=== PATIENT | male | born 1935 | race Caucasian/White ===

== ENCOUNTER → 2017-03-23 13:02 | Outpatient (CLI) | payer MEDICARE, SELFPAY ==
[2017-03-23 14:40] LABS: Hematocrit 41.3 % (40-54); Hemoglobin 14.2 g/dl (13.0-16.5); Mean Corp Hgb Conc 34.4 g/gl (32-36); Mean Corpuscular Hgb 33.6 pg (27.0-32.0); Mean Corpuscular Volume 97.6 fL (80-94); Mean Platelet Vol. 11.1 fl (6.2-12.0); Platelet Count 161 K/mm3 (150-450); RBC Distribution Width CV 12.9 % (11.6-14.6); RBC Distribution Width SD 45.9 fl (35.1-43.9); Red Blood Count 4.23 M/mm3 (4.6-6.2)
[2017-03-23 14:41] LABS: Scan Indicated on CBC? Y/N NO
[2017-03-23 14:58] LABS: Protein:Creat Ratio 1900 mg/g CRE (0-200)
[2017-03-23 15:02] LABS: Albumin, Serum 3.6 g/dL (3.2-5.0); BUN 37 mg/dL (7-18); BUN/Creat Ratio 19.9 RATIO (10-20); Calcium,Total 8.7 mg/dL (8.5-10.1); Chloride 104 mmol/L (98-107); Cholesterol 118 mg/dL (200); Creatinine, Serum 1.86 mg/dL (0.70-1.30); EST Glomerular Filtration Rate 37 mL/min (>60); Est Glom Filt Rate - Afr Amer 45 mL/min (>60); Glucose 93 mg/dL (74-106); High Density Lipoprotein 46 mg/dL; Magnesium 2.1 mg/dL (1.6-2.6); Phosphorus 3.1 mg/dL (2.5-4.9); Potassium 3.9 mmol/L (3.5-5.1); Sodium Level 138 mmol/L (136-145); Triglycerides 111 mg/dL; Very Low Density Lipoprotein 22 mg/dL (5-40)
[2017-03-24 09:02] LABS: Vitamin D,25 Hydroxy 27.7 ng/mL (19.95-100.01)
[2017-03-24 09:04] LABS: PTHIN 109.4 pg/mL (18.4-80.1)
== END ==
PROVIDERS: Internal Medicine Nephrology
DX: N18.3 Chronic kidney disease, stage 3 (moderate) (principal); N25.81 Secondary hyperparathyroidism of renal origin; E83.42 Hypomagnesemia; R80.9 Proteinuria, unspecified
CPT/HCPCS: 36415; 80061; 80069; 82306; 82570; 83735; 83970; 84156; 85027

== ENCOUNTER → 2018-07-26 | Outpatient (CLI) | payer MEDICARE, SELFPAY ==
--- NOTE | 2018-07-26 12:38 | RAD_ITS ---
STUDY: X-RAY - LEFT WRIST REASON FOR EXAM: Pain and swelling, fall. TECHNIQUE: 3 view(s) of the wrist were obtained. COMPARISON: None. FINDINGS: Normal visualized distal radius and ulna. Normal radiocarpal articulation. Normal distal radioulnar articulation. Normal carpal bones. Normal carpal articulations. Normal carpometacarpal articulation of the thumb. Normal second through fifth carpometacarpal articulations. Normal visualized metacarpal bones. There is soft tissue swelling. RAD/Wrist min 3 Views IMPRESSION: Soft tissue swelling. No demonstrated fracture. Electronically Signed: Allan Barahona MD at 13:01 EDT Tel , Service support ,
== END | disposition home or self-care (01) ==
PROVIDERS: Referring Provider Orthopaedic Surgery; Visit Provider Orthopaedic Surgery
DX: S62.102A Fracture of unspecified carpal bone, left wrist, initial encounter for closed fracture (principal)
CPT/HCPCS: 73110

== ENCOUNTER → 2018-07-31 08:35 | Outpatient (CLI) | payer MEDICARE, SELFPAY ==
[2018-07-26 14:36] VITALS: BMI 29.1
[2018-07-30 10:47] LABS: Hematocrit 37.9 % (40-54); Mean Corp Hgb Conc 34.3 g/gl (32-36); Mean Corpuscular Hgb 33.1 pg (27.0-32.0); Mean Corpuscular Volume 96.4 fL (80-94); Mean Platelet Vol. 10.7 fl (6.2-12.0); Platelet Count 185 K/mm3 (150-450); RBC Distribution Width CV 13.3 % (11.6-14.6); RBC Distribution Width SD 46.1 fl (35.1-43.9); Red Blood Count 3.93 M/mm3 (4.6-6.2); White Blood Count 5.6 K/mm3 (4.4-11.0)
[2018-07-30 10:48] LABS: International Normalized Ratio 1.1
[2018-07-30 10:49] LABS: Partial Thromboplast Time 28.8 Seconds (24.1-36.2); Scan Indicated on CBC? Y/N NO
[2018-07-30 11:07] LABS: Albumin, Serum 3.7 g/dL (3.2-5.0); BUN 41 mg/dL (7-18); BUN/Creat Ratio 14.5 RATIO (10-20); Calcium,Total 8.4 mg/dL (8.5-10.1); Chloride 107 mmol/L (98-107); Creatinine, Serum 2.82 mg/dL (0.70-1.30); EST Glomerular Filtration Rate 23 mL/min (>60); Est Glom Filt Rate - Afr Amer 28 mL/min (>60); Glucose 89 mg/dL (74-106); Magnesium 2.1 mg/dL (1.6-2.6); Phosphorus 3.3 mg/dL (2.5-4.9); Potassium 4.4 mmol/L (3.5-5.1); Sodium Level 137 mmol/L (136-145)
[2018-07-30 11:14] LABS: Vitamin D,25 Hydroxy 38.8 ng/mL (29.95-100.01)
[2018-07-30 11:24] LABS: Microalbumin:Creatinine Ratio 1408.6 mg/g CRE (<30 mg/g CRE)
[2018-07-30 11:35] LABS: PTHIN 253.5 pg/mL (18.4-80.1)
[2018-07-31] VITALS (13 sets, daily range): BP systolic 111–191; BP diastolic 61–94; PULSE 54–71; RESP 12–19; TEMP 36.4; O2SAT 95–99; BMI 29.1
--- NOTE | 2018-07-31 | KID_PTH ---
PATIENT: LEYDA ISAACS LOC: [facility]#:[id number] AGE/SX: 89/M ROOM: RE07/31/[address]: Dr. Andrea Xiao MD : 1935 BED: DIS: SPEC #: [id number] RECD: 07/31/18 12:29 STATUS: LROENA HSIEH #: [id number] KWESI: 07/31/18 00:[address]: Andrea Xiao DEPT: SURGICAL PATHOLOGY RECD BY: Noam Guidry ENTERED: 07/31/18 12:29 SP TYPE: KIDNEY OT DR: Out of [facility] Doctor Tissues: Kidney, NOS Procedures: Electron Microscopy ([facility]) Sp St Grp II Kidney ([facility]) Kidney Biopsy ([facility]) HEADER OPERATION: CT-guided left kidney biopsy PRE-OP DIAGNOSIS: Proteinuria TISSUE SUBMITTED: Left kidney 18 gauge core x4 MICROSCOPIC DIAGNOSIS Renal biopsy demonstrating extensive arteriosclerosis and glomerulosclerosis with chronic tubulointerstitial changes. COMMENT This renal biopsy demonstrates arteriosclerosis and glomerulosclerosis suggestive of chronic vascular disease (e.g., hypertension) with associated chronic tubulointerstitial changes. Immunofluorescence was not performed as all glomeruli present in the submitted sample were globally sclerotic. Electron microscopy shows no evidence of electron dense deposits. MICROSCOPIC DESCRIPTION Sections are evaluated with H & E, PAS, Nolan, trichrome and Congo red stains. Fifteen glomeruli are present. Eleven are globally sclerotic. Preserved glomeruli demonstrate delicate capillary loops with some thickening of vascular poles. No active glomerulitis, segmental lesions or cellular proliferation are identified. There is variable interstitial fibrosis estimated at 30-40% overall with proportionate tubular atrophy. There is moderate, patchy mononuclear interstitial inflammatory infiltrate. Arterioles show significant medial thickening. No arteritis is identified. ELECTION MICROSCOPY: One glomerulus is evaluated. Mesangial areas are not significantly expanded and no discrete electron dense deposits are identified. Glomerular capillary loops demonstrate basement membranes of normal to very slightly increased thickness with no discrete electron dense deposits. There is extensive effacement of overlying epithelial cell foot processes. Tubular basement membranes are of normal thickness with no discrete electron dense deposits. GROSS DESCRIPTION The specimen is sent entirely to [facility] for diagnosis. Received in transport medium are four cores of ball renal tissue that range in length from 0.8 to 1.7 cm. The cores are divided for histology, immunofluorescence and electron microscopy.
--- NOTE | 2018-07-31 09:35 | US_ITS ---
PROCEDURE: Ultrasound Guided CLINICAL HISTORY: Male, 83 years old. CONSENT: Time-Out Called: Yes Consent form signed: YES PT-PTT Levels Checked: Yes SEDATION: TECHNIQUE: FINDINGS: An attempt was done to obtain kidney biopsy under ultrasound guidance because of shallow short needle using the ultrasound access the procedure was stopped and the patient was transferred to CT scan. Please refer to the CT scan report done same day Electronically Signed: Paul Barnett, at 16:25 EDT Tel , Service support , US/Kidney Biopsy
[2018-07-31] MEDS: 0.9% Saline Lock 10 ML Syringe IV (10:00)
--- NOTE | 2018-07-31 11:34 | CT_ITS ---
PROCEDURE: Ultrasound Guided CLINICAL HISTORY: Male, 83 years old. CONSENT: Time-Out Called: Yes Consent form signed: YES PT-PTT Levels Checked: Yes SEDATION: TECHNIQUE: FINDINGS: Under CT guidance and following proper antiseptic preparation, 18-gauge biopsy needle was used to obtain 4 cores from the lower aspect of the left kidney the specimens were sent to the lab for assessment. There is minimal left subcapsular hematoma noted after the procedure. The patient was then monitored for 2 hours after the procedure. IMPRESSION: Left kidney biopsy under CT guidance was done. Electronically Signed: Paul Barnett, at 16:23 EDT Tel , Service support , CT/Biopsy/Inj or Needle Placement
== END ==
PROVIDERS: Referring Provider Internal Medicine Nephrology; Visit Provider Internal Medicine Nephrology
DX: R80.9 Proteinuria, unspecified (principal); N18.4 Chronic kidney disease, stage 4 (severe); N25.81 Secondary hyperparathyroidism of renal origin; E83.42 Hypomagnesemia; Z13.0 Encounter for screening for diseases of the blood and blood-forming organs and certain disorders involving the immune mechanism
CPT/HCPCS: 50200; 36415; 76942; 77012; 80069; 82043; 82306; 82570; 83735; 83970; 85027; 85610; 85730; 88300; 88305; 88313; 88348; J7040; A4216

== ENCOUNTER 2019-11-15 18:16 | Inpatient (IN) | payer MEDICARE, SELFPAY ==
[2018-07-31 09:48] VITALS: BMI 29.1
[2019-11-15] VITALS (15 sets, daily range): BP systolic 121–145; BP diastolic 59–93; PULSE 65–77; RESP 12–36; TEMP 36.9; O2SAT 88–100; BMI 26.5
--- NOTE | 2019-11-15 18:28 | HP.PCM_ITS ---
Problem List (1) Septic shock Status: Acute (2) Community acquired pneumonia Status: Acute Qualifiers: Laterality: right Comment: Bilateral community-acquired pneumonia (3) Sepsis with acute hypoxic respiratory failure and septic shock Status: Acute Qualifiers: Sepsis type: sepsis due to unspecified organism Qualified Code(s): A41.9 - Sepsis, unspecified organism; R65.21 - Severe sepsis with septic shock; J96.01 - Acute respiratory failure with hypoxia History of Present Illness Date of Admission: 11/15/19 Chief Complaint: Lateral community-acquired pneumonia with septic shock, hypoxic respiratory failure The patient is a 84 year old M was directly admitted into the ICU at [facility] after being transferred from [place] emergency room with a diagnosis of bilateral community-acquired pneumonia with septic shock (based on an elevated lactic acid level of 6.2) and hypoxic respiratory failure. Patient went to the emergency room at [place] with complaints of increased shortness of breath over the previous 2 days, work-up there included a chest x-ray which showed bilateral infiltrates right worse than the left, labs revealed an elevated white blood cell count at 12.3, patient was afebrile, his creatinine was elevated (these labs were not included in his transfer papers, I recall the emergency room physician at [place] telling me his creatinine was in the 4 range which was normal for the patient as he has a diagnosis of chronic kidney disease) and his COVID-19 test was negative. Patient's beta natruretic peptide was elevated but due to the patient's history of chronic kidney disease, patient was not felt to be in CHF. Patient complained of chills but not fever. Patient was given IV Rocephin and Zithromax at the [place] emergency room and his requested he be transferred to [place] for further care. Patient receives most of his medical care at the [facility], he follows up with Dr. Sierra (nephrology) concerning his chronic renal disease. On examination of the patient in the ICU, he appeared to be tachypneic but he did not appear to be in any respiratory distress at the time of my examination, initially he was placed on BiPAP and then he was placed on AIRVO-but the patient was not able to maintain a sat and he was placed back on BiPAP. The patient briefly about his CODE STATUS, he stated that he wanted to be placed on a ventilator if needed and he would want CPR if needed. Patient's meds were entered-it appears he is on Eliquis for atrial fib, copies of his EKG at [facility] were in his transfer packet, it appears that he has a rate of approximately 70-it appears that he is in sinus rhythm. Patient will be continued on Rocephin and Zithromax, I have written for DuoNeb aerosol treatments for the patient, he will have a repeat chest x-ray performed in the morning, I have ordered a CMP, troponin, and lactic acid for now. Patient technically fits criteria for septic shock but he is not hypotensive. I have elected to keep him on an IV rate of 75 cc an hour. Past Medical History Allergies adhesive tape Allergy (Mild, Verified 07/31/18 09:58) Rash oxycodone Allergy (Mild, Verified 07/31/18 09:58) Rash tramadol Allergy (Mild, Verified 07/31/18 09:58) Other Home Medications: Ambulatory Orders Medication Instructions Recorded allopurinol 100 mg tablet PO #90 tab 07/26/18 amiodarone 200 mg tablet PO #90 tab 07/26/18 amlodipine 5 mg tablet PO #90 tab 07/26/18 apixaban 5 mg tablet PO #60 tab 07/26/18 atorvastatin 80 mg tablet PO #90 tab 07/26/18 meclizine 12.5 mg tablet PO #90 tab 07/26/18 Surgical History: cataract Psychiatric History: - - Alzheimer's dementia Lives: Spouse/ Significant Other Smoking Status: Current every day smoker Tobacco Use: Cigarettes Alcohol: None Drugs: None - *Family History Paternal History Items: No pertinent history Maternal History Items: Diabetes Review of Systems Comment: Review of systems on this patient is unreliable-I confirmed he has a diagnosis of Alzheimer's dementia from information obtained from his daughter by phone, I have relied on the patient's medical record from [facility] and the conversations that I had with the [facility] emergency room physician to complete this patient's history and physical. VTE Information - Inpt Only VTE Present on Admission: No VTE Mechan Device Prophylaxis: None VTE Pharm Prophylaxis ordered?: No Reason prophylaxis not ordered:: Treatment Not Indicated - Patient on Eliquis Patient Problems: Active and Suspected Problems Septic shock (Acute) Community acquired pneumonia (Acute) Bilateral community-acquired pneumonia Sepsis with acute hypoxic respiratory failure and septic shock (Acute) - Physical Exam Vitals/I&O's: Vital Signs Pulse Resp Pulse Ox 68 23 H 96 11/15/19 18:08 11/15/19 18:08 11/15/19 18:08 Weight: 83.915 kg Body Mass Index (BMI) 26.5 General: Alert, Cooperative, No apparent distress, Well developed HEENT: PERRLA, EOMI, Normocephalic Oral: Moist Mucosa Neck: Supple, No JVD, Negative Carotid Bruits, Trachea Midline, Thyroid Normal Size and Texture Lungs: Diminished - Severely diminished breath sounds were noted on the right, there were slightly diminished breath sounds on the left, Rales - Inspiratory rales were noted over the patient's left lower lung field on auscultation, Rhonchi - Expiratory rhonchi were noted over all lung pina bilaterally Cardiovascular: Regular rate, Regular Rhythm, Normal S1, Normal S2, PMI Normal, No rub noted, No Gallop Abdomen: Bowel Sounds Present, Soft, Non Tender, Non-Distended, No hernias noted Extremities: No clubbing, No cyanosis, No edema, Capillary Refill Less than 3 Seconds Skin: No rashes, No breakdown Musculoskeletal: No Tenderness to Palpation of Joints or Extremities Neurological: Cranial nerves II-XII grossly intact, Neuro grossly intact, Sensory exam intact to light touch and pain, Coordination normal Psych/Mental Status: - - Patient is alert, he answers some questions appropriately but he is an unreliable historian he does not appear agitated or depressed Current Medications Sodium Chloride () 10 - 40 ml IV UD PRN PRN Reason: SALINE FLUSH Assessment/Plan All Active Problems Septic shock (Acute) Community acquired pneumonia (Acute) Sepsis with acute hypoxic respiratory failure and septic shock (Acute) #1 septic shock secondary to community-acquired pneumonia-again patient will be maintained on Zithromax and Rocephin, blood cultures were drawn in the emergency room at [facility], these will need to be followed up. #2 bilateral community-acquired pneumonia-chest x-ray will be repeated tomorrow, urine was ordered for Legionella and strep antigens, patient had a respiratory panel done at [place] emergency room for influenza a and B and RSV-these were negative. 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 According to his daughter who I talked with by phone today, she does not know of any history of coronary artery disease but she states that the patient does see a puller out in [place] #9 hyperlipidemia Further note: The emergency room physician at [facility] told me today that the patient had a flu shot 2 days ago. Inpatient E&M: 05362 Init Hosp L3
--- NOTE | 2019-11-15 18:40 | RAD_ITS ---
STUDY: X-RAY CHEST REASON FOR EXAM: Male, 84 years old. RESPIRATORY FAILURE TECHNIQUE: AP portable COMPARISON: None. FINDINGS: There is severe diffuse bilateral perihilar interstitial thickening with coexisting nodular opacities which may be consistent with atypical viral pneumonia.. There is no demonstrated pleural abnormality. Heart is enlarged. Normal mediastinum and sanjeev. Normal visualized pulmonary arteries. Tortuous mildly calcified aortic arch and descending thoracic aorta. Dorsal spine and shoulders demonstrate degenerative change.. Normal visualized ribs, and clavicles.. Postsurgical changes status post multilevel cervical fusion. There is no demonstrated abnormality of the visualized soft tissue structures of the upper abdomen. RAD/Chest 1 View (Portable) IMPRESSION: Diffuse bilateral perihilar interstitial infiltrates with coexisting nodular opacities suggesting Covid 19 pneumonia. Clinical correlation recommended Electronically Signed: Silvestre Abernathy MD at 20:51 EDT , Service support ,
[2019-11-15 19:10] LABS: ALB/GLOB Ratio 0.8 RATIO (0.9-2.4); AST(SGOT) 44 U/L (15-37); Alanine Aminotransfer ALT/SGPT 31 U/L (16-61); Alkaline Phosphatase 65 U/L (45-117); Anion Gap 11 (5-15); BUN 79 mg/dL (7-18); BUN/Creat Ratio 15.3 RATIO (10-20); Calcium,Total 8.4 mg/dL (8.5-10.1); Chloride 113 mmol/L (98-107); Creatinine, Serum 5.16 mg/dL (0.70-1.30); EST Glomerular Filtration Rate 11 mL/min (>60); Est Glom Filt Rate - Afr Amer 14 mL/min (>60); Globulin 3.7 g/dL (2.2-4.2); Glucose 131 mg/dL (74-106); Potassium 4.6 mmol/L (3.5-5.1); Protein, Total 6.7 g/dL (6.4-8.2); Sodium Level 142 mmol/L (136-145)
[2019-11-15 19:11] LABS: Lactic Acid 3.7 mmol/L (0.4-1.9)
--- NOTE | 2019-11-15 19:12 | ECHOD_ITS ---
Procedure This was a 2D Doppler, Color Flow transthoracic echocardiogram. Pt supine sitting upright at 45 degrees due to SOB- On BiPAP. Exam performed portable in ICU/CCU. Left Ventricle The estimated ejection fraction is 30-35 %. Anterior [place] : Severely Hypokinetic. Right Ventricle Normal right ventricle. Atria Normal left atrium. Normal right atrium. Normal atrial septum. Mitral Valve Mild (1+) mitral valve insufficiency. Tricuspid Valve Mild eccentric tricuspid valve insufficiency. Aortic Valve Normal aortic valve. Great Vessels Normal ascending aorta. Normal inferior vena cava. Pericardium/Pleural No pericardial effusion. MMode/2D Measurements & Calculations LVIDd: 5.8 cm IVSd: 1.0 cm Ao root diam: 3.9 cm LVIDs: 3.8 cm LVPWd: 1.0 cm RVDd: 4.9 cm FS: 35.3 % LAV(MOD-bp): 78.8 ml LVAd ap4: 45.2 cm2 SV(MOD-sp4): 50.6 ml LAV(MOD-bp) Indexed: 39.4 ml/m2 EDV(MOD-sp4): 161.8 ml LAV(MOD-sp2): 82.3 ml EDV(sp4-el): 174.6 ml LAV(MOD-sp4): 63.7 ml LVAs ap4: 35.3 cm2 ESV(MOD-sp4): 111.2 ml ESV(sp4-el): 115.3 ml EF(MOD-sp4): 31.2 % EF(sp4-el): 34.0 % SV(sp4-el): 59.3 ml LA dimension(2D): 5.3 cm LA A4 area: 20.5 cm2 RA A4 area: 19.7 cm2 Time Measurements MV dec time: 0.17 sec Doppler Measurements & Calculations MV E max kael: 79.7 cm/sec Lat Peak E' Kael: 4.8 cm/sec Med Peak E' Kael: 3.7 cm/sec MV A max kael: 75.2 cm/sec E/E' lat: 16.5 E/E' med: 21.7 MV E/A: 1.1 Ao V2 max: 131.1 cm/sec LV V1 max: 69.8 cm/sec PA V2 max: 102.5 cm/sec Ao max P.9 mmHg LV V1 max P.0 mmHg TR max kael: 344.0 cm/sec TR max P.8 mmHg Interpretation Summary Anterior [place] : Severely Hypokinetic. Severe LV systolic Dysfunction EF 30-35% Severe Anteroapical hypokinesia Mild MR Mild TR. Ordering Physician: Blu Tam Performed By: Kady Coulter RDCS, RVT
[2019-11-15] MEDS: Ipratropium/Albuterol Sulfate 3 ML AMPUL.NEB INHALATION (20:14)
[2019-11-15] MEDS: 0.9% Saline Lock 10 ML Syringe IV (20:26)
[2019-11-15] MEDS: Aspirin 325 MG Tablet PO (20:26)
[2019-11-15] MEDS: LORazepam 0.5 MG Tablet PO (20:27)
[2019-11-15] MEDS: Furosemide 100 MG/10 ML Vial 80 MG IV (20:27)
[2019-11-15 20:33] LABS: International Normalized Ratio 1.4; Partial Thromboplast Time 26.8 Seconds (24.1-36.2); Prothrombin Time (Protime)PT. 16.2 SECONDS (11.7-14.9)
[2019-11-15] MEDS: Heparin Injection (Vial) 5,000 UNIT/ML VIAL 6000 UNIT IV (20:37)
[2019-11-15] MEDS: HEPARIN/D5w 25,000 UNITS 25,000 UNITS/250 ML IV.SOLN. 12 UNITS IV (20:41)
[2019-11-15 21:35] LABS: Ferritin 335 ng/mL (26-388); LDH 256 U/L (87-241)
[2019-11-15 21:42] LABS: D-Dimer Quantitative (DVT/PE) 2.05 FEU/ug/m (0.27-0.49)
[2019-11-15] MEDS: Atorvastatin Calcium 80 MG Tablet PO (21:52)
[2019-11-15] MEDS: Memantine Hydrochloride 5 MG Tablet PO (21:52)
[2019-11-15 22:51] LABS: Reflex Lactate? Y
[2019-11-15 23:26] LABS: Procalcitonin 0.87 ng/mL (0.00-0.09)
[2019-11-16] VITALS (39 sets, daily range): BP systolic 113–130; BP diastolic 61–93; PULSE 65–97; RESP 12–30; TEMP 36.2–37.7; O2SAT 85–100
[2019-11-16] MEDS: Ipratropium/Albuterol Sulfate 3 ML AMPUL.NEB INHALATION ×4 (01:57→19:07)
[2019-11-16 02:08] LABS: Lactic Acid 2.6 mmol/L (0.4-1.9)
[2019-11-16 03:51] LABS: Absolute Lymphocyte Count 0.67 X10^3/uL (0.83-4.51); Absolute Neutrophil Count 13.2 X10^3/uL (2.0-7.7); Basophil# 0.01 X10^3/uL; Basophil% 0.1 % (0-1); Hematocrit 30.6 % (40-54); Hemoglobin 10.1 g/dL (13.0-16.5); Lymphocyte # 0.67 X10^3/ul (4.0); Lymphocyte % 4.6 % (19-41); Mean Corpuscular Hgb 33.6 pg (27.0-32.0); Mean Corpuscular Volume 101.7 fL (80-94); Mean Platelet Vol. 11.8 fl (6.2-12.0); Monocyte# 0.54 X10^3/uL; Monocyte% 3.7 % (0-10); NRBC Flagged by Analyzer 0 % (0-5); Neutrophil # 13.15 X10^3/uL (2.7-7.7); Neutrophil % 90.3 % (47-70); POSITIVE MORPHOLOGY YES; Platelet Count 147 K/mm3 (150-450); RBC Distribution Width CV 13.9 % (11.6-14.6); RBC Distribution Width SD 52.1 fl (35.1-43.9); Red Blood Count 3.01 M/mm3 (4.6-6.2); White Blood Count 14.6 K/mm3 (4.4-11.0)
[2019-11-16 04:16] LABS: Anion Gap 9 (5-15); BUN 93 mg/dL (7-18); BUN/Creat Ratio 17.6 RATIO (10-20); Calcium,Total 8.5 mg/dL (8.5-10.1); Chloride 112 mmol/L (98-107); Cholesterol 123 mg/dL (200); Creatinine, Serum 5.28 mg/dL (0.70-1.30); EST Glomerular Filtration Rate 11 mL/min (>60); Est Glom Filt Rate - Afr Amer 13 mL/min (>60); Estimated Creatinine Clearance 10.75 ml/min; Glucose 126 mg/dL (74-106); High Density Lipoprotein 65 mg/dL; Potassium 4.8 mmol/L (3.5-5.1); Sodium Level 141 mmol/L (136-145); Triglycerides 45 mg/dL; Very Low Density Lipoprotein 9 mg/dL (5-40)
[2019-11-16 04:18] LABS: Partial Thromboplast Time 172.2 Seconds (24.1-36.2)
[2019-11-16 04:19] LABS: Differential Indicated SCAN CRITERIA MET
[2019-11-16 04:38] LABS: Macrocytosis RARE; Platelet Estimate SLT DEC (ADEQ)
--- NOTE | 2019-11-16 05:49 | PCM.CON.CC ---
Reason for Consult Date of Consultation: 11/16/19 Reason for Consultation: Respiratory failure History of Present Illness: The patient is an 84-year-old male, with a history as outlined below, who presented to [facility] as a transfer from [place] emergency department with a diagnosis of bilateral community-acquired pneumonia and septic shock based on elevated lactate criteria. The patient did initially report to the emergency department with complaints of shortness of breath. Coronavirus PCR performed at the outside institution was negative. On presentation to the medical intensive care unit, the patient was noted to be afebrile and hemodynamically stable. He was requiring noninvasive positive pressure ventilatory support to maintain appropriate oxygenation status. Laboratory work-up revealed an elevated white blood cell count of 15,000. Coagulation profile was notable for a d-dimer of 2.05. Chemistry profile was notable for a serum bicarbonate of 18 with a creatinine of 5.16 and lactate of 3.7. AST was elevated at 44. Initial troponin was elevated at 3.2. BNP was elevated to 4750. Procalcitonin was elevated to 0.87. Repeat coronavirus PCR was again negative. Chest x-ray revealed diffuse bilateral airspace disease. 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) Allergies adhesive tape Allergy (Mild, Verified 07/31/18 09:58) Rash oxycodone Allergy (Mild, Verified 07/31/18 09:58) Rash tramadol Allergy (Mild, Verified 07/31/18 09:58) Other Home Medications: Ambulatory Orders Medication Instructions Recorded allopurinol 100 mg tablet PO #90 tab 07/26/18 amiodarone 200 mg tablet PO #90 tab 07/26/18 amlodipine 5 mg tablet PO #90 tab 07/26/18 apixaban 5 mg tablet PO #60 tab 07/26/18 atorvastatin 80 mg tablet PO #90 tab 07/26/18 meclizine 12.5 mg tablet PO #90 tab 07/26/18 Surgical History: cataract Psychiatric History: - - Alzheimer's dementia Lives: Spouse/ Significant Other Smoking Status: Current every day smoker Tobacco Use: Cigarettes Alcohol: None Drugs: None - *Family History Paternal History Items: No pertinent history Maternal History Items: Diabetes Review of Systems Constitutional: Reports: Fatigue. Denies: Chills, Fever Eyes: Denies: Blurred vision, Double vision HEENT: Denies: Head Aches, Sinus Congestion, Sinus Drainage Cardiovascular: Denies: Chest Pain Respiratory: Reports: Shortness of Breath Gastrointestinal: Denies: Abdominal Pain, Nausea, Vomiting Genitourinary: Denies: Dysuria Musculoskeletal: Denies: Joint Pain, Joint Tenderness Skin: Denies: Rash, Wounds Neurological: Denies: Numbness, Tingling, Focal weakness Psychiatric: Denies: Anxiety, Depression, Homicidal Ideations, Suicidal Ideations Hematologic/ Lymphatic: Reports: Anemia Patient Problems: Active and Suspected Problems Septic shock (Acute) Community acquired pneumonia (Acute) Bilateral community-acquired pneumonia Sepsis with acute hypoxic respiratory failure and septic shock (Acute) [place] (acute kidney injury) (Acute) Objective: The patient's most recent lab work, culture data and imaging studies have all been personally reviewed. - Physical Exam Vitals/I&O's: Vital Signs Temp Pulse Resp BP Pulse Ox 97.2 F L 70 20 H 119/68 98 11/16/19 04:00 11/16/19 05:00 11/16/19 05:00 11/16/19 05:00 11/16/19 05:00 Oxygen Delivery Method Bi-pap Weight: 185 lb Body Mass Index (BMI) 26.5 Intake and Output for Last 24 Hours 11/14/19 11/15/19 11/16/19 23:59 23:59 23:59 Intake Total 96.8 / 96.8 Output Total 500 / 500 300 / 300 Balance -500 / -500 -203.2 / -203.2 General: Alert, Cooperative, - - BiPAP mask currently in place HEENT: Atraumatic, Normocephalic Oral: Dry Mucosa Neck: Supple, No Nodes, Trachea Midline Lungs: Diminished, Rales, Tachypneic Cardiovascular: Regular rate, Regular Rhythm Abdomen: Bowel Sounds Present, Soft, Non Tender Extremities: No clubbing, No cyanosis, No edema Skin: No breakdown Musculoskeletal: No Muscle Wasting Lymphatic: No Cervical, Supraclavicular, or Inguinal Adenopathy Neurological: Cranial nerves II-XII grossly intact, Neuro grossly intact Psych/Mental Status: Normal Affect, Appropriate Labs (Last 48 Hours) 11/15/19 11/15/19 11/15/19 18:30 18:30 18:30 WBC RBC Hgb Hct MCV MCH MCHC RDW Std Deviation RDW Coeff of Maritza Plt Count MPV Immature Gran % (Auto) Neut % (Auto) Lymph % (Auto) [place] % (Auto) Eos % (Auto) Baso % (Auto) Absolute Neuts (auto) Absolute Lymphs (auto) Nucleated RBC % Differential Comment Platelet Estimate Macrocytosis PT INR APTT D-Dimer Quant (PE/DVT) Sodium 142 Potassium 4.6 Chloride 113 H Carbon Dioxide 18.0 L Anion Gap 11 BUN 79 H Creatinine 5.16 H Estim Creat Clear Calc 11.00 Est GFR (MDRD) Af Amer 14 L Est GFR (MDRD) Non-Af 11 L BUN/Creatinine Ratio 15.3 Glucose 131 H Lactic Acid 3.7 H* Calcium 8.4 L Magnesium Ferritin Total Bilirubin 0.40 AST 44 H ALT 31 Alkaline Phosphatase 65 Lactate Dehydrogenase Troponin I 3.240 H* C-React Prot Ext Range B-Natriuretic Peptide 4750.7 H Total Protein 6.7 Albumin 3.0 L Globulin 3.7 Albumin/Globulin Ratio 0.8 L Triglycerides Cholesterol LDL Cholesterol VLDL Cholesterol HDL Cholesterol Procalcitonin COVID-19 (MELODY) 11/15/19 11/15/19 11/15/19 18:30 20:13 20:13 WBC RBC Hgb Hct MCV MCH MCHC RDW Std Deviation RDW Coeff of Maritza Plt Count MPV Immature Gran % (Auto) Neut % (Auto) Lymph % (Auto) [place] % (Auto) Eos % (Auto) Baso % (Auto) Absolute Neuts (auto) Absolute Lymphs (auto) Nucleated RBC % Differential Comment Platelet Estimate Macrocytosis PT 16.2 H INR 1.4 APTT 26.8 D-Dimer Quant (PE/DVT) 2.05 H* Sodium Potassium Chloride Carbon Dioxide Anion Gap BUN Creatinine Estim Creat Clear Calc Est GFR (MDRD) Af Amer Est GFR (MDRD) Non-Af BUN/Creatinine Ratio Glucose Lactic Acid Calcium Magnesium 2.0 Ferritin Total Bilirubin AST ALT Alkaline Phosphatase Lactate Dehydrogenase Troponin I C-React Prot Ext Range B-Natriuretic Peptide Total Protein Albumin Globulin Albumin/Globulin Ratio Triglycerides Cholesterol LDL Cholesterol VLDL Cholesterol HDL Cholesterol Procalcitonin COVID-19 (MELODY) 11/15/19 11/15/19 11/15/19 20:13 21:45 21:45 WBC RBC Hgb Hct MCV MCH MCHC RDW Std Deviation RDW Coeff of Maritza Plt Count MPV Immature Gran % (Auto) Neut % (Auto) Lymph % (Auto) [place] % (Auto) Eos % (Auto) Baso % (Auto) Absolute Neuts (auto) Absolute Lymphs (auto) Nucleated RBC % Differential Comment Platelet Estimate Macrocytosis PT INR APTT D-Dimer Quant (PE/DVT) Sodium Potassium Chloride Carbon Dioxide Anion Gap BUN Creatinine Estim Creat Clear Calc Est GFR (MDRD) Af Amer Est GFR (MDRD) Non-Af BUN/Creatinine Ratio Glucose Lactic Acid Calcium Magnesium Ferritin 335 Total Bilirubin AST ALT Alkaline Phosphatase Lactate Dehydrogenase 256 H Troponin I 4.360 H* C-React Prot Ext Range 89.00 H B-Natriuretic Peptide Total Protein Albumin Globulin Albumin/Globulin Ratio Triglycerides Cholesterol LDL Cholesterol VLDL Cholesterol HDL Cholesterol Procalcitonin 0.87 H COVID-19 (MELODY) 11/16/19 11/16/19 11/16/19 01:15 01:30 01:50 WBC RBC Hgb Hct MCV MCH MCHC RDW Std Deviation RDW Coeff of Maritza Plt Count MPV Immature Gran % (Auto) Neut % (Auto) Lymph % (Auto) [place] % (Auto) Eos % (Auto) Baso % (Auto) Absolute Neuts (auto) Absolute Lymphs (auto) Nucleated RBC % Differential Comment Platelet Estimate Macrocytosis PT INR APTT D-Dimer Quant (PE/DVT) Sodium Potassium Chloride Carbon Dioxide Anion Gap BUN Creatinine Estim Creat Clear Calc Est GFR (MDRD) Af Amer Est GFR (MDRD) Non-Af BUN/Creatinine Ratio Glucose Lactic Acid 2.6 H* Calcium Magnesium Ferritin Total Bilirubin AST ALT Alkaline Phosphatase Lactate Dehydrogenase Troponin I 5.440 H* C-React Prot Ext Range B-Natriuretic Peptide Total Protein Albumin Globulin Albumin/Globulin Ratio Triglycerides Cholesterol LDL Cholesterol VLDL Cholesterol HDL Cholesterol Procalcitonin COVID-19 (MELODY) Not Detected 11/16/19 11/16/19 11/16/19 03:30 03:30 03:30 WBC 14.6 H RBC 3.01 L Hgb 10.1 L Hct 30.6 L MCV 101.7 H MCH 33.6 H MCHC 33.0 RDW Std Deviation 52.1 H RDW Coeff of Maritza 13.9 Plt Count 147 L MPV 11.8 Immature Gran % (Auto) 1.300 H Neut % (Auto) 90.3 H Lymph % (Auto) 4.6 L [place] % (Auto) 3.7 Eos % (Auto) 0.0 Baso % (Auto) 0.1 Absolute Neuts (auto) 13.2 H Absolute Lymphs (auto) 0.67 L Nucleated RBC % 0 Differential Comment COMMENT Platelet Estimate SLT DEC Macrocytosis RARE PT INR APTT 172.2 H* D-Dimer Quant (PE/DVT) Sodium 141 Potassium 4.8 Chloride 112 H Carbon Dioxide 20.0 L Anion Gap 9 BUN 93 H Creatinine 5.28 H Estim Creat Clear Calc 10.75 Est GFR (MDRD) Af Amer 13 L Est GFR (MDRD) Non-Af 11 L BUN/Creatinine Ratio 17.6 Glucose 126 H Lactic Acid Calcium 8.5 Magnesium Ferritin Total Bilirubin AST ALT Alkaline Phosphatase Lactate Dehydrogenase Troponin I C-React Prot Ext Range B-Natriuretic Peptide Total Protein Albumin Globulin Albumin/Globulin Ratio Triglycerides 45 Cholesterol 123 LDL Cholesterol 49 VLDL Cholesterol 9 HDL Cholesterol 65 Procalcitonin COVID-19 (MELODY) Clinical Impression(s) from Imaging Studies Chest X-Ray 11/15/19 18:40 IMPRESSION: Diffuse bilateral perihilar interstitial infiltrates with coexisting nodular opacities suggesting Covid 19 pneumonia. Clinical correlation recommended Electronically Signed: Silvestre Abernathy MD at 20:51 EDT , Service support , Chest X-Ray 11/16/19 05:55 IMPRESSION: Minimal change in extensive bilateral infiltrates. at 0511 Reported and signed by: Hawa Clark MD Electronically Signed: Hawa Clark MD at 5:11 EDT Tel , Service support , Current Medications Acetaminophen (Tylenol) 650 mg PO Q6H PRN PRN PRN Reason: Pain 1-10 or Fever Albuterol Sulfate (Ventolin Aerosols) 2.5 mg INHALATION Q2H PRN PRN PRN Reason: DYSPNEA Albuterol/Ipratropium (Duoneb) 3 ml INHALATION Q6H.RT [facility] Last Admin: 11/16/19 01:57 Dose: 3 ml Documented by: Amiodarone HCl (Cordarone) 200 mg PO DAILY [facility] Amlodipine Besylate (Norvasc) 10 mg PO DAILY [facility] Aspirin (Aspirin, Baby) 81 mg PO DAILY@0800 [facility] Atorvastatin Calcium (Lipitor) 80 mg PO QHS [facility] Last Admin: 11/15/19 21:52 Dose: 80 mg Documented by: Heparin Sodium (Porcine) (Heparin Na) 0 unit IV UD PRN; Protocol PRN Reason: dose adjustment Ceftriaxone Sodium (Rocephin) 1 gm in 50 mls @ 100 mls/hr IV Q24 [facility] Azithromycin 500 mg/ Dextrose 255 mls @ 250 mls/hr IV Q24 [facility] Heparin Sodium/Dextrose () 25,000 units in 250 mls @ 12 mls/hr IV .[id number] [facility]; Protocol Last Titration: 11/16/19 04:45 Dose: 0 units/hr, 0 mls/hr Documented by: Levothyroxine Sodium (Synthroid) 50 mcg PO DAILY@0600 [facility] Lorazepam (Ativan) 0.5 mg PO Q12H PRN PRN PRN Reason: anxiety with BIPAP Last Admin: 11/15/19 20:27 Dose: 0.5 mg Documented by: Memantine (Namenda) 5 mg PO BID [facility] Last Admin: 11/15/19 21:52 Dose: 5 mg Documented by: Ondansetron HCl (Zofran) 4 mg IV Q8H PRN PRN PRN Reason: NAUSEA/VOMITING Sodium Chloride () 10 - 40 ml IV UD PRN PRN Reason: SALINE FLUSH Last Admin: 11/15/19 20:26 Dose: 10 ml Documented by: Assessment/Plan Active and Suspected Problems Septic shock (Acute) Community acquired pneumonia (Acute) Bilateral community-acquired pneumonia Sepsis with acute hypoxic respiratory failure and septic shock (Acute) [place] (acute kidney injury) (Acute) RECOMMENDATIONS: 1. Broaden antimicrobials to include Zosyn. Check MRSA screen, and if positive, add vancomycin as well. 2. Okay to discontinue COVID precautions, given negative testing. 3. Check respiratory viral panel. 4. Obtain nephrology and cardiology consultations. 5. Obtain echocardiogram. 6. Administer IV Lasix. 7. Continue BiPAP therapy and wean FiO2 to maintain oxygen saturations at or above 90%. 8. Continue scheduled bronchodilator therapy. IMPRESSIONS: 1. Acute hypoxemic respiratory failure Most likely multifactorial in etiology. Given negative coronavirus screen, precautions can be discontinued. I do suspect that the patient's presentation is likely the consequence of acute decompensated heart failure in the setting of an NSTEMI with possible superimposed pneumonia. At this time, the patient has responded appropriately to BiPAP therapy, which will be continued without change. We will plan to obtain a respiratory viral panel as well. Broad-spectrum antimicrobials will be continued, pending infectious work-up. We will plan to continue to trend troponins and obtain cardiology consultation. Echocardiogram is pending. IV Lasix has been ordered. Wean FiO2 to maintain oxygen saturations at or above 90%. 2. Acute on chronic kidney disease The patient has been followed by nephrology due to his chronic kidney disease. Consultation by nephrology is currently pending. He may require dialysis, if he does not respond to IV Lasix therapy. 3. Non-ST segment elevation SD The patient presented with an elevated troponin and T wave inversions on EKG. Troponins continue to climb. Accordingly, cardiology consultation will be obtained. Echocardiogram is currently pending. 4. Septic shock The patient did have SIRS criteria along with an elevated lactate to greater than 6 at the outside hospital. I do suspect that his lactate elevation is secondary to hypoxemia, as the patient has never been hemodynamically unstable. Although the patient was initially treated with IV fluids, I am concerned about potential decompensated heart failure, and therefore, IV Lasix has been administered. Plan to continue supportive measures as noted above. 5. Questionable history of COPD/Alzheimer's/hypertension Complicates care, management, recovery and prognosis. Continue bronchodilators as ordered. TIME: 35 minutes of critical care time, independent of procedures, was spent addressing the patient's acute hypoxemic respiratory failure, acute on chronic kidney disease, non-ST segment elevation SD, septic shock, review of all data and collaboration with the care team. ([id number]) [phone]: [id number] Critical care first hour
--- NOTE | 2019-11-16 05:55 | RAD_ITS ---
HISTORY: Pneumonia, respiratory failure. ADDITIONAL HISTORY: None provided. EXAMINATION/TECHNIQUE: XR Chest 1 View AP/PA Number of images including paperwork: 1 COMPARISON: 11/15/2019 FINDINGS: LUNGS AND PLEURA: Extensive bilateral infiltrates appear grossly similar given differences in lung volumes, technique and projection. CARDIAC SILHOUETTE: Stable. MEDIASTINUM AND DUKE: Stable. UPPER ABDOMEN: Unremarkable. SKELETON AND SOFT TISSUES: No acute skeletal findings. Degenerative changes. OTHER DEVICES AND HARDWARE: Cervical spine hardware partially visible. Multiple overlying monitor leads and wires. RAD/Chest 1 View (Portable) IMPRESSION: Minimal change in extensive bilateral infiltrates. at 0511 Reported and signed by: Hawa Clark MD Electronically Signed: Hawa Clark MD at 5:11 EDT Tel , Service support ,
[2019-11-16] MEDS: Levothyroxine 50 MCG Tablet PO (06:17)
[2019-11-16] MEDS: TITRATION PARAMETER CHANGE 1 EACH IV (06:26)
--- NOTE | 2019-11-16 06:46 | EKG12_ITS ---
Test Reason : EKG CHANGES Blood Pressure : / mmHG Vent. Rate : 071 BPM Atrial Rate : 071 BPM P-R Int : 244 ms QRS Dur : 100 ms QT Int : 434 ms P-R-T Axes : 043 -57 019 degrees QTc Int : 471 ms Sinus rhythm with sinus arrhythmia with 1st degree A-V block Left axis deviation Inferior infarct , age undetermined T wave abnormality, consider anterolateral ischemia Abnormal ECG No previous ECGs available Confirmed by NABEEL MCDERMOTT, GUZMAN ([id number]), research editor ARPAN REDDY ([id number]) on 11/20/2019 11:24:57 AM Referred By: Jm BARRIGA Confirmed By:ASH LEES MD
--- NOTE | 2019-11-16 07:07 | PCM.PN.HOSP ---
Patient Problems: Active and Suspected Problems Septic shock (Acute) Community acquired pneumonia (Acute) Bilateral community-acquired pneumonia Sepsis with acute hypoxic respiratory failure and septic shock (Acute) Reason for Visit: Community-acquired pneumonia Septic shock Acute hypoxic respiratory failure Acute non-STEMI Subjective: Patient is a 84-year-old gentleman transferred from [place] emergency room with progressive shortness of breath. An assessment of community-acquired pneumonia with associated septic shock and hypoxic respiratory failure made. Patient was admitted to the intensive care unit. Serial cardiac enzymes obtained came back consistent with acute non-STEMI subsequently started on heparin Objective: GENERAL: cooperative HEENT: Atraumatic; EYES; Anicteric, Normal Conjunctiva NECK; supple, normal thyroid, RESPIRATORY: Diminished to auscultation CARDIOVASCULAR: Regular S1 S2, GI: soft, normoactive bowel sounds, : No Renal angle tenderness; EXTREMITIES: No edema, no clubbing, MUSCULOSKELETAL: no muscle waisting NEURO: Awake; no lateralizing signs. SKIN: No Rash PSYCH; Flat affect Vitals/I&O's: Vital Signs Temp Pulse Resp BP Pulse Ox 97.2 F L 71 19 H 126/70 H 97 11/16/19 04:00 11/16/19 07:00 11/16/19 07:00 11/16/19 07:00 11/16/19 07:00 Oxygen Delivery Method Bi-pap Weight: 82.5 kg Body Mass Index (BMI) 26.5 Intake and Output for Last 24 Hours 11/14/19 11/15/19 11/16/19 23:59 23:59 23:59 Intake Total 156.8 / 156.8 Output Total 500 / 500 300 / 300 Balance -500 / -500 -143.2 / -143.2 Laboratory Results 11/15/19 18:30: Sodium 142, Potassium 4.6, Chloride 113 H, Carbon Dioxide 18.0 L, Anion Gap 11, BUN 79 H, Creatinine 5.16 H, Estim Creat Clear Calc 11.00, Est GFR (MDRD) Af Amer 14 L, Est GFR (MDRD) Non-Af 11 L, BUN/Creatinine Ratio 15.3, Glucose 131 H, Calcium 8.4 L, Total Bilirubin 0.40, AST 44 H, ALT 31, Alkaline Phosphatase 65, Troponin I 3.240 H*, Total Protein 6.7, Albumin 3.0 L, Globulin 3.7, Albumin/Globulin Ratio 0.8 L 11/15/19 18:30: B-Natriuretic Peptide 4750.7 H 11/15/19 18:30: Lactic Acid 3.7 H* 11/15/19 18:30: Magnesium 2.0 11/15/19 20:13: PT 16.2 H, INR 1.4, APTT 26.8 11/15/19 20:13: D-Dimer Quant (PE/DVT) 2.05 H* 11/15/19 20:13: Ferritin 335, Lactate Dehydrogenase 256 H, C-React Prot Ext Range 89.00 H 11/15/19 21:45: Troponin I 4.360 H* 11/15/19 21:45: Procalcitonin 0.87 H 11/16/19 01:15: Troponin I 5.440 H* 11/16/19 01:30: Lactic Acid 2.6 H* 11/16/19 01:50: COVID-19 (MELODY) Not Detected 11/16/19 03:30: WBC 14.6 H, RBC 3.01 L, Hgb 10.1 L, Hct 30.6 L, MCV 101.7 H, MCH 33.6 H, MCHC 33.0, RDW Std Deviation 52.1 H, RDW Coeff of Maritza 13.9, Plt Count 147 L, MPV 11.8, Immature Gran % (Auto) 1.300 H, Neut % (Auto) 90.3 H, Lymph % (Auto) 4.6 L, [place] % (Auto) 3.7, Eos % (Auto) 0.0, Baso % (Auto) 0.1, Absolute Neuts (auto) 13.2 H, Absolute Lymphs (auto) 0.67 L, Nucleated RBC % 0, Differential Comment COMMENT, Platelet Estimate SLT DEC, Macrocytosis RARE 11/16/19 03:30: Sodium 141, Potassium 4.8, Chloride 112 H, Carbon Dioxide 20.0 L, Anion Gap 9, BUN 93 H, Creatinine 5.28 H, Estim Creat Clear Calc 10.75, Est GFR (MDRD) Af Amer 13 L, Est GFR (MDRD) Non-Af 11 L, BUN/Creatinine Ratio 17.6, Glucose 126 H, Calcium 8.5, Triglycerides 45, Cholesterol 123, LDL Cholesterol 49, VLDL Cholesterol 9, HDL Cholesterol 65 11/16/19 03:30: APTT 172.2 H* Current Medications Acetaminophen (Tylenol) 650 mg PO Q6H PRN PRN PRN Reason: Pain 1-10 or Fever Albuterol Sulfate (Ventolin Aerosols) 2.5 mg INHALATION Q2H PRN PRN PRN Reason: DYSPNEA Albuterol/Ipratropium (Duoneb) 3 ml INHALATION Q6H.RT [facility] Last Admin: 11/16/19 06:26 Dose: 3 ml Documented by: Amiodarone HCl (Cordarone) 200 mg PO DAILY [facility] Amlodipine Besylate (Norvasc) 10 mg PO DAILY [facility] Aspirin (Aspirin, Baby) 81 mg PO DAILY@0800 [facility] Atorvastatin Calcium (Lipitor) 80 mg PO QHS [facility] Last Admin: 11/15/19 21:52 Dose: 80 mg Documented by: Furosemide (Lasix) 40 mg IV BID@1000,1800 [facility] Heparin Sodium (Porcine) (Heparin Na) 0 unit IV UD PRN; Protocol PRN Reason: dose adjustment Ceftriaxone Sodium (Rocephin) 1 gm in 50 mls @ 100 mls/hr IV Q24 [facility] Azithromycin 500 mg/ Dextrose 255 mls @ 250 mls/hr IV Q24 [facility] Heparin Sodium/Dextrose () 25,000 units in 250 mls @ 12 mls/hr IV .[id number] [facility]; Protocol Last Titration: 11/16/19 06:30 Dose: 900 units/hr, 9 mls/hr Documented by: Levothyroxine Sodium (Synthroid) 50 mcg PO DAILY@0600 [facility] Last Admin: 11/16/19 06:17 Dose: 50 mcg Documented by: Lorazepam (Ativan) 0.5 mg PO Q12H PRN PRN PRN Reason: anxiety with BIPAP Last Admin: 11/15/19 20:27 Dose: 0.5 mg Documented by: Memantine (Namenda) 5 mg PO BID [facility] Last Admin: 11/15/19 21:52 Dose: 5 mg Documented by: Ondansetron HCl (Zofran) 4 mg IV Q8H PRN PRN PRN Reason: NAUSEA/VOMITING Sodium Chloride () 10 - 40 ml IV UD PRN PRN Reason: SALINE FLUSH Last Admin: 11/15/19 20:26 Dose: 10 ml Documented by: STROKE Vital Signs/Narrative: Vital Signs Temp Pulse Resp BP Pulse Ox 11/16/19 07:00 71 19 H 126/70 H 97 11/16/19 06:00 72 21 H 123/73 H 95 11/16/19 05:00 70 20 H 119/68 98 11/16/19 04:50 70 19 H 95 11/16/19 04:00 97.2 F L 70 18 127/68 H 97 11/16/19 03:41 74 Medical Necessity - Tobacco Use Smoking Status: Current every day smoker Tobacco Use: Cigarettes Assessment/Plan All Active Problems Septic shock (Acute) Community acquired pneumonia (Acute) Sepsis with acute hypoxic respiratory failure and septic shock (Acute) Patient is a 84-year-old gentleman transferred from [place] emergency room with progressive shortness of breath. An assessment of community-acquired pneumonia with associated septic shock and hypoxic respiratory failure made. Patient was admitted to the intensive care unit. Serial cardiac enzymes obtained came back consistent with acute non-STEMI subsequently started on heparin Acute hypoxic respiratory failure ?Secondary to pneumonia (with atypical organisms given patient x-ray findings) as well as suspected acute congestive heart failure. Patient COVID-19 assay obtained on admission came back negative. Patient was placed on noninvasive ventilation and admitted to the intensive care unit. Patient was also started on broad-spectrum antibiotic therapy and consult placed pulmonary medicine 2. Septic shock Secondary to suspected atypical pneumonia management as discussed above 3. Acute non-STEMI Treatment initiated per protocol with systemic anticoagulation with heparin, aspirin atorvastatin. Patient was not started on beta-blockers in view of advanced chronic lung disease. 2D echo ordered and consultation placed to cardiology 4. Gout ?Patient is on allopurinol at home 5. Essential hypertension ?Patient blood pressure controlled 6. Paroxysmal A. fib ?Patient is on amiodarone as well as apixaban 7. Dyslipidemia -Patient is on statin therapy, continued at home dose 8 chronic kidney disease stage IV ?Kidney function at baseline consult placed to nephrology 9. COPD ?Aerosol treatments as needed 10. DVT prophylaxis ?Patient is on systemic anticoagulation Clinical Impression(s) from Imaging Studies Chest X-Ray 11/15/19 18:40 IMPRESSION: Diffuse bilateral perihilar interstitial infiltrates with coexisting nodular opacities suggesting Covid 19 pneumonia. Clinical correlation recommended Electronically Signed: Silvestre Abernathy MD at 20:51 EDT , Service support , Chest X-Ray 11/16/19 05:55 IMPRESSION: Minimal change in extensive bilateral infiltrates. at 0511 Reported and signed by: Hawa Clark MD Electronically Signed: Hawa Clark MD at 5:11 EDT Tel , Service support , Inpatient E&M: [id number] Subs Hosp L3
[2019-11-16] MEDS: Aspirin 81 MG TAB.CHEW PO (08:19)
--- NOTE | 2019-11-16 09:50 | PCM.CONS.C ---
Reason for Consult Date of Consultation: 11/16/19 Reason for Consultation: CAD, CHF,nstemi History of Present Illness: The patient is a 84 year old M [] referred from [facility]. Patient presenting with symptoms of shortness of breath he denied any symptoms of chest pain Has multiple medical comorbidities, with hypertension, CKD, paroxysmal atrial fibrillation and was treated before by his primary gunstock repairer In [facility]. Patient denied any history of PCI denied any history of bypass surgery. I reviewed all the records from the referring hospital. He had a prior echocardiogram which showed RV function is preserved Significantly abnormal electrocardiogram with clear evidence of age indeterminate anterior and inferior myocardial infarction with Q waves noted in lead II, III, aVF and V1 of the V3 with a T wave inversion and a poor R wave progression across the chest leads. As well he has elevated cardiac biomarkers with elevated troponin up to 5.6. Patient had CKD with elevated creatinine more than 5. At bedside I saw him today along with the nursing staff he denied any symptoms of active chest pain His current cardiac medication include aspirin, heparin, Lipitor Also he is on amiodarone. He has been treated before with anticoagulation Eliquis. Today he is in normal sinus rhythm blood pressure is stable and he had no active chest pain he been tested for carpet which is negative And cardiac examination essentially revealed S1-S2 is regular there is no murmur Chest examination had a minimal bilateral basilar rales Past Medical History Allergies/Adverse Reactions: Allergies adhesive tape Allergy (Mild, Verified 07/31/18 09:58) Rash oxycodone Allergy (Mild, Verified 07/31/18 09:58) Rash tramadol Allergy (Mild, Verified 07/31/18 09:58) Other Home Medications: Ambulatory Orders Medication Instructions Recorded allopurinol 100 mg tablet PO #90 tab 07/26/18 amiodarone 200 mg tablet PO #90 tab 07/26/18 amlodipine 5 mg tablet PO #90 tab 07/26/18 apixaban 5 mg tablet PO #60 tab 07/26/18 atorvastatin 80 mg tablet PO #90 tab 07/26/18 meclizine 12.5 mg tablet PO #90 tab 07/26/18 Surgical History: cataract Psychiatric History: - - Alzheimer's dementia - *Family History Paternal History Items: No pertinent history Maternal History Items: Diabetes Lives: Spouse/ Significant Other Smoking Status: Current every day smoker Tobacco Use: Cigarettes Alcohol: None Drugs: None Review of Systems - Review of Systems Cardiovascular: Denies: Chest Discomfort, Shortness of Breath, Orthopnea, PND, Peripheral Edema, Palpitations, Lightheadedness, Dizziness, Near Syncope, Syncope Objective: Vital Signs Temp Pulse Resp BP Pulse Ox 97.2 F L 71 19 H 126/70 H 97 11/16/19 04:00 11/16/19 07:00 11/16/19 07:00 11/16/19 07:00 11/16/19 07:00 Oxygen Delivery Method Bi-pap Weight: 181 lb 14.102 oz Body Mass Index (BMI) 26.5 Intake and Output for Last 24 Hours 11/14/19 11/15/19 11/16/19 23:59 23:59 23:59 Intake Total 156.8 / 156.8 Output Total 500 / 500 300 / 300 Balance -500 / -500 -143.2 / -143.2 General: Awake, Alert, Oriented x 3, In Acute Distress HEENT: Atraumatic Neck: Supple Lungs: Diminished Elliot Bases, Diminished Left Base, Rales - Elliot Bases Cardiovascular: Regular Rhythm, Normal S1, Normal S2, No Murmurs Abdomen: Bowel Sounds Present Extremities: Mild LLE Edema Musculoskeletal: No Erythema Skin: No Rashes Neurological: No Focal Motor or Sensory Deficit Psych/Mental Status: Appropriate, Normal Affect 11/15/19 18:30: Sodium 142, Potassium 4.6, Chloride 113 H, Carbon Dioxide 18.0 L, Anion Gap 11, BUN 79 H, Creatinine 5.16 H, Est GFR (MDRD) Af Amer 14 L, Est GFR (MDRD) Non-Af 11 L, BUN/Creatinine Ratio 15.3, Glucose 131 H, Calcium 8.4 L, Total Bilirubin 0.40, Troponin I 3.240 H* 11/15/19 18:30: B-Natriuretic Peptide 4750.7 H 11/15/19 18:30: Lactic Acid 3.7 H* 11/15/19 18:30: Magnesium 2.0 11/15/19 20:13: PT 16.2 H, INR 1.4, APTT 26.8 11/15/19 20:13: D-Dimer Quant (PE/DVT) 2.05 H* 10/09/20 20:13: Ferritin 335 11/15/19 21:45: Troponin I 4.360 H* 11/16/19 01:15: Troponin I 5.440 H* 11/16/19 01:30: Lactic Acid 2.6 H* 11/16/19 03:30: WBC 14.6 H, RBC 3.01 L, Hgb 10.1 L, Hct 30.6 L, MCV 101.7 H, MCH 33.6 H, MCHC 33.0, Plt Count 147 L, MPV 11.8, Immature Gran % (Auto) 1.300 H, Neut % (Auto) 90.3 H, Lymph % (Auto) 4.6 L, [place] % (Auto) 3.7, Eos % (Auto) 0.0, Baso % (Auto) 0.1, Absolute Neuts (auto) 13.2 H, Nucleated RBC % 0 11/16/19 03:30: Sodium 141, Potassium 4.8, Chloride 112 H, Carbon Dioxide 20.0 L, Anion Gap 9, BUN 93 H, Creatinine 5.28 H, Est GFR (MDRD) Af Amer 13 L, Est GFR (MDRD) Non-Af 11 L, BUN/Creatinine Ratio 17.6, Glucose 126 H, Calcium 8.5, Triglycerides 45, Cholesterol 123, LDL Cholesterol 49, VLDL Cholesterol 9, HDL Cholesterol 65 11/16/19 03:30: APTT 172.2 H* 11/16/19 08:10: Troponin I 7.300 H* Rhythm: EKG: ECHO: Stress Test: Cardiac Cath: PCI: CT Surgery: Holter monitor: EPS: PPM: CXR: Chest CT Scan: Assessment/Plan Cardiovascular care plan Very high risk patient elderly 84-year-old with multiple medical comorbidities Has a clear evidence of age-indeterminate anterior and inferior VA He is stable on medical therapy with heparin aspirin and a statin. He does not have any active chest pain and his clinical diagnosis is CAD with non-ST elevation myocardial infarction, CKD, active smoker and a history of abdominal aortic aneurysm in 1983 according to the . Patient has been seen by the open winder area and also real estate firm manager will be evaluating him From a cardiac standpoint I will assess him further by regular transthoracic echocardiogram. He is a high risk patient undergo cardiac catheterization due to the renal impairment and the risk of contrast-induced nephropathy Patient also had a history of paroxysmal atrial fibrillation and this admission he is in normal sinus rhythm We will add low-dose beta-alexys to his current medication once he is stable tomorrow and also I would recommend he being seen and followed by his regular gunstock repairer at [facility] and we reviewed the echocardiogram today and will follow-up clinically on medical therapy.
--- NOTE | 2019-11-16 10:08 | CM.UR ---
Participated in interdisciplinary rounds this am. Cardiology consulted d/t elevated troponins. Patient has cardiac history with providers at [facility]. Cardiology mentioned possible transfer to [facility] for him to be cared for by his cardiology. Per Nurse daughter reported patient recently diagnosed with dementia and started on Namenda. Currently on Bipap. Case mgmt will continue to follow for discharge planning. Christopher Moore RN, CCM.
[2019-11-16] MEDS: Furosemide 40 MG/4 ML Vial IV (11:07)
[2019-11-16] MEDS: amLODIPine 10 MG Tablet PO (11:07)
[2019-11-16] MEDS: Amiodarone 200 MG Tablet PO (11:07)
[2019-11-16] MEDS: Memantine Hydrochloride 5 MG Tablet PO ×2 (11:07→20:24)
[2019-11-16 12:50] LABS: Partial Thromboplast Time 70.7 Seconds (24.1-36.2)
[2019-11-16 13:09] LABS: M R Staph aureus DNA By PCR Negative (Negative); Probe Check PASS; Specimen Processing Control PASS
--- NOTE | 2019-11-16 17:19 | PCM.CONS.R ---
Problem List (1) V[place] (acute kidney injury) Status: Acute (2) CKD (chronic kidney disease) stage 4, GFR 15-29 ml/min Status: Chronic Consultation - Renal 11/16/19 PCP/ Referring MD: Requesting physician: [] Primary care physician: Out of [facility] Doctor Reason for Consultation:: [place] - History of Present Illness History of Present Illness: The patient is a 84 year old M who presented to the hospital with complaints of shortness of breath. Found to have non-ST elevation NE, congestive heart failure, acute on chronic renal failure, pneumonia. Currently has severe dyspnea, on BiPAP. Has been on IV Lasix overnight, urine output is not very impressive. Renal consulted for acute renal failure. Currently patient is markedly short of breath. Says he is voiding some. - Allergies Allergies: Allergies adhesive tape Allergy (Mild, Verified 07/31/18 09:58) Rash oxycodone Allergy (Mild, Verified 07/31/18 09:58) Rash tramadol Allergy (Mild, Verified 07/31/18 09:58) Other - Current Medications Current Medications: Current Medications Acetaminophen (Tylenol) 650 mg PO Q6H PRN PRN PRN Reason: Pain 1-10 or Fever Albuterol Sulfate (Ventolin Aerosols) 2.5 mg INHALATION Q2H PRN PRN PRN Reason: DYSPNEA Albuterol/Ipratropium (Duoneb) 3 ml INHALATION Q6H.RT [facility] Last Admin: 11/16/19 13:20 Dose: 3 ml Documented by: Amiodarone HCl (Cordarone) 200 mg PO DAILY [facility] Last Admin: 11/16/19 11:07 Dose: 200 mg Documented by: Amlodipine Besylate (Norvasc) 10 mg PO DAILY [facility] Last Admin: 11/16/19 11:07 Dose: 10 mg Documented by: Aspirin (Aspirin, Baby) 81 mg PO DAILY@0800 [facility] Last Admin: 11/16/19 08:19 Dose: 81 mg Documented by: Atorvastatin Calcium (Lipitor) 80 mg PO QHS [facility] Last Admin: 11/15/19 21:52 Dose: 80 mg Documented by: Furosemide (Lasix) 80 mg IV BID@1000,1800 [facility] Heparin Sodium (Porcine) (Heparin Na) 0 unit IV UD PRN; Protocol PRN Reason: dose adjustment Heparin Sodium/Dextrose () 25,000 units in 250 mls @ 12 mls/hr IV .[id number] ALAN; Protocol Last Titration: 11/16/19 12:30 Dose: 900 units/hr, 9 mls/hr Documented by: Piperacillin Sod/Tazobactam (Sod 3.375 gm/ Sodium Chloride) 50 mls @ 12.5 mls/hr IV Q12 ALAN Last Infusion: 11/16/19 15:22 Dose: Infused Documented by: Levothyroxine Sodium (Synthroid) 50 mcg PO DAILY@0600 [facility] Last Admin: 11/16/19 06:17 Dose: 50 mcg Documented by: Lorazepam (Ativan) 0.5 mg PO Q12H PRN PRN PRN Reason: anxiety with BIPAP Last Admin: 11/15/19 20:27 Dose: 0.5 mg Documented by: Memantine (Namenda) 5 mg PO BID [facility] Last Admin: 11/16/19 11:07 Dose: 5 mg Documented by: Ondansetron HCl (Zofran) 4 mg IV Q8H PRN PRN PRN Reason: NAUSEA/VOMITING Sodium Chloride () 10 - 40 ml IV UD PRN PRN Reason: SALINE FLUSH Last Admin: 11/15/19 20:26 Dose: 10 ml Documented by: - 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) - Past Surgical History Surgical History: cataract - Social History Smoking Status: Current every day smoker Alcohol: None Drugs: None - Family History Paternal History Items: No pertinent history Maternal History Items: Diabetes Review of Systems Unable to obtain accurate/complete ROS d/t: Due to dyspnea Patient Problems: Active and Suspected Problems Septic shock (Acute) Community acquired pneumonia (Acute) Bilateral community-acquired pneumonia Sepsis with acute hypoxic respiratory failure and septic shock (Acute) [place] (acute kidney injury) (Acute) - Physical Exam Vitals/I&O's: Vital Signs Temp Pulse Resp BP Pulse Ox 97.3 F L 72 17 124/71 H 96 11/16/19 16:00 11/16/19 16:00 11/16/19 16:00 11/16/19 16:00 11/16/19 16:00 Oxygen Delivery Method Bi-pap Weight: 82.5 kg Body Mass Index (BMI) 26.5 Intake and Output for Last 24 Hours 11/14/19 11/15/19 11/16/19 23:59 23:59 23:59 Intake Total 260.8 / 260.8 Output Total 500 / 500 900 / 900 Balance -500 / -500 -639.2 / -639.2 General: Alert, Oriented x3, Cooperative HEENT: Atraumatic, PERRLA, EOMI, Normocephalic Neck: Supple, No JVD, Negative Carotid Bruits Lungs: Rales Cardiovascular: Regular rate, No murmurs Abdomen: Bowel Sounds Present, Soft, Non Tender Extremities: No edema, Capillary Refill Less than 3 Seconds Skin: No rashes, No breakdown Musculoskeletal: No Tenderness to Palpation of Joints or Extremities Neurological: Cranial nerves II-XII grossly intact Psych/Mental Status: Normal Affect, Appropriate Microbiology Past 72 Hours 11/16/19 09:55 Mucosa - Nose Respiratory Panel (PCR) - Final 11/16/19 06:30 Sputum, Expectorated/Coughed Gram Stain - Final 11/16/19 11:20 Urine, Random Legionella Antigen - Final 11/16/19 11:20 Urine, Random Streptococcus pneumoniae Antigen (M - Final Laboratory Results 11/15/19 18:30: Sodium 142, Potassium 4.6, Chloride 113 H, Carbon Dioxide 18.0 L, Anion Gap 11, BUN 79 H, Creatinine 5.16 H, Estim Creat Clear Calc 11.00, Est GFR (MDRD) Af Amer 14 L, Est GFR (MDRD) Non-Af 11 L, BUN/Creatinine Ratio 15.3, Glucose 131 H, Calcium 8.4 L, Total Bilirubin 0.40, AST 44 H, ALT 31, Alkaline Phosphatase 65, Troponin I 3.240 H*, Total Protein 6.7, Albumin 3.0 L, Globulin 3.7, Albumin/Globulin Ratio 0.8 L 11/15/19 18:30: B-Natriuretic Peptide 4750.7 H 11/15/19 18:30: Lactic Acid 3.7 H* 11/15/19 18:30: Magnesium 2.0 11/15/19 20:13: PT 16.2 H, INR 1.4, APTT 26.8 11/15/19 20:13: D-Dimer Quant (PE/DVT) 2.05 H* 11/15/19 20:13: Ferritin 335, Lactate Dehydrogenase 256 H, C-React Prot Ext Range 89.00 H 11/15/19 21:45: Troponin I 4.360 H* 11/15/19 21:45: Procalcitonin 0.87 H 11/16/19 01:15: Troponin I 5.440 H* 11/16/19 01:30: Lactic Acid 2.6 H* 11/16/19 01:50: COVID-19 (MELODY) Not Detected 11/16/19 03:30: WBC 14.6 H, RBC 3.01 L, Hgb 10.1 L, Hct 30.6 L, MCV 101.7 H, MCH 33.6 H, MCHC 33.0, RDW Std Deviation 52.1 H, RDW Coeff of Maritza 13.9, Plt Count 147 L, MPV 11.8, Immature Gran % (Auto) 1.300 H, Neut % (Auto) 90.3 H, Lymph % (Auto) 4.6 L, [place] % (Auto) 3.7, Eos % (Auto) 0.0, Baso % (Auto) 0.1, Absolute Neuts (auto) 13.2 H, Absolute Lymphs (auto) 0.67 L, Nucleated RBC % 0, Differential Comment COMMENT, Platelet Estimate SLT DEC, Macrocytosis RARE 11/16/19 03:30: Sodium 141, Potassium 4.8, Chloride 112 H, Carbon Dioxide 20.0 L, Anion Gap 9, BUN 93 H, Creatinine 5.28 H, Estim Creat Clear Calc 10.75, Est GFR (MDRD) Af Amer 13 L, Est GFR (MDRD) Non-Af 11 L, BUN/Creatinine Ratio 17.6, Glucose 126 H, Calcium 8.5, Triglycerides 45, Cholesterol 123, LDL Cholesterol 49, VLDL Cholesterol 9, HDL Cholesterol 65 11/16/19 03:30: APTT 172.2 H* 11/16/19 08:10: Troponin I 7.300 H* 11/16/19 11:20: MRSA (PCR) Negative 11/16/19 12:25: APTT 70.7 H 11/16/19 12:25: Troponin I 8.370 H* Current Medications Acetaminophen (Tylenol) 650 mg PO Q6H PRN PRN PRN Reason: Pain 1-10 or Fever Albuterol Sulfate (Ventolin Aerosols) 2.5 mg INHALATION Q2H PRN PRN PRN Reason: DYSPNEA Albuterol/Ipratropium (Duoneb) 3 ml INHALATION Q6H.RT [facility] Last Admin: 11/16/19 13:20 Dose: 3 ml Documented by: Amiodarone HCl (Cordarone) 200 mg PO DAILY [facility] Last Admin: 11/16/19 11:07 Dose: 200 mg Documented by: Amlodipine Besylate (Norvasc) 10 mg PO DAILY [facility] Last Admin: 11/16/19 11:07 Dose: 10 mg Documented by: Aspirin (Aspirin, Baby) 81 mg PO DAILY@0800 [facility] Last Admin: 11/16/19 08:19 Dose: 81 mg Documented by: Atorvastatin Calcium (Lipitor) 80 mg PO QHS [facility] Last Admin: 11/15/19 21:52 Dose: 80 mg Documented by: Furosemide (Lasix) 80 mg IV BID@1000,1800 [facility] Heparin Sodium (Porcine) (Heparin Na) 0 unit IV UD PRN; Protocol PRN Reason: dose adjustment Heparin Sodium/Dextrose () 25,000 units in 250 mls @ 12 mls/hr IV .[id number] [facility]; Protocol Last Titration: 11/16/19 12:30 Dose: 900 units/hr, 9 mls/hr Documented by: Piperacillin Sod/Tazobactam (Sod 3.375 gm/ Sodium Chloride) 50 mls @ 12.5 mls/hr IV Q12 [facility] Last Infusion: 11/16/19 15:22 Dose: Infused Documented by: Levothyroxine Sodium (Synthroid) 50 mcg PO DAILY@0600 [facility] Last Admin: 11/16/19 06:17 Dose: 50 mcg Documented by: Lorazepam (Ativan) 0.5 mg PO Q12H PRN PRN PRN Reason: anxiety with BIPAP Last Admin: 11/15/19 20:27 Dose: 0.5 mg Documented by: Memantine (Namenda) 5 mg PO BID [facility] Last Admin: 11/16/19 11:07 Dose: 5 mg Documented by: Ondansetron HCl (Zofran) 4 mg IV Q8H PRN PRN PRN Reason: NAUSEA/VOMITING Sodium Chloride () 10 - 40 ml IV UD PRN PRN Reason: SALINE FLUSH Last Admin: 11/15/19 20:26 Dose: 10 ml Documented by: Assessment/Plan All Active Problems Septic shock (Acute) Community acquired pneumonia (Acute) Sepsis with acute hypoxic respiratory failure and septic shock (Acute) [place] (acute kidney injury) (Acute) Acute renal failure CKD stage IV Non-ST elevation NE Congestive heart failure He is well-known to my associate Dr. Sierra. As per office notes, he was in the process of access planning. I talked to the patient today about fluid overload, advanced renal failure, lack of response to IV Lasix. He says he does not want dialysis at this time however he was willing to change his mind depending on what his says. I did call his over the phone, explained the situation. Explained about possible catheter placement, initiation of hemodialysis to help with the breathing. She initially was consenting to the procedure. After extensive discussion, she said she would like to talk to her family members and get back to me. For now increase IV Lasix to 80 mg twice daily Went back to patient and mention about my discussion with his . He says he would like to talk to her and other family members and decide Without dialysis, I doubt he will make it out of the hospital If he refuses dialysis, would suggest DNR CCA at least
[2019-11-16] MEDS: 0.9% Saline Lock 10 ML Syringe IV (18:42)
[2019-11-16] MEDS: Furosemide 100 MG/10 ML Vial 80 MG IV (18:42)
[2019-11-16 18:58] LABS: Partial Thromboplast Time 60.1 Seconds (24.1-36.2)
[2019-11-16] MEDS: HEPARIN/D5w 25,000 UNITS 25,000 UNITS/250 ML IV.SOLN. 9 UNITS IV (20:24)
[2019-11-16] MEDS: Atorvastatin Calcium 80 MG Tablet PO (20:24)
[2019-11-16] MEDS: LORazepam 0.5 MG Tablet PO (22:53)
[2019-11-17] VITALS (36 sets, daily range): BP systolic 85–135; BP diastolic 58–87; PULSE 70–88; RESP 12–32; TEMP 36.6–37.7; O2SAT 88–100
[2019-11-17 01:02] LABS: Partial Thromboplast Time 45.5 Seconds (24.1-36.2)
[2019-11-17] MEDS: Ipratropium/Albuterol Sulfate 3 ML AMPUL.NEB INHALATION ×3 (01:32→18:29)
[2019-11-17] MEDS: Heparin Injection (Vial) 5,000 UNIT/ML VIAL IV (01:47)
[2019-11-17 05:02] LABS: Hematocrit 29.6 % (40-54); Mean Corp Hgb Conc 33.8 g/dL (32-36); Mean Corpuscular Hgb 33.6 pg (27.0-32.0); Mean Corpuscular Volume 99.3 fL (80-94); Mean Platelet Vol. 11.8 fl (6.2-12.0); Platelet Count 153 K/mm3 (150-450); RBC Distribution Width SD 51.8 fl (35.1-43.9); Red Blood Count 2.98 M/mm3 (4.6-6.2); White Blood Count 13.4 K/mm3 (4.4-11.0)
[2019-11-17 05:23] LABS: Anion Gap 10 (5-15); BUN 113 mg/dL (7-18); BUN/Creat Ratio 19.3 RATIO (10-20); Calcium,Total 8.3 mg/dL (8.5-10.1); Chloride 113 mmol/L (98-107); Creatinine, Serum 5.86 mg/dL (0.70-1.30); EST Glomerular Filtration Rate 10 mL/min (>60); Est Glom Filt Rate - Afr Amer 12 mL/min (>60); Estimated Creatinine Clearance 9.69 ml/min; Glucose 104 mg/dL (74-106); Magnesium 2.4 mg/dL (1.6-2.6); Potassium 4.5 mmol/L (3.5-5.1); Sodium Level 143 mmol/L (136-145)
--- NOTE | 2019-11-17 07:07 | PCM.PN.HOSP ---
Patient Problems: Active and Suspected Problems Septic shock (Acute) Community acquired pneumonia (Acute) Bilateral community-acquired pneumonia Sepsis with acute hypoxic respiratory failure and septic shock (Acute) [place] (acute kidney injury) (Acute) Reason for Visit: Acute non-STEMI Subjective: Patient is a 84-year-old gentleman transferred from [facility] emergency room with progressive shortness of breath. An assessment of community-acquired pneumonia with associated septic shock and hypoxic respiratory failure made. Patient was admitted to the intensive care unit. Serial cardiac enzymes obtained came back consistent with acute non-STEMI subsequently started on heparin Objective: GENERAL: cooperative HEENT: Atraumatic; EYES; Anicteric, Normal Conjunctiva NECK; supple, normal thyroid, RESPIRATORY: Diminished to auscultation CARDIOVASCULAR: Regular S1 S2, GI: soft, normoactive bowel sounds, : No Renal angle tenderness; EXTREMITIES: No edema, no clubbing, MUSCULOSKELETAL: no muscle waisting NEURO: Awake; no lateralizing signs. SKIN: No Rash PSYCH; Flat affect Vitals/I&O's: Vital Signs Temp Pulse Resp BP Pulse Ox 99.7 F H 79 23 H 126/68 H 88 11/17/19 04:00 11/17/19 07:00 11/17/19 07:00 11/17/19 07:00 11/17/19 07:00 Oxygen Delivery Method Bi-pap Weight: 82.1 kg Body Mass Index (BMI) 26.5 Intake and Output for Last 24 Hours 11/15/19 11/16/19 11/17/19 23:59 23:59 23:59 Intake Total 391.90 / 391.90 98.15 / 98.15 Output Total 500 / 500 1335 / 1485 600 / 600 Balance -500 / -500 -943.10 / -1093.10 -501.85 / -501.85 Microbiology Past 72 Hours 11/16/19 09:55 Mucosa - Nose Respiratory Panel (PCR) - Final 11/16/19 06:30 Sputum, Expectorated/Coughed Gram Stain - Final 11/16/19 11:20 Urine, Random Legionella Antigen - Final 11/16/19 11:20 Urine, Random Streptococcus pneumoniae Antigen (M - Final Laboratory Results 11/16/19 08:10: Troponin I 7.300 H* 11/16/19 11:20: MRSA (PCR) Negative 11/16/19 12:25: APTT 70.7 H 11/16/19 12:25: Troponin I 8.370 H* 11/16/19 18:15: APTT 60.1 H 11/17/19 00:15: APTT 45.5 H 11/17/19 04:45: WBC 13.4 H, RBC 2.98 L, Hgb 10.0 L, Hct 29.6 L, MCV 99.3 H, MCH 33.6 H, MCHC 33.8, RDW Std Deviation 51.8 H, RDW Coeff of Maritza 14.0, Plt Count 153, MPV 11.8 11/17/19 04:45: Sodium 143, Potassium 4.5, Chloride 113 H, Carbon Dioxide 20.0 L, Anion Gap 10, BUN 113 H*, Creatinine 5.86 H, Estim Creat Clear Calc 9.69, Est GFR (MDRD) Af Amer 12 L, Est GFR (MDRD) Non-Af 10 L, BUN/Creatinine Ratio 19.3, Glucose 104, Calcium 8.3 L, Magnesium 2.4 11/17/19 04:45: Troponin I 9.870 H* Current Medications Acetaminophen (Tylenol) 650 mg PO Q6H PRN PRN PRN Reason: Pain 1-10 or Fever Albuterol Sulfate (Ventolin Aerosols) 2.5 mg INHALATION Q2H PRN PRN PRN Reason: DYSPNEA Albuterol/Ipratropium (Duoneb) 3 ml INHALATION Q6H.RT [facility] Last Admin: 11/17/19 06:53 Dose: 3 ml Documented by: Amiodarone HCl (Cordarone) 200 mg PO DAILY [facility] Last Admin: 11/16/19 11:07 Dose: 200 mg Documented by: Amlodipine Besylate (Norvasc) 10 mg PO DAILY [facility] Last Admin: 11/16/19 11:07 Dose: 10 mg Documented by: Aspirin (Aspirin, Baby) 81 mg PO DAILY@0800 [facility] Last Admin: 11/16/19 08:19 Dose: 81 mg Documented by: Atorvastatin Calcium (Lipitor) 80 mg PO QHS [facility] Last Admin: 11/16/19 20:24 Dose: 80 mg Documented by: Furosemide (Lasix) 80 mg IV BID@1000,1800 [facility] Last Admin: 11/16/19 18:42 Dose: 80 mg Documented by: Heparin Sodium (Porcine) (Heparin Na) 0 unit IV UD PRN; Protocol PRN Reason: dose adjustment Last Admin: 11/17/19 01:47 Dose: 1,000 unit Documented by: Heparin Sodium/Dextrose () 25,000 units in 250 mls @ 12 mls/hr IV .[id number] [facility]; Protocol Last Titration: 11/17/19 01:45 Dose: 1,000 units/hr, 10 mls/hr Documented by: Piperacillin Sod/Tazobactam (Sod 3.375 gm/ Sodium Chloride) 50 mls @ 12.5 mls/hr IV Q12 [facility] Last Infusion: 11/17/19 00:28 Dose: Infused Documented by: Levothyroxine Sodium (Synthroid) 50 mcg PO DAILY@0600 [facility] Last Admin: 11/17/19 06:08 Dose: Not Given Documented by: Lorazepam (Ativan) 0.5 mg PO Q12H PRN PRN PRN Reason: anxiety with BIPAP Last Admin: 11/16/19 22:53 Dose: 0.5 mg Documented by: Memantine (Namenda) 5 mg PO BID [facility] Last Admin: 11/16/19 20:24 Dose: 5 mg Documented by: Ondansetron HCl (Zofran) 4 mg IV Q8H PRN PRN PRN Reason: NAUSEA/VOMITING Sodium Chloride () 10 - 40 ml IV UD PRN PRN Reason: SALINE FLUSH Last Admin: 11/16/19 18:42 Dose: 20 ml Documented by: STROKE Vital Signs/Narrative: Vital Signs Temp Pulse Resp BP Pulse Ox 11/17/19 07:00 79 23 H 126/68 H 88 11/17/19 06:00 73 21 H 135/69 H 98 11/17/19 05:00 77 21 H 125/73 H 93 11/17/19 04:49 78 21 H 93 11/17/19 04:00 99.7 F H 75 18 127/74 H 91 Medical Necessity - Tobacco Use Smoking Status: Current every day smoker Tobacco Use: Cigarettes Assessment/Plan All Active Problems Septic shock (Acute) Community acquired pneumonia (Acute) Sepsis with acute hypoxic respiratory failure and septic shock (Acute) [place] (acute kidney injury) (Acute) Patient is a 84-year-old gentleman transferred from [facility] emergency room with progressive shortness of breath. An assessment of community-acquired pneumonia with associated septic shock and hypoxic respiratory failure made. Patient was admitted to the intensive care unit. Serial cardiac enzymes obtained came back consistent with acute non-STEMI subsequently started on heparin. Patient was seen by cardiology medical therapy was advised. Patient has underlying history of chronic kidney disease kidney function has worsened following admission. Plan is for patient to undergo dialysis catheter placement by nephrology with initiation of dialysis. 1. Acute hypoxic respiratory failure ?Secondary to pneumonia (with atypical organisms given patient x-ray findings) as well as suspected acute congestive heart failure. Patient COVID-19 assay obtained on admission came back negative. Patient was placed on noninvasive ventilation and admitted to the intensive care unit. Patient was also started on broad-spectrum antibiotic therapy and consult placed pulmonary medicine -11/17/2019: Patient still remains on BiPAP. Patient has hemoptysis. Patient is on heparin drip this has been discontinued 2. Septic shock Secondary to suspected atypical pneumonia management as discussed above ?11/17/2019 patient blood pressure stabilized. 3. Acute non-STEMI Treatment initiated per protocol with systemic anticoagulation with heparin, aspirin atorvastatin. Patient was not started on beta-blockers in view of advanced chronic lung disease. 2D echo ordered and consultation placed to cardiology -11/17/2019; patient was seen by cardiology today prior optimization of medical therapy advised; 2D echo obtained the day prior demonstrated Anterior [place] : Severely Hypokinetic. Severe LV systolic Dysfunction EF 30-35% Severe Anteroapical hypokinesia Mild MR Mild TR. 4. Chronic kidney disease stage IV ?Kidney function at baseline consult placed to nephrology -11/17/2019. Patient patient kidney function continues to worsen. Plan is for patient to undergo dialysis catheter placement with initiation of dialysis as pirin nephrology 5. 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 Essential hypertension ?Patient blood pressure controlled 7. Paroxysmal A. fib ?Patient is on amiodarone as well as apixaban ?Apixaban held on admission following initiation of heparin 8. Dyslipidemia -Patient is on statin therapy, continued at home dose 9. Gout ?Patient is on allopurinol at home 10. COPD ?Aerosol treatments as needed 11. DVT prophylaxis ?Patient is on systemic anticoagulation with heparin ?Patient heparin drip discontinued following development of hemoptysis. Subsequently placed on SC prophylaxis heparin. Inpatient E&M: 85793 Subs Hosp L3
--- NOTE | 2019-11-17 07:09 | PCM.PN.INT ---
Subjective: The patient was seen and examined at the bedside this morning. Events from the last 24 hours have been reviewed. The patient is currently afebrile, hemodynamically stable and maintaining appropriate oxygen saturations on BiPAP with an FiO2 requirement of 85%. The patient did not respond to attempts at diuresis with Lasix yesterday. Nephrology evaluated the patient and felt that he would require dialysis. Consent has been obtained from the patient's to have a temporary line placed today. The patient's troponin continues to climb and was last noted to be 9.8. The patient did have an episode of hemoptysis this morning after he was started on a heparin drip yesterday. Anticoagulation has been subsequently discontinued. Objective: The patient's most recent lab work, culture data and imaging studies have all been personally reviewed. Surface echocardiogram revealed an ejection fraction of approximately 30 to 35% with a severely hypokinetic anterior apex. Urine and sputum cultures are pending. Respiratory viral panel was negative. General: Alert, Cooperative, - - BiPAP mask remains in place. HEENT: Atraumatic, PERRLA, Normocephalic Oral: Dry Mucosa, - - Poor dentition Neck: Supple, No Nodes, Trachea Midline Lungs: Diminished, Rales, Short of Breath, Tachypneic Cardiovascular: Regular rate, Regular Rhythm, Normal S1, Normal S2 Abdomen: Bowel Sounds Present, Soft, Non Tender Extremities: No clubbing, No cyanosis, No edema Skin: No breakdown Musculoskeletal: No Tenderness to Palpation of Joints or Extremities Lymphatic: No Cervical, Supraclavicular, or Inguinal Adenopathy Neurological: - - No focal neurological deficits. Psych/Mental Status: Normal Affect, Appropriate Vital Signs Temp Pulse Resp BP Pulse Ox 99.7 F H 79 23 H 126/68 H 88 11/17/19 04:00 11/17/19 07:00 11/17/19 07:00 11/17/19 07:00 11/17/19 07:00 Oxygen Delivery Method Bi-pap Weight: 180 lb 15.992 oz Body Mass Index (BMI) 26.5 Intake and Output for Last 24 Hours 11/15/19 11/16/19 11/17/19 23:59 23:59 23:59 Intake Total 391.90 / 391.90 98.15 / 98.15 Output Total 500 / 500 1335 / 1485 600 / 600 Balance -500 / -500 -943.10 / -1093.10 -501.85 / -501.85 Labs (Last 48 Hours) 11/15/19 11/15/19 11/15/19 18:30 18:30 18:30 WBC RBC Hgb Hct MCV MCH MCHC RDW Std Deviation RDW Coeff of Maritza Plt Count MPV Immature Gran % (Auto) Neut % (Auto) Lymph % (Auto) [place] % (Auto) Eos % (Auto) Baso % (Auto) Absolute Neuts (auto) Absolute Lymphs (auto) Nucleated RBC % Differential Comment Platelet Estimate Macrocytosis PT INR APTT D-Dimer Quant (PE/DVT) Sodium 142 Potassium 4.6 Chloride 113 H Carbon Dioxide 18.0 L Anion Gap 11 BUN 79 H Creatinine 5.16 H Estim Creat Clear Calc 11.00 Est GFR (MDRD) Af Amer 14 L Est GFR (MDRD) Non-Af 11 L BUN/Creatinine Ratio 15.3 Glucose 131 H Lactic Acid 3.7 H* Calcium 8.4 L Magnesium Ferritin Total Bilirubin 0.40 AST 44 H ALT 31 Alkaline Phosphatase 65 Lactate Dehydrogenase Troponin I 3.240 H* C-React Prot Ext Range B-Natriuretic Peptide 4750.7 H Total Protein 6.7 Albumin 3.0 L Globulin 3.7 Albumin/Globulin Ratio 0.8 L Triglycerides Cholesterol LDL Cholesterol VLDL Cholesterol HDL Cholesterol Procalcitonin COVID-19 (MELODY) MRSA (PCR) 11/15/19 11/15/19 11/15/19 18:30 20:13 20:13 WBC RBC Hgb Hct MCV MCH MCHC RDW Std Deviation RDW Coeff of Maritza Plt Count MPV Immature Gran % (Auto) Neut % (Auto) Lymph % (Auto) [place] % (Auto) Eos % (Auto) Baso % (Auto) Absolute Neuts (auto) Absolute Lymphs (auto) Nucleated RBC % Differential Comment Platelet Estimate Macrocytosis PT 16.2 H INR 1.4 APTT 26.8 D-Dimer Quant (PE/DVT) 2.05 H* Sodium Potassium Chloride Carbon Dioxide Anion Gap BUN Creatinine Estim Creat Clear Calc Est GFR (MDRD) Af Amer Est GFR (MDRD) Non-Af BUN/Creatinine Ratio Glucose Lactic Acid Calcium Magnesium 2.0 Ferritin Total Bilirubin AST ALT Alkaline Phosphatase Lactate Dehydrogenase Troponin I C-React Prot Ext Range B-Natriuretic Peptide Total Protein Albumin Globulin Albumin/Globulin Ratio Triglycerides Cholesterol LDL Cholesterol VLDL Cholesterol HDL Cholesterol Procalcitonin COVID-19 ([facility]ODY) MRSA (PCR) 11/15/19 11/15/19 11/15/19 20:13 21:45 21:45 WBC RBC Hgb Hct MCV MCH MCHC RDW Std Deviation RDW Coeff of Maritza Plt Count MPV Immature Gran % (Auto) Neut % (Auto) Lymph % (Auto) [place] % (Auto) Eos % (Auto) Baso % (Auto) Absolute Neuts (auto) Absolute Lymphs (auto) Nucleated RBC % Differential Comment Platelet Estimate Macrocytosis PT INR APTT D-Dimer Quant (PE/DVT) Sodium Potassium Chloride Carbon Dioxide Anion Gap BUN Creatinine Estim Creat Clear Calc Est GFR (MDRD) Af Amer Est GFR (MDRD) Non-Af BUN/Creatinine Ratio Glucose Lactic Acid Calcium Magnesium Ferritin 335 Total Bilirubin AST ALT Alkaline Phosphatase Lactate Dehydrogenase 256 H Troponin I 4.360 H* C-React Prot Ext Range 89.00 H B-Natriuretic Peptide Total Protein Albumin Globulin Albumin/Globulin Ratio Triglycerides Cholesterol LDL Cholesterol VLDL Cholesterol HDL Cholesterol Procalcitonin 0.87 H COVID-19 ([facility]ODY) MRSA (PCR) 11/16/19 11/16/19 11/16/19 01:15 01:30 01:50 WBC RBC Hgb Hct MCV MCH MCHC RDW Std Deviation RDW Coeff of Maritza Plt Count MPV Immature Gran % (Auto) Neut % (Auto) Lymph % (Auto) [place] % (Auto) Eos % (Auto) Baso % (Auto) Absolute Neuts (auto) Absolute Lymphs (auto) Nucleated RBC % Differential Comment Platelet Estimate Macrocytosis PT INR APTT D-Dimer Quant (PE/DVT) Sodium Potassium Chloride Carbon Dioxide Anion Gap BUN Creatinine Estim Creat Clear Calc Est GFR (MDRD) Af Amer Est GFR (MDRD) Non-Af BUN/Creatinine Ratio Glucose Lactic Acid 2.6 H* Calcium Magnesium Ferritin Total Bilirubin AST ALT Alkaline Phosphatase Lactate Dehydrogenase Troponin I 5.440 H* C-React Prot Ext Range B-Natriuretic Peptide Total Protein Albumin Globulin Albumin/Globulin Ratio Triglycerides Cholesterol LDL Cholesterol VLDL Cholesterol HDL Cholesterol Procalcitonin COVID-19 ([facility]ODY) Not Detected MRSA (PCR) 11/16/19 11/16/19 11/16/19 03:30 03:30 03:30 WBC 14.6 H RBC 3.01 L Hgb 10.1 L Hct 30.6 L MCV 101.7 H MCH 33.6 H MCHC 33.0 RDW Std Deviation 52.1 H RDW Coeff of Maritza 13.9 Plt Count 147 L MPV 11.8 Immature Gran % (Auto) 1.300 H Neut % (Auto) 90.3 H Lymph % (Auto) 4.6 L [place] % (Auto) 3.7 Eos % (Auto) 0.0 Baso % (Auto) 0.1 Absolute Neuts (auto) 13.2 H Absolute Lymphs (auto) 0.67 L Nucleated RBC % 0 Differential Comment COMMENT Platelet Estimate SLT DEC Macrocytosis RARE PT INR APTT 172.2 H* D-Dimer Quant (PE/DVT) Sodium 141 Potassium 4.8 Chloride 112 H Carbon Dioxide 20.0 L Anion Gap 9 BUN 93 H Creatinine 5.28 H Estim Creat Clear Calc 10.75 Est GFR (MDRD) Af Amer 13 L Est GFR (MDRD) Non-Af 11 L BUN/Creatinine Ratio 17.6 Glucose 126 H Lactic Acid Calcium 8.5 Magnesium Ferritin Total Bilirubin AST ALT Alkaline Phosphatase Lactate Dehydrogenase Troponin I C-React Prot Ext Range B-Natriuretic Peptide Total Protein Albumin Globulin Albumin/Globulin Ratio Triglycerides 45 Cholesterol 123 LDL Cholesterol 49 VLDL Cholesterol 9 HDL Cholesterol 65 Procalcitonin COVID-19 ([facility]ODY) MRSA (PCR) 11/16/19 11/16/19 11/16/19 08:10 11:20 12:25 WBC RBC Hgb Hct MCV MCH MCHC RDW Std Deviation RDW Coeff of Maritza Plt Count MPV Immature Gran % (Auto) Neut % (Auto) Lymph % (Auto) [place] % (Auto) Eos % (Auto) Baso % (Auto) Absolute Neuts (auto) Absolute Lymphs (auto) Nucleated RBC % Differential Comment Platelet Estimate Macrocytosis PT INR APTT 70.7 H D-Dimer Quant (PE/DVT) Sodium Potassium Chloride Carbon Dioxide Anion Gap BUN Creatinine Estim Creat Clear Calc Est GFR (MDRD) Af Amer Est GFR (MDRD) Non-Af BUN/Creatinine Ratio Glucose Lactic Acid Calcium Magnesium Ferritin Total Bilirubin AST ALT Alkaline Phosphatase Lactate Dehydrogenase Troponin I 7.300 H* C-React Prot Ext Range B-Natriuretic Peptide Total Protein Albumin Globulin Albumin/Globulin Ratio Triglycerides Cholesterol LDL Cholesterol VLDL Cholesterol HDL Cholesterol Procalcitonin COVID-19 ([facility]ODY) MRSA (PCR) Negative 11/16/19 11/16/19 11/17/19 12:25 18:15 00:15 WBC RBC Hgb Hct MCV MCH MCHC RDW Std Deviation RDW Coeff of Maritza Plt Count MPV Immature Gran % (Auto) Neut % (Auto) Lymph % (Auto) [place] % (Auto) Eos % (Auto) Baso % (Auto) Absolute Neuts (auto) Absolute Lymphs (auto) Nucleated RBC % Differential Comment Platelet Estimate Macrocytosis PT INR APTT 60.1 H 45.5 H D-Dimer Quant (PE/DVT) Sodium Potassium Chloride Carbon Dioxide Anion Gap BUN Creatinine Estim Creat Clear Calc Est GFR (MDRD) Af Amer Est GFR (MDRD) Non-Af BUN/Creatinine Ratio Glucose Lactic Acid Calcium Magnesium Ferritin Total Bilirubin AST ALT Alkaline Phosphatase Lactate Dehydrogenase Troponin I 8.370 H* C-React Prot Ext Range B-Natriuretic Peptide Total Protein Albumin Globulin Albumin/Globulin Ratio Triglycerides Cholesterol LDL Cholesterol VLDL Cholesterol HDL Cholesterol Procalcitonin COVID-19 ([facility]) MRSA (PCR) 11/17/19 11/17/19 11/17/19 04:45 04:45 04:45 WBC 13.4 H RBC 2.98 L Hgb 10.0 L Hct 29.6 L MCV 99.3 H MCH 33.6 H MCHC 33.8 RDW Std Deviation 51.8 H RDW Coeff of Maritza 14.0 Plt Count 153 MPV 11.8 Immature Gran % (Auto) Neut % (Auto) Lymph % (Auto) [place] % (Auto) Eos % (Auto) Baso % (Auto) Absolute Neuts (auto) Absolute Lymphs (auto) Nucleated RBC % Differential Comment Platelet Estimate Macrocytosis PT INR APTT D-Dimer Quant (PE/DVT) Sodium 143 Potassium 4.5 Chloride 113 H Carbon Dioxide 20.0 L Anion Gap 10 BUN 113 H* Creatinine 5.86 H Estim Creat Clear Calc 9.69 Est GFR (MDRD) Af Amer 12 L Est GFR (MDRD) Non-Af 10 L BUN/Creatinine Ratio 19.3 Glucose 104 Lactic Acid Calcium 8.3 L Magnesium 2.4 Ferritin Total Bilirubin AST ALT Alkaline Phosphatase Lactate Dehydrogenase Troponin I 9.870 H* C-React Prot Ext Range B-Natriuretic Peptide Total Protein Albumin Globulin Albumin/Globulin Ratio Triglycerides Cholesterol LDL Cholesterol VLDL Cholesterol HDL Cholesterol Procalcitonin COVID-19 ([facility]ODY) MRSA (PCR) Microbiology 11/16/19 09:55 Mucosa - Nose Respiratory Panel (PCR) - Final 11/16/19 06:30 Sputum, Expectorated/Coughed Gram Stain - Final 11/16/19 11:20 Urine, Random Legionella Antigen - Final 11/16/19 11:20 Urine, Random Streptococcus pneumoniae Antigen (M - Final Clinical Impression(s) from Imaging Studies Chest X-Ray 11/15/19 18:40 IMPRESSION: Diffuse bilateral perihilar interstitial infiltrates with coexisting nodular opacities suggesting Covid 19 pneumonia. Clinical correlation recommended Electronically Signed: Silvestre Abernathy MD at 20:51 EDT , Service support , Chest X-Ray 11/16/19 05:55 IMPRESSION: Minimal change in extensive bilateral infiltrates. at 0511 Reported and signed by: Hawa Clark MD Electronically Signed: Hawa Clark MD at 5:11 EDT Tel , Service support , Medical Necessity - Tobacco Use Smoking Status: Current every day smoker Tobacco Use: Cigarettes Assessment/Plan All Active Problems Septic shock (Acute) Community acquired pneumonia (Acute) Sepsis with acute hypoxic respiratory failure and septic shock (Acute) [place] (acute kidney injury) (Acute) RECOMMENDATIONS: 1. Continue BiPAP therapy and wean FiO2 to maintain oxygen saturations at or above 90%. 2. Continue empiric antimicrobials. 3. Plan for temporary hemodialysis line placement today followed by hemodialysis with fluid removal. 4. Agree with discontinuing heparin. 5. Additional cardiac work-up per recommendations. IMPRESSIONS: 1. Acute hypoxemic respiratory failure Most likely multifactorial in etiology. I do suspect that the patient's presentation is likely the consequence of acute decompensated heart failure in the setting of an NSTEMI with possible superimposed pneumonia. At this time, the patient has responded appropriately to BiPAP therapy, which will be continued without change. Broad-spectrum antimicrobials will be continued, pending infectious work-up. Cardiology is currently following to assist with additional medical management. Given that the patient did not respond to IV Lasix therapy and has underlying renal dysfunction, plan to place a temporary hemodialysis line today and proceed with fluid removal via dialysis. 2. Acute on chronic kidney disease The patient has been followed by nephrology due to his chronic kidney disease. Nephrology is currently following with plans for dialysis today. 3. Non-ST segment elevation IA The patient presented with an elevated troponin and T wave inversions on EKG. Troponins continue to climb. Cardiology is currently following, but does not have current plans for any form of intervention at this time. 4. Septic shock The patient did have SIRS criteria along with an elevated lactate to greater than 6 at the outside hospital. I do suspect that his lactate elevation is secondary to hypoxemia, as the patient has never been hemodynamically unstable. Although the patient was initially treated with IV fluids, I am concerned about potential decompensated heart failure, and therefore, IV Lasix has been administered. Plan to continue supportive measures as noted above. 5. Questionable history of COPD/Alzheimer's/hypertension Complicates care, management, recovery and prognosis. Continue bronchodilators as ordered. TIME: 37 minutes of critical care time, independent of procedures, was spent addressing the patient's acute hypoxemic respiratory failure, acute on chronic kidney disease, non-ST segment elevation IA, septic shock, review of all data and collaboration with the care team. [id number]) [id number] Critical care first hour
[2019-11-17 08:11] LABS: Partial Thromboplast Time 60.7 Seconds (24.1-36.2)
[2019-11-17] MEDS: Amiodarone 200 MG Tablet PO (08:24)
[2019-11-17] MEDS: Aspirin 81 MG TAB.CHEW PO (08:24)
[2019-11-17] MEDS: Memantine Hydrochloride 5 MG Tablet PO ×2 (08:24→21:55)
--- NOTE | 2019-11-17 09:26 | PCM.PN.REN ---
Patient Problems: Active and Suspected Problems Septic shock (Acute) Community acquired pneumonia (Acute) Bilateral community-acquired pneumonia Sepsis with acute hypoxic respiratory failure and septic shock (Acute) [place] (acute kidney injury) (Acute) Subjective: remains on bipap - Physical Exam Vitals/I&O's: Vital Signs Temp Pulse Resp BP Pulse Ox 99.7 F H 76 21 H 122/70 H 100 11/17/19 04:00 11/17/19 09:10 11/17/19 09:10 11/17/19 09:00 11/17/19 09:10 Oxygen Delivery Method Bi-pap Weight: 82.1 kg Body Mass Index (BMI) 26.5 Intake and Output for Last 24 Hours 11/15/19 11/16/19 11/17/19 23:59 23:59 23:59 Intake Total 391.90 / 391.90 158.15 / 158.15 Output Total 500 / 500 1335 / 1485 700 / 700 Balance -500 / -500 -943.10 / -1093.10 -541.85 / -541.85 General: Alert, Oriented x3, Cooperative HEENT: Atraumatic, PERRLA, EOMI, Normocephalic Neck: Supple, No JVD, Negative Carotid Bruits Lungs: Rales Cardiovascular: Regular rate, No murmurs Abdomen: Bowel Sounds Present, Soft, Non Tender Extremities: No edema, Capillary Refill Less than 3 Seconds Skin: No rashes, No breakdown Musculoskeletal: No Tenderness to Palpation of Joints or Extremities Neurological: Cranial nerves II-XII grossly intact Psych/Mental Status: Normal Affect, Appropriate Microbiology Past 72 Hours 11/16/19 09:55 Mucosa - Nose Respiratory Panel (PCR) - Final 11/16/19 06:30 Sputum, Expectorated/Coughed Gram Stain - Final 11/16/19 11:20 Urine, Random Legionella Antigen - Final 11/16/19 11:20 Urine, Random Streptococcus pneumoniae Antigen (M - Final Laboratory Results 11/16/19 11:20: MRSA (PCR) Negative 11/16/19 12:25: APTT 70.7 H 11/16/19 12:25: Troponin I 8.370 H* 11/16/19 18:15: APTT 60.1 H 11/17/19 00:15: APTT 45.5 H 11/17/19 04:45: WBC 13.4 H, RBC 2.98 L, Hgb 10.0 L, Hct 29.6 L, MCV 99.3 H, MCH 33.6 H, MCHC 33.8, RDW Std Deviation 51.8 H, RDW Coeff of Maritza 14.0, Plt Count 153, MPV 11.8 11/17/19 04:45: Sodium 143, Potassium 4.5, Chloride 113 H, Carbon Dioxide 20.0 L, Anion Gap 10, BUN 113 H*, Creatinine 5.86 H, Estim Creat Clear Calc 9.69, Est GFR (MDRD) Af Amer 12 L, Est GFR (MDRD) Non-Af 10 L, BUN/Creatinine Ratio 19.3, Glucose 104, Calcium 8.3 L, Magnesium 2.4 11/17/19 04:45: Troponin I 9.870 H* 11/17/19 07:45: APTT 60.7 H Current Medications Acetaminophen (Tylenol) 650 mg PO Q6H PRN PRN PRN Reason: Pain 1-10 or Fever Albuterol Sulfate (Ventolin Aerosols) 2.5 mg INHALATION Q2H PRN PRN PRN Reason: DYSPNEA Albuterol/Ipratropium (Duoneb) 3 ml INHALATION Q6H.RT [facility] Last Admin: 11/17/19 06:53 Dose: 3 ml Documented by: Amiodarone HCl (Cordarone) 200 mg PO DAILY [facility] Last Admin: 11/17/19 08:24 Dose: 200 mg Documented by: Amlodipine Besylate (Norvasc) 10 mg PO DAILY [facility] Last Admin: 11/16/19 11:07 Dose: 10 mg Documented by: Aspirin (Aspirin, Baby) 81 mg PO DAILY@0800 [facility] Last Admin: 11/17/19 08:24 Dose: 81 mg Documented by: Atorvastatin Calcium (Lipitor) 80 mg PO QHS [facility] Last Admin: 11/16/19 20:24 Dose: 80 mg Documented by: Furosemide (Lasix) 80 mg IV BID@1000,1800 [facility] Last Admin: 11/16/19 18:42 Dose: 80 mg Documented by: Heparin Sodium (Porcine) (Heparin Na) 5,000 unit SC Q8 [facility] Piperacillin Sod/Tazobactam (Sod 3.375 gm/ Sodium Chloride) 50 mls @ 12.5 mls/hr IV Q12 [facility] Last Infusion: 11/17/19 00:28 Dose: Infused Documented by: Levothyroxine Sodium (Synthroid) 50 mcg PO DAILY@0600 [facility] Last Admin: 11/17/19 06:08 Dose: Not Given Documented by: Lorazepam (Ativan) 0.5 mg PO Q12H PRN PRN PRN Reason: anxiety with BIPAP Last Admin: 11/16/19 22:53 Dose: 0.5 mg Documented by: Memantine (Namenda) 5 mg PO BID [facility] Last Admin: 11/17/19 08:24 Dose: 5 mg Documented by: Ondansetron HCl (Zofran) 4 mg IV Q8H PRN PRN PRN Reason: NAUSEA/VOMITING Sodium Chloride () 10 - 40 ml IV UD PRN PRN Reason: SALINE FLUSH Last Admin: 11/16/19 18:42 Dose: 20 ml Documented by: Medical Necessity - Tobacco Use Smoking Status: Current every day smoker Tobacco Use: Cigarettes Assessment/Plan All Active Problems Septic shock (Acute) Community acquired pneumonia (Acute) Sepsis with acute hypoxic respiratory failure and septic shock (Acute) [place] (acute kidney injury) (Acute) Acute renal failure CKD stage IV Non-ST elevation [place] Congestive heart failure patient and are now agreeable to do dialysis explained procedure patient and , explained risks and benefits IJ is open but could not lay the patient flat right femoral dialysis line placed HD today discussed with staff
--- NOTE | 2019-11-17 09:28 | PCM.OP.PRO ---
Problem List (1) [place] (acute kidney injury) Status: Acute (2) CKD (chronic kidney disease) stage 4, GFR 15-29 ml/min Status: Chronic Procedure Report Date of Procedure: 11/17/19 Dialysis catheter placement Under aseptic precautions, right femoral vein was visualized, compressible. Local preparation with ChloraPrep. Local anesthesia with 1% lidocaine. Right femoral vein cannulated on first attempt with a 18-gauge needle. A 70 cm guidewire was inserted without any difficulty. Tract dilated. Needle was withdrawn and serial dilators were used to establish tract. A 20 cm 12-gauge 2 lm dialysis catheter was inserted over the guidewire. Both ports flush and draw without any difficulty. Caps were inserted. Catheter was sutured in place. No immediate complications. Sterile dressing applied. Chest x-ray is not needed.
[2019-11-17] MEDS: Furosemide 100 MG/10 ML Vial 80 MG IV (11:07)
--- NOTE | 2019-11-17 11:52 | PCM.PN.CARD ---
Subjectve: Elderly 84-year-old patient seen and evaluated today at bedside and discuss cardiac care plan with the nursing staff. As well as with the petroleum laboratory technician Patient is on dialysis today He has been stable hemodynamically Patient had clear evidence of severe distal septal and anteroapical hypokinesia on echocardiogram with severely reduced ejection fraction range 30-35% With evidence of CAD and non-ST elevation myocardial infarction he does not have active chest pain however his presentation is heart failure with acute on chronic renal insufficiency Will undergo cardiac catheterization to assess for ischemic cardiomyopathy, and myocardial revascularization based on the finding. N Also I reviewed his current medication will continue the current medical treatment. Objective: Vital Signs Temp Pulse Resp BP Pulse Ox 99.7 F H 75 18 122/70 H 95 11/17/19 04:00 11/17/19 10:44 11/17/19 10:44 11/17/19 09:00 11/17/19 10:44 Oxygen Delivery Method Bi-pap Weight: 180 lb 15.992 oz Body Mass Index (BMI) 26.5 Intake and Output for Last 24 Hours 11/15/19 11/16/19 11/17/19 23:59 23:59 23:59 Intake Total 391.90 / 391.90 158.15 / 158.15 Output Total 500 / 500 1335 / 1485 700 / 700 Balance -500 / -500 -943.10 / -1093.10 -541.85 / -541.85 General: Awake, Alert, Oriented x 3 HEENT: PERRL, EOMI, Sclera Non Icteric Neck: Supple, Good ROM, No Lymph Node Enlargement Lungs: Clear to auscultation, Rales - Elliot Bases Cardiovascular: Regular Rhythm, Normal S1, Normal S2, No Murmurs, No Rubs, No Gallops 11/16/19 12:25: APTT 70.7 H 11/16/19 12:25: Troponin I 8.370 H* 11/16/19 18:15: APTT 60.1 H 11/17/19 00:15: APTT 45.5 H 11/17/19 04:45: WBC 13.4 H, RBC 2.98 L, Hgb 10.0 L, Hct 29.6 L, MCV 99.3 H, MCH 33.6 H, MCHC 33.8, Plt Count 153, MPV 11.8 11/17/19 04:45: Sodium 143, Potassium 4.5, Chloride 113 H, Carbon Dioxide 20.0 L, Anion Gap 10, BUN 113 H*, Creatinine 5.86 H, Est GFR (MDRD) Af Amer 12 L, Est GFR (MDRD) Non-Af 10 L, BUN/Creatinine Ratio 19.3, Glucose 104, Calcium 8.3 L, Magnesium 2.4 11/17/19 04:45: Troponin I 9.870 H* 11/17/19 07:45: APTT 60.7 H Rhythm: EKG: ECHO: Stress Test: Cardiac Cath: PCI: CT Surgery: Holter monitor: EPS: PPM: CXR: Chest CT Scan: Medical Necessity - Tobacco Use Smoking Status: Current every day smoker Tobacco Use: Cigarettes Assessment/Plan Cardiac care plan discussed in detail patient with severe ischemic cardiomyopathy Continue medical treatment as well on hemodialysis Had CAD with non-ST elevation myocardial infarction and CHF with severe of systolic dysfunction Patient scheduled for cardiac catheterization in the morning. Current medication has been noted and discussed with the nursing staff.
--- NOTE | 2019-11-17 13:25 | DIALYSIS ---
First hemodialysis tx completed x 2 hours without complications. Pt tolerated tx fair, fluid removed 2,200ml using crit-line monitor. Decreased SBP into 90's with higher UF goal that resolved by decreasing UF goal. Vitals stable post tx. Verbal report given to DURGA Clark prior to departure.
[2019-11-17] MEDS: Heparin Injection (Vial) 5,000 UNIT/ML VIAL 5000 UNIT SC ×2 (13:45→21:55)
[2019-11-17] MEDS: Heparin 10,000 UNITS/10 ML Vial IV (13:45)
[2019-11-17] MEDS: LORazepam 0.5 MG Tablet PO (21:54)
[2019-11-17] MEDS: Atorvastatin Calcium 80 MG Tablet PO (21:55)
[2019-11-18] VITALS (33 sets, daily range): BP systolic 89–120; BP diastolic 51–93; PULSE 65–101; RESP 12–29; TEMP 36.7–36.9; O2SAT 86–100
[2019-11-18 04:46] LABS: Hematocrit 28.7 % (40-54); Hemoglobin 9.6 g/dL (13.0-16.5); Mean Corp Hgb Conc 33.4 g/dL (32-36); Mean Corpuscular Hgb 33.6 pg (27.0-32.0); Mean Corpuscular Volume 100.3 fL (80-94); Mean Platelet Vol. 11.7 fl (6.2-12.0); POSITIVE DIFFERENTIAL YES; Platelet Count 142 K/mm3 (150-450); RBC Distribution Width CV 14.1 % (11.6-14.6); RBC Distribution Width SD 51.6 fl (35.1-43.9); Red Blood Count 2.86 M/mm3 (4.6-6.2); White Blood Count 9.2 K/mm3 (4.4-11.0)
[2019-11-18 04:50] LABS: Scan Indicated on CBC? Y/N YES- FLAGS NOTED
[2019-11-18 04:58] LABS: International Normalized Ratio 1.5; Prothrombin Time (Protime)PT. 17.2 SECONDS (11.7-14.9)
[2019-11-18 04:59] LABS: Partial Thromboplast Time 31.2 Seconds (24.1-36.2)
[2019-11-18 05:08] LABS: Anion Gap 9 (5-15); BUN 99 mg/dL (7-18); BUN/Creat Ratio 17.3 RATIO (10-20); Calcium,Total 8.2 mg/dL (8.5-10.1); Chloride 109 mmol/L (98-107); Creatinine, Serum 5.73 mg/dL (0.70-1.30); Differential Comment SCANNED; EST Glomerular Filtration Rate 10 mL/min (>60); Est Glom Filt Rate - Afr Amer 12 mL/min (>60); Estimated Creatinine Clearance 9.91 ml/min; Glucose 94 mg/dL (74-106); Sodium Level 142 mmol/L (136-145)
[2019-11-18] MEDS: Heparin Injection (Vial) 5,000 UNIT/ML VIAL 5000 UNIT SC ×3 (06:32→21:45)
[2019-11-18] MEDS: Levothyroxine 50 MCG Tablet PO (06:32)
[2019-11-18] MEDS: Ipratropium/Albuterol Sulfate 3 ML AMPUL.NEB INHALATION ×3 (06:48→18:38)
--- NOTE | 2019-11-18 07:33 | PN_ITS ---
Subjective: Patient did well overnight. Patient was able to tolerate dialysis yesterday with just over 2 L removed. Patient's oxygenation has significantly improved following volume removal going from 85% FiO2 to 40% FiO2. Patient reported subjective improvement in overall condition. Patient was taken off of the heparin drip secondary to hemoptysis. General: Alert, Oriented x3, Cooperative, No apparent distress - On BiPAP therapy, - - Poor vocalization on BiPAP HEENT: Atraumatic, PERRLA, EOMI, Normocephalic, - - No scleral icterus or injection noted Oral: No Gingival or Mucosal Lesions/ Ulcerations, Dry Mucosa Neck: Supple, No Nodes, Trachea Midline, JVD, Right Lungs: No rhonchi, No wheeze, Diminished, Rales, - - Symmetric expansion Cardiovascular: Regular rate, Regular Rhythm, Normal S1, Normal S2, No murmurs, No rub noted, No Gallop Abdomen: Bowel Sounds Present, Soft, Non Tender, Non-Distended Extremities: No clubbing, No cyanosis, No edema, Capillary Refill Less than 3 Seconds, - - Femoral dialysis line noted Skin: No rashes, No breakdown Musculoskeletal: No Tenderness to Palpation of Joints or Extremities Lymphatic: No Cervical, Supraclavicular, or Inguinal Adenopathy Neurological: Cranial nerves II-XII grossly intact, Neuro grossly intact, Motor Exam 5/5 strength throughout Psych/Mental Status: Normal Affect, Appropriate Vital Signs Temp Pulse Resp BP Pulse Ox 36.8 C 91 26 H 89/68 L 90 11/18/19 04:00 11/18/19 07:00 11/18/19 07:00 11/18/19 07:00 11/18/19 07:00 Oxygen Flow Rate (L/min) 6 Oxygen Delivery Method Nasal Cannula Weight: 76.7 kg Body Mass Index (BMI) 26.5 Intake and Output for Last 24 Hours 11/16/19 11/17/19 11/18/19 23:59 23:59 23:59 Intake Total 391.90 / 391.90 268.15 / 268.15 50 / 50 Output Total 1335 / 1485 3425 / 3525 320 / 320 Balance -943.10 / -1093.10 -3156.85 / -3256.85 -270 / -270 Labs (Last 48 Hours) 11/16/19 11/16/19 11/16/19 08:10 11:20 12:25 WBC RBC Hgb Hct MCV MCH MCHC RDW Std Deviation RDW Coeff of Maritza Plt Count MPV Differential Comment PT INR APTT 70.7 H Sodium Potassium Chloride Carbon Dioxide Anion Gap BUN Creatinine Estim Creat Clear Calc Est GFR (MDRD) Af Amer Est GFR (MDRD) Non-Af BUN/Creatinine Ratio Glucose Calcium Magnesium Troponin I 7.300 H* Hep Bs Antigen Hep Bs Antibody Hep B Core Total Ab MRSA (PCR) Negative 11/16/19 11/16/19 11/17/19 12:25 18:15 00:15 WBC RBC Hgb Hct MCV MCH MCHC RDW Std Deviation RDW Coeff of Maritza Plt Count MPV Differential Comment PT INR APTT 60.1 H 45.5 H Sodium Potassium Chloride Carbon Dioxide Anion Gap BUN Creatinine Estim Creat Clear Calc Est GFR (MDRD) Af Amer Est GFR (MDRD) Non-Af BUN/Creatinine Ratio Glucose Calcium Magnesium Troponin I 8.370 H* Hep Bs Antigen Hep Bs Antibody Hep B Core Total Ab MRSA (PCR) 11/17/19 11/17/19 11/17/19 04:45 04:45 04:45 WBC 13.4 H RBC 2.98 L Hgb 10.0 L Hct 29.6 L MCV 99.3 H MCH 33.6 H MCHC 33.8 RDW Std Deviation 51.8 H RDW Coeff of Maritza 14.0 Plt Count 153 MPV 11.8 Differential Comment PT INR APTT Sodium 143 Potassium 4.5 Chloride 113 H Carbon Dioxide 20.0 L Anion Gap 10 BUN 113 H* Creatinine 5.86 H Estim Creat Clear Calc 9.69 Est GFR (MDRD) Af Amer 12 L Est GFR (MDRD) Non-Af 10 L BUN/Creatinine Ratio 19.3 Glucose 104 Calcium 8.3 L Magnesium 2.4 Troponin I 9.870 H* Hep Bs Antigen Hep Bs Antibody Hep B Core Total Ab MRSA (PCR) 11/17/19 11/17/19 11/17/19 07:45 11:15 11:15 WBC RBC Hgb Hct MCV MCH MCHC RDW Std Deviation RDW Coeff of Maritza Plt Count MPV Differential Comment PT INR APTT 60.7 H Sodium Potassium Chloride Carbon Dioxide Anion Gap BUN Creatinine Estim Creat Clear Calc Est GFR (MDRD) Af Amer Est GFR (MDRD) Non-Af BUN/Creatinine Ratio Glucose Calcium Magnesium Troponin I Hep Bs Antigen Pending Hep Bs Antibody Pending Hep B Core Total Ab Pending MRSA (PCR) 11/18/19 11/18/19 11/18/19 04:40 04:40 04:40 WBC 9.2 RBC 2.86 L Hgb 9.6 L Hct 28.7 L MCV 100.3 H MCH 33.6 H MCHC 33.4 RDW Std Deviation 51.6 H RDW Coeff of Maritza 14.1 Plt Count 142 L MPV 11.7 Differential Comment SCANNED PT 17.2 H INR 1.5 APTT 31.2 Sodium 142 Potassium 4.0 Chloride 109 H Carbon Dioxide 24.0 Anion Gap 9 BUN 99 H Creatinine 5.73 H Estim Creat Clear Calc 9.91 Est GFR (MDRD) Af Amer 12 L Est GFR (MDRD) Non-Af 10 L BUN/Creatinine Ratio 17.3 Glucose 94 Calcium 8.2 L Magnesium Troponin I 10.500 H* Hep Bs Antigen Hep Bs Antibody Hep B Core Total Ab MRSA (PCR) Microbiology 11/16/19 06:30 Sputum, Expectorated/Coughed Gram Stain - Final 11/16/19 06:30 Sputum, Expectorated/Coughed Respiratory Culture - Preliminary Appears to be normal respiratory henri. Further studies to follow. 11/16/19 09:55 Mucosa - Nose Respiratory Panel (PCR) - Final 11/16/19 11:20 Urine, Random Legionella Antigen - Final 11/16/19 11:20 Urine, Random Streptococcus pneumoniae Antigen (M - Final Medical Necessity - Tobacco Use Smoking Status: Current every day smoker Tobacco Use: Cigarettes Assessment/Plan All Active Problems Septic shock (Acute) Community acquired pneumonia (Acute) Sepsis with acute hypoxic respiratory failure and septic shock (Acute) [place] (acute kidney injury) (Acute) RECOMMENDATIONS: 1. Attempt BiPAP breaks as tolerated and wean FiO2 to maintain oxygen saturations at or above 90%. 2. Continue empiric antimicrobials. 3. Additional fluid removal with hemodialysis 4. Coordination with cardiology if having a heart catheterization 5. Additional cardiac work-up per recommendations. IMPRESSIONS: 1. Acute hypoxemic respiratory failure Most likely multifactorial in etiology. I do suspect that the patient's presentation is likely the consequence of acute decompensated heart failure in the setting of an NSTEMI with possible superimposed pneumonia. At this time, the patient has responded appropriately to BiPAP therapy, which will be continued without change. Broad-spectrum antimicrobials will be continued, pending infectious work-up. Cardiology is currently following to assist with additional medical management. Patient has responded well to volume removal. Would recommend continued volume removal by hemodialysis as patient failed diuretic therapy in the past. 2. Acute on chronic kidney disease The patient has been followed by nephrology due to his chronic kidney disease. Nephrology is currently following. Unclear if patient is aware of his long-term prognosis. Patient reportedly has refused chronic dialysis in the past. 3. Non-ST segment elevation [place] The patient presented with an elevated troponin and T wave inversions on EKG. Troponins continue to climb. Cardiology had mentioned possible heart catheterization over the weekend, but will await repeat evaluation. If patient is to have a heart catheterization, coordination with hemodialysis will need to be established to avoid further renal damage. 4. Septic shock The patient did have SIRS criteria along with an elevated lactate to greater than 6 at the outside hospital. I do suspect that his lactate elevation is secondary to hypoxemia, as the patient has never been hemodynamically unstable. We will continue with antibiotics for now given his relative instability. 5. Questionable history of COPD/Alzheimer's/hypertension Complicates care, management, recovery and prognosis. Continue bronchodilators as ordered. Inpatient E&M: [id number] [facility] Hosp L3
--- NOTE | 2019-11-18 08:05 | PCM.PN.HOSP ---
Patient Problems: Active and Suspected Problems Septic shock (Acute) Community acquired pneumonia (Acute) Bilateral community-acquired pneumonia Sepsis with acute hypoxic respiratory failure and septic shock (Acute) [place] (acute kidney injury) (Acute) Subjective: Pt rambles about different things but no clear logical thought process at this time. Has been coughing up blood some on and off. Per pt this is a chronic thing and was told it was his teeth. Vitals/I&O's: Vital Signs Temp Pulse Resp BP Pulse Ox 98.2 F 91 26 H 89/68 L 90 11/18/19 04:00 11/18/19 07:00 11/18/19 07:00 11/18/19 07:00 11/18/19 07:00 Oxygen Flow Rate (L/min) 6 Oxygen Delivery Method Nasal Cannula Weight: 76.7 kg Body Mass Index (BMI) 26.5 Intake and Output for Last 24 Hours 11/16/19 11/17/19 11/18/19 23:59 23:59 23:59 Intake Total 391.90 / 391.90 268.15 / 268.15 50 / 50 Output Total 1335 / 1485 3425 / 3525 320 / 320 Balance -943.10 / -1093.10 -3156.85 / -3256.85 -270 / -270 General: Alert, Cooperative, Well developed, Well nourished, - - older WM sitting up in bed on Airvo, appears comfortable HEENT: Atraumatic, PERRLA, EOMI, Normocephalic, EAC Clear Oral: Moist Mucosa, No Gingival or Mucosal Lesions/ Ulcerations, - - poor dentition, dried blood in mouth but no noted currently bleeding Neck: Supple, Negative Carotid Bruits, No Nodes, Trachea Midline, Thyroid Normal Size and Texture, JVD, Bilateral Lungs: No rhonchi, No rales, Diminished - diffusely, Wheezes - few end expiratory Cardiovascular: Regular rate, Regular Rhythm, Normal S1, Normal S2, No murmurs, No Ectopic Activity, No rub noted, No Gallop Abdomen: Bowel Sounds Present, Soft, Non Tender, Non-Distended, No Hepato-splenomegaly, No hernias noted Extremities: No clubbing, No cyanosis, No edema, Capillary Refill Less than 3 Seconds, Peripheral Pulses Normal Skin: No rashes, No breakdown Musculoskeletal: No Tenderness to Palpation of Joints or Extremities, No Muscle Wasting, Arthritic Changes Lymphatic: No Cervical, Supraclavicular, or Inguinal Adenopathy Neurological: Cranial nerves II-XII grossly intact, Neuro grossly intact, Muscle tone normal, Coordination normal Psych/Mental Status: Normal Affect, - - confused, follows commands Microbiology Past 72 Hours 11/16/19 06:30 Sputum, Expectorated/Coughed Gram Stain - Final 11/16/19 06:30 Sputum, Expectorated/Coughed Respiratory Culture - Preliminary Appears to be normal respiratory henri. Further studies to follow. 11/16/19 09:55 Mucosa - Nose Respiratory Panel (PCR) - Final 11/16/19 11:20 Urine, Random Legionella Antigen - Final 11/16/19 11:20 Urine, Random Streptococcus pneumoniae Antigen (M - Final Laboratory Results 11/17/19 07:45: APTT 60.7 H 11/17/19 11:15: Hep B Core Total Ab Pending 11/17/19 11:15: Hep Bs Antigen Pending, Hep Bs Antibody Pending 11/18/19 04:40: WBC 9.2, RBC 2.86 L, Hgb 9.6 L, Hct 28.7 L, MCV 100.3 H, MCH 33.6 H, MCHC 33.4, RDW Std Deviation 51.6 H, RDW Coeff of Maritza 14.1, Plt Count 142 L, MPV 11.7, Differential Comment SCANNED 11/18/19 04:40: Sodium 142, Potassium 4.0, Chloride 109 H, Carbon Dioxide 24.0, Anion Gap 9, BUN 99 H, Creatinine 5.73 H, Estim Creat Clear Calc 9.91, Est GFR (MDRD) Af Amer 12 L, Est GFR (MDRD) Non-Af 10 L, BUN/Creatinine Ratio 17.3, Glucose 94, Calcium 8.2 L, Troponin I 10.500 H* 11/18/19 04:40: PT 17.2 H, INR 1.5, APTT 31.2 Current Medications Acetaminophen (Tylenol) 650 mg PO Q6H PRN PRN PRN Reason: Pain 1-10 or Fever Albuterol Sulfate (Ventolin Aerosols) 2.5 mg INHALATION Q2H PRN PRN PRN Reason: DYSPNEA Albuterol/Ipratropium (Duoneb) 3 ml INHALATION Q6H.RT [facility] Last Admin: 11/18/19 06:48 Dose: 3 ml Documented by: Amiodarone HCl (Cordarone) 200 mg PO DAILY [facility] Last Admin: 11/17/19 08:24 Dose: 200 mg Documented by: Amlodipine Besylate (Norvasc) 10 mg PO DAILY [facility] Last Admin: 11/17/19 13:37 Dose: Not Given Documented by: Aspirin (Aspirin, Baby) 81 mg PO DAILY@0800 [facility] Last Admin: 11/17/19 08:24 Dose: 81 mg Documented by: Atorvastatin Calcium (Lipitor) 80 mg PO QHS [facility] Last Admin: 11/17/19 21:55 Dose: 80 mg Documented by: Furosemide (Lasix) 80 mg IV BID@1000,1800 [facility] Last Admin: 11/17/19 18:55 Dose: Not Given Documented by: Heparin Sodium (Porcine) (Heparin Na) 5,000 unit SC Q8 [facility] Last Admin: 11/18/19 06:32 Dose: 5,000 unit Documented by: Heparin Sodium (Porcine) () 2,500 units IV UD PRN PRN Reason: Dialysis Cath Heparin Flush Piperacillin Sod/Tazobactam (Sod 3.375 gm/ Sodium Chloride) 50 mls @ 12.5 mls/hr IV Q12 [facility] Last Infusion: 11/18/19 01:54 Dose: Infused Documented by: Levothyroxine Sodium (Synthroid) 50 mcg PO DAILY@0600 [facility] Last Admin: 11/18/19 06:32 Dose: 50 mcg Documented by: Lorazepam (Ativan) 0.5 mg PO Q12H PRN PRN PRN Reason: anxiety with BIPAP Last Admin: 11/17/19 21:54 Dose: 0.5 mg Documented by: Memantine (Namenda) 5 mg PO BID [facility] Last Admin: 11/17/19 21:55 Dose: 5 mg Documented by: Ondansetron HCl (Zofran) 4 mg IV Q8H PRN PRN PRN Reason: NAUSEA/VOMITING Sodium Chloride () 10 - 40 ml IV UD PRN PRN Reason: SALINE FLUSH Last Admin: 11/16/19 18:42 Dose: 20 ml Documented by: Sodium Chloride () 10 ml IV UD PRN PRN Reason: Dialysis Catheter Flush STROKE Vital Signs/Narrative: Vital Signs Pulse Resp BP Pulse Ox 11/18/19 07:00 91 26 H 89/68 L 90 11/18/19 06:49 81 20 H 90 11/18/19 06:00 83 19 H 119/77 95 11/18/19 05:01 89 25 H 91 11/18/19 05:00 85 18 115/73 91 Medical Necessity - Tobacco Use Smoking Status: Current every day smoker Tobacco Use: Cigarettes Assessment/Plan All Active Problems Septic shock (Acute) Community acquired pneumonia (Acute) Sepsis with acute hypoxic respiratory failure and septic shock (Acute) [place] (acute kidney injury) (Acute) Acute Hypoxic Respiratory Failure-multifactorial (volume overload/NSTEMI/+- PNA) -not O2 dependent at baseline -remains on BIPAP therapy but FiO2 has been weaned from 85% to 40% FiO2 -wean as able -continue ABX at this time and await cx results -nebs as ordered -urine antigens neg -viral panel neg -COVID neg -pulm following appreciate input Septic Shock -resolved -continue abx -await cx Elevated lactic acid -suspect 2/2 hypoxia and resolved with increased O2 -resolved CKD Stage 4 -pt was agreeable to HD now -had first HD session yesterday -R fem line placed 2/2 inability to lie pt flat -suspect will need tunneled line prior to d/c -Lasix per nephro -appreciate nephro input Acute NSTEMI -troponin elevation to 10.5 this am even after HD -EKG with Twave inversions -start coreg 3.125 BID with hold parameters, continue asa and statin -cath once stable from a respiratory standpoint -heparin ggt stopped 2/2 bleeding (hemoptysis) -continue ASA -ECHO showed EF 30-35% with severe distal septal and anteroapical hypokinesia -obtain old medical records -Cards following CAD/HTN/HPL/HFrEF-decompensated -continue ASA -stop Amlodipine for now--> will likely switch to BB (coreg with EF) if BP can tolerate -continue Statin -lasix -HD PAF -now NSR -Eliquis on hold as pt was on heparin ggt but held 2/2 hemoptysis -continue amiodarone 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
[2019-11-18 10:41] LABS: Hepatitis B Surface Antibody Non-Reactive; Hepatitis B Surface Antigen Non-Reactive (Nonreactive)
[2019-11-18] MEDS: Amiodarone 200 MG Tablet PO (10:46)
[2019-11-18] MEDS: Carvedilol 3.125 MG TABLET PO (10:46)
[2019-11-18] MEDS: Aspirin 81 MG TAB.CHEW PO (10:46)
[2019-11-18] MEDS: Memantine Hydrochloride 5 MG Tablet PO ×2 (10:46→21:45)
--- NOTE | 2019-11-18 10:50 | CASEMGMT ---
DURGA ROBERT Face to Face with patient for initial transition planning/care coordination assessment. RN CM introduced self and role at [facility]. Patient lying in bed, alert and oriented. Patient willing to participate in assessment and is able to answer all questions appropriately. Care providers, pharmacy, and demographics verified. Patient wishes to discharge home, will monitor how patient progresses with therapy for possible HHC. Patient states he has no further needs or concerns at this time. CM to follow for discharge planning needs that may arise. PCP: Yair Vásquez Specialists: Viktoriya, director of coding Angela; [facility] nephrology; martinez Todd Preferred Pharmacy: [facility] Insurance: [employer] Prescription Benefit: yes Living Will/HPOA: yes, Shana Chua LNOK: Living Arrangements: Patient lives with in a single story home with 2 steps and railing to enter the home. Patietn states he is normally independent at home. Transportation: DME/HHC: Patient states he has cane and walker at home. Will monitor patient for need for home oxygen at discharge. No previous HHC. Disposition Plan: Patient to discharge home with family support and follow-up plans in place. Will monitor for need for HHC and home oxygen. Jody BLANCO, RN, CM
[2019-11-18] MEDS: Furosemide 100 MG/10 ML Vial 80 MG IV (12:10)
--- NOTE | 2019-11-18 12:33 | PN.RENAL_ITS ---
Patient Problems: Active and Suspected Problems Septic shock (Acute) Community acquired pneumonia (Acute) Bilateral community-acquired pneumonia Sepsis with acute hypoxic respiratory failure and septic shock (Acute) [place] (acute kidney injury) (Acute) Subjective: no cp/sob no c/o - Physical Exam Vitals/I&O's: Vital Signs Temp Pulse Resp BP Pulse Ox 98.0 F 72 20 H 107/61 87 11/18/19 12:00 11/18/19 12:00 11/18/19 12:00 11/18/19 12:00 11/18/19 12:00 Oxygen Flow Rate (L/min) 40 Oxygen Delivery Method CPAP Weight: 76.7 kg Body Mass Index (BMI) 26.5 Intake and Output for Last 24 Hours 11/16/19 11/17/19 11/18/19 23:59 23:59 23:59 Intake Total 391.90 / 391.90 268.15 / 268.15 50 / 50 Output Total 1335 / 1485 3425 / 3525 570 / 570 Balance -943.10 / -1093.10 -3156.85 / -3256.85 -520 / -520 General: Alert, Cooperative HEENT: Atraumatic, Normocephalic Oral: Moist Mucosa Neck: Supple, Trachea Midline Lungs: Clear to auscultation Cardiovascular: Regular rate, Regular Rhythm, Normal S1, Normal S2 Abdomen: Bowel Sounds Present, Soft, Non Tender Extremities: No edema Microbiology Past 72 Hours 11/16/19 06:30 Sputum, Expectorated/Coughed Gram Stain - Final 11/16/19 06:30 Sputum, Expectorated/Coughed Respiratory Culture - Final Mixed normal respiratory henri. No Streptococcus pneumoniae, beta-hemolytic Streptococcus or Staphylococcus aureus isolated. 11/16/19 09:55 Mucosa - Nose Respiratory Panel (PCR) - Final 11/16/19 11:20 Urine, Random Legionella Antigen - Final 11/16/19 11:20 Urine, Random Streptococcus pneumoniae Antigen (M - Final Laboratory Results 11/17/19 11:15: Hep Bs Antigen Non-Reactive, Hep Bs Antibody Non-Reactive 11/18/19 04:40: WBC 9.2, RBC 2.86 L, Hgb 9.6 L, Hct 28.7 L, MCV 100.3 H, MCH 33.6 H, MCHC 33.4, RDW Std Deviation 51.6 H, RDW Coeff of Maritza 14.1, Plt Count 142 L, MPV 11.7, Differential Comment SCANNED 11/18/19 04:40: Sodium 142, Potassium 4.0, Chloride 109 H, Carbon Dioxide 24.0, Anion Gap 9, BUN 99 H, Creatinine 5.73 H, Estim Creat Clear Calc 9.91, Est GFR (MDRD) Af Amer 12 L, Est GFR (MDRD) Non-Af 10 L, BUN/Creatinine Ratio 17.3, Glucose 94, Calcium 8.2 L, Troponin I 10.500 H* 11/18/19 04:40: PT 17.2 H, INR 1.5, APTT 31.2 Current Medications Acetaminophen (Tylenol) 650 mg PO Q6H PRN PRN PRN Reason: Pain 1-10 or Fever Albuterol Sulfate (Ventolin Aerosols) 2.5 mg INHALATION Q2H PRN PRN PRN Reason: DYSPNEA Albuterol/Ipratropium (Duoneb) 3 ml INHALATION Q6H.RT [facility] Last Admin: 11/18/19 06:48 Dose: 3 ml Documented by: Amiodarone HCl (Cordarone) 200 mg PO DAILY [facility] Last Admin: 11/18/19 10:46 Dose: 200 mg Documented by: Aspirin (Aspirin, Baby) 81 mg PO DAILY@0800 [facility] Last Admin: 11/18/19 10:46 Dose: 81 mg Documented by: Atorvastatin Calcium (Lipitor) 80 mg PO QHS [facility] Last Admin: 11/17/19 21:55 Dose: 80 mg Documented by: Calcium Acetate (Phoslo Gel Cap) 667 mg PO TIDCM [facility] Last Admin: 11/18/19 10:57 Dose: Not Given Documented by: Carvedilol (Coreg) 3.125 mg PO BID [facility] Last Admin: 11/18/19 10:46 Dose: 3.125 mg Documented by: Furosemide (Lasix) 80 mg IV BID@1000,1800 [facility] Last Admin: 11/18/19 12:10 Dose: 80 mg Documented by: Heparin Sodium (Porcine) (Heparin Na) 5,000 unit SC Q8 [facility] Last Admin: 11/18/19 06:32 Dose: 5,000 unit Documented by: Heparin Sodium (Porcine) () 2,500 units IV UD PRN PRN Reason: Dialysis Cath Heparin Flush Piperacillin Sod/Tazobactam (Sod 3.375 gm/ Sodium Chloride) 50 mls @ 12.5 mls/hr IV Q12 [facility] Last Admin: 11/18/19 11:03 Dose: 12.5 mls/hr Documented by: Levothyroxine Sodium (Synthroid) 50 mcg PO DAILY@0600 [facility] Last Admin: 11/18/19 06:32 Dose: 50 mcg Documented by: Lorazepam (Ativan) 0.5 mg PO Q12H PRN PRN PRN Reason: anxiety with BIPAP Last Admin: 11/17/19 21:54 Dose: 0.5 mg Documented by: Memantine (Namenda) 5 mg PO BID [facility] Last Admin: 11/18/19 10:46 Dose: 5 mg Documented by: Ondansetron HCl (Zofran) 4 mg IV Q8H PRN PRN PRN Reason: NAUSEA/VOMITING Sodium Chloride () 10 - 40 ml IV UD PRN PRN Reason: SALINE FLUSH Last Admin: 11/16/19 18:42 Dose: 20 ml Documented by: Sodium Chloride () 10 ml IV UD PRN PRN Reason: Dialysis Catheter Flush Medical Necessity - Tobacco Use Smoking Status: Current every day smoker Tobacco Use: Cigarettes Assessment/Plan All Active Problems Septic shock (Acute) Community acquired pneumonia (Acute) Sepsis with acute hypoxic respiratory failure and septic shock (Acute) [place] (acute kidney injury) (Acute) [place] CKD stage IV CKD MBD Non-ST elevation MT Congestive heart failure for HD today then tomorrow continue lasix as he still has residual uop place TDC when more stable currently cannot lie flat for procedure avoid nephrotoxins to preserve RRF bp per cards check phos in am on phoslo d/w patient and RN has femoral catheter
--- NOTE | 2019-11-18 13:01 | PCM.PN.CARD ---
Subjectve: The patient was evaluated earlier this day in the ICU. He denied ongoing chest discomfort. He admitted to chronic shortness of breath and dyspnea. He was noted during the conversation to have issues regarding his memory. Objective: Vital Signs Temp Pulse Resp BP Pulse Ox 98.0 F 81 20 H 107/61 87 11/18/19 12:00 11/18/19 12:00 11/18/19 12:00 11/18/19 12:00 11/18/19 12:00 Oxygen Flow Rate (L/min) 40 Oxygen Delivery Method CPAP Weight: 169 lb 1.513 oz Body Mass Index (BMI) 26.5 Intake and Output for Last 24 Hours 11/16/19 11/17/19 11/18/19 23:59 23:59 23:59 Intake Total 391.90 / 391.90 268.15 / 268.15 50 / 50 Output Total 1335 / 1485 3425 / 3525 570 / 570 Balance -943.10 / -1093.10 -3156.85 / -3256.85 -520 / -520 General: Awake, Cooperative, No Acute Distress HEENT: Atraumatic, Normocephalic, PERRL, EOMI, Sclera Non Icteric Neck: No JVD Lungs: Diminished Elliot Bases Cardiovascular: Regular Rhythm, Normal S1, Normal S2 Abdomen: Bowel Sounds Present, Soft, Non Tender Extremities: No edema Psych/Mental Status: Dementia 11/18/19 04:40: WBC 9.2, RBC 2.86 L, Hgb 9.6 L, Hct 28.7 L, MCV 100.3 H, MCH 33.6 H, MCHC 33.4, Plt Count 142 L, MPV 11.7 11/18/19 04:40: Sodium 142, Potassium 4.0, Chloride 109 H, Carbon Dioxide 24.0, Anion Gap 9, BUN 99 H, Creatinine 5.73 H, Est GFR (MDRD) Af Amer 12 L, Est GFR (MDRD) Non-Af 10 L, BUN/Creatinine Ratio 17.3, Glucose 94, Calcium 8.2 L, Troponin I 10.500 H* 11/18/19 04:40: PT 17.2 H, INR 1.5, APTT 31.2 Rhythm: Sinus rhythm ECHO: Interpretation Summary Anterior [place] : Severely Hypokinetic. Severe LV systolic Dysfunction EF 30-35% Severe Anteroapical hypokinesia Mild MR Mild TR. Medical Necessity - Tobacco Use Smoking Status: Current every day smoker Tobacco Use: Cigarettes Assessment/Plan 1. Non-ST segment elevation GA The patient does have abnormal cardiac enzymes. This coupled with his transthoracic echocardiogram superimposed upon his clinical course does raise concern of underlying CAD with myocardial ischemia, etc. At the moment he is continuing medical therapy. This is included aspirin therapy with the addition of beta-blockers as well as his lipid-lowering agents. He could be considered for nitrate therapy as deemed appropriate. Based upon ongoing issues with his renal insufficiency he is not an ideal candidate at the moment for additional agents such as YEE inhibitor's or ARB's. He has been on anticoagulant therapy. This is been placed on hold based upon his ongoing issues with the thought of need for invasive evaluation with diagnostic cardiac catheterization. With respect to cardiac catheterization there is some concern at this time with respect to proceeding in this manner as the patient is not symptomatically improved to the point where he can lie supine comfortably and oxygenate comfortably as well as concerns of possible hemoptysis requiring discontinuation of his anticoagulant therapy and concerns of his underlying anemia. There is also concerns with respect to cardiac catheterization of his underlying renal insufficiency. If there is any concern his renal insufficiency may be temporary then there may be hesitancy in proceeding with such based upon concerns of IV contrast related nephropathy, etc. If his renal insufficiency is thought to be permanent and he is going to remain on hemodialysis then this may not be an issue. 2. Ischemic mediated cardiomyopathy He does have diminished LV systolic function based on his echocardiogram. Again he will continue medical therapy and further evaluation as he is able. 3. CHF-acute systolic There is concern that he has developed acute systolic CHF. This based on his history, his exam, his laboratory studies, and his radiologic studies. At the moment he is continuing medical therapy which does include diuretics but also includes hemodialysis. Hopefully his volume status will come under better control where he can lie supine comfortably, oxygenate comfortably, and be able to undergo further invasive evaluation such as diagnostic cardiac catheterization if deemed appropriate. 4. Paroxysmal atrial fibrillation Apparently there is a history of paroxysmal atrial fibrillation for which she has been treated medically in the past. Those records are unavailable for review. Attempt will be made to retrieve additional cardiovascular history for continuity of care purposes. 5. Renal insufficiency He does have findings of ongoing renal insufficiency. He has started hemodialysis therapy. It appears he needs additional hemodialysis to try and bring his volume status under better control. Put from nephrology with respect to his ability to undergo future diagnostic cardiac catheterization is most appreciated. 6. Hyperlipidemia He will continue lipid-lowering therapy. 7. Hypertension His blood pressures can be monitored and his medications can be adjusted as tolerated. 8. AAA s/p repair (remote) He does have a history of a AAA. Apparently this was surgically repaired many years ago through the [facility] system. 9. Hemoptysis He has a history of hemoptysis. There is some question as to how long this is been going on. As demonstrating that this day in the ICU. 10. Dementia This does play a role in the patient's ongoing evaluation and care. It is challenging for patients with dementia to undergo invasive procedures with respect to following instructions during and after the procedures to minimize the risk of periprocedural related complications. Overall, a lengthy discussion was held regarding the patient with his spouse via telephone. She states that his dementia has worsened significantly since April of this year. She states that he has quickly gone downhill . She notes with respect to his medical issues that they have become much worse especially recently including concerns of his breathing, his hemoptysis, his renal function, etc. She states this is superimposed upon a history of his atrial dysrhythmia and what she has been told was a heart that is not as strong as we would like it to be . She does not know the details of his previous cardiovascular testing. At the present time the patient's spouse knows that she would have to be the one making medical decisions for him based upon his dementia. She states that this time her wishes are that he receives medical treatment/comfort care while he undergoes his evaluation and care. She is going to consider his DNR status. She states that she does not want to proceed with procedures such as diagnostic cardiac catheterization at this time or potentially any time in his future. This note was generated using a voice recognition system and there may be incorrect words, spelling or punctuation that were not noted when reviewing the office note prior to saving.
--- NOTE | 2019-11-18 20:33 | CPS ---
Pt.'s AirVo liter flow increased to 60L; increase in pressure to aid in pt.'s hypoxia (88%)
--- NOTE | 2019-11-18 20:37 | CPS ---
Pt.'s AirVo liter flow increased to 60 liters; increased pressure for alveolar recruitment to help correct hypoxia (88%)
[2019-11-18] MEDS: Heparin 10,000 UNITS/10 ML Vial 2800 UNITS IV (21:32)
[2019-11-18] MEDS: Atorvastatin Calcium 80 MG Tablet PO (21:45)
--- NOTE | 2019-11-18 22:13 | DIALYSIS ---
Hemodialysis x 3 hours. -2000ml off. CVC with poor flow. Art. no pull. ran reversed with less than desired bfr. see hd flowsheet for details. Report to Vane CALIXTO at bedside.
[2019-11-19] VITALS (39 sets, daily range): BP systolic 89–122; BP diastolic 45–78; PULSE 61–78; RESP 12–27; TEMP 36.1–36.9; O2SAT 91–99
[2019-11-19] MEDS: Ipratropium/Albuterol Sulfate 3 ML AMPUL.NEB INHALATION ×4 (01:00→18:59)
--- NOTE | 2019-11-19 01:49 | CPS ---
Pt.'s FiO2 titrated down to 35%; oxygenation demands being met
--- NOTE | 2019-11-19 05:23 | CPS ---
Pt.'s pressures titrated down. He seems to be responding well as of now. I will increase if pt. is unable to tolerate the decrease in pressures. Pt. oxygenating well, as of now
--- NOTE | 2019-11-19 05:55 | RAD_ITS ---
STUDY: X-RAY CHEST REASON FOR EXAM: Male, 84 years old. SOB -- CHF TECHNIQUE: Single AP portable view of the chest. COMPARISON: Comparison is made with prior study dated 11/16/2019. FINDINGS: EKG electrodes are seen. There is evidence of residual vascular congestion and airspace disease in the right lower lobe and left perihilar region. There''s been a moderate degree of improvement of the CHF. There is no demonstrated pleural abnormality. There is moderate cardiac enlargement. Normal mediastinum and sanjeev. Normal visualized pulmonary arteries. There is atherosclerotic calcification of the aortic arch with tortuosity. There are diffuse degenerative changes of the visualized thoracic spine. Normal visualized ribs, clavicles, and shoulders. There is no demonstrated abnormality of the visualized soft tissue structures of the upper abdomen. RAD/Chest 1 View (Portable) IMPRESSION: Moderate degree of improvement of the CHF. Mild residual changes persist. Electronically Signed: Deion Arevalo, at 8:16 EDT , Service support ,
[2019-11-19] MEDS: Heparin Injection (Vial) 5,000 UNIT/ML VIAL 5000 UNIT SC ×3 (06:24→21:02)
[2019-11-19] MEDS: Levothyroxine 50 MCG Tablet PO (06:24)
--- NOTE | 2019-11-19 07:16 | PCM.PN.HOSP ---
Patient Problems: Active and Suspected Problems Septic shock (Acute) Community acquired pneumonia (Acute) Bilateral community-acquired pneumonia Sepsis with acute hypoxic respiratory failure and septic shock (Acute) [place] (acute kidney injury) (Acute) Subjective: No issues overnight. Sleeping comfortably on HFNC at 50% (mouth breathing). Vitals/I&O's: Vital Signs Temp Pulse Resp BP Pulse Ox 98.1 F 63 15 118/73 97 11/19/19 04:00 11/19/19 06:53 11/19/19 06:53 11/19/19 06:00 11/19/19 06:53 Oxygen Flow Rate (L/min) 60 Oxygen Delivery Method CPAP Weight: 75.6 kg Body Mass Index (BMI) 26.5 Intake and Output for Last 24 Hours 11/17/19 11/18/19 11/19/19 23:59 23:59 23:59 Intake Total 268.15 / 268.15 100 / 190 140 / 140 Output Total 3425 / 3525 2895 / 3095 200 / 200 Balance -3156.85 / -3256.85 -2795 / -2905 -60 / -60 General: Well developed, Well nourished, - - older WM sleeping comfortably Oral: No Gingival or Mucosal Lesions/ Ulcerations, Dry Mucosa, - - no blood in oropharynx Neck: Supple, Trachea Midline Lungs: No rhonchi, No wheeze, No rales, Diminished - bases diffusely Cardiovascular: Regular rate, Regular Rhythm, Normal S1, Normal S2, No murmurs, No Ectopic Activity, No rub noted, No Gallop Abdomen: Bowel Sounds Present, Soft, Non Tender, Non-Distended, No Hepato-splenomegaly Extremities: No clubbing, No cyanosis, No edema, Capillary Refill Less than 3 Seconds, Peripheral Pulses Normal Skin: No rashes, No breakdown, - - pale Musculoskeletal: No Tenderness to Palpation of Joints or Extremities, No Muscle Wasting, Arthritic Changes Psych/Mental Status: - - pt sleeping Microbiology Past 72 Hours 11/16/19 06:30 Sputum, Expectorated/Coughed Gram Stain - Final 11/16/19 06:30 Sputum, Expectorated/Coughed Respiratory Culture - Final Mixed normal respiratory henri. No Streptococcus pneumoniae, beta-hemolytic Streptococcus or Staphylococcus aureus isolated. 11/16/19 09:55 Mucosa - Nose Respiratory Panel (PCR) - Final 11/16/19 11:20 Urine, Random Legionella Antigen - Final 11/16/19 11:20 Urine, Random Streptococcus pneumoniae Antigen (M - Final Laboratory Results 11/17/19 11:15: Hep Bs Antigen Non-Reactive, Hep Bs Antibody Non-Reactive 11/18/19 14:10: Troponin I 7.930 H* Current Medications Acetaminophen (Tylenol) 650 mg PO Q6H PRN PRN PRN Reason: Pain 1-10 or Fever Albuterol Sulfate (Ventolin Aerosols) 2.5 mg INHALATION Q2H PRN PRN PRN Reason: DYSPNEA Albuterol/Ipratropium (Duoneb) 3 ml INHALATION Q6H.RT [facility] Last Admin: 11/19/19 06:51 Dose: 3 ml Documented by: Amiodarone HCl (Cordarone) 200 mg PO DAILY [facility] Last Admin: 11/18/19 10:46 Dose: 200 mg Documented by: Aspirin (Aspirin, Baby) 81 mg PO DAILY@0800 [facility] Last Admin: 11/18/19 10:46 Dose: 81 mg Documented by: Atorvastatin Calcium (Lipitor) 80 mg PO QHS [facility] Last Admin: 11/18/19 21:45 Dose: 80 mg Documented by: Calcium Acetate (Phoslo Gel Cap) 667 mg PO TIDCM [facility] Last Admin: 11/18/19 16:20 Dose: Not Given Documented by: Carvedilol (Coreg) 3.125 mg PO BID [facility] Last Admin: 11/18/19 21:44 Dose: Not Given Documented by: Furosemide (Lasix) 80 mg IV BID@1000,1800 [facility] Last Admin: 11/18/19 20:11 Dose: Not Given Documented by: Heparin Sodium (Porcine) (Heparin Na) 5,000 unit SC Q8 [facility] Last Admin: 11/19/19 06:24 Dose: 5,000 unit Documented by: Heparin Sodium (Porcine) () 2,500 units IV UD PRN PRN Reason: Dialysis Cath Heparin Flush Piperacillin Sod/Tazobactam (Sod 3.375 gm/ Sodium Chloride) 50 mls @ 12.5 mls/hr IV Q12 [facility] Last Infusion: 11/19/19 01:44 Dose: Infused Documented by: Levothyroxine Sodium (Synthroid) 50 mcg PO DAILY@0600 [facility] Last Admin: 10/13/20 06:24 Dose: 50 mcg Documented by: Lorazepam (Ativan) 0.5 mg PO Q12H PRN PRN PRN Reason: anxiety with BIPAP Last Admin: 11/17/19 21:54 Dose: 0.5 mg Documented by: Memantine (Namenda) 5 mg PO BID [facility] Last Admin: 11/18/19 21:45 Dose: 5 mg Documented by: Ondansetron HCl (Zofran) 4 mg IV Q8H PRN PRN PRN Reason: NAUSEA/VOMITING Sodium Chloride () 10 - 40 ml IV UD PRN PRN Reason: SALINE FLUSH Last Admin: 11/16/19 18:42 Dose: 20 ml Documented by: Sodium Chloride () 10 ml IV UD PRN PRN Reason: Dialysis Catheter Flush STROKE Vital Signs/Narrative: Vital Signs Temp Pulse Resp BP Pulse Ox 11/19/19 06:53 61 15 97 11/19/19 06:07 67 22 H 95 11/19/19 06:00 61 12 118/73 98 11/19/19 05:06 71 21 H 96 11/19/19 05:00 64 19 H 119/68 99 11/19/19 04:25 70 27 H 92 11/19/19 04:00 98.1 F 65 26 H 108/62 97 Medical Necessity - Tobacco Use Smoking Status: Current every day smoker Tobacco Use: Cigarettes Assessment/Plan All Active Problems Septic shock (Acute) Community acquired pneumonia (Acute) Sepsis with acute hypoxic respiratory failure and septic shock (Acute) [place] (acute kidney injury) (Acute) Acute Hypoxic Respiratory Failure-multifactorial (volume overload/NSTEMI/+- PNA) -not O2 dependent at baseline -on Airvo this at at 50%--> pt is a sig mouth breather and I suspect that when he is more awake we will be able to wean O2 -mixed resp henri on sputum cx -narrow abx to Unasyn to treat aspiration 3 gm q 12 with HD for a total of 7 days (day 04/12) -nebs as ordered -urine antigens neg -viral panel neg -COVID neg -pulm following appreciate input Septic Shock -resolved Elevated lactic acid -suspect 2/2 hypoxia and resolved with increased O2 -resolved Hemoptysis -has been ongoing for awhile -no current issues of anticoagulation -monitor CKD Stage 4 -pt was agreeable to HD now -had HD again yesterday with plans to do -R fem line in currently -will need tunneled line prior to d/c-->per nephro note agree when can lie flat -Lasix per nephro -appreciate nephro input Acute NSTEMI -continue coreg 3.125 BID with hold parameters for SBP and HR -continue asa and statin -no plan for cath as per cards note long d/w and his dementia has worsened markedly since 04/2019 and will treat medically -ECHO showed EF 30-35% with severe distal septal and anteroapical hypokinesia -old record reviewed -had nuc stress test 02/2018 that showed a sm to med-sized partially reversible defect in the mid ant wall of the LV, LV with mod to severe hypokinesis but EF of 54% and and ECHO at the same time that showed a comparable EF of 55% -Cards following CAD/HTN/HPL/HFrEF-decompensated -continue ASA -Coreg 3.125 BID for now -continue Statin -lasix -HD PAF -remains in NSR -Eliquis on hold as pt was on heparin ggt but held 2/2 hemoptysis -risk of restarting Eliquis likely outweighs benefit with hemoptysis which has been an issue for awhile and fall risk -continue amiodarone 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
[2019-11-19 08:04] LABS: Hepatitis B Core Ab Total Negative (Negative)
--- NOTE | 2019-11-19 08:05 | PN_ITS ---
Subjective: Patient did well overnight. No acute issues were reported. Patient is reportedly much more interactive and asking appropriate questions. Nursing did have to redirect as patient was trying to get out of bed overnight. Patient did have hemodialysis yesterday with 2 L removed. Patient's labs are still pending for this morning. Patient reports some irritation at the catheter site, but no retroperitoneal pain is reported. Objective: Chest x-ray is much improved compared to previous. General: Alert, Oriented x3, Cooperative, No apparent distress, - - No conversational dyspnea. HEENT: Atraumatic, PERRLA, EOMI, Normocephalic, - - No scleral icterus or injection noted Oral: Moist Mucosa, No Gingival or Mucosal Lesions/ Ulcerations Neck: Supple, No Nodes, Trachea Midline, JVD, Right Lungs: No rhonchi, No wheeze, No rales, Diminished Cardiovascular: Regular rate, Regular Rhythm, Normal S1, Normal S2, No murmurs, No rub noted, No Gallop Abdomen: Bowel Sounds Present, Soft, Non Tender, Non-Distended Extremities: No clubbing, No cyanosis, No edema Skin: - - No change compared to previous Musculoskeletal: No Tenderness to Palpation of Joints or Extremities Lymphatic: No Cervical, Supraclavicular, or Inguinal Adenopathy Neurological: Cranial nerves II-XII grossly intact, Neuro grossly intact, Motor Exam 5/5 strength throughout Psych/Mental Status: Alert and oriented to time, place, person, mood and affect Vital Signs Temp Pulse Resp BP Pulse Ox 36.7 C 67 18 104/54 L 97 11/19/19 04:00 11/19/19 07:00 11/19/19 07:00 11/19/19 07:00 11/19/19 07:00 Oxygen Flow Rate (L/min) 60 Oxygen Delivery Method CPAP Weight: 75.6 kg Body Mass Index (BMI) 26.5 Intake and Output for Last 24 Hours 11/17/19 11/18/19 11/19/19 23:59 23:59 23:59 Intake Total 268.15 / 268.15 100 / 190 140 / 140 Output Total 3425 / 3525 2895 / 3095 200 / 200 Balance -3156.85 / -3256.85 -2795 / -2905 -60 / -60 Labs (Last 48 Hours) 11/17/19 11/17/19 11/17/19 07:45 11:15 11:15 WBC RBC Hgb Hct MCV MCH MCHC RDW Std Deviation RDW Coeff of Maritza Plt Count MPV Differential Comment PT INR APTT 60.7 H Sodium Potassium Chloride Carbon Dioxide Anion Gap BUN Creatinine Estim Creat Clear Calc Est GFR (MDRD) Af Amer Est GFR (MDRD) Non-Af BUN/Creatinine Ratio Glucose Calcium Troponin I Hep Bs Antigen Non-Reactive Hep Bs Antibody Non-Reactive Hep B Core Total Ab Negative 11/18/19 11/18/19 11/18/19 04:40 04:40 04:40 WBC 9.2 RBC 2.86 L Hgb 9.6 L Hct 28.7 L MCV 100.3 H MCH 33.6 H MCHC 33.4 RDW Std Deviation 51.6 H RDW Coeff of Maritza 14.1 Plt Count 142 L MPV 11.7 Differential Comment SCANNED PT 17.2 H INR 1.5 APTT 31.2 Sodium 142 Potassium 4.0 Chloride 109 H Carbon Dioxide 24.0 Anion Gap 9 BUN 99 H Creatinine 5.73 H Estim Creat Clear Calc 9.91 Est GFR (MDRD) Af Amer 12 L Est GFR (MDRD) Non-Af 10 L BUN/Creatinine Ratio 17.3 Glucose 94 Calcium 8.2 L Troponin I 10.500 H* Hep Bs Antigen Hep Bs Antibody Hep B Core Total Ab 11/18/19 14:10 WBC RBC Hgb Hct MCV MCH MCHC RDW Std Deviation RDW Coeff of Maritza Plt Count MPV Differential Comment PT INR APTT Sodium Potassium Chloride Carbon Dioxide Anion Gap BUN Creatinine Estim Creat Clear Calc Est GFR (MDRD) Af Amer Est GFR (MDRD) Non-Af BUN/Creatinine Ratio Glucose Calcium Troponin I 7.930 H* Hep Bs Antigen Hep Bs Antibody Hep B Core Total Ab Microbiology 11/16/19 06:30 Sputum, Expectorated/Coughed Gram Stain - Final 11/16/19 06:30 Sputum, Expectorated/Coughed Respiratory Culture - Final Mixed normal respiratory henri. No Streptococcus pneumoniae, beta-hemolytic Streptococcus or Staphylococcus aureus isolated. Medical Necessity - Tobacco Use Smoking Status: Current every day smoker Tobacco Use: Cigarettes Assessment/Plan All Active Problems Septic shock (Acute) Community acquired pneumonia (Acute) Sepsis with acute hypoxic respiratory failure and septic shock (Acute) [place] (acute kidney injury) (Acute) RECOMMENDATIONS: 1. Attempt Airvo and wean FiO2 to maintain oxygen saturations at or above 90%. 2. Consider discontinuation of antibiotics 3. Additional fluid removal with hemodialysis 4. Coordination with cardiology if having a heart catheterization 5. Additional cardiac work-up per recommendations 6. Defer to nephrology on timing for tunneled hemodialysis line IMPRESSIONS: 1. Acute hypoxemic respiratory failure Most likely multifactorial in etiology. I do suspect that the patient's presentation is likely the consequence of acute decompensated heart failure in the setting of an NSTEMI with possible superimposed pneumonia. At this time, the patient has responded appropriately to BiPAP therapy, which will be continued without change. Patient has had significant improvement in lung infiltrates with volume removal. This would be contrary to infectious infiltrates. Cardiology is currently following to assist with additional medical management. Patient has responded well to volume removal. Would recommend continued volume removal by hemodialysis as patient failed diuretic therapy in the past. 2. Acute on chronic kidney disease The patient has been followed by nephrology due to his chronic kidney disease. Nephrology is currently following. Unclear if patient is aware of his long-term prognosis. Patient reportedly has refused chronic dialysis in the past. 3. Non-ST segment elevation [place] The patient presented with an elevated troponin and T wave inversions on EKG. Troponins have peaked at about 10. Cardiology had mentioned possible heart catheterization over the weekend, but will await repeat evaluation. If patient is to have a heart catheterization, coordination with hemodialysis will need to be established to avoid further renal damage. 4. Septic shock The patient did have SIRS criteria along with an elevated lactate to greater than 6 at the outside hospital. I do suspect that his lactate elevation is secondary to hypoxemia, as the patient has never been hemodynamically unstable. Given significant improvement in chest x-ray, lack of fever and resolution of leukocytosis, it is likely okay to de-escalate antibiotics or dis continue and monitor clinically from my perspective. Defer to hospitalist. 5. Questionable history of COPD/Alzheimer's/hypertension Complicates care, management, recovery and prognosis. Continue bronchodilators as ordered. Inpatient E&M: 77683 Subs Hosp L3
[2019-11-19 08:54] LABS: Hematocrit 28.2 % (40-54); Hemoglobin 9.4 g/dL (13.0-16.5); Mean Corp Hgb Conc 33.3 g/dL (32-36); Mean Corpuscular Hgb 33.1 pg (27.0-32.0); Mean Corpuscular Volume 99.3 fL (80-94); Mean Platelet Vol. 11.7 fl (6.2-12.0); Platelet Count 143 K/mm3 (150-450); RBC Distribution Width CV 13.7 % (11.6-14.6); RBC Distribution Width SD 50.2 fl (35.1-43.9); Red Blood Count 2.84 M/mm3 (4.6-6.2); White Blood Count 7.4 K/mm3 (4.4-11.0)
[2019-11-19 08:56] LABS: POSITIVE DIFFERENTIAL YES
[2019-11-19 08:57] LABS: Scan Indicated on CBC? Y/N NO
[2019-11-19 08:59] LABS: Anion Gap 9 (5-15); BUN 86 mg/dL (7-18); BUN/Creat Ratio 16.9 RATIO (10-20); Chloride 106 mmol/L (98-107); Creatinine, Serum 5.09 mg/dL (0.70-1.30); EST Glomerular Filtration Rate 12 mL/min (>60); Est Glom Filt Rate - Afr Amer 14 mL/min (>60); Estimated Creatinine Clearance 11.15 ml/min; Glucose 87 mg/dL (74-106); Potassium 3.9 mmol/L (3.5-5.1); Sodium Level 141 mmol/L (136-145)
[2019-11-19 09:03] LABS: Phosphorus 6.1 mg/dL (2.5-4.9)
--- NOTE | 2019-11-19 12:29 | DIALYSIS ---
Pt completed 4 hours hemodialysis treatment with 2025ml fluid removed. Left groin CVC lumens ran reversed most of treatment, dressing is clean, dry, and intact. Pt tolerated treatment without difficulty. CVC lumens flushed with NS and locked with heparin per order.
--- NOTE | 2019-11-19 12:42 | PCM.PN.REN ---
Patient Problems: Active and Suspected Problems Septic shock (Acute) Community acquired pneumonia (Acute) Bilateral community-acquired pneumonia Sepsis with acute hypoxic respiratory failure and septic shock (Acute) [place] (acute kidney injury) (Acute) Subjective: no sob/cp no c/o today - Physical Exam Vitals/I&O's: Vital Signs Temp Pulse Resp BP Pulse Ox 97.6 F L 75 20 H 95/66 96 11/19/19 12:28 11/19/19 12:28 11/19/19 12:28 11/19/19 12:28 11/19/19 11:00 Oxygen Flow Rate (L/min) 40 Oxygen Delivery Method Nasal Cannula Weight: 75.6 kg Body Mass Index (BMI) 26.5 Intake and Output for Last 24 Hours 11/17/19 11/18/19 11/19/19 23:59 23:59 23:59 Intake Total 268.15 / 268.15 100 / 190 140 / 140 Output Total 3425 / 3525 2895 / 3095 2225 / 2225 Balance -3156.85 / -3256.85 -2795 / -2905 -2085 / -2085 General: Alert, Cooperative HEENT: Atraumatic, Normocephalic Neck: Supple, Trachea Midline Lungs: Clear to auscultation, Normal air movement Cardiovascular: Regular rate, Regular Rhythm Abdomen: Bowel Sounds Present, Soft Microbiology Past 72 Hours 11/16/19 06:30 Sputum, Expectorated/Coughed Gram Stain - Final 11/16/19 06:30 Sputum, Expectorated/Coughed Respiratory Culture - Final Mixed normal respiratory henri. No Streptococcus pneumoniae, beta-hemolytic Streptococcus or Staphylococcus aureus isolated. 11/16/19 09:55 Mucosa - Nose Respiratory Panel (PCR) - Final 11/16/19 11:20 Urine, Random Legionella Antigen - Final 11/16/19 11:20 Urine, Random Streptococcus pneumoniae Antigen (M - Final Laboratory Results 11/17/19 11:15: Hep B Core Total Ab Negative 11/18/19 14:10: Troponin I 7.930 H* 11/19/19 08:30: WBC 7.4, RBC 2.84 L, Hgb 9.4 L, Hct 28.2 L, MCV 99.3 H, MCH 33.1 H, MCHC 33.3, RDW Std Deviation 50.2 H, RDW Coeff of Maritza 13.7, Plt Count 143 L, MPV 11.7 11/19/19 08:30: Sodium 141, Potassium 3.9, Chloride 106, Carbon Dioxide 26.0, Anion Gap 9, BUN 86 H, Creatinine 5.09 H, Estim Creat Clear Calc 11.15, Est GFR (MDRD) Af Amer 14 L, Est GFR (MDRD) Non-Af 12 L, BUN/Creatinine Ratio 16.9, Glucose 87, Calcium 8.0 L 11/19/19 08:30: Phosphorus 6.1 H Current Medications Acetaminophen (Tylenol) 650 mg PO Q6H PRN PRN PRN Reason: Pain 1-10 or Fever Albuterol Sulfate (Ventolin Aerosols) 2.5 mg INHALATION Q2H PRN PRN PRN Reason: DYSPNEA Albuterol/Ipratropium (Duoneb) 3 ml INHALATION Q6H.RT [facility] Last Admin: 11/19/19 06:51 Dose: 3 ml Documented by: Amiodarone HCl (Cordarone) 200 mg PO DAILY [facility] Last Admin: 11/18/19 10:46 Dose: 200 mg Documented by: Aspirin (Aspirin, Baby) 81 mg PO DAILY@0800 [facility] Last Admin: 11/18/19 10:46 Dose: 81 mg Documented by: Atorvastatin Calcium (Lipitor) 80 mg PO QHS [facility] Last Admin: 11/18/19 21:45 Dose: 80 mg Documented by: Calcium Acetate (Phoslo Gel Cap) 667 mg PO TIDCM [facility] Last Admin: 11/19/19 11:11 Dose: Not Given Documented by: Carvedilol (Coreg) 3.125 mg PO BID [facility] Last Admin: 11/18/19 21:44 Dose: Not Given Documented by: Furosemide (Lasix) 80 mg IV BID@1000,1800 [facility] Last Admin: 11/18/19 20:11 Dose: Not Given Documented by: Heparin Sodium (Porcine) (Heparin Na) 5,000 unit SC Q8 [facility] Last Admin: 11/19/19 06:24 Dose: 5,000 unit Documented by: Ampicillin Sodium/Sulbactam (Sodium 3 gm/ Sodium Chloride) 112 mls @ 150 mls/hr IV Q24H [facility] Stop: 11/20/19 15:45 Levothyroxine Sodium (Synthroid) 50 mcg PO DAILY@0600 [facility] Last Admin: 11/19/19 06:24 Dose: 50 mcg Documented by: Lorazepam (Ativan) 0.5 mg PO Q12H PRN PRN PRN Reason: anxiety with BIPAP Last Admin: 11/17/19 21:54 Dose: 0.5 mg Documented by: Memantine (Namenda) 5 mg PO BID [facility] Last Admin: 11/18/19 21:45 Dose: 5 mg Documented by: Ondansetron HCl (Zofran) 4 mg IV Q8H PRN PRN PRN Reason: NAUSEA/VOMITING Senna/Docusate Sodium (Senna/Docusate Sodium 1 Tablet) 1 tablet PO BID PRN PRN Reason: CONSTIPATION Sodium Chloride () 10 - 40 ml IV UD PRN PRN Reason: SALINE FLUSH Last Admin: 11/16/19 18:42 Dose: 20 ml Documented by: Sodium Chloride () 10 ml IV UD PRN PRN Reason: Dialysis Catheter Flush Medical Necessity - Tobacco Use Smoking Status: Current every day smoker Tobacco Use: Cigarettes Assessment/Plan All Active Problems Septic shock (Acute) Community acquired pneumonia (Acute) Sepsis with acute hypoxic respiratory failure and septic shock (Acute) [place] (acute kidney injury) (Acute) [place] CKD stage IV CKD MBD Non-ST elevation [place] Congestive heart failure for HD tomorrow too still pulmonary edema on Xray and poor flows with HD catheter. continue lasix as he still has residual uop place TDC when more stable currently cannot lie flat for procedure avoid nephrotoxins to preserve RRF bp per cards check phos in am on phoslo still today phnos 6.1 d/w patient and RN and Alexus over the phone. has femoral catheter
[2019-11-19] MEDS: Memantine Hydrochloride 5 MG Tablet PO ×2 (13:01→21:02)
[2019-11-19] MEDS: Amiodarone 200 MG Tablet PO (13:01)
[2019-11-19] MEDS: Aspirin 81 MG TAB.CHEW PO (13:02)
--- NOTE | 2019-11-19 13:34 | PCM.PN.CARD ---
Subjectve: The patient was evaluated earlier this day. He felt his breathing was somewhat improved. On discussion with the patient he still appears to have issues related to memory. Objective: Vital Signs Temp Pulse Resp BP Pulse Ox 97.6 F L 75 20 H 95/66 96 11/19/19 12:28 11/19/19 12:28 11/19/19 12:28 11/19/19 12:28 11/19/19 11:00 Oxygen Flow Rate (L/min) 40 Oxygen Delivery Method Nasal Cannula Weight: 166 lb 10.711 oz Body Mass Index (BMI) 26.5 Intake and Output for Last 24 Hours 11/17/19 11/18/19 11/19/19 23:59 23:59 23:59 Intake Total 268.15 / 268.15 100 / 190 140 / 140 Output Total 3425 / 3525 2895 / 3095 2225 / 2225 Balance -3156.85 / -3256.85 -2795 / -2905 -2085 / -2085 General: Awake, Cooperative, No Acute Distress HEENT: Atraumatic, Normocephalic, PERRL, EOMI, Sclera Non Icteric Neck: Supple, Good ROM, No JVD Lungs: Diminished Elliot Bases Cardiovascular: Regular Rhythm, Normal S1, Normal S2 Abdomen: Bowel Sounds Present, Soft Extremities: No edema Psych/Mental Status: Dementia 11/18/19 14:10: Troponin I 7.930 H* 11/19/19 08:30: WBC 7.4, RBC 2.84 L, Hgb 9.4 L, Hct 28.2 L, MCV 99.3 H, MCH 33.1 H, MCHC 33.3, Plt Count 143 L, MPV 11.7 11/19/19 08:30: Sodium 141, Potassium 3.9, Chloride 106, Carbon Dioxide 26.0, Anion Gap 9, BUN 86 H, Creatinine 5.09 H, Est GFR (MDRD) Af Amer 14 L, Est GFR (MDRD) Non-Af 12 L, BUN/Creatinine Ratio 16.9, Glucose 87, Calcium 8.0 L 11/19/19 08:30: Phosphorus 6.1 H Rhythm: sinus rhythm ECHO: Interpretation Summary Anterior Somers : Severely Hypokinetic. Severe LV systolic Dysfunction EF 30-35% Severe Anteroapical hypokinesia Mild MR Mild TR. Echo: 02-02-2018: [facility]: Left ventricle reported with an LVEF of 55%; biatrial enlargement; trivial to mild MR/AI; aortic root reported dilated at 4.3 cm Stress Test: 03-05-2018: [facility]: Pharmacologic stress nuclear imaging study: Considered to demonstrate a partially reversible mid anterior wall finding compatible with prior AK with mild deangelo-infarct related myocardial ischemia with a reported finding of moderate to severe hypokinesis in the aforementioned areas with an LVEF of 54% CXR: Portable chest x-ray: Compared to the previous chest x-ray there appears to be lessening of the previously noted vascular congestion/infiltrates: Please see official report Medical Necessity - Tobacco Use Smoking Status: Current every day smoker Tobacco Use: Cigarettes Assessment/Plan 1. Non-ST segment elevation [place] The patient does have abnormal cardiac enzymes. This coupled with his transthoracic echocardiogram superimposed upon his clinical course does raise concern of underlying CAD with myocardial ischemia, etc. At the moment he is continuing medical therapy. This is included aspirin therapy with the addition of beta-blockers as well as his lipid-lowering agents. He could be considered for nitrate therapy as deemed appropriate. Based upon ongoing issues with his renal insufficiency he is not an ideal candidate at the moment for additional agents such as YEE inhibitor's or ARB's. He has been on anticoagulant therapy. Is been on hold secondary to concerns of his hemoptysis as well as concerns of the need for invasive evaluation. As noted before, a cardiac catheterization procedure has been discussed with the patient's spouse. At the present time she has requested continued conservative medical management based upon his declining condition. 2. Ischemic mediated cardiomyopathy He does have diminished LV systolic function based on his echocardiogram. Again he will continue medical therapy and further evaluation as he is able. 3. CHF-acute systolic There is concern that he has developed acute systolic CHF. This based on his history, his exam, his laboratory studies, and his radiologic studies. At the moment he is continuing medical therapy which does include diuretics but also includes hemodialysis. 4. Paroxysmal atrial fibrillation Apparently there is a history of paroxysmal atrial fibrillation for which she has been treated medically in the past. Should continue rate limiting therapy and in time, if able, resume his anticoagulant therapy. 5. Renal insufficiency He does have findings of ongoing renal insufficiency. He has started hemodialysis therapy. It appears he needs additional hemodialysis to try and bring his volume status under better control. 6. Hyperlipidemia He will continue lipid-lowering therapy. 7. Hypertension His blood pressures can be monitored and his medications can be adjusted as tolerated. 8. AAA s/p repair (remote) He does have a history of a AAA. Apparently this was surgically repaired many years ago through the [facility] system. 9. Hemoptysis He has a history of hemoptysis. There is some question as to how long this is been going on. As demonstrating that this day in the ICU. 10. Dementia This does play a role in the patient's ongoing evaluation and care. It is challenging for patients with dementia to undergo invasive procedures with respect to following instructions during and after the procedures to minimize the risk of periprocedural related complications. Comment: The patient's case has been discussed and reviewed with Dr. Perez. This note was generated using a voice recognition system and there may be incorrect words, spelling or punctuation that were not noted when reviewing the office note prior to saving.
[2019-11-19] MEDS: Calcium Acetate 667 MG Capsule PO (14:56)
[2019-11-19] MEDS: Furosemide 100 MG/10 ML Vial 80 MG IV (18:26)
[2019-11-19] MEDS: 0.9% Saline Lock 10 ML Syringe IV (18:27)
[2019-11-19] MEDS: Atorvastatin Calcium 80 MG Tablet PO (21:02)
[2019-11-19] MEDS: Carvedilol 3.125 MG TABLET PO (21:02)
[2019-11-20] VITALS (26 sets, daily range): BP systolic 85–105; BP diastolic 56–72; PULSE 53–72; RESP 12–23; TEMP 36.2–37.1; O2SAT 90–99
--- NOTE | 2019-11-20 02:24 | CPS ---
PT REFUSED AEROSAL TREATMENT AT 1:27, WANTING TO SLEEP
[2019-11-20 04:02] LABS: Absolute Lymphocyte Count 0.84 X10^3/uL (0.83-4.51); Absolute Neutrophil Count 4.4 X10^3/uL (2.0-7.7); Basophil# 0.01 X10^3/uL; Basophil% 0.2 % (0-1); Eosinophil# 0.39 X10^3/uL; Eosinophils% 6.2 % (0-5); Hematocrit 29.7 % (40-54); Hemoglobin 9.9 g/dL (13.0-16.5); Lymphocyte # 0.84 X10^3/ul (4.0); Lymphocyte % 13.4 % (19-41); Mean Corp Hgb Conc 33.3 g/dL (32-36); Mean Corpuscular Hgb 33.7 pg (27.0-32.0); Mean Platelet Vol. 11.9 fl (6.2-12.0); Monocyte# 0.55 X10^3/uL; Monocyte% 8.8 % (0-10); NRBC Flagged by Analyzer 0 % (0-5); Neutrophil # 4.44 X10^3/uL (2.7-7.7); Neutrophil % 70.6 % (47-70); Platelet Count 149 K/mm3 (150-450); RBC Distribution Width CV 13.5 % (11.6-14.6); RBC Distribution Width SD 49.8 fl (35.1-43.9); Red Blood Count 2.94 M/mm3 (4.6-6.2); White Blood Count 6.3 K/mm3 (4.4-11.0)
[2019-11-20] MEDS: 0.9% Saline Lock 10 ML Syringe IV ×2 (04:10→14:22)
[2019-11-20 04:23] LABS: Anion Gap 9 (5-15); BUN 69 mg/dL (7-18); BUN/Creat Ratio 14.7 RATIO (10-20); Chloride 99 mmol/L (98-107); Creatinine, Serum 4.69 mg/dL (0.70-1.30); EST Glomerular Filtration Rate 13 mL/min (>60); Est Glom Filt Rate - Afr Amer 15 mL/min (>60); Estimated Creatinine Clearance 12.11 ml/min; Glucose 101 mg/dL (74-106); Phosphorus 6.3 mg/dL (2.5-4.9); Potassium 3.8 mmol/L (3.5-5.1); Sodium Level 137 mmol/L (136-145)
[2019-11-20] MEDS: Levothyroxine 50 MCG Tablet PO (06:06)
[2019-11-20] MEDS: Heparin Injection (Vial) 5,000 UNIT/ML VIAL 5000 UNIT SC ×3 (06:06→21:52)
--- NOTE | 2019-11-20 06:42 | PCM.PN.INT ---
Subjective: Patient did well overnight. Patient did tolerate hemodialysis yesterday with 2 L removal. Patient's oxygen and respiratory status is much improved. Patient did use BiPAP overnight, but is currently on 3 L nasal cannula and tolerating well. General: Alert, Cooperative, No apparent distress, Disoriented, - - Appears stated age HEENT: Atraumatic, PERRLA, EOMI, Normocephalic, - - No scleral icterus or injection noted Oral: No Gingival or Mucosal Lesions/ Ulcerations, Dry Mucosa Neck: Supple, No Nodes, Trachea Midline Lungs: No rhonchi, No wheeze, No rales, Diminished, - - Symmetric expansion. No dullness to percussion. Cardiovascular: Regular rate, Regular Rhythm, Normal S1, Normal S2, No murmurs, No rub noted, No Gallop Abdomen: Bowel Sounds Present, Soft, Non Tender, Non-Distended Extremities: No clubbing, No cyanosis, No edema, - - Right groin dialysis catheter Skin: - - No change compared to previous Musculoskeletal: No Tenderness to Palpation of Joints or Extremities Lymphatic: No Cervical, Supraclavicular, or Inguinal Adenopathy Neurological: Cranial nerves II-XII grossly intact, Neuro grossly intact, Motor Exam 5/5 strength throughout Psych/Mental Status: Appropriate, Depressed Vital Signs Temp Pulse Resp BP Pulse Ox 36.5 C L 57 L 15 100/60 95 11/20/19 04:00 11/20/19 06:00 11/20/19 06:00 11/20/19 06:00 11/20/19 06:00 Oxygen Flow Rate (L/min) 3 Oxygen Delivery Method Nasal Cannula Weight: 72.7 kg Body Mass Index (BMI) 26.5 Intake and Output for Last 24 Hours 11/18/19 11/19/19 11/20/19 23:59 23:59 23:59 Intake Total 100 / 190 882 / 882 360 / 360 Output Total 2895 / 3095 2380 / 2380 40 / 40 Balance -2795 / -2905 -1498 / -1498 320 / 320 Labs (Last 48 Hours) 11/17/19 11/17/19 11/18/19 11:15 11:15 14:10 WBC RBC Hgb Hct MCV MCH MCHC RDW Std Deviation RDW Coeff of Maritza Plt Count MPV Immature Gran % (Auto) Neut % (Auto) Lymph % (Auto) Isabella % (Auto) Eos % (Auto) Baso % (Auto) Absolute Neuts (auto) Absolute Lymphs (auto) Nucleated RBC % Sodium Potassium Chloride Carbon Dioxide Anion Gap BUN Creatinine Estim Creat Clear Calc Est GFR (MDRD) Af Amer Est GFR (MDRD) Non-Af BUN/Creatinine Ratio Glucose Calcium Phosphorus Troponin I 7.930 H* Hep Bs Antigen Non-Reactive Hep Bs Antibody Non-Reactive Hep B Core Total Ab Negative 11/19/19 11/19/19 11/19/19 08:30 08:30 08:30 WBC 7.4 RBC 2.84 L Hgb 9.4 L Hct 28.2 L MCV 99.3 H MCH 33.1 H MCHC 33.3 RDW Std Deviation 50.2 H RDW Coeff of Maritza 13.7 Plt Count 143 L MPV 11.7 Immature Gran % (Auto) Neut % (Auto) Lymph % (Auto) Isabella % (Auto) Eos % (Auto) Baso % (Auto) Absolute Neuts (auto) Absolute Lymphs (auto) Nucleated RBC % Sodium 141 Potassium 3.9 Chloride 106 Carbon Dioxide 26.0 Anion Gap 9 BUN 86 H Creatinine 5.09 H Estim Creat Clear Calc 11.15 Est GFR (MDRD) Af Amer 14 L Est GFR (MDRD) Non-Af 12 L BUN/Creatinine Ratio 16.9 Glucose 87 Calcium 8.0 L Phosphorus 6.1 H Troponin I Hep Bs Antigen Hep Bs Antibody Hep B Core Total Ab 11/20/19 11/20/19 03:55 03:55 WBC 6.3 RBC 2.94 L Hgb 9.9 L Hct 29.7 L MCV 101.0 H MCH 33.7 H MCHC 33.3 RDW Std Deviation 49.8 H RDW Coeff of Maritza 13.5 Plt Count 149 L MPV 11.9 Immature Gran % (Auto) 0.800 Neut % (Auto) 70.6 H Lymph % (Auto) 13.4 L Isabella % (Auto) 8.8 Eos % (Auto) 6.2 H Baso % (Auto) 0.2 Absolute Neuts (auto) 4.4 Absolute Lymphs (auto) 0.84 Nucleated RBC % 0 Sodium 137 Potassium 3.8 Chloride 99 Carbon Dioxide 29.0 Anion Gap 9 BUN 69 H Creatinine 4.69 H Estim Creat Clear Calc 12.11 Est GFR (MDRD) Af Amer 15 L Est GFR (MDRD) Non-Af 13 L BUN/Creatinine Ratio 14.7 Glucose 101 Calcium 8.0 L Phosphorus 6.3 H Troponin I Hep Bs Antigen Hep Bs Antibody Hep B Core Total Ab Microbiology 11/16/19 06:30 Sputum, Expectorated/Coughed Gram Stain - Final 11/16/19 06:30 Sputum, Expectorated/Coughed Respiratory Culture - Final Mixed normal respiratory henri. No Streptococcus pneumoniae, beta-hemolytic Streptococcus or Staphylococcus aureus isolated. Clinical Impression(s) from Imaging Studies Chest X-Ray 11/19/19 05:55 IMPRESSION: Moderate degree of improvement of the CHF. Mild residual changes persist. Electronically Signed: Deion Mickey, at 8:16 EDT , Service support , Medical Necessity - Tobacco Use Smoking Status: Current every day smoker Tobacco Use: Cigarettes Assessment/Plan All Active Problems Septic shock (Acute) Community acquired pneumonia (Acute) Sepsis with acute hypoxic respiratory failure and septic shock (Acute) [place] (acute kidney injury) (Acute) RECOMMENDATIONS: 1. Wean FiO2 to maintain oxygen saturations at or above 90%. 2. Consider discontinuation of antibiotics 3. Consider discontinuation of temporary dialysis line. Defer to nephrology on placement of tunneled line if appropriate 4. Coordination with cardiology if having a heart catheterization 5. Additional cardiac work-up per recommendations 6. Defer to nephrology on timing for tunneled hemodialysis line 7. Okay to leave the intensive care unit from my perspective IMPRESSIONS: 1. Acute hypoxemic respiratory failure Most likely multifactorial in etiology. I do suspect that the patient's presentation is likely the consequence of acute decompensated heart failure in the setting of an NSTEMI with possible superimposed pneumonia. At this time, the patient has responded appropriately to BiPAP therapy, which will be continued without change. Patient has had significant improvement in lung infiltrates with volume removal. This would be contrary to infectious infiltrates. Cardiology is currently following to assist with additional medical management. Patient has responded well to volume removal. Would defer to nephrology on establishment of chronic hemodialysis. Patient is currently doing well on nasal cannula. Continue aggressive recruitment measures such as activity as tolerated and incentive spirometer. 2. Acute on chronic kidney disease The patient has been followed by nephrology due to his chronic kidney disease. Nephrology is currently following. Unclear if patient is aware of his long-term prognosis. Patient reportedly has refused chronic dialysis in the past, but appears to be tolerating current intervention well. 3. Non-ST segment elevation MD The patient presented with an elevated troponin and T wave inversions on EKG. Troponins have peaked at about 10. Cardiology had mentioned possible heart catheterization over the weekend, but will await repeat evaluation. If patient is to have a heart catheterization, coordination with hemodialysis will need to be established to avoid further renal damage. 4. Septic shock The patient did have SIRS criteria along with an elevated lactate to greater than 6 at the outside hospital. I do suspect that his lactate elevation is secondary to hypoxemia, as the patient has never been hemodynamically unstable. Given significant improvement in chest x-ray, lack of fever and resolution of leukocytosis, it is likely okay to limit to a 5-day course of antibiotics. 5. Questionable history of COPD/Alzheimer's/hypertension Complicates care, management, recovery and prognosis. Continue bronchodilators as ordered. Inpatient E&M: 03107 Subs Hosp L3
[2019-11-20] MEDS: Ipratropium/Albuterol Sulfate 3 ML AMPUL.NEB INHALATION ×3 (06:47→19:01)
--- NOTE | 2019-11-20 08:07 | PCM.PN.HOSP ---
Patient Problems: Active and Suspected Problems Septic shock (Acute) Community acquired pneumonia (Acute) Bilateral community-acquired pneumonia Sepsis with acute hypoxic respiratory failure and septic shock (Acute) [place] (acute kidney injury) (Acute) Subjective: Pt states that he feels well. Happy to be leaving ICU today and his will be able to visit. States that he misses her. Now on 3 L nasal cannula. Vitals/I&O's: Vital Signs Temp Pulse Resp BP Pulse Ox 97.7 F L 56 L 20 H 100/60 95 11/20/19 04:00 11/20/19 06:47 11/20/19 06:47 11/20/19 06:00 11/20/19 06:00 Oxygen Flow Rate (L/min) 3 Oxygen Delivery Method Nasal Cannula Weight: 72.7 kg Body Mass Index (BMI) 26.5 Intake and Output for Last 24 Hours 11/18/19 11/19/19 11/20/19 23:59 23:59 23:59 Intake Total 100 / 190 882 / 882 360 / 360 Output Total 2895 / 3095 2380 / 2380 40 / 40 Balance -2795 / -2905 -1498 / -1498 320 / 320 General: Alert, Cooperative, No apparent distress, Well developed, Well nourished, - - older WM sitting up in bed, pleasantly confused Oral: Moist Mucosa, No Gingival or Mucosal Lesions/ Ulcerations, - - no blood in oral cavity Lungs: Clear to auscultation, No rhonchi, No wheeze, No rales, Diminished - mostly at bases Cardiovascular: Regular rate, Regular Rhythm, Normal S1, Normal S2, No murmurs, No Ectopic Activity, No rub noted, No Gallop Abdomen: Bowel Sounds Present, Soft, Non Tender, Non-Distended, No Hepato-splenomegaly, No hernias noted Extremities: No clubbing, No cyanosis, No edema, Capillary Refill Less than 3 Seconds, Peripheral Pulses Normal Musculoskeletal: No Tenderness to Palpation of Joints or Extremities, Arthritic Changes Neurological: Cranial nerves II-XII grossly intact, Neuro grossly intact Psych/Mental Status: Normal Affect, Appropriate Microbiology Past 72 Hours 11/16/19 06:30 Sputum, Expectorated/Coughed Gram Stain - Final 11/16/19 06:30 Sputum, Expectorated/Coughed Respiratory Culture - Final Mixed normal respiratory henri. No Streptococcus pneumoniae, beta-hemolytic Streptococcus or Staphylococcus aureus isolated. Laboratory Results 11/19/19 08:30: WBC 7.4, RBC 2.84 L, Hgb 9.4 L, Hct 28.2 L, MCV 99.3 H, MCH 33.1 H, MCHC 33.3, RDW Std Deviation 50.2 H, RDW Coeff of Maritza 13.7, Plt Count 143 L, MPV 11.7 11/19/19 08:30: Sodium 141, Potassium 3.9, Chloride 106, Carbon Dioxide 26.0, Anion Gap 9, BUN 86 H, Creatinine 5.09 H, Estim Creat Clear Calc 11.15, Est GFR (MDRD) Af Amer 14 L, Est GFR (MDRD) Non-Af 12 L, BUN/Creatinine Ratio 16.9, Glucose 87, Calcium 8.0 L 11/19/19 08:30: Phosphorus 6.1 H 11/20/19 03:55: Sodium 137, Potassium 3.8, Chloride 99, Carbon Dioxide 29.0, Anion Gap 9, BUN 69 H, Creatinine 4.69 H, Estim Creat Clear Calc 12.11, Est GFR (MDRD) Af Amer 15 L, Est GFR (MDRD) Non-Af 13 L, BUN/Creatinine Ratio 14.7, Glucose 101, Calcium 8.0 L, Phosphorus 6.3 H 11/20/19 03:55: WBC 6.3, RBC 2.94 L, Hgb 9.9 L, Hct 29.7 L, MCV 101.0 H, MCH 33.7 H, MCHC 33.3, RDW Std Deviation 49.8 H, RDW Coeff of Maritza 13.5, Plt Count 149 L, MPV 11.9, Immature Gran % (Auto) 0.800, Neut % (Auto) 70.6 H, Lymph % (Auto) 13.4 L, Whitley % (Auto) 8.8, Eos % (Auto) 6.2 H, Baso % (Auto) 0.2, Absolute Neuts (auto) 4.4, Absolute Lymphs (auto) 0.84, Nucleated RBC % 0 Current Medications Acetaminophen (Tylenol) 650 mg PO Q6H PRN PRN PRN Reason: Pain 1-10 or Fever Albuterol Sulfate (Ventolin Aerosols) 2.5 mg INHALATION Q2H PRN PRN PRN Reason: DYSPNEA Albuterol/Ipratropium (Duoneb) 3 ml INHALATION Q6H.RT [facility] Last Admin: 11/20/19 06:47 Dose: 3 ml Documented by: Amiodarone HCl (Cordarone) 200 mg PO DAILY [facility] Last Admin: 11/19/19 13:01 Dose: 200 mg Documented by: Aspirin (Aspirin, Baby) 81 mg PO DAILY@0800 [facility] Last Admin: 11/19/19 13:02 Dose: 81 mg Documented by: Atorvastatin Calcium (Lipitor) 80 mg PO QHS [facility] Last Admin: 11/19/19 21:02 Dose: 80 mg Documented by: Calcium Acetate (Phoslo Gel Cap) 667 mg PO TIDCM [facility] Last Admin: 11/19/19 19:06 Dose: Not Given Documented by: Carvedilol (Coreg) 3.125 mg PO BID [facility] Last Admin: 11/19/19 21:02 Dose: 3.125 mg Documented by: Furosemide (Furosemide 100 Mg/10 Ml Vial) 80 mg IV BID@1000,1800 [facility] Last Admin: 11/19/19 18:26 Dose: 80 mg Documented by: Heparin Sodium (Porcine) (Heparin Na) 5,000 unit SC Q8 [facility] Last Admin: 11/20/19 06:06 Dose: 5,000 unit Documented by: Ampicillin Sodium/Sulbactam (Sodium 3 gm/ Sodium Chloride) 112 mls @ 150 mls/hr IV Q24H [facility] Stop: 11/20/19 15:45 Last Infusion: 11/19/19 15:41 Dose: Infused Documented by: Levothyroxine Sodium (Synthroid) 50 mcg PO DAILY@0600 [facility] Last Admin: 11/20/19 06:06 Dose: 50 mcg Documented by: Lorazepam (Ativan) 0.5 mg PO Q12H PRN PRN PRN Reason: anxiety with BIPAP Last Admin: 11/17/19 21:54 Dose: 0.5 mg Documented by: Memantine (Namenda) 5 mg PO BID [facility] Last Admin: 11/19/19 21:02 Dose: 5 mg Documented by: Ondansetron HCl (Zofran) 4 mg IV Q8H PRN PRN PRN Reason: NAUSEA/VOMITING Senna/Docusate Sodium (Senna/Docusate Sodium 1 Tablet) 1 tablet PO BID PRN PRN Reason: CONSTIPATION Sodium Chloride () 10 - 40 ml IV UD PRN PRN Reason: SALINE FLUSH Last Admin: 11/20/19 04:10 Dose: 20 ml Documented by: Sodium Chloride () 10 ml IV UD PRN PRN Reason: Dialysis Catheter Flush STROKE Vital Signs/Narrative: Vital Signs Pulse Resp BP Pulse Ox 11/20/19 06:47 56 L 20 H 11/20/19 06:00 57 L 15 100/60 95 11/20/19 05:00 53 L 14 98/56 L 96 Medical Necessity - Tobacco Use Smoking Status: Current every day smoker Tobacco Use: Cigarettes Assessment/Plan All Active Problems Septic shock (Acute) Community acquired pneumonia (Acute) Sepsis with acute hypoxic respiratory failure and septic shock (Acute) [place] (acute kidney injury) (Acute) Acute Hypoxic Respiratory Failure-multifactorial (volume overload/NSTEMI/+- PNA) -not O2 dependent at baseline -now on nasal cannula 3 L with SpO2 96% -BIPAP at hs per pulm -mixed resp henri on sputum cx -Unasyn to treat aspiration 3 gm q 12 for a total of 7 days (day 05/13) -nebs as ordered -urine antigens neg -viral panel neg -COVID neg -pulm following appreciate input Septic Shock 2/2 Aspiration PNA -resolved Elevated lactic acid -suspect 2/2 hypoxia and resolved with increased O2 -resolved Hemoptysis -has been ongoing for awhile but none this am and seems to be lessening -no current issues of anticoagulation -monitor [place] on CKD Stage 4 -HD again today -remove temp fem line and place tunnelled HD cath if wishes to proceed with outpt iHD -should be able to lie flat today -Lasix per nephro -appreciate nephro input Acute NSTEMI -continue coreg 3.125 BID with hold parameters for SBP and HR -continue asa and statin -no cath as per cards note long d/w and his dementia has worsened markedly since 04/2019 and will treat medically -ECHO showed EF 30-35% with severe distal septal and anteroapical hypokinesia -old record reviewed -had nuc stress test 02/2018 that showed a sm to med-sized partially reversible defect in the mid ant wall of the LV, LV with mod to severe hypokinesis but EF of 54% and and ECHO at the same time that showed a comparable EF of 55% -Cards following--> d/w Dr. 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
[2019-11-20] MEDS: Heparin 10,000 UNITS/10 ML Vial IV (12:35)
--- NOTE | 2019-11-20 12:45 | DIALYSIS ---
HD x 4 hours complete. Tolerated tx fairly well. Only able to remove 1000ml d/t bp. Ran on 3k bath. Used right femoral catheter. Catheter closed with heparin per fill volume. Caps placed. Dressing is dry and intact. Report was given to DURGA Malcolm.
--- NOTE | 2019-11-20 12:52 | PCM.PN.REN ---
Patient Problems: Active and Suspected Problems Septic shock (Acute) Community acquired pneumonia (Acute) Bilateral community-acquired pneumonia Sepsis with acute hypoxic respiratory failure and septic shock (Acute) [place] (acute kidney injury) (Acute) Subjective: no cp/sob no c/o - Physical Exam Vitals/I&O's: Vital Signs Temp Pulse Resp BP Pulse Ox 97.6 F L 68 20 H 103/72 95 11/20/19 12:44 11/20/19 12:44 11/20/19 12:44 11/20/19 12:44 11/20/19 11:00 Oxygen Flow Rate (L/min) 3 Oxygen Delivery Method Nasal Cannula Weight: 72.7 kg Body Mass Index (BMI) 26.5 Intake and Output for Last 24 Hours 11/18/19 11/19/19 11/20/19 23:59 23:59 23:59 Intake Total 100 / 190 882 / 882 360 / 360 Output Total 2895 / 3095 2380 / 2380 40 / 40 Balance -2795 / -2905 -1498 / -1498 320 / 320 General: Alert, Cooperative HEENT: Atraumatic, Normocephalic Neck: Supple, Trachea Midline Lungs: Clear to auscultation, Normal air movement Cardiovascular: Regular rate, Regular Rhythm, Normal S1, Normal S2 Abdomen: Bowel Sounds Present, Soft Extremities: No edema Microbiology Past 72 Hours 11/16/19 06:30 Sputum, Expectorated/Coughed Gram Stain - Final 11/16/19 06:30 Sputum, Expectorated/Coughed Respiratory Culture - Final Mixed normal respiratory henri. No Streptococcus pneumoniae, beta-hemolytic Streptococcus or Staphylococcus aureus isolated. Laboratory Results 11/20/19 03:55: Sodium 137, Potassium 3.8, Chloride 99, Carbon Dioxide 29.0, Anion Gap 9, BUN 69 H, Creatinine 4.69 H, Estim Creat Clear Calc 12.11, Est GFR (MDRD) Af Amer 15 L, Est GFR (MDRD) Non-Af 13 L, BUN/Creatinine Ratio 14.7, Glucose 101, Calcium 8.0 L, Phosphorus 6.3 H 11/20/19 03:55: WBC 6.3, RBC 2.94 L, Hgb 9.9 L, Hct 29.7 L, MCV 101.0 H, MCH 33.7 H, MCHC 33.3, RDW Std Deviation 49.8 H, RDW Coeff of Maritza 13.5, Plt Count 149 L, MPV 11.9, Immature Gran % (Auto) 0.800, Neut % (Auto) 70.6 H, Lymph % (Auto) 13.4 L, Ralls % (Auto) 8.8, Eos % (Auto) 6.2 H, Baso % (Auto) 0.2, Absolute Neuts (auto) 4.4, Absolute Lymphs (auto) 0.84, Nucleated RBC % 0 Current Medications Acetaminophen (Tylenol) 650 mg PO Q6H PRN PRN PRN Reason: Pain 1-10 or Fever Albuterol Sulfate (Ventolin Aerosols) 2.5 mg INHALATION Q2H PRN PRN PRN Reason: DYSPNEA Albuterol/Ipratropium (Duoneb) 3 ml INHALATION Q6H.RT [facility] Last Admin: 11/20/19 06:47 Dose: 3 ml Documented by: Amiodarone HCl (Cordarone) 200 mg PO DAILY [facility] Last Admin: 11/19/19 13:01 Dose: 200 mg Documented by: Aspirin (Aspirin, Baby) 81 mg PO DAILY@0800 [facility] Last Admin: 11/19/19 13:02 Dose: 81 mg Documented by: Atorvastatin Calcium (Lipitor) 80 mg PO QHS [facility] Last Admin: 11/19/19 21:02 Dose: 80 mg Documented by: Calcium Acetate (Phoslo Gel Cap) 667 mg PO TIDCM [facility] Last Admin: 11/19/19 19:06 Dose: Not Given Documented by: Carvedilol (Coreg) 3.125 mg PO BID [facility] Last Admin: 11/19/19 21:02 Dose: 3.125 mg Documented by: Furosemide (Furosemide 100 Mg/10 Ml Vial) 80 mg IV BID@1000,1800 [facility] Last Admin: 11/19/19 18:26 Dose: 80 mg Documented by: Heparin Sodium (Porcine) (Heparin Na) 5,000 unit SC Q8 [facility] Last Admin: 11/20/19 06:06 Dose: 5,000 unit Documented by: Ampicillin Sodium/Sulbactam (Sodium 3 gm/ Sodium Chloride) 112 mls @ 150 mls/hr IV Q24H [facility] Stop: 11/20/19 15:45 Last Infusion: 11/19/19 15:41 Dose: Infused Documented by: Levothyroxine Sodium (Synthroid) 50 mcg PO DAILY@0600 [facility] Last Admin: 11/20/19 06:06 Dose: 50 mcg Documented by: Lorazepam (Ativan) 0.5 mg PO Q12H PRN PRN PRN Reason: anxiety with BIPAP Last Admin: 11/17/19 21:54 Dose: 0.5 mg Documented by: Memantine (Namenda) 5 mg PO BID [facility] Last Admin: 11/19/19 21:02 Dose: 5 mg Documented by: Ondansetron HCl (Zofran) 4 mg IV Q8H PRN PRN PRN Reason: NAUSEA/VOMITING Senna/Docusate Sodium (Senna/Docusate Sodium 1 Tablet) 1 tablet PO BID PRN PRN Reason: CONSTIPATION Sodium Chloride () 10 - 40 ml IV UD PRN PRN Reason: SALINE FLUSH Last Admin: 11/20/19 04:10 Dose: 20 ml Documented by: Sodium Chloride () 10 ml IV UD PRN PRN Reason: Dialysis Catheter Flush Medical Necessity - Tobacco Use Smoking Status: Current every day smoker Tobacco Use: Cigarettes Assessment/Plan All Active Problems Septic shock (Acute) Community acquired pneumonia (Acute) Sepsis with acute hypoxic respiratory failure and septic shock (Acute) [place] (acute kidney injury) (Acute) [place] CKD stage IV CKD MBD Non-ST elevation MD Congestive heart failure continue lasix as he still has residual uop switch to 80 mg po bid. bp borderline had 1 L net [address] today. [address] TDC if ok with cardiology. avoid nephrotoxins to preserve RRF bp per cards Continue PhosLo as the phosphorus is still 6.3 despite dialysis 3 days back to back. d/w patient and RN and dr. Perez. has femoral catheter
[2019-11-20] MEDS: Amiodarone 200 MG Tablet PO (14:07)
[2019-11-20] MEDS: Aspirin 81 MG TAB.CHEW PO (14:07)
[2019-11-20] MEDS: Calcium Acetate 667 MG Capsule PO (14:15)
[2019-11-20] MEDS: Memantine Hydrochloride 5 MG Tablet PO ×2 (14:15→21:49)
[2019-11-20] MEDS: Carvedilol 3.125 MG TABLET PO ×2 (14:15→21:47)
--- NOTE | 2019-11-20 14:27 | CASEMGMT ---
DURGA CM NOTE: Insurance review for hospitals In-network with [employer] PPO Insurance if transfer is recommended is as follows: [facility], [place], [facility], [facility], [facility], [facility], [facility]), and . Rubén BLANCO RN CM
--- NOTE | 2019-11-20 16:00 | CASEMGMT ---
DURGA ROBERT NOTE: Reviewed Sacha's progress note. Tunnelled dialysis catheter to be placed. Anticipate patient will need outpatient dialysis at discharge. Conversation with patient at the bedside and then with via phone regarding OP dialysis. Both patient and state they wish for patient to have OP HD. Patient/ both confirm would like to go to the dialysis center in [place] that is on the corner of [address] and[address]. This RN CM confirmed that the dialysis center at this location is [facility]. Referral sent to [facility] via on-line portal system and referral packet faxed to [facility] at this time. Rubén BLANCO RN CM
--- NOTE | 2019-11-20 17:53 | PCM.PN.CARD ---
Subjectve: The patient is awake and alert today. He states his breathing has improved overall. He is not complaining of ongoing chest discomfort. He continues to tolerate hemodialysis. Objective: Vital Signs Temp Pulse Resp BP Pulse Ox 97.4 F L 65 15 101/60 94 11/20/19 16:15 11/20/19 16:15 11/20/19 16:15 11/20/19 16:15 11/20/19 16:15 Oxygen Flow Rate (L/min) 3 Oxygen Delivery Method Nasal Cannula Weight: 160 lb 4.417 oz Body Mass Index (BMI) 26.5 Intake and Output for Last 24 Hours 11/18/19 11/19/19 11/20/19 23:59 23:59 23:59 Intake Total 100 / 190 882 / 882 1252 / 1252 Output Total 2895 / 3095 2380 / 2380 100 / 100 Balance -2795 / -2905 -1498 / -1498 1152 / 1152 General: Awake, Cooperative, No Acute Distress HEENT: Atraumatic, Normocephalic, PERRL, EOMI, Sclera Non Icteric Neck: Supple, Good ROM, No JVD Lungs: Diminished Elliot Bases - Improved compared to previous evaluation Cardiovascular: Regular Rhythm, Normal S1, Normal S2 Abdomen: Bowel Sounds Present, Soft Extremities: No edema Psych/Mental Status: Appropriate 11/20/19 03:55: Sodium 137, Potassium 3.8, Chloride 99, Carbon Dioxide 29.0, Anion Gap 9, BUN 69 H, Creatinine 4.69 H, Est GFR (MDRD) Af Amer 15 L, Est GFR (MDRD) Non-Af 13 L, BUN/Creatinine Ratio 14.7, Glucose 101, Calcium 8.0 L, Phosphorus 6.3 H 11/20/19 03:55: WBC 6.3, RBC 2.94 L, Hgb 9.9 L, Hct 29.7 L, MCV 101.0 H, MCH 33.7 H, MCHC 33.3, Plt Count 149 L, MPV 11.9, Immature Gran % (Auto) 0.800, Neut % (Auto) 70.6 H, Lymph % (Auto) 13.4 L, [place] % (Auto) 8.8, Eos % (Auto) 6.2 H, Baso % (Auto) 0.2, Absolute Neuts (auto) 4.4, Nucleated RBC % 0 Rhythm: Sinus rhythm Medical Necessity - Tobacco Use Smoking Status: Current every day smoker Tobacco Use: Cigarettes Assessment/Plan 1. Non-ST segment elevation [place] The patient does have abnormal cardiac enzymes. This coupled with his transthoracic echocardiogram superimposed upon his clinical course does raise concern of underlying CAD with myocardial ischemia, etc. At the moment he is continuing medical therapy. This is included aspirin therapy with the addition of beta-blockers as well as his lipid-lowering agents. He could be considered for nitrate therapy as deemed appropriate. Based upon ongoing issues with his renal insufficiency he is not an ideal candidate at the moment for additional agents such as YEE inhibitor's or ARB's. He has been on anticoagulant therapy. Is been on hold secondary to concerns of his hemoptysis as well as concerns of the need for invasive evaluation. As noted before, a cardiac catheterization procedure has been discussed with the patient's spouse. At the present time she has requested continued conservative medical management based upon his declining condition. 2. Ischemic mediated cardiomyopathy He does have diminished LV systolic function based on his echocardiogram. Again he will continue medical therapy and further evaluation as he is able. 3. CHF-acute systolic There is concern that he has developed acute systolic CHF. This appears to be improved status post hemodialysis and improvement in his volume status. 4. Paroxysmal atrial fibrillation Apparently there is a history of paroxysmal atrial fibrillation for which she has been treated medically in the past. He should continue rate limiting therapy and in time, if able, resume his anticoagulant therapy. 5. Renal insufficiency He does have findings of ongoing renal insufficiency. He appears to be symptomatically improved status post hemodialysis. He is in need for a tunnel catheter. 6. Hyperlipidemia He will continue lipid-lowering therapy. 7. Hypertension His blood pressures can be monitored and his medications can be adjusted as tolerated. 8. AAA s/p repair (remote) He does have a history of a AAA. Apparently this was surgically repaired many years ago through the F system. 9. Hemoptysis He has a history of hemoptysis. There is some question as to how long this is been going on. As demonstrating that this day in the ICU. 10. Dementia This does play a role in the patient's ongoing evaluation and care. It is challenging for patients with dementia to undergo invasive procedures with respect to following instructions during and after the procedures to minimize the risk of periprocedural related complications. For all, the present time, from a cardiac standpoint, he will continue conservative cardiovascular medical therapy. There are no immediate plans for additional invasive evaluation this time as noted by the previous telephone conversation with his spouse. Thus he will need to proceed with his noncardiac evaluation care for his ongoing hemodialysis with a tunneled catheter placement. Comment: The patient's case has been discussed and reviewed with Dr. Perez. This note was generated using a voice recognition system and there may be incorrect words, spelling or punctuation that were not noted when reviewing the office note prior to saving.
[2019-11-20] MEDS: Furosemide 80 MG Tablet PO (19:29)
[2019-11-20] MEDS: Atorvastatin Calcium 80 MG Tablet PO (21:49)
[2019-11-21] VITALS (17 sets, daily range): BP systolic 96–108; BP diastolic 58–74; PULSE 56–66; RESP 14–20; TEMP 36.4–36.7; O2SAT 90–97
[2019-11-21] MEDS: Ipratropium/Albuterol Sulfate 3 ML AMPUL.NEB INHALATION ×4 (01:32→19:16)
[2019-11-21 05:38] LABS: Anion Gap 9 (5-15); BUN 59 mg/dL (7-18); Calcium,Total 7.8 mg/dL (8.5-10.1); Chloride 101 mmol/L (98-107); Creatinine, Serum 4.55 mg/dL (0.70-1.30); EST Glomerular Filtration Rate 13 mL/min (>60); Est Glom Filt Rate - Afr Amer 16 mL/min (>60); Estimated Creatinine Clearance 12.43 ml/min; Glucose 99 mg/dL (74-106); Potassium 3.8 mmol/L (3.5-5.1); Sodium Level 136 mmol/L (136-145)
[2019-11-21] MEDS: Levothyroxine 50 MCG Tablet PO (06:21)
[2019-11-21] MEDS: Heparin Injection (Vial) 5,000 UNIT/ML VIAL 5000 UNIT SC ×3 (06:21→21:03)
--- NOTE | 2019-11-21 06:37 | PN_ITS ---
Subjective: Patient did okay overnight. Patient is much more appropriate this morning and answering appropriately. Patient is requiring 3 L nasal cannula. Did have hemodialysis yesterday with 1 L removal. General: Alert, Oriented x3, Cooperative, No apparent distress, - - Speaking in full sentences. HEENT: Atraumatic, PERRLA, EOMI, Normocephalic, - - No scleral icterus or injection noted Oral: Moist Mucosa, No Gingival or Mucosal Lesions/ Ulcerations Neck: Supple, No JVD, No Nodes, Trachea Midline Lungs: No rhonchi, No wheeze, Diminished, Rales - Right base, - - Symmetric expansion Cardiovascular: Regular rate, Regular Rhythm, Normal S1, Normal S2, No murmurs, No rub noted, No Gallop Abdomen: Bowel Sounds Present, Soft, Non Tender, Non-Distended Extremities: No clubbing, No cyanosis, No edema, Capillary Refill Less than 3 Seconds, - - Right femoral HD catheter noted Skin: - - No change compared to previous Musculoskeletal: No Tenderness to Palpation of Joints or Extremities Lymphatic: No Cervical, Supraclavicular, or Inguinal Adenopathy Neurological: Cranial nerves II-XII grossly intact, Neuro grossly intact, Motor Exam 5/5 strength throughout Psych/Mental Status: Normal Affect, Appropriate Vital Signs Temp Pulse Resp BP Pulse Ox 36.7 C 59 L 20 H 101/63 95 11/21/19 02:19 11/21/19 04:00 11/21/19 02:19 11/21/19 02:19 11/21/19 02:19 Oxygen Flow Rate (L/min) 3 Oxygen Delivery Method Nasal Cannula Weight: 74.4 kg Body Mass Index (BMI) 26.5 Intake and Output for Last 24 Hours 11/19/19 11/20/19 11/21/19 23:59 23:59 23:59 Intake Total 882 / 882 1452 / 1452 350 / 350 Output Total 2380 / 2380 100 / 100 50 / 50 Balance -1498 / -1498 1352 / 1352 300 / 300 Labs (Last 48 Hours) 11/17/19 11/19/19 11/19/19 11:15 08:30 08:30 WBC 7.4 RBC 2.84 L Hgb 9.4 L Hct 28.2 L MCV 99.3 H MCH 33.1 H MCHC 33.3 RDW Std Deviation 50.2 H RDW Coeff of Maritza 13.7 Plt Count 143 L MPV 11.7 Immature Gran % (Auto) Neut % (Auto) Lymph % (Auto) [place] % (Auto) Eos % (Auto) Baso % (Auto) Absolute Neuts (auto) Absolute Lymphs (auto) Nucleated RBC % Sodium 141 Potassium 3.9 Chloride 106 Carbon Dioxide 26.0 Anion Gap 9 BUN 86 H Creatinine 5.09 H Estim Creat Clear Calc 11.15 Est GFR (MDRD) Af Amer 14 L Est GFR (MDRD) Non-Af 12 L BUN/Creatinine Ratio 16.9 Glucose 87 Calcium 8.0 L Phosphorus Hep B Core Total Ab Negative 11/19/19 11/20/19 11/20/19 08:30 03:55 03:55 WBC 6.3 RBC 2.94 L Hgb 9.9 L Hct 29.7 L MCV 101.0 H MCH 33.7 H MCHC 33.3 RDW Std Deviation 49.8 H RDW Coeff of Maritza 13.5 Plt Count 149 L MPV 11.9 Immature Gran % (Auto) 0.800 Neut % (Auto) 70.6 H Lymph % (Auto) 13.4 L [place] % (Auto) 8.8 Eos % (Auto) 6.2 H Baso % (Auto) 0.2 Absolute Neuts (auto) 4.4 Absolute Lymphs (auto) 0.84 Nucleated RBC % 0 Sodium 137 Potassium 3.8 Chloride 99 Carbon Dioxide 29.0 Anion Gap 9 BUN 69 H Creatinine 4.69 H Estim Creat Clear Calc 12.11 Est GFR (MDRD) Af Amer 15 L Est GFR (MDRD) Non-Af 13 L BUN/Creatinine Ratio 14.7 Glucose 101 Calcium 8.0 L Phosphorus 6.1 H 6.3 H Hep B Core Total Ab 11/21/19 05:20 WBC RBC Hgb Hct MCV MCH MCHC RDW Std Deviation RDW Coeff of Maritza Plt Count MPV Immature Gran % (Auto) Neut % (Auto) Lymph % (Auto) [place] % (Auto) Eos % (Auto) Baso % (Auto) Absolute Neuts (auto) Absolute Lymphs (auto) Nucleated RBC % Sodium 136 Potassium 3.8 Chloride 101 Carbon Dioxide 26.0 Anion Gap 9 BUN 59 H Creatinine 4.55 H Estim Creat Clear Calc 12.43 Est GFR (MDRD) Af Amer 16 L Est GFR (MDRD) Non-Af 13 L BUN/Creatinine Ratio 13.0 Glucose 99 Calcium 7.8 L Phosphorus Hep B Core Total Ab Medical Necessity - Tobacco Use Smoking Status: Current every day smoker Tobacco Use: Cigarettes Assessment/Plan All Active Problems Septic shock (Acute) Community acquired pneumonia (Acute) Sepsis with acute hypoxic respiratory failure and septic shock (Acute) [place] (acute kidney injury) (Acute) RECOMMENDATIONS: 1. Wean FiO2 to maintain oxygen saturations at or above 90%. 2. Consider discontinuation of antibiotics 3. Consider discontinuation of temporary dialysis line. Defer to nephrology on placement of tunneled line if appropriate 4. Coordination with cardiology if having a heart catheterization. This is currently on hold per family wishes 5. Defer to nephrology on timing for tunneled hemodialysis line 6. Okay to skip hemodialysis from a pulmonary perspective today IMPRESSIONS: 1. Acute hypoxemic respiratory failure Most likely multifactorial in etiology. I do suspect that the patient's presentation is likely the consequence of acute decompensated heart failure in the setting of an NSTEMI with possible superimposed pneumonia. At this time, the patient has responded appropriately to previous BiPAP therapy, which will be continued without change with sleep. Patient has had significant improvement in lung infiltrates with volume removal. This would be contrary to infectious infiltrates. Cardiology is currently following to assist with additional medical management. Would defer to nephrology on establishment of chronic hemodialysis. Patient is currently doing well on nasal cannula. Continue agg ressive recruitment measures such as activity as tolerated and incentive spirometer. No need for hemodialysis from a pulmonary/critical care perspective. Respiratory status appears stable. 2. Acute on chronic kidney disease The patient has been followed by nephrology due to his chronic kidney disease. Nephrology is currently following. Unclear if patient is aware of his long-term prognosis. Patient reportedly has refused chronic dialysis in the past, but appears to be tolerating current intervention well. 3. Non-ST segment elevation [place] The patient presented with an elevated troponin and T wave inversions on EKG. Troponins have peaked at about 10. Cardiology had mentioned possible heart catheterization over the weekend, but family is requesting conservative measures at this time. If patient is to have a heart catheterization, coordination with hemodialysis will need to be established to avoid further renal damage. 4. Septic shock The patient did have SIRS criteria along with an elevated lactate to greater than 6 at the outside hospital. I do suspect that his lactate elevation is secondary to hypoxemia, as the patient has never been hemodynamically unstable. Given significant improvement in chest x-ray, lack of fever and resolution of leukocytosis, it is likely okay to limit to a 5-day course of antibiotics. 5. Questionable history of COPD/Alzheimer's/hypertension Complicates care, management, recovery and prognosis. Continue bronchodilators as ordered. Inpatient E&M: 59349 Subs Hosp L2
[2019-11-21] MEDS: Aspirin 81 MG TAB.CHEW PO (07:59)
[2019-11-21] MEDS: Calcium Acetate 667 MG Capsule PO ×3 (07:59→17:02)
[2019-11-21] MEDS: Carvedilol 3.125 MG TABLET PO ×2 (10:25→21:03)
[2019-11-21] MEDS: Amiodarone 200 MG Tablet PO (10:25)
[2019-11-21] MEDS: Furosemide 80 MG Tablet PO ×2 (10:25→17:02)
[2019-11-21] MEDS: Memantine Hydrochloride 5 MG Tablet PO ×2 (10:25→21:03)
--- NOTE | 2019-11-21 14:53 | PCM.CONS.GEN ---
Problem List (1) [place] (acute kidney injury) Status: Acute Reason for Consult Date of Consultation: 11/21/19 Reason for Consultation: Need for tunneled dialysis catheter History of Present Illness: The patient is a 84 year old M here with chest pain and NSTEMI. The patient is also been receiving dialysis. The patient has a femoral dialysis catheter and I was consulted to place a tunneled chest dialysis catheter. 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) Allergies adhesive tape Allergy (Mild, Verified 07/31/18 09:58) Rash oxycodone Allergy (Mild, Verified 07/31/18 09:58) Rash tramadol Allergy (Mild, Verified 07/31/18 09:58) Other Home Medications: Ambulatory Orders Medication Instructions Recorded allopurinol 100 mg tablet PO #90 tab 07/26/18 amiodarone 200 mg tablet PO #90 tab 07/26/18 amlodipine 5 mg tablet PO #90 tab 07/26/18 apixaban 5 mg tablet PO #60 tab 07/26/18 atorvastatin 80 mg tablet PO #90 tab 07/26/18 meclizine 12.5 mg tablet PO #90 tab 07/26/18 Surgical History: cataract Psychiatric History: - - Alzheimer's dementia Lives: Spouse/ Significant Other Smoking Status: Current every day smoker Tobacco Use: Cigarettes Alcohol: None Drugs: None - *Family History Paternal History Items: No pertinent history Maternal History Items: Diabetes Review of Systems Constitutional: Denies: Anorexia, Fever HEENT: Denies: Difficulty Swallowing Cardiovascular: Denies: Chest Pain Respiratory: Reports: Shortness of Breath Gastrointestinal: Denies: Abdominal Pain, Nausea, Melena, Vomiting Endocrine: Denies: Change in Body Habitus Patient Problems: Active and Suspected Problems Septic shock (Acute) Community acquired pneumonia (Acute) Bilateral community-acquired pneumonia Sepsis with acute hypoxic respiratory failure and septic shock (Acute) [place] (acute kidney injury) (Acute) - Physical Exam Vitals/I&O's: Vital Signs Temp Pulse Resp BP Pulse Ox 97.8 F 64 19 H 108/64 97 11/21/19 10:28 11/21/19 13:05 11/21/19 13:05 11/21/19 10:28 11/21/19 10:28 Oxygen Flow Rate (L/min) 3 Oxygen Delivery Method Nasal Cannula Weight: 164 lb 0.383 oz Body Mass Index (BMI) 26.5 Intake and Output for Last 24 Hours 11/19/19 11/20/19 11/21/19 23:59 23:59 23:59 Intake Total 882 / 882 1452 / 1452 350 / 350 Output Total 2380 / 2380 100 / 100 50 / 50 Balance -1498 / -1498 1352 / 1352 300 / 300 General: Alert, Oriented x3, Cooperative Neck: No JVD Lungs: Normal air movement Cardiovascular: Regular rate, Regular Rhythm Abdomen: Soft, Non Tender, Non-Distended Skin: No rashes Musculoskeletal: Cachexia Neurological: Cranial nerves II-XII grossly intact Psych/Mental Status: Normal Affect Laboratory Results 11/21/19 05:20: Sodium 136, Potassium 3.8, Chloride 101, Carbon Dioxide 26.0, Anion Gap 9, BUN 59 H, Creatinine 4.55 H, Estim Creat Clear Calc 12.43, Est GFR (MDRD) Af Amer 16 L, Est GFR (MDRD) Non-Af 13 L, BUN/Creatinine Ratio 13.0, Glucose 99, Calcium 7.8 L Current Medications Acetaminophen (Tylenol) 650 mg PO Q6H PRN PRN PRN Reason: Pain 1-10 or Fever Albuterol Sulfate (Ventolin Aerosols) 2.5 mg INHALATION Q2H PRN PRN PRN Reason: DYSPNEA Albuterol/Ipratropium (Duoneb) 3 ml INHALATION Q6H.RT [facility] Last Admin: 11/21/19 13:03 Dose: 3 ml Documented by: Amiodarone HCl (Cordarone) 200 mg PO DAILY [facility] Last Admin: 11/21/19 10:25 Dose: 200 mg Documented by: Aspirin (Aspirin, Baby) 81 mg PO DAILY@0800 [facility] Last Admin: 11/21/19 07:59 Dose: 81 mg Documented by: Atorvastatin Calcium (Lipitor) 80 mg PO QHS [facility] Last Admin: 11/20/19 21:49 Dose: 80 mg Documented by: Calcium Acetate (Phoslo Gel Cap) 667 mg PO TIDCM [facility] Last Admin: 11/21/19 12:23 Dose: 667 mg Documented by: Carvedilol (Coreg) 3.125 mg PO BID [facility] Last Admin: 11/21/19 10:25 Dose: 3.125 mg Documented by: Furosemide (Furosemide 80 Mg Tablet) 80 mg PO BID@1000,1800 [facility] Last Admin: 11/21/19 10:25 Dose: 80 mg Documented by: Heparin Sodium (Porcine) (Heparin Injection (Vial) 5,000 Unit/Ml Vial) 5,000 unit SC Q8 [facility] Last Admin: 11/21/19 06:21 Dose: 5,000 unit Documented by: Cefazolin Sodium 2 gm/ Sodium (Chloride) 110 mls @ 150 mls/hr IV SEND TO OR W/PATIENT ONE Stop: 11/22/19 08:13 Levothyroxine Sodium (Synthroid) 50 mcg PO DAILY@0600 [facility] Last Admin: 11/21/19 06:21 Dose: 50 mcg Documented by: Lorazepam (Ativan) 0.5 mg PO Q12H PRN PRN PRN Reason: anxiety with BIPAP Last Admin: 11/17/19 21:54 Dose: 0.5 mg Documented by: Memantine (Namenda) 5 mg PO BID [facility] Last Admin: 11/21/19 10:25 Dose: 5 mg Documented by: Ondansetron HCl (Zofran) 4 mg IV Q8H PRN PRN PRN Reason: NAUSEA/VOMITING Senna/Docusate Sodium (Senna/Docusate Sodium 1 Tablet) 1 tablet PO BID PRN PRN Reason: CONSTIPATION Sodium Chloride () 10 - 40 ml IV UD PRN PRN Reason: SALINE FLUSH Last Admin: 11/20/19 14:22 Dose: 10 ml Documented by: Sodium Chloride () 10 ml IV UD PRN PRN Reason: Dialysis Catheter Flush Assessment/Plan All Active Problems Septic shock (Acute) Community acquired pneumonia (Acute) Sepsis with acute hypoxic respiratory failure and septic shock (Acute) [place] (acute kidney injury) (Acute) 84-year-old male with acute kidney injury 1. Patient currently has a femoral dialysis catheter. He has required dialysis every day. I was consulted for a tunneled chest dialysis catheter. I discussed this with him in detail. I discussed the risks of bleeding infection and pneumothorax. The patient understands the risk. I discussed surgery with Dr. Cotto as well. Plan for tunneled right chest dialysis catheter later utilizing right IJ tomorrow morning at 730. Hold his heparin and make him n.p.o. after midnight. Truman Whittington MD Pager: [facility] [address] [place] [address], [address] [place] [address] Office:
--- NOTE | 2019-11-21 15:45 | CASEMGMT ---
DURGA ROBERT NOTE: Call received from Laura @ [facility]. She states all records have been received for new referral for OP HD and have been sent for review for insurance/medical clearance. Schedule Letter received from Laura. OP HD @ [facility] in Median Chair time slated for MWF @ 1100. Plan: Home w/OP HD @ [facility] location, pending insurance/medical clearance. Chair time slated for MWF @ 1100. DURGA ROBERT to fax tunneled dialysis catheter placement confirmation to [facility] once it is available. PT/OT evals pending. Follow for possible need of HHC. Pt remains on O2 @ 3 L/M. He does not have Home O2. DURGA ROBERT to continue to for possible Home O2 needs. Rubén HALLN DURGA CM
--- NOTE | 2019-11-21 17:23 | PCM.PN.REN ---
Patient Problems: Active and Suspected Problems Septic shock (Acute) Community acquired pneumonia (Acute) Bilateral community-acquired pneumonia Sepsis with acute hypoxic respiratory failure and septic shock (Acute) [place] (acute kidney injury) (Acute) Subjective: no sob/cp - Physical Exam Vitals/I&O's: Vital Signs Temp Pulse Resp BP Pulse Ox 98 F 60 16 106/69 93 11/21/19 17:04 11/21/19 17:04 11/21/19 17:04 11/21/19 17:04 11/21/19 17:04 Oxygen Flow Rate (L/min) 3 Oxygen Delivery Method Room Air Weight: 74.4 kg Body Mass Index (BMI) 26.5 Intake and Output for Last 24 Hours 11/19/19 11/20/19 11/21/19 23:59 23:59 23:59 Intake Total 882 / 882 1452 / 1452 830 / 830 Output Total 2380 / 2380 100 / 100 250 / 250 Balance -1498 / -1498 1352 / 1352 580 / 580 General: Alert, Cooperative HEENT: Atraumatic, Normocephalic Neck: Supple Lungs: Clear to auscultation, Normal air movement Cardiovascular: Regular rate, Regular Rhythm Abdomen: Bowel Sounds Present, Soft, Non Tender Extremities: No clubbing, No edema Laboratory Results 11/21/19 05:20: Sodium 136, Potassium 3.8, Chloride 101, Carbon Dioxide 26.0, Anion Gap 9, BUN 59 H, Creatinine 4.55 H, Estim Creat Clear Calc 12.43, Est GFR (MDRD) Af Amer 16 L, Est GFR (MDRD) Non-Af 13 L, BUN/Creatinine Ratio 13.0, Glucose 99, Calcium 7.8 L Current Medications Acetaminophen (Tylenol) 650 mg PO Q6H PRN PRN PRN Reason: Pain 1-10 or Fever Albuterol Sulfate (Ventolin Aerosols) 2.5 mg INHALATION Q2H PRN PRN PRN Reason: DYSPNEA Albuterol/Ipratropium (Duoneb) 3 ml INHALATION Q6H.RT [facility] Last Admin: 11/21/19 13:03 Dose: 3 ml Documented by: Amiodarone HCl (Cordarone) 200 mg PO DAILY [facility] Last Admin: 11/21/19 10:25 Dose: 200 mg Documented by: Aspirin (Aspirin, Baby) 81 mg PO DAILY@0800 [facility] Last Admin: 11/21/19 07:59 Dose: 81 mg Documented by: Atorvastatin Calcium (Lipitor) 80 mg PO QHS [facility] Last Admin: 11/20/19 21:49 Dose: 80 mg Documented by: Calcium Acetate (Phoslo Gel Cap) 667 mg PO TIDCM [facility] Last Admin: 11/21/19 17:02 Dose: 667 mg Documented by: Carvedilol (Coreg) 3.125 mg PO BID [facility] Last Admin: 11/21/19 10:25 Dose: 3.125 mg Documented by: Furosemide (Furosemide 80 Mg Tablet) 80 mg PO BID@1000,1800 [facility] Last Admin: 11/21/19 17:02 Dose: 80 mg Documented by: Heparin Sodium (Porcine) (Heparin Injection (Vial) 5,000 Unit/Ml Vial) 5,000 unit SC Q8 [facility] Last Admin: 11/21/19 15:00 Dose: 5,000 unit Documented by: Cefazolin Sodium 2 gm/ Sodium (Chloride) 110 mls @ 150 mls/hr IV SEND TO OR W/PATIENT ONE Stop: 11/22/19 08:13 Levothyroxine Sodium (Synthroid) 50 mcg PO DAILY@0600 [facility] Last Admin: 11/21/19 06:21 Dose: 50 mcg Documented by: Lorazepam (Ativan) 0.5 mg PO Q12H PRN PRN PRN Reason: anxiety with BIPAP Last Admin: 11/17/19 21:54 Dose: 0.5 mg Documented by: Memantine (Namenda) 5 mg PO BID [facility] Last Admin: 11/21/19 10:25 Dose: 5 mg Documented by: Ondansetron HCl (Zofran) 4 mg IV Q8H PRN PRN PRN Reason: NAUSEA/VOMITING Senna/Docusate Sodium (Senna/Docusate Sodium 1 Tablet) 1 tablet PO BID PRN PRN Reason: CONSTIPATION Sodium Chloride () 10 - 40 ml IV UD PRN PRN Reason: SALINE FLUSH Last Admin: 11/20/19 14:22 Dose: 10 ml Documented by: Sodium Chloride () 10 ml IV UD PRN PRN Reason: Dialysis Catheter Flush Medical Necessity - Tobacco Use Smoking Status: Current every day smoker Tobacco Use: Cigarettes Assessment/Plan All Active Problems Septic shock (Acute) Community acquired pneumonia (Acute) Sepsis with acute hypoxic respiratory failure and septic shock (Acute) [place] (acute kidney injury) (Acute) [place] CKD stage IV CKD MBD Non-ST elevation [place] Congestive heart failure continue lasix 80 mg po bid. bp borderline still low side place TDC 7/30 am then HD tomorrow.Remove femoral line tonight avoid nephrotoxins to preserve RRF bp per cards Continue PhosLo as the phosphorus is still 6.3 despite dialysis 3 days back to back. d/w patient and manager games for placement in outpatient dialysis unit
--- NOTE | 2019-11-21 19:28 | PCM.PN.CARD ---
Subjectve: The patient is awake and alert. At the moment he is without O2 support. He is right femoral vein dialysis catheter has been removed. He is pending placement of a tunneled catheter tomorrow for continued dialysis. Objective: Vital Signs Temp Pulse Resp BP Pulse Ox 98 F 60 16 106/69 93 11/21/19 17:04 11/21/19 17:04 11/21/19 17:04 11/21/19 17:04 11/21/19 17:04 Oxygen Flow Rate (L/min) 3 Oxygen Delivery Method Room Air Weight: 164 lb 0.383 oz Body Mass Index (BMI) 26.5 Intake and Output for Last 24 Hours 11/19/19 11/20/19 11/21/19 23:59 23:59 23:59 Intake Total 882 / 882 1452 / 1452 1190 / 1190 Output Total 2380 / 2380 100 / 100 300 / 300 Balance -1498 / -1498 1352 / 1352 890 / 890 General: Awake, Cooperative, No Acute Distress HEENT: Atraumatic, Normocephalic, PERRL, EOMI, Sclera Non Icteric Neck: Supple, Good ROM, No JVD Lungs: Clear to auscultation Cardiovascular: Regular Rhythm, Normal S1, Normal S2 Abdomen: Bowel Sounds Present, Soft Extremities: No edema Psych/Mental Status: Dementia 11/21/19 05:20: Sodium 136, Potassium 3.8, Chloride 101, Carbon Dioxide 26.0, Anion Gap 9, BUN 59 H, Creatinine 4.55 H, Est GFR (MDRD) Af Amer 16 L, Est GFR (MDRD) Non-Af 13 L, BUN/Creatinine Ratio 13.0, Glucose 99, Calcium 7.8 L Rhythm: Sinus rhythm Medical Necessity - Tobacco Use Smoking Status: Current every day smoker Tobacco Use: Cigarettes Assessment/Plan 1. Non-ST segment elevation [place] The patient does have abnormal cardiac enzymes. This coupled with his transthoracic echocardiogram superimposed upon his clinical course does raise concern of underlying CAD with myocardial ischemia, etc. At the moment he is continuing medical therapy. This is included aspirin therapy with the addition of beta-blockers as well as his lipid-lowering agents. He could be considered for nitrate therapy as deemed appropriate. Based upon ongoing issues with his renal insufficiency he is not an ideal candidate at the moment for additional agents such as YEE inhibitor's or ARB's. He has been on anticoagulant therapy. Is been on hold secondary to concerns of his hemoptysis as well as concerns of the need for invasive evaluation. As noted before, a cardiac catheterization procedure has been discussed with the patient's spouse. At the present time she has requested continued conservative medical management based upon his declining condition. 2. Ischemic mediated cardiomyopathy He does have diminished LV systolic function based on his echocardiogram. Again he will continue medical therapy and further evaluation as he is able. 3. CHF-acute systolic There is concern that he has developed acute systolic CHF. This appears to be improved status post hemodialysis and improvement in his volume status. 4. Paroxysmal atrial fibrillation Apparently there is a history of paroxysmal atrial fibrillation for which she has been treated medically in the past. He should continue rate limiting therapy and in time, if able, resume his anticoagulant therapy. 5. Renal insufficiency He does have findings of ongoing renal insufficiency. He appears to be symptomatically improved status post hemodialysis. He is in need for a tunnel catheter. 6. Hyperlipidemia He will continue lipid-lowering therapy. 7. Hypertension His blood pressures can be monitored and his medications can be adjusted as tolerated. 8. AAA s/p repair (remote) He does have a history of a AAA. Apparently this was surgically repaired many years ago through the [facility] system. 9. Hemoptysis He has a history of hemoptysis. There is some question as to how long this is been going on. As demonstrating that this day in the ICU. 10. Dementia This does play a role in the patient's ongoing evaluation and care. It is challenging for patients with dementia to undergo invasive procedures with respect to following instructions during and after the procedures to minimize the risk of periprocedural related complications. This note was generated using a voice recognition system and there may be incorrect words, spelling or punctuation that were not noted when reviewing the office note prior to saving.
[2019-11-21] MEDS: Atorvastatin Calcium 80 MG Tablet PO (21:03)
[2019-11-21] MEDS: 0.9% Saline Lock 10 ML Syringe IV (21:03)
[2019-11-22] VITALS (15 sets, daily range): BP systolic 99–115; BP diastolic 54–71; PULSE 51–71; RESP 12–21; TEMP 36.3–36.8; O2SAT 91–97; BMI 23.5
[2019-11-22] MEDS: Ipratropium/Albuterol Sulfate 3 ML AMPUL.NEB INHALATION ×2 (01:00→18:59)
[2019-11-22 03:51] LABS: Absolute Lymphocyte Count 0.86 X10^3/uL (0.83-4.51); Absolute Neutrophil Count 3.9 X10^3/uL (2.0-7.7); Basophil# 0.01 X10^3/uL; Basophil% 0.2 % (0-1); Eosinophil# 0.51 X10^3/uL; Eosinophils% 8.4 % (0-5); Hematocrit 28.6 % (40-54); Hemoglobin 9.7 g/dL (13.0-16.5); Lymphocyte # 0.86 X10^3/ul (4.0); Lymphocyte % 14.1 % (19-41); Mean Corp Hgb Conc 33.9 g/dL (32-36); Mean Corpuscular Hgb 33.1 pg (27.0-32.0); Mean Corpuscular Volume 97.6 fL (80-94); Mean Platelet Vol. 11.7 fl (6.2-12.0); Monocyte# 0.64 X10^3/uL; Monocyte% 10.5 % (0-10); NRBC Flagged by Analyzer 0 % (0-5); Neutrophil # 3.94 X10^3/uL (2.7-7.7); Neutrophil % 64.8 % (47-70); Platelet Count 150 K/mm3 (150-450); RBC Distribution Width CV 12.9 % (11.6-14.6); RBC Distribution Width SD 46.1 fl (35.1-43.9); Red Blood Count 2.93 M/mm3 (4.6-6.2); White Blood Count 6.1 K/mm3 (4.4-11.0)
[2019-11-22 04:05] LABS: Anion Gap 11 (5-15); BUN 76 mg/dL (7-18); BUN/Creat Ratio 12.6 RATIO (10-20); Calcium,Total 7.7 mg/dL (8.5-10.1); Chloride 99 mmol/L (98-107); Creatinine, Serum 6.01 mg/dL (0.70-1.30); EST Glomerular Filtration Rate 10 mL/min (>60); Est Glom Filt Rate - Afr Amer 12 mL/min (>60); Estimated Creatinine Clearance 9.45 ml/min; Glucose 102 mg/dL (74-106); Phosphorus 6.3 mg/dL (2.5-4.9); Potassium 4.1 mmol/L (3.5-5.1); Sodium Level 134 mmol/L (136-145)
[2019-11-22 04:16] LABS: International Normalized Ratio 1.2; Prothrombin Time (Protime)PT. 14.9 SECONDS (11.7-14.9)
[2019-11-22] MEDS: Levothyroxine 50 MCG Tablet PO (05:01)
--- NOTE | 2019-11-22 06:20 | PN_ITS ---
Subjective: Patient did well overnight. No acute issues were reported. Patient did have femoral line taken out yesterday without complication. Patient to have a tunneled hemodialysis line placed today. Patient has been able to be weaned to room air and has no complaints at this time. General: Alert, Cooperative, No apparent distress, Disoriented, - - Speaking in full sentences HEENT: Atraumatic, PERRLA, EOMI, Normocephalic, - - No scleral icterus or injection noted Oral: No Gingival or Mucosal Lesions/ Ulcerations, Dry Mucosa Neck: Supple, No JVD, No Nodes, Trachea Midline Lungs: No rhonchi, No wheeze, No rales, Diminished, - - Fair effort. Symmetric expansion. Cardiovascular: Regular rate, Regular Rhythm, Normal S1, Normal S2, No murmurs, No rub noted, No Gallop Abdomen: Bowel Sounds Present, Soft, Non Tender, Non-Distended Extremities: No clubbing, No cyanosis, No edema, Capillary Refill Less than 3 Seconds, - - No femoral hematoma appreciated Musculoskeletal: No Tenderness to Palpation of Joints or Extremities Lymphatic: No Cervical, Supraclavicular, or Inguinal Adenopathy Neurological: Cranial nerves II-XII grossly intact, Neuro grossly intact, Motor Exam 5/5 strength throughout Psych/Mental Status: Appropriate, Flat Affect Vital Signs Temp Pulse Resp BP Pulse Ox 36.8 C 60 18 100/57 L 97 11/22/19 02:41 11/22/19 03:00 11/22/19 02:41 11/22/19 02:41 11/22/19 02:41 Oxygen Flow Rate (L/min) 3 Oxygen Delivery Method Nasal Cannula Weight: 74.4 kg Body Mass Index (BMI) 26.5 Intake and Output for Last 24 Hours 11/20/19 11/21/19 11/22/19 23:59 23:59 23:59 Intake Total 1452 / 1452 1190 / 1190 250 / 250 Output Total 100 / 100 300 / 300 100 / 100 Balance 1352 / 1352 890 / 890 150 / 150 Labs (Last 48 Hours) 11/21/19 11/22/19 11/22/19 05:20 03:40 03:40 WBC 6.1 RBC 2.93 L Hgb 9.7 L Hct 28.6 L MCV 97.6 H MCH 33.1 H MCHC 33.9 RDW Std Deviation 46.1 H RDW Coeff of Maritza 12.9 Plt Count 150 MPV 11.7 Immature Gran % (Auto) 2.000 H Neut % (Auto) 64.8 Lymph % (Auto) 14.1 L [place] % (Auto) 10.5 H Eos % (Auto) 8.4 H Baso % (Auto) 0.2 Absolute Neuts (auto) 3.9 Absolute Lymphs (auto) 0.86 Nucleated RBC % 0 PT INR Sodium 136 134 L Potassium 3.8 4.1 Chloride 101 99 Carbon Dioxide 26.0 24.0 Anion Gap 9 11 BUN 59 H 76 H Creatinine 4.55 H 6.01 H Estim Creat Clear Calc 12.43 9.45 Est GFR (MDRD) Af Amer 16 L 12 L Est GFR (MDRD) Non-Af 13 L 10 L BUN/Creatinine Ratio 13.0 12.6 Glucose 99 102 Calcium 7.8 L 7.7 L Phosphorus 6.3 H 11/22/19 03:40 WBC RBC Hgb Hct MCV MCH MCHC RDW Std Deviation RDW Coeff of Maritza Plt Count MPV Immature Gran % (Auto) Neut % (Auto) Lymph % (Auto) [place] % (Auto) Eos % (Auto) Baso % (Auto) Absolute Neuts (auto) Absolute Lymphs (auto) Nucleated RBC % PT 14.9 INR 1.2 Sodium Potassium Chloride Carbon Dioxide Anion Gap BUN Creatinine Estim Creat Clear Calc Est GFR (MDRD) Af Amer Est GFR (MDRD) Non-Af BUN/Creatinine Ratio Glucose Calcium Phosphorus Medical Necessity - Tobacco Use Smoking Status: Current every day smoker Tobacco Use: Cigarettes Assessment/Plan All Active Problems Septic shock (Acute) Community acquired pneumonia (Acute) Sepsis with acute hypoxic respiratory failure and septic shock (Acute) [place] (acute kidney injury) (Acute) RECOMMENDATIONS: 1. Await placement of tunneled hemodialysis line 2. Dialysis per nephrology 3. Discharge planning. Okay to discontinue BiPAP therapy 4. Coordination with cardiology if having a heart catheterization. This is currently on hold per family wishes 5. Hemodynamically stable on room air. Will sign off from a critical care/pulmonary perspective. IMPRESSIONS: 1. Acute hypoxemic respiratory failure Most likely multifactorial in etiology. I do suspect that the patient's presentation is likely the consequence of acute decompensated heart failure in the setting of an NSTEMI with possible superimposed pneumonia. At this time, the patient has responded appropriately to previous BiPAP therapy, which will be continued without change with sleep. Patient has had significant improvement in lung infiltrates with volume removal. This would be contrary to infectious infiltrates. Patient has been able to be weaned to room air with recruitment measures and volume removal. Continue aggressive recruitment measures such as activity as tolerated and incentive spirometer. Patient currently hemodynamically stable on room air. Will sign off from a critical care/pulmonary perspective 2. Acute on chronic kidney disease The patient has been followed by nephrology due to his chronic kidney disease. Nephrology is currently following. Unclear if patient is aware of his long-term prognosis, but reportedly has agreed to chronic dialysis. Tunneled hemodialysis line is to be placed today. 3. Non-ST segment elevation [place] The patient presented with an elevated troponin and T wave inversions on EKG. Troponins have peaked at about 10. Cardiology had mentioned possible heart catheterization over the weekend, but family is requesting conservative measures at this time. If patient is to have a heart catheterization, coordination with hemodialysis will need to be established to avoid further renal damage. 4. Septic shock The patient did have SIRS criteria along with an elevated lactate to greater than 6 at the outside hospital. I do suspect that his lactate elevation is secondary to hypoxemia, as the patient has never been hemodynamically unstable. Given significant improvement in chest x-ray, lack of fever and resolution of leukocytosis, it is likely okay to limit to a 5-day course of antibiotics. 5. Questionable history of COPD/Alzheimer's/hypertension Complicates care, management, recovery and prognosis. Continue bronchodilators as ordered. Inpatient E&M: 68765 Subs Hosp L2
[2019-11-22] MEDS: Albuterol 2.5 MG/3 ML VIAL.NEB. INHALATION (06:46)
[2019-11-22] MEDS: Cefazolin 2 GM in 0.9% Normal Saline 100 ML IV (07:33)
--- NOTE | 2019-11-22 08:08 | RAD_ITS ---
STUDY: X-RAY CHEST REASON FOR EXAM: Male, 84 years old. POST DIALYSIS CATH PLACEMENT TECHNIQUE: Single AP portable view of the chest. COMPARISON: Comparison is made with prior study dated 11/19/2019. FINDINGS: The right-sided dialysis catheter has been placed. The tip is at the junction of the superior vena cava and right atrium. The lungs are clear and expanded. There is no demonstrated pleural abnormality. There is borderline cardiomegaly. Normal mediastinum and sanjeev. Normal visualized pulmonary arteries. There is atherosclerotic calcification of the aortic arch with tortuosity. Normal visualized thoracic spine. Anterior fusion in the lower cervical spine. There is no demonstrated abnormality of the visualized soft tissue structures of the upper abdomen. RAD/CXR for Line Placement IMPRESSION: The tip of the right-sided dialysis catheter is at the junction of the superior vena cava and right atrium. Electronically Signed: Deion Arevalo, at 9:25 EDT , Service support ,
--- NOTE | 2019-11-22 08:11 | PCM.OPRPT ---
Problem List (1) [place] (acute kidney injury) Status: Acute Report of Operation Date of Procedure: 11/22/19 Pre-Operative Diagnosis: Acute kidney injury need for dialysis catheter Post-Operative Diagnosis: Same Surgery/Procedure Performed:: Ultrasound and fluoroscopy guided tunneled right chest port dialysis catheter placement utilizing right IJ Specimen's removed: None Description of Procedure: Patient was brought back to the operating room and MAC anesthesia was induced. The patient was placed in slight Trendelenburg position and the right neck and chest were prepped and draped in usual sterile fashion. Ultrasound was used to localize the right IJ. An area over the right IJ was injected with local anesthetic and incision was made. Using ultrasound guidance a needle was placed into the right IJ and a guidewire was placed without resistance. Fluoroscopy confirmed that this was in the vena cava. The needle was removed and serial dilators and then the peel-away sheath were placed over the guidewire under fluoroscopy guidance. Next a small incision was made over the skin of the right chest and the catheter was tunneled through this to the upper incision. The catheter was then placed into the peel-away sheath and the peel-away sheath was removed. Fluoroscopy confirmed that the catheter was in good position. There was good blood draw from both catheters and easy flush. 1.6 cc of heparin was then infused into each catheter. Next the catheter was sutured to the skin using 2-0 nylon suture and the upper incision was closed with interrupted 3-0 Vicryl suture as well as Steri-Strips. Bandage was then applied. Patient was taken to PACU in stable condition. Grafts/Implants Used: Curved palindrome temporary catheter - Admit VTE Documentation VTE Mechan Device Prophylaxis: SCD's
--- NOTE | 2019-11-22 10:45 | CASEMGMT ---
Addendum entered by Alayna Fofana 11/22/19 16:23: [facility] in [place]: PH: [phone]. Addendum entered by Alayna Fofana 11/22/19 16:14: PT/OT have evaluated pt and SNF is recommended. [facility],made aware and spoke w/pt and . They are agreeable to SNF. Pt will be not be discharged over the weekend, as will need accepting SNF and insurance approval. Call placed to [facility] in [place] and spoke w/Siri. She was made aware pt will not be coming for 1st HD OP tx on Monday. OP HD on hold at this time. Dr Perez made aware of the above. DURGA ORBERT to notify [facility] in [place] when pt will be discharged from hospital and when he will be ready for OP HD. Addendum entered by Alayna Fofana 11/22/19 14:37: Spoke w/[facility]. Pt has been financially cleared for OP HD. Original Note: DURGA RBOERT NOTE: Tunnelled dialysis catheter has been inserted. Insertion documentation and confirmation faxed to [facility] at this time. Call placed to [facility] and spoke with Ramu. He states medical clearance has been received but insurance still needs verified. He will send email to have this expedited for review and someone will contact this DURGA ROBERT once this is verified. DURGA ROBERT spoke w/Dr Sierra. He was made aware this RN CM spoke w/pt's a couple days and she and pt were both agreeable to OP HD and they wanted to go to [facility] in [place]. He was also made aware OP HD is tentatively scheduled for Monday11-25-19 @ [facility]. Rubén BLANCO RN, CM
--- NOTE | 2019-11-22 10:49 | PCM.PN.REN ---
Patient Problems: Active and Suspected Problems Septic shock (Acute) Community acquired pneumonia (Acute) Bilateral community-acquired pneumonia Sepsis with acute hypoxic respiratory failure and septic shock (Acute) [place] (acute kidney injury) (Acute) Subjective: Following for ESRD. Pt seen during HD. using new [facility] TDC which is working well. Pt denies CP, SOB, nausea or edema. Feels tired. - Physical Exam Vitals/I&O's: Vital Signs Temp Pulse Resp BP Pulse Ox 97.7 F L 56 L 18 115/60 93 11/22/19 08:41 11/22/19 08:41 11/22/19 08:41 11/22/19 08:41 11/22/19 08:41 Oxygen Flow Rate (L/min) 3 Oxygen Delivery Method Room Air Weight: 74.389 kg Body Mass Index (BMI) 23.5 Intake and Output for Last 24 Hours 11/20/19 11/21/19 11/22/19 23:59 23:59 23:59 Intake Total 1452 / 1452 1190 / 1190 360 / 360 Output Total 100 / 100 300 / 300 100 / 100 Balance 1352 / 1352 890 / 890 260 / 260 General: Alert, Cooperative HEENT: PERRLA, EOMI Oral: Moist Mucosa Neck: Supple, No JVD Lungs: Clear to auscultation Cardiovascular: Regular rate, Normal S1, Normal S2 Abdomen: Bowel Sounds Present, Soft, Non Tender Extremities: No edema Skin: No rashes Musculoskeletal: No Tenderness to Palpation of Joints or Extremities Laboratory Results 11/22/19 03:40: Sodium 134 L, Potassium 4.1, Chloride 99, Carbon Dioxide 24.0, Anion Gap 11, BUN 76 H, Creatinine 6.01 H, Estim Creat Clear Calc 9.45, Est GFR (MDRD) Af Amer 12 L, Est GFR (MDRD) Non-Af 10 L, BUN/Creatinine Ratio 12.6, Glucose 102, Calcium 7.7 L, Phosphorus 6.3 H 11/22/19 03:40: WBC 6.1, RBC 2.93 L, Hgb 9.7 L, Hct 28.6 L, MCV 97.6 H, MCH 33.1 H, MCHC 33.9, RDW Std Deviation 46.1 H, RDW Coeff of Maritza 12.9, Plt Count 150, MPV 11.7, Immature Gran % (Auto) 2.000 H, Neut % (Auto) 64.8, Lymph % (Auto) 14.1 L, [place] % (Auto) 10.5 H, Eos % (Auto) 8.4 H, Baso % (Auto) 0.2, Absolute Neuts (auto) 3.9, Absolute Lymphs (auto) 0.86, Nucleated RBC % 0 11/22/19 03:40: PT 14.9, INR 1.2 Current Medications Acetaminophen (Tylenol) 650 mg PO Q6H PRN PRN PRN Reason: Pain 1-10 or Fever Albuterol Sulfate (Ventolin Aerosols) 2.5 mg INHALATION Q2H PRN PRN PRN Reason: DYSPNEA Last Admin: 11/22/19 06:46 Dose: 2.5 mg Documented by: Albuterol/Ipratropium (Duoneb) 3 ml INHALATION Q6H.RT [facility] Last Admin: 11/22/19 01:00 Dose: 3 ml Documented by: Amiodarone HCl (Cordarone) 200 mg PO DAILY [facility] Last Admin: 11/21/19 10:25 Dose: 200 mg Documented by: Aspirin (Aspirin, Baby) 81 mg PO DAILY@0800 [facility] Last Admin: 11/21/19 07:59 Dose: 81 mg Documented by: Atorvastatin Calcium (Lipitor) 80 mg PO QHS [facility] Last Admin: 11/21/19 21:03 Dose: 80 mg Documented by: Calcium Acetate (Phoslo Gel Cap) 667 mg PO TIDCM [facility] Last Admin: 11/21/19 17:02 Dose: 667 mg Documented by: Carvedilol (Coreg) 3.125 mg PO BID [facility] Last Admin: 11/21/19 21:03 Dose: 3.125 mg Documented by: Furosemide (Furosemide 80 Mg Tablet) 80 mg PO BID@1000,1800 [facility] Last Admin: 11/21/19 17:02 Dose: 80 mg Documented by: Heparin Sodium (Porcine) (Heparin Injection (Vial) 5,000 Unit/Ml Vial) 5,000 unit SC Q8 [facility] Last Admin: 11/21/19 21:03 Dose: 5,000 unit Documented by: Levothyroxine Sodium (Synthroid) 50 mcg PO DAILY@0600 [facility] Last Admin: 11/22/19 05:01 Dose: 50 mcg Documented by: Lorazepam (Ativan) 0.5 mg PO Q12H PRN PRN PRN Reason: anxiety with BIPAP Last Admin: 11/17/19 21:54 Dose: 0.5 mg Documented by: Memantine (Namenda) 5 mg PO BID [facility] Last Admin: 11/21/19 21:03 Dose: 5 mg Documented by: Ondansetron HCl (Zofran) 4 mg IV Q8H PRN PRN PRN Reason: NAUSEA/VOMITING Senna/Docusate Sodium (Senna/Docusate Sodium 1 Tablet) 1 tablet PO BID PRN PRN Reason: CONSTIPATION Sodium Chloride () 10 - 40 ml IV UD PRN PRN Reason: SALINE FLUSH Last Admin: 11/21/19 21:03 Dose: 10 ml Documented by: Sodium Chloride () 10 ml IV UD PRN PRN Reason: Dialysis Catheter Flush Medical Necessity - Tobacco Use Smoking Status: Current every day smoker Tobacco Use: Cigarettes Assessment/Plan All Active Problems Septic shock (Acute) Community acquired pneumonia (Acute) Sepsis with acute hypoxic respiratory failure and septic shock (Acute) [place] (acute kidney injury) (Acute) 1. ESRD. Pt is well known to me. Pt has been close to needing dialysis for the past 6 months. Initially planned on doing PD at home. Discussed with , Alexus, again today. The pt and his has decided to stay with in center HD for [employer] for now. Since he will on dialysis permanently, he is OK to start SANDRA alexys for HFrEF. I will d/w Dr. Cotto. Working on admission to outpatient HD center in [place]. D/w campground caretaker. Once admission to [place] is confirmed, he can be discharged from my standpoint. Will d/w Dr. Katia Perez. 2. Anemia. I will start the pt on SANDY at the kidney center. 3. HFrEF. On beta alexys. OK to start ACEI/ARB. Will d/w cadiology. 4. SHPT. The pt had been on calcitriol at home. No need to restart this medication as I will give the pt vitamin D analog at the [facility]. Continue PhosLo for phosphorus binding for now.
--- NOTE | 2019-11-22 12:23 | PCM.PN.CARD ---
Subjectve: The patient appears to be awake and tolerating dialysis well at this time via his new tunnel catheter. Objective: Vital Signs Temp Pulse Resp BP Pulse Ox 97.7 F L 71 18 115/60 93 11/22/19 08:41 11/22/19 11:00 11/22/19 08:41 11/22/19 08:41 11/22/19 08:41 Oxygen Flow Rate (L/min) 3 Oxygen Delivery Method Room Air Weight: 164 lb Body Mass Index (BMI) 23.5 Intake and Output for Last 24 Hours 11/20/19 11/21/19 11/22/19 23:59 23:59 23:59 Intake Total 1452 / 1452 1190 / 1190 360 / 360 Output Total 100 / 100 300 / 300 100 / 100 Balance 1352 / 1352 890 / 890 260 / 260 General: Awake, Cooperative, No Acute Distress HEENT: Atraumatic, Normocephalic, PERRL, EOMI, Sclera Non Icteric Lungs: Clear to auscultation Cardiovascular: Regular Rhythm, Normal S1, Normal S2 Abdomen: Bowel Sounds Present, Soft Extremities: No edema 11/22/19 03:40: Sodium 134 L, Potassium 4.1, Chloride 99, Carbon Dioxide 24.0, Anion Gap 11, BUN 76 H, Creatinine 6.01 H, Est GFR (MDRD) Af Amer 12 L, Est GFR (MDRD) Non-Af 10 L, BUN/Creatinine Ratio 12.6, Glucose 102, Calcium 7.7 L, Phosphorus 6.3 H 11/22/19 03:40: WBC 6.1, RBC 2.93 L, Hgb 9.7 L, Hct 28.6 L, MCV 97.6 H, MCH 33.1 H, MCHC 33.9, Plt Count 150, MPV 11.7, Immature Gran % (Auto) 2.000 H, Neut % (Auto) 64.8, Lymph % (Auto) 14.1 L, Edgar % (Auto) 10.5 H, Eos % (Auto) 8.4 H, Baso % (Auto) 0.2, Absolute Neuts (auto) 3.9, Nucleated RBC % 0 11/22/19 03:40: PT 14.9, INR 1.2 Rhythm: Sinus rhythm Medical Necessity - Tobacco Use Smoking Status: Current every day smoker Tobacco Use: Cigarettes Assessment/Plan 1. Non-ST segment elevation IN The patient does have abnormal cardiac enzymes. This coupled with his transthoracic echocardiogram superimposed upon his clinical course does raise concern of underlying CAD with myocardial ischemia, etc. At the moment he is continuing medical therapy. This is included aspirin therapy with the addition of beta-blockers as well as his lipid-lowering agents. He could be considered for nitrate therapy as deemed appropriate. Based upon ongoing issues with his renal insufficiency he is not an ideal candidate at the moment for additional agents such as YEE inhibitor's or ARB's. He has been on anticoagulant therapy. Is been on hold secondary to concerns of his hemoptysis as well as concerns of the need for invasive evaluation. As noted before, a cardiac catheterization procedure has been discussed with the patient's spouse. At the present time she has requested continued conservative medical management based upon his declining condition. 2. Ischemic mediated cardiomyopathy He does have diminished LV systolic function based on his echocardiogram. Again he will continue medical therapy and further evaluation as he is able. 3. CHF-acute systolic There is concern that he has developed acute systolic CHF. This appears to be improved status post hemodialysis and improvement in his volume status. 4. Paroxysmal atrial fibrillation Apparently there is a history of paroxysmal atrial fibrillation for which she has been treated medically in the past. He should continue rate limiting therapy and in time, if able, resume his anticoagulant therapy. 5. Renal insufficiency He does have findings of ongoing renal insufficiency. He appears to be symptomatically improved status post hemodialysis. He is now status post tunnel catheter placement. 6. Hyperlipidemia He will continue lipid-lowering therapy. 7. Hypertension His blood pressures can be monitored and his medications can be adjusted as tolerated. 8. AAA s/p repair (remote) He does have a history of a AAA. Apparently this was surgically repaired many years ago through the [facility] system. 9. Hemoptysis He has a history of hemoptysis. There is some question as to how long this is been going on. As demonstrating that this day in the ICU. 10. Dementia This does play a role in the patient's ongoing evaluation and care. It is challenging for patients with dementia to undergo invasive procedures with respect to following instructions during and after the procedures to minimize the risk of periprocedural related complications. Comment: The patient's case was discussed with Dr. Sierra from nephrology. He stated the patient could initiate additional medical therapy such as YEE inhibitor's or ARB's as deemed appropriate. Thus the patient will start low-dose YEE inhibitor. This note was generated using a voice recognition system and there may be incorrect words, spelling or punctuation that were not noted when reviewing the office note prior to saving.
--- NOTE | 2019-11-22 13:23 | CPS ---
PATIENT RECEIVING DIALYSIS, DID NOT WANT TREATMENT AT THIS TIME. PT REFUSED AT 1317.
--- NOTE | 2019-11-22 13:28 | DIALYSIS ---
HD x 4 hours complete. Tolerated tx well. No fluid removed d/t bp. Ran on 3k bath. Used right chest wall dialysis catheter. Catheter closed with heparin per fill volume. Caps placed. Dressing is dry and intact. Report was given to DURGA Santacruz.
[2019-11-22] MEDS: Aspirin 81 MG TAB.CHEW PO (14:43)
[2019-11-22] MEDS: Amiodarone 200 MG Tablet PO (14:43)
[2019-11-22] MEDS: Calcium Acetate 667 MG Capsule PO ×2 (14:44→17:32)
[2019-11-22] MEDS: Carvedilol 3.125 MG TABLET PO ×2 (14:44→21:26)
[2019-11-22] MEDS: Memantine Hydrochloride 5 MG Tablet PO ×2 (14:44→21:21)
[2019-11-22] MEDS: Heparin 10,000 UNITS/10 ML Vial IV (15:28)
--- NOTE | 2019-11-22 15:50 | CASEMGMT ---
Addendum entered by Genesis Moser 11/22/19 17:01: Return call from [facility] and they are not taking patients at this time. requesting [facility] as next choice. Will follow up on Monday as it is late in the day and admissions have likely left. YRIS Wisdom Original Note: Social Work RICHI Catalan notified SW that pt completed therapy and recommendations are for SNF. SW placed call to pt Shana and discussed discharge plan. Shana is in agreement that pt will likely need short term SNF placement prior to returning home. SW reviewed list of in network facilities with pt and first choice is [facility] and second choice is [facility]. Phone call to [facility] and admissions has left for the day. Referral faxed and will follow up on Monday. Phone call to [facility] and they are not accepting admissions at this time. notified of information from both facilities and reviewed list of in network facilities again. requesting [facility]. VM left with Zenaida admission coordinator at this facility. SW met with pt in room and discussed discharge plan. Pt is agreeable to SNF and says is the decision maker on where pt will go. SW will follow up for d/c planning on Monday. Plan: SNF, pending acceptance and precert YRIS Wisdom
--- NOTE | 2019-11-22 16:22 | PN_ITS ---
Patient Problems: Active and Suspected Problems Septic shock (Acute) Community acquired pneumonia (Acute) Bilateral community-acquired pneumonia Sepsis with acute hypoxic respiratory failure and septic shock (Acute) [place] (acute kidney injury) (Acute) Subjective: ON HD now. Tunneled line placed this am and went well. Did not sleep well last pm. Vitals/I&O's: Vital Signs Temp Pulse Resp BP Pulse Ox 97.8 F 66 18 110/71 93 11/22/19 13:27 11/22/19 15:36 11/22/19 13:27 11/22/19 13:27 11/22/19 08:41 Oxygen Flow Rate (L/min) 3 Oxygen Delivery Method Room Air Weight: 74.389 kg Body Mass Index (BMI) 23.5 Intake and Output for Last 24 Hours 11/20/19 11/21/19 11/22/19 23:59 23:59 23:59 Intake Total 1452 / 1452 1190 / 1190 360 / 360 Output Total 100 / 100 300 / 300 100 / 100 Balance 1352 / 1352 890 / 890 260 / 260 General: Alert, Cooperative, No apparent distress, Well developed, Well nourished HEENT: Atraumatic, Normocephalic Oral: Moist Mucosa, - - no blood noted in oropharynx Lungs: Clear to auscultation, Normal air movement, No rhonchi, No wheeze, No rales Cardiovascular: Regular rate, Regular Rhythm, Normal S1, Normal S2, No murmurs, No Ectopic Activity, No rub noted, No Gallop Abdomen: Bowel Sounds Present, Soft, Non Tender, Non-Distended Extremities: No clubbing, No cyanosis, No edema, Capillary Refill Less than 3 Seconds, Peripheral Pulses Normal Skin: No rashes, - - new line R chest with dressing intact Musculoskeletal: Arthritic Changes Neurological: Cranial nerves II-XII grossly intact, Neuro grossly intact Psych/Mental Status: Normal Affect, Appropriate, - - pleasant Laboratory Results 11/22/19 03:40: Sodium 134 L, Potassium 4.1, Chloride 99, Carbon Dioxide 24.0, Anion Gap 11, BUN 76 H, Creatinine 6.01 H, Estim Creat Clear Calc 9.45, Est GFR (MDRD) Af Amer 12 L, Est GFR (MDRD) Non-Af 10 L, BUN/Creatinine Ratio 12.6, Glucose 102, Calcium 7.7 L, Phosphorus 6.3 H 11/22/19 03:40: WBC 6.1, RBC 2.93 L, Hgb 9.7 L, Hct 28.6 L, MCV 97.6 H, MCH 33.1 H, MCHC 33.9, RDW Std Deviation 46.1 H, RDW Coeff of Maritza 12.9, Plt Count 150, MPV 11.7, Immature Gran % (Auto) 2.000 H, Neut % (Auto) 64.8, Lymph % (Auto) 14.1 L, [place] % (Auto) 10.5 H, Eos % (Auto) 8.4 H, Baso % (Auto) 0.2, Absolute Neuts (auto) 3.9, Absolute Lymphs (auto) 0.86, Nucleated RBC % 0 11/22/19 03:40: PT 14.9, INR 1.2 Current Medications Acetaminophen (Tylenol) 650 mg PO Q6H PRN PRN PRN Reason: Pain 1-10 or Fever Albuterol Sulfate (Ventolin Aerosols) 2.5 mg INHALATION Q2H PRN PRN PRN Reason: DYSPNEA Last Admin: 11/22/19 06:46 Dose: 2.5 mg Documented by: Albuterol/Ipratropium (Duoneb) 3 ml INHALATION Q6H.RT [facility] Last Admin: 11/22/19 01:00 Dose: 3 ml Documented by: Amiodarone HCl (Cordarone) 200 mg PO DAILY [facility] Last Admin: 11/22/19 14:43 Dose: 200 mg Documented by: Aspirin (Aspirin, Baby) 81 mg PO DAILY@0800 [facility] Last Admin: 11/22/19 14:43 Dose: 81 mg Documented by: Atorvastatin Calcium (Lipitor) 80 mg PO QHS [facility] Last Admin: 11/21/19 21:03 Dose: 80 mg Documented by: Calcium Acetate (Phoslo Gel Cap) 667 mg PO TIDCM [facility] Last Admin: 11/22/19 14:44 Dose: 667 mg Documented by: Carvedilol (Coreg) 3.125 mg PO BID [facility] Last Admin: 11/22/19 14:44 Dose: 3.125 mg Documented by: Heparin Sodium (Porcine) (Heparin Injection (Vial) 5,000 Unit/Ml Vial) 5,000 unit SC Q8 [facility] Last Admin: 11/21/19 21:03 Dose: 5,000 unit Documented by: Levothyroxine Sodium (Synthroid) 50 mcg PO DAILY@0600 [facility] Last Admin: 11/22/19 05:01 Dose: 50 mcg Documented by: Lisinopril (Lisinopril 2.5 Mg Tablet) 2.5 mg PO BID [facility] Lorazepam (Ativan) 0.5 mg PO Q12H PRN PRN PRN Reason: anxiety with BIPAP Last Admin: 11/17/19 21:54 Dose: 0.5 mg Documented by: Memantine (Namenda) 5 mg PO BID [facility] Last Admin: 11/22/19 14:44 Dose: 5 mg Documented by: Ondansetron HCl (Zofran) 4 mg IV Q8H PRN PRN PRN Reason: NAUSEA/VOMITING Senna/Docusate Sodium (Senna/Docusate Sodium 1 Tablet) 1 tablet PO BID PRN PRN Reason: CONSTIPATION Sodium Chloride () 10 - 40 ml IV UD PRN PRN Reason: SALINE FLUSH Last Admin: 11/21/19 21:03 Dose: 10 ml Documented by: Sodium Chloride () 10 ml IV UD PRN PRN Reason: Dialysis Catheter Flush STROKE Vital Signs/Narrative: Vital Signs Temp Pulse Resp BP 11/22/19 15:36 66 11/22/19 13:27 97.8 F 63 18 110/71 Medical Necessity - Tobacco Use Smoking Status: Current every day smoker Tobacco Use: Cigarettes Assessment/Plan All Active Problems Septic shock (Acute) Community acquired pneumonia (Acute) Sepsis with acute hypoxic respiratory failure and septic shock (Acute) [place] (acute kidney injury) (Acute) Acute Hypoxic Respiratory Failure-multifactorial (volume overload/NSTEMI/+- PNA) -not O2 dependent at baseline -on RA -mixed resp henri on sputum cx -Unasyn to treat aspiration 3 gm q 12 for a total of 7 days (day 6/7) -nebs as ordered -urine antigens neg -viral panel neg -COVID neg -pulm following appreciate input Septic Shock 2/2 Aspiration PNA -resolved Elevated lactic acid -suspect 2/2 hypoxia and resolved with increased O2 -resolved Hemoptysis -has been ongoing for awhile but none this am and seems to be lessening -no current issues of anticoagulation -monitor ESRD -HD today and ran euvolemic -tunneled cath placed 11/21 -Lasix d/c per nephro Acute NSTEMI -continue coreg 3.125 BID with hold parameters for SBP and HR -continue asa and statin -ok for low dose YEE per nephro and 2.5 mg started -no cath as per cards note long d/w and his dementia has worsened markedly since 04/2019 and will treat medically -ECHO showed EF 30-35% with severe distal septal and anteroapical hypokinesia -old record reviewed -had nuc stress test 02/2018 that showed a sm to med-sized partially reversible defect in the mid ant wall of the LV, LV with mod to severe hypokinesis but EF of 54% and and ECHO at the same time that showed a comparable EF of 55% -Cards following CAD/HTN/HPL/HFrEF-decompensated -continue ASA -Coreg 3.125 BID/Lisinopril 2.5 mg -continue Statin -HD PAF -remains in NSR -Eliquis on hold as pt was on heparin ggt but held 2/2 hemoptysis -risk of restarting Eliquis likely outweighs benefit with hemoptysis which has been an issue for awhile and fall risk -continue amiodarone 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
[2019-11-22] MEDS: Lisinopril 2.5 MG Tablet PO (21:21)
[2019-11-22] MEDS: Atorvastatin Calcium 80 MG Tablet PO (21:22)
[2019-11-23] VITALS (13 sets, daily range): BP systolic 101–111; BP diastolic 57–65; PULSE 51–64; RESP 16–18; TEMP 36.2–36.7; O2SAT 92–98
--- NOTE | 2019-11-23 01:56 | CPS ---
Patient asleep during time for nightly aerosol tx. During 7pm tx patient told this SWAGE TENDER that he did not wish to be woken up if asleep during 1AM tx. For this reason aerosol tx was not given at this time.
[2019-11-23] MEDS: 0.9% Saline Lock 10 ML Syringe IV (04:32)
[2019-11-23] MEDS: Levothyroxine 50 MCG Tablet PO (05:29)
[2019-11-23] MEDS: Heparin Injection (Vial) 5,000 UNIT/ML VIAL 5000 UNIT SC ×3 (05:31→21:18)
[2019-11-23 05:37] LABS: Absolute Lymphocyte Count 0.85 X10^3/uL (0.83-4.51); Basophil# 0.03 X10^3/uL; Basophil% 0.5 % (0-1); Eosinophil# 0.38 X10^3/uL; Eosinophils% 6.3 % (0-5); Hematocrit 29.4 % (40-54); Hemoglobin 9.8 g/dL (13.0-16.5); Lymphocyte # 0.85 X10^3/ul (4.0); Lymphocyte % 14.2 % (19-41); Mean Corp Hgb Conc 33.3 g/dL (32-36); Mean Corpuscular Hgb 33.2 pg (27.0-32.0); Mean Corpuscular Volume 99.7 fL (80-94); Mean Platelet Vol. 11.8 fl (6.2-12.0); Monocyte# 0.63 X10^3/uL; Monocyte% 10.5 % (0-10); NRBC Flagged by Analyzer 0 % (0-5); Neutrophil # 4.02 X10^3/uL (2.7-7.7); Neutrophil % 67.2 % (47-70); Platelet Count 149 K/mm3 (150-450); RBC Distribution Width CV 13.1 % (11.6-14.6); RBC Distribution Width SD 47.8 fl (35.1-43.9); Red Blood Count 2.95 M/mm3 (4.6-6.2)
[2019-11-23 06:02] LABS: Anion Gap 7 (5-15); BUN 38 mg/dL (7-18); BUN/Creat Ratio 9.2 RATIO (10-20); Calcium,Total 7.6 mg/dL (8.5-10.1); Chloride 100 mmol/L (98-107); Creatinine, Serum 4.15 mg/dL (0.70-1.30); EST Glomerular Filtration Rate 15 mL/min (>60); Est Glom Filt Rate - Afr Amer 18 mL/min (>60); Estimated Creatinine Clearance 13.68 ml/min; Glucose 83 mg/dL (74-106); Potassium 3.9 mmol/L (3.5-5.1); Sodium Level 136 mmol/L (136-145)
[2019-11-23] MEDS: Ipratropium/Albuterol Sulfate 3 ML AMPUL.NEB INHALATION ×3 (06:54→20:10)
[2019-11-23] MEDS: Aspirin 81 MG TAB.CHEW PO (08:03)
[2019-11-23] MEDS: Calcium Acetate 667 MG Capsule PO ×3 (08:04→17:42)
--- NOTE | 2019-11-23 08:35 | PN.SURG_ITS ---
Patient Problems: Active and Suspected Problems Septic shock (Acute) Community acquired pneumonia (Acute) Bilateral community-acquired pneumonia Sepsis with acute hypoxic respiratory failure and septic shock (Acute) [place] (acute kidney injury) (Acute) Subjective: Patient has had 3 dialysis treatments since the catheter has been placed. It is working well. Objective: Dressing is clean no signs of cellulitis - Physical Exam Vitals/I&O's: Vital Signs Temp Pulse Resp BP Pulse Ox 97.1 F L 56 L 18 102/58 L 95 11/23/19 08:20 11/23/19 08:20 11/23/19 08:20 11/23/19 08:20 11/23/19 08:20 Oxygen Flow Rate (L/min) 2 Oxygen Delivery Method Nasal Cannula Weight: 165 lb 12.8 oz Body Mass Index (BMI) 23.5 Intake and Output for Last 24 Hours 11/21/19 11/22/19 11/23/19 23:59 23:59 23:59 Intake Total 1190 / 1190 360 / 360 Output Total 300 / 300 550 / 550 150 / 150 Balance 890 / 890 -190 / -190 -150 / -150 Laboratory Results 11/23/19 04:55: Sodium Cancelled, Potassium Cancelled, Chloride Cancelled, Carbon Dioxide Cancelled, Anion Gap Cancelled, BUN Cancelled, Creatinine Cancelled, Estim Creat Clear Calc Cancelled, Est GFR (MDRD) Af Amer Cancelled, Est GFR (MDRD) Non-Af Cancelled, BUN/Creatinine Ratio Cancelled, Glucose Cancelled, Calcium Cancelled 11/23/19 05:25: WBC 6.0, RBC 2.95 L, Hgb 9.8 L, Hct 29.4 L, MCV 99.7 H, MCH 33.2 H, MCHC 33.3, RDW Std Deviation 47.8 H, RDW Coeff of Maritza 13.1, Plt Count 149 L, MPV 11.8, Immature Gran % (Auto) 1.300 H, Neut % (Auto) 67.2, Lymph % (Auto) 14.2 L, [place] % (Auto) 10.5 H, Eos % (Auto) 6.3 H, Baso % (Auto) 0.5, Absolute Neuts (auto) 4.0, Absolute Lymphs (auto) 0.85, Nucleated RBC % 0 11/23/19 05:25: Sodium 136, Potassium 3.9, Chloride 100, Carbon Dioxide 29.0, Anion Gap 7, BUN 38 H, Creatinine 4.15 H, Estim Creat Clear Calc 13.68, Est GFR (MDRD) Af Amer 18 L, Est GFR (MDRD) Non-Af 15 L, BUN/Creatinine Ratio 9.2 L, Glucose 83, Calcium 7.6 L Current Medications Acetaminophen (Tylenol) 650 mg PO Q6H PRN PRN PRN Reason: Pain 1-10 or Fever Albuterol Sulfate (Ventolin Aerosols) 2.5 mg INHALATION Q2H PRN PRN PRN Reason: DYSPNEA Last Admin: 11/22/19 06:46 Dose: 2.5 mg Documented by: Albuterol/Ipratropium (Duoneb) 3 ml INHALATION Q6H.RT [facility] Last Admin: 11/23/19 06:54 Dose: 3 ml Documented by: Amiodarone HCl (Cordarone) 200 mg PO DAILY [facility] Last Admin: 11/22/19 14:43 Dose: 200 mg Documented by: Aspirin (Aspirin, Baby) 81 mg PO DAILY@0800 [facility] Last Admin: 11/23/19 08:03 Dose: 81 mg Documented by: Atorvastatin Calcium (Lipitor) 80 mg PO QHS [facility] Last Admin: 11/22/19 21:22 Dose: 80 mg Documented by: Calcium Acetate (Phoslo Gel Cap) 667 mg PO TIDCM [facility] Last Admin: 11/23/19 08:04 Dose: 667 mg Documented by: Carvedilol (Coreg) 3.125 mg PO BID [facility] Last Admin: 11/22/19 21:26 Dose: 3.125 mg Documented by: Heparin Sodium (Porcine) (Heparin Injection (Vial) 5,000 Unit/Ml Vial) 5,000 unit SC Q8 [facility] Last Admin: 11/23/19 05:31 Dose: 5,000 unit Documented by: Levothyroxine Sodium (Synthroid) 50 mcg PO DAILY@0600 [facility] Last Admin: 11/23/19 05:29 Dose: 50 mcg Documented by: Lisinopril (Lisinopril 2.5 Mg Tablet) 2.5 mg PO BID [facility] Last Admin: 11/22/19 21:21 Dose: 2.5 mg Documented by: Lorazepam (Ativan) 0.5 mg PO Q12H PRN PRN PRN Reason: anxiety with BIPAP Last Admin: 11/17/19 21:54 Dose: 0.5 mg Documented by: Memantine (Namenda) 5 mg PO BID [facility] Last Admin: 11/22/19 21:21 Dose: 5 mg Documented by: Ondansetron HCl (Zofran) 4 mg IV Q8H PRN PRN PRN Reason: NAUSEA/VOMITING Senna/Docusate Sodium (Senna/Docusate Sodium 1 Tablet) 1 tablet PO BID PRN PRN Reason: CONSTIPATION Sodium Chloride () 10 - 40 ml IV UD PRN PRN Reason: SALINE FLUSH Last Admin: 11/23/19 04:32 Dose: 10 ml Documented by: Sodium Chloride () 10 ml IV UD PRN PRN Reason: Dialysis Catheter Flush Medical Necessity - Tobacco Use Smoking Status: Current every day smoker Tobacco Use: Cigarettes Assessment/Plan All Active Problems Septic shock (Acute) Community acquired pneumonia (Acute) Sepsis with acute hypoxic respiratory failure and septic shock (Acute) [place] (acute kidney injury) (Acute) Allises catheter is working well.
[2019-11-23] MEDS: Lisinopril 2.5 MG Tablet PO ×2 (09:49→21:18)
[2019-11-23] MEDS: Memantine Hydrochloride 5 MG Tablet PO ×2 (09:49→21:18)
[2019-11-23] MEDS: Amiodarone 200 MG Tablet PO (09:49)
--- NOTE | 2019-11-23 12:08 | PN.CARD_ITS ---
Subjectve: Patient doing well. Good appetite. Denies any chest pain or shortness of breath. Patient has been started on hemodialysis. Vital signs normal. Objective: Vital Signs Temp Pulse Resp BP Pulse Ox 97.8 F 58 L 16 109/62 94 11/23/19 09:41 11/23/19 09:41 11/23/19 09:41 11/23/19 09:41 11/23/19 09:41 Oxygen Flow Rate (L/min) 2 Oxygen Delivery Method Nasal Cannula Weight: 165 lb 12.8 oz Body Mass Index (BMI) 23.5 Intake and Output for Last 24 Hours 11/21/19 11/22/19 11/23/19 23:59 23:59 23:59 Intake Total 1190 / 1190 360 / 360 Output Total 300 / 300 550 / 550 150 / 150 Balance 890 / 890 -190 / -190 -150 / -150 General: Alert, Oriented x 3, Cooperative, No Acute Distress HEENT: PERRL, EOMI, Sclera Non Icteric Neck: Supple Lungs: Clear to auscultation Cardiovascular: Regular Rhythm, Normal S1, Normal S2, No Murmurs, No Rubs, No Gallops Abdomen: Bowel Sounds Present, Soft, Non Tender, No HSM, No Organomegaly Extremities: - - No swelling Neurological: No Focal Motor or Sensory Deficit 11/23/19 04:55: Sodium Cancelled, Potassium Cancelled, Chloride Cancelled, Carbon Dioxide Cancelled, Anion Gap Cancelled, BUN Cancelled, Creatinine Cancelled, Est GFR (MDRD) Af Amer Cancelled, Est GFR (MDRD) Non-Af Cancelled, BUN/Creatinine Ratio Cancelled, Glucose Cancelled, Calcium Cancelled 11/23/19 05:25: WBC 6.0, RBC 2.95 L, Hgb 9.8 L, Hct 29.4 L, MCV 99.7 H, MCH 33.2 H, MCHC 33.3, Plt Count 149 L, MPV 11.8, Immature Gran % (Auto) 1.300 H, Neut % (Auto) 67.2, Lymph % (Auto) 14.2 L, [place] % (Auto) 10.5 H, Eos % (Auto) 6.3 H, Baso % (Auto) 0.5, Absolute Neuts (auto) 4.0, Nucleated RBC % 0 11/23/19 05:25: Sodium 136, Potassium 3.9, Chloride 100, Carbon Dioxide 29.0, Anion Gap 7, BUN 38 H, Creatinine 4.15 H, Est GFR (MDRD) Af Amer 18 L, Est GFR (MDRD) Non-Af 15 L, BUN/Creatinine Ratio 9.2 L, Glucose 83, Calcium 7.6 L Rhythm: EKG: ECHO: Stress Test: Cardiac Cath: PCI: CT Surgery: Holter monitor: EPS: PPM: CXR: Chest CT Scan: Medical Necessity - Tobacco Use Smoking Status: Current every day smoker Tobacco Use: Cigarettes Assessment/Plan Sepsis resolved Dilated cardiomyopathy with ejection fraction of 30% to 35% on echocardiogram. Patient now compensated on dialysis. EKG showed ischemic changes in the anterior leads. Vital signs are normal. We will continue low-dose YEE inhibitor and beta-alexys Stage IV/V renal failure
--- NOTE | 2019-11-23 13:53 | PN_ITS ---
Patient Problems: Active and Suspected Problems Septic shock (Acute) Community acquired pneumonia (Acute) Bilateral community-acquired pneumonia Sepsis with acute hypoxic respiratory failure and septic shock (Acute) [place] (acute kidney injury) (Acute) Subjective: Feels well today. is coming in later today and he is very happy that he can see her. Denies SOB. Had blurred vision with standing this am. BP was fine. No other sx and now resolved. Vitals/I&O's: Vital Signs Temp Pulse Resp BP Pulse Ox 97.8 F 62 16 109/62 94 11/23/19 09:41 11/23/19 13:24 11/23/19 13:24 11/23/19 09:41 11/23/19 09:41 Oxygen Flow Rate (L/min) 2 Oxygen Delivery Method Nasal Cannula Weight: 75.206 kg Body Mass Index (BMI) 23.5 Intake and Output for Last 24 Hours 11/21/19 11/22/19 11/23/19 23:59 23:59 23:59 Intake Total 1190 / 1190 360 / 360 Output Total 300 / 300 550 / 550 150 / 150 Balance 890 / 890 -190 / -190 -150 / -150 General: Alert, Cooperative, No apparent distress, Well developed, Well nourished, - - sitting up in bed watching TV and eating lunch Oral: Moist Mucosa Neck: Supple, Trachea Midline Lungs: Clear to auscultation, Normal air movement, No rhonchi, No wheeze, No rales Cardiovascular: Regular rate, Regular Rhythm, Normal S1, Normal S2, No murmurs, No Ectopic Activity, No rub noted, No Gallop Abdomen: Bowel Sounds Present, Soft, Non Tender, Non-Distended Extremities: No clubbing, No cyanosis, No edema, Capillary Refill Less than 3 Seconds, Peripheral Pulses Normal Skin: No rashes, - - Tunneled IJ R HD cath R chest and looks good Neurological: Cranial nerves II-XII grossly intact, Neuro grossly intact Psych/Mental Status: Normal Affect, Appropriate Laboratory Results 11/23/19 04:55: Sodium Cancelled, Potassium Cancelled, Chloride Cancelled, Carbon Dioxide Cancelled, Anion Gap Cancelled, BUN Cancelled, Creatinine Cancelled, Estim Creat Clear Calc Cancelled, Est GFR (MDRD) Af Amer Cancelled, Est GFR (MDRD) Non-Af Cancelled, BUN/Creatinine Ratio Cancelled, Glucose Cancelled, Calcium Cancelled 11/23/19 05:25: WBC 6.0, RBC 2.95 L, Hgb 9.8 L, Hct 29.4 L, MCV 99.7 H, MCH 33.2 H, MCHC 33.3, RDW Std Deviation 47.8 H, RDW Coeff of Maritza 13.1, Plt Count 149 L, MPV 11.8, Immature Gran % (Auto) 1.300 H, Neut % (Auto) 67.2, Lymph % (Auto) 14.2 L, [place] % (Auto) 10.5 H, Eos % (Auto) 6.3 H, Baso % (Auto) 0.5, Absolute Neuts (auto) 4.0, Absolute Lymphs (auto) 0.85, Nucleated RBC % 0 11/23/19 05:25: Sodium 136, Potassium 3.9, Chloride 100, Carbon Dioxide 29.0, Anion Gap 7, BUN 38 H, Creatinine 4.15 H, Estim Creat Clear Calc 13.68, Est GFR (MDRD) Af Amer 18 L, Est GFR (MDRD) Non-Af 15 L, BUN/Creatinine Ratio 9.2 L, Glucose 83, Calcium 7.6 L Current Medications Acetaminophen (Tylenol) 650 mg PO Q6H PRN PRN PRN Reason: Pain 1-10 or Fever Albuterol Sulfate (Ventolin Aerosols) 2.5 mg INHALATION Q2H PRN PRN PRN Reason: DYSPNEA Last Admin: 11/22/19 06:46 Dose: 2.5 mg Documented by: Albuterol/Ipratropium (Duoneb) 3 ml INHALATION Q6H.RT [facility] Last Admin: 11/23/19 13:24 Dose: 3 ml Documented by: Amiodarone HCl (Cordarone) 200 mg PO DAILY [facility] Last Admin: 11/23/19 09:49 Dose: 200 mg Documented by: Aspirin (Aspirin, Baby) 81 mg PO DAILY@0800 [facility] Last Admin: 11/23/19 08:03 Dose: 81 mg Documented by: Atorvastatin Calcium (Lipitor) 80 mg PO QHS [facility] Last Admin: 11/22/19 21:22 Dose: 80 mg Documented by: Calcium Acetate (Phoslo Gel Cap) 667 mg PO TIDCM [facility] Last Admin: 11/23/19 12:08 Dose: 667 mg Documented by: Carvedilol (Coreg) 3.125 mg PO BID [facility] Last Admin: 11/23/19 09:50 Dose: Not Given Documented by: Heparin Sodium (Porcine) (Heparin Injection (Vial) 5,000 Unit/Ml Vial) 5,000 unit SC Q8 [facility] Last Admin: 11/23/19 05:31 Dose: 5,000 unit Documented by: Levothyroxine Sodium (Synthroid) 50 mcg PO DAILY@0600 [facility] Last Admin: 11/23/19 05:29 Dose: 50 mcg Documented by: Lisinopril (Lisinopril 2.5 Mg Tablet) 2.5 mg PO BID [facility] Last Admin: 11/23/19 09:49 Dose: 2.5 mg Documented by: Lorazepam (Ativan) 0.5 mg PO Q12H PRN PRN PRN Reason: anxiety with BIPAP Last Admin: 11/17/19 21:54 Dose: 0.5 mg Documented by: Memantine (Namenda) 5 mg PO BID [facility] Last Admin: 11/23/19 09:49 Dose: 5 mg Documented by: Ondansetron HCl (Zofran) 4 mg IV Q8H PRN PRN PRN Reason: NAUSEA/VOMITING Senna/Docusate Sodium (Senna/Docusate Sodium 1 Tablet) 1 tablet PO BID PRN PRN Reason: CONSTIPATION Sodium Chloride () 10 - 40 ml IV UD PRN PRN Reason: SALINE FLUSH Last Admin: 11/23/19 04:32 Dose: 10 ml Documented by: Sodium Chloride () 10 ml IV UD PRN PRN Reason: Dialysis Catheter Flush STROKE Vital Signs/Narrative: Vital Signs Pulse Resp 11/23/19 13:24 62 16 Medical Necessity - Tobacco Use Smoking Status: Current every day smoker Tobacco Use: Cigarettes Assessment/Plan All Active Problems Septic shock (Acute) Community acquired pneumonia (Acute) Sepsis with acute hypoxic respiratory failure and septic shock (Acute) [place] (acute kidney injury) (Acute)
[2019-11-23] MEDS: Atorvastatin Calcium 80 MG Tablet PO (21:18)
[2019-11-23] MEDS: Carvedilol 3.125 MG TABLET PO (21:18)
[2019-11-24] VITALS (11 sets, daily range): BP systolic 96–109; BP diastolic 51–65; PULSE 53–64; RESP 16–18; TEMP 36.4–36.7; O2SAT 93–99
--- NOTE | 2019-11-24 05:34 | CPS ---
Did not wake pt at 1:35 for aerosol, no tx given
[2019-11-24] MEDS: Levothyroxine 50 MCG Tablet PO (05:38)
[2019-11-24] MEDS: Heparin Injection (Vial) 5,000 UNIT/ML VIAL 5000 UNIT SC ×3 (05:38→21:37)
[2019-11-24] MEDS: Ipratropium/Albuterol Sulfate 3 ML AMPUL.NEB INHALATION ×2 (07:31→19:19)
[2019-11-24] MEDS: Aspirin 81 MG TAB.CHEW PO (09:21)
[2019-11-24] MEDS: Amiodarone 200 MG Tablet PO (09:21)
[2019-11-24] MEDS: Calcium Acetate 667 MG Capsule PO ×3 (09:21→16:52)
[2019-11-24] MEDS: Lisinopril 2.5 MG Tablet PO ×2 (09:22→21:37)
[2019-11-24] MEDS: Memantine Hydrochloride 5 MG Tablet PO ×2 (09:22→21:37)
[2019-11-24] MEDS: 0.9% Saline Lock 10 ML Syringe IV (09:25)
--- NOTE | 2019-11-24 11:57 | PCM.PN.CARD ---
Subjectve: Feeling well. Hemodynamically stable. Denies any chest pain or shortness of breath Objective: Vital Signs Temp Pulse Resp BP Pulse Ox 97.6 F L 54 L 18 103/56 L 94 11/24/19 09:20 11/24/19 09:20 11/24/19 09:20 11/24/19 09:20 11/24/19 09:31 Oxygen Flow Rate (L/min) 3 Oxygen Delivery Method Nasal Cannula Weight: 165 lb 12.602 oz Body Mass Index (BMI) 23.5 Intake and Output for Last 24 Hours 11/22/19 11/23/19 11/24/19 23:59 23:59 23:59 Intake Total 360 / 360 480 / 480 640 / 640 Output Total 550 / 550 450 / 450 350 / 350 Balance -190 / -190 30 / 30 290 / 290 General: No Acute Distress HEENT: Atraumatic Neck: Supple Lungs: Clear to auscultation Cardiovascular: Regular Rhythm, Normal S1, Normal S2, No Murmurs Abdomen: Bowel Sounds Present, Soft, Non Tender, No HSM, No Organomegaly Neurological: No Focal Motor or Sensory Deficit Rhythm: EKG: ECHO: Stress Test: Cardiac Cath: PCI: CT Surgery: Holter monitor: EPS: PPM: CXR: Chest CT Scan: Medical Necessity - Tobacco Use Smoking Status: Current every day smoker Tobacco Use: Cigarettes Assessment/Plan Sepsis resolved Dilated cardiomyopathy with ejection fraction of 30% to 35% on echocardiogram. Patient now compensated on dialysis. EKG showed ischemic changes in the anterior leads. Hemodynamically stable. Continue same cardiac medication Stage IV/V renal failure, on hemodialysis
--- NOTE | 2019-11-24 12:38 | PN_ITS ---
Patient Problems: Active and Suspected Problems Septic shock (Acute) Community acquired pneumonia (Acute) Bilateral community-acquired pneumonia Sepsis with acute hypoxic respiratory failure and septic shock (Acute) [place] (acute kidney injury) (Acute) Vitals/I&O's: Vital Signs Temp Pulse Resp BP Pulse Ox 97.6 F L 54 L 18 103/56 L 94 11/24/19 09:20 11/24/19 09:20 11/24/19 09:20 11/24/19 09:20 11/24/19 09:31 Oxygen Flow Rate (L/min) 3 Oxygen Delivery Method Nasal Cannula Weight: 75.2 kg Body Mass Index (BMI) 23.5 Intake and Output for Last 24 Hours 11/22/19 11/23/19 11/24/19 23:59 23:59 23:59 Intake Total 360 / 360 480 / 480 640 / 640 Output Total 550 / 550 450 / 450 350 / 350 Balance -190 / -190 30 / 30 290 / 290 Current Medications Acetaminophen (Tylenol) 650 mg PO Q6H PRN PRN PRN Reason: Pain 1-10 or Fever Albuterol Sulfate (Ventolin Aerosols) 2.5 mg INHALATION Q2H PRN PRN PRN Reason: DYSPNEA Last Admin: 11/22/19 06:46 Dose: 2.5 mg Documented by: Albuterol/Ipratropium (Duoneb) 3 ml INHALATION Q6H.RT [facility] Last Admin: 11/24/19 07:31 Dose: 3 ml Documented by: Amiodarone HCl (Cordarone) 200 mg PO DAILY [facility] Last Admin: 11/24/19 09:21 Dose: 200 mg Documented by: Aspirin (Aspirin, Baby) 81 mg PO DAILY@0800 [facility] Last Admin: 11/24/19 09:21 Dose: 81 mg Documented by: Atorvastatin Calcium (Lipitor) 80 mg PO QHS [facility] Last Admin: 11/23/19 21:18 Dose: 80 mg Documented by: Calcium Acetate (Phoslo Gel Cap) 667 mg PO TIDCM [facility] Last Admin: 11/24/19 11:34 Dose: 667 mg Documented by: Carvedilol (Coreg) 3.125 mg PO BID [facility] Last Admin: 11/24/19 09:22 Dose: Not Given Documented by: Heparin Sodium (Porcine) (Heparin Injection (Vial) 5,000 Unit/Ml Vial) 5,000 unit SC Q8 [facility] Last Admin: 11/24/19 05:38 Dose: 5,000 unit Documented by: Levothyroxine Sodium (Synthroid) 50 mcg PO DAILY@0600 [facility] Last Admin: 11/24/19 05:38 Dose: 50 mcg Documented by: Lisinopril (Lisinopril 2.5 Mg Tablet) 2.5 mg PO BID [facility] Last Admin: 11/24/19 09:22 Dose: 2.5 mg Documented by: Lorazepam (Ativan) 0.5 mg PO Q12H PRN PRN PRN Reason: anxiety with BIPAP Last Admin: 11/17/19 21:54 Dose: 0.5 mg Documented by: Memantine (Namenda) 5 mg PO BID [facility] Last Admin: 11/24/19 09:22 Dose: 5 mg Documented by: Ondansetron HCl (Zofran) 4 mg IV Q8H PRN PRN PRN Reason: NAUSEA/VOMITING Senna/Docusate Sodium (Senna/Docusate Sodium 1 Tablet) 1 tablet PO BID PRN PRN Reason: CONSTIPATION Sodium Chloride () 10 - 40 ml IV UD PRN PRN Reason: SALINE FLUSH Last Admin: 11/24/19 09:25 Dose: 10 ml Documented by: Sodium Chloride () 10 ml IV UD PRN PRN Reason: Dialysis Catheter Flush STROKE Vital Signs/Narrative: Vital Signs Temp Pulse Resp BP Pulse Ox 11/24/19 09:31 94 11/24/19 09:20 97.6 F L 54 L 18 103/56 L 94 Medical Necessity - Tobacco Use Smoking Status: Current every day smoker Tobacco Use: Cigarettes Assessment/Plan All Active Problems Septic shock (Acute) Community acquired pneumonia (Acute) Sepsis with acute hypoxic respiratory failure and septic shock (Acute) [place] (acute kidney injury) (Acute) Acute Hypoxic Respiratory Failure-multifactorial (volume overload/NSTEMI/+- PNA) -not O2 dependent at baseline -on 2-3 L now -mixed resp henri on sputum cx and abx completed for aspiration on 11/22 -nebs as ordered -urine antigens neg -viral panel neg -COVID neg -pulm following appreciate input Septic Shock 2/2 Aspiration PNA -resolved Elevated lactic acid -suspect 2/2 hypoxia and resolved with increased O2 -resolved Hemoptysis -had been ongoing even prior to admission -resolved off anticoag -monitor ESRD -HD MWF -tunneled cath placed 11/21 Acute NSTEMI -continue coreg 3.125 BID with hold parameters for SBP and HR -continue asa and statin -ok for low dose YEE per nephro and 2.5 mg started -no cath as per cards note long d/w and his dementia has worsened markedly since 04/2019 and will treat medically -ECHO showed EF 30-35% with severe distal septal and anteroapical hypokinesia -old record reviewed -had nuc stress test 02/2018 that showed a sm to med-sized partially reversible defect in the mid ant wall of the LV, LV with mod to severe hypokinesis but EF of 54% and and ECHO at the same time that showed a comparable EF of 55% -Cards following CAD/HTN/HPL/HFrEF-decompensated -continue ASA -Coreg 3.125 BID/Lisinopril 2.5 mg -continue Statin -HD PAF -remains in NSR -Eliquis on hold as pt was on heparin ggt but held 2/2 hemoptysis -risk of restarting Eliquis likely outweighs benefit with hemoptysis which has been an issue for awhile and fall risk -continue amiodarone 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
--- NOTE | 2019-11-24 13:57 | CPS ---
PATIENT WITH PHYSICAL THERAPY NO TREATMENT GIVEN AT 1327
[2019-11-24] MEDS: Atorvastatin Calcium 80 MG Tablet PO (21:37)
[2019-11-25] VITALS (13 sets, daily range): BP systolic 97–112; BP diastolic 52–65; PULSE 51–68; RESP 10–18; TEMP 36.6–37.1; O2SAT 95–99
--- NOTE | 2019-11-25 01:47 | CPS ---
RT busy in [place] at 0100, no aerosol tx given at this time. unable to document on MAR
[2019-11-25] MEDS: Levothyroxine 50 MCG Tablet PO (05:45)
[2019-11-25] MEDS: Heparin Injection (Vial) 5,000 UNIT/ML VIAL 5000 UNIT SC ×2 (05:45→21:35)
[2019-11-25 06:48] LABS: Absolute Lymphocyte Count 0.86 X10^3/uL (0.83-4.51); Absolute Neutrophil Count 5.9 X10^3/uL (2.0-7.7); Basophil# 0.02 X10^3/uL; Basophil% 0.3 % (0-1); Eosinophil# 0.26 X10^3/uL; Eosinophils% 3.4 % (0-5); Hematocrit 26.9 % (40-54); Hemoglobin 8.7 g/dL (13.0-16.5); Lymphocyte # 0.86 X10^3/ul (4.0); Lymphocyte % 11.1 % (19-41); Mean Corp Hgb Conc 32.3 g/dL (32-36); Mean Corpuscular Volume 101.9 fL (80-94); Mean Platelet Vol. 11.6 fl (6.2-12.0); Monocyte# 0.69 X10^3/uL; Monocyte% 8.9 % (0-10); NRBC Flagged by Analyzer 0 % (0-5); Neutrophil # 5.86 X10^3/uL (2.7-7.7); Neutrophil % 75.5 % (47-70); Platelet Count 172 K/mm3 (150-450); RBC Distribution Width CV 13.5 % (11.6-14.6); RBC Distribution Width SD 50.5 fl (35.1-43.9); Red Blood Count 2.64 M/mm3 (4.6-6.2); White Blood Count 7.8 K/mm3 (4.4-11.0)
[2019-11-25 07:15] LABS: Anion Gap 9 (5-15); BUN 72 mg/dL (7-18); BUN/Creat Ratio 10.4 RATIO (10-20); Chloride 99 mmol/L (98-107); Creatinine, Serum 6.91 mg/dL (0.70-1.30); EST Glomerular Filtration Rate 8 mL/min (>60); Est Glom Filt Rate - Afr Amer 10 mL/min (>60); Estimated Creatinine Clearance 8.22 ml/min; Glucose 92 mg/dL (74-106); Potassium 4.8 mmol/L (3.5-5.1); Sodium Level 136 mmol/L (136-145)
[2019-11-25] MEDS: Ipratropium/Albuterol Sulfate 3 ML AMPUL.NEB INHALATION ×3 (07:26→19:03)
--- NOTE | 2019-11-25 08:08 | PCM.PN.CARD ---
Subjectve: The patient is awake and alert at this time. He has no new acute complaints. Objective: Vital Signs Temp Pulse Resp BP Pulse Ox 97.8 F 53 L 10 L 112/65 95 11/25/19 03:15 11/25/19 07:27 11/25/19 07:27 11/25/19 03:15 11/25/19 07:27 Oxygen Flow Rate (L/min) 3 Oxygen Delivery Method Nasal Cannula Weight: 171 lb 15.369 oz Body Mass Index (BMI) 23.5 Intake and Output for Last 24 Hours 11/23/19 11/24/19 11/25/19 23:59 23:59 23:59 Intake Total 480 / 480 980 / 980 120 / 120 Output Total 450 / 450 550 / 550 200 / 200 Balance 430 / 430 -80 / -80 General: Awake, Alert, Cooperative, No Acute Distress HEENT: Atraumatic, Normocephalic, PERRL, EOMI, Sclera Non Icteric Neck: No JVD Lungs: Clear to auscultation Cardiovascular: Regular Rhythm, Premature Ectopic Beats, Normal S1, Normal S2 Abdomen: Bowel Sounds Present, Soft Extremities: No edema Psych/Mental Status: Appropriate 11/25/19 06:40: WBC 7.8, RBC 2.64 L, Hgb 8.7 L, Hct 26.9 L, MCV 101.9 H, MCH 33.0 H, MCHC 32.3, Plt Count 172, MPV 11.6, Immature Gran % (Auto) 0.800, Neut % (Auto) 75.5 H, Lymph % (Auto) 11.1 L, [place] % (Auto) 8.9, Eos % (Auto) 3.4, Baso % (Auto) 0.3, Absolute Neuts (auto) 5.9, Nucleated RBC % 0 11/25/19 06:40: Sodium 136, Potassium 4.8, Chloride 99, Carbon Dioxide 28.0, Anion Gap 9, BUN 72 H, Creatinine 6.91 H, Est GFR (MDRD) Af Amer 10 L, Est GFR (MDRD) Non-Af 8 L, BUN/Creatinine Ratio 10.4, Glucose 92, Calcium 8.0 L Rhythm: Sinus rhythm; PVC Medical Necessity - Tobacco Use Smoking Status: Current every day smoker Tobacco Use: Cigarettes Assessment/Plan 1. Non-ST segment elevation [place] The patient does have abnormal cardiac enzymes. This coupled with his transthoracic echocardiogram superimposed upon his clinical course does raise concern of underlying CAD with myocardial ischemia, etc. At the moment he is continuing medical therapy. Has included aspirin, beta-blockers, and the addition of YEE inhibitor's. He has been on anticoagulant therapy. Is been on hold secondary to concerns of his hemoptysis as well as concerns of the need for invasive evaluation. As noted before, a cardiac catheterization procedure has been discussed with the patient's spouse. At the present time she has requested continued conservative medical management based upon his declining condition. 2. Ischemic mediated cardiomyopathy He does have diminished LV systolic function based on his echocardiogram. Again he will continue medical therapy and further evaluation as he is able. 3. CHF-acute systolic There is concern that he has developed acute systolic CHF. This appears to be improved status post hemodialysis and improvement in his volume status. 4. Paroxysmal atrial fibrillation Apparently there is a history of paroxysmal atrial fibrillation for which she has been treated medically in the past. He is continuing his rate limiting therapy and his antiarrhythmic therapy. He remains in sinus rhythm at this time. He remains without his anticoagulant therapy at this time based upon the aforementioned concerns of hemoptysis. 5. Renal insufficiency He does have findings of ongoing renal insufficiency. He appears to be symptomatically improved status post hemodialysis. He is now status post tunnel catheter placement. 6. Hyperlipidemia He will continue lipid-lowering therapy. 7. Hypertension His blood pressures can be monitored and his medications can be adjusted as tolerated. 8. AAA s/p repair (remote) He does have a history of a AAA. Apparently this was surgically repaired many years ago through the F system. 9. Hemoptysis He has a history of hemoptysis. There is some question as to how long this is been going on. 10. Dementia This does play a role in the patient's ongoing evaluation and care. It is challenging for patients with dementia to undergo invasive procedures with respect to following instructions during and after the procedures to minimize the risk of periprocedural related complications. This note was generated using a voice recognition system and there may be incorrect words, spelling or punctuation that were not noted when reviewing the office note prior to saving.
--- NOTE | 2019-11-25 11:00 | CASEMGMT ---
Social Work Note SW placed a call to [facility] and left message for Brinda in admissions regarding referral. SW waiting for call back. Jody Lenz DESIGN TECHNOLOGY TEACHER, CLOTH PACKER
--- NOTE | 2019-11-25 11:25 | CASEMGMT ---
Social Work Note SW received message from Brinda at [facility] stating they are willing to review referral and to fax referral to [phone]. SW to fax referral. Plan: SNF pending acceptance and pre-cert Jody Lenz STOCKING [employer]OX [employer]OP SUPERVISOR, SLEEVE TURNER
--- NOTE | 2019-11-25 12:16 | CASEMGMT ---
Social Work MS3 Handoff from EARNESTINE Pagan regarding [facility] SNF. This SNF is willing to look at clinical information and consider referral. Faxed referral information to Brinda at [facility], to confirmed fax of [phone]. Called [facility] at [phone], spoke with Deya who took message for Beckie in admissions. Asked for a return call regarding whether this SNF can accept patient. Returned call to the , Shana at [phone]. Provided update on planning. Educate to need for insurance precert for any SNF admission. [facility] but [facility] is closer to the dialysis center. The reports to be in agreement with whichever facility is able to accept patient. Confirmed with Jody Taylor RN , as to when patient's planned outpatient dialysis will be in the community. Patient is set up for [place] dialysis center for at 1115. Plan: Continue to follow and assist. Await responses from the SNF and then for a precert with insurance. -JONO Aguilar, RN ORTHOPEDIC
[2019-11-25] MEDS: Heparin 10,000 UNITS/10 ML Vial 3200 UNITS IV (14:01)
[2019-11-25] MEDS: Memantine Hydrochloride 5 MG Tablet PO ×2 (15:12→21:35)
[2019-11-25] MEDS: Aspirin 81 MG TAB.CHEW PO (15:12)
[2019-11-25] MEDS: Calcium Acetate 667 MG Capsule PO (15:12)
--- NOTE | 2019-11-25 15:25 | PN.RENAL_ITS ---
Patient Problems: Active and Suspected Problems Septic shock (Acute) Community acquired pneumonia (Acute) Bilateral community-acquired pneumonia Sepsis with acute hypoxic respiratory failure and septic shock (Acute) [place] (acute kidney injury) (Acute) Subjective: no cp/sob - Physical Exam Vitals/I&O's: Vital Signs Temp Pulse Resp BP Pulse Ox 97.8 F 66 16 116/64 96 11/25/19 14:21 11/25/19 14:21 11/25/19 14:21 11/25/19 14:21 11/25/19 13:25 Oxygen Flow Rate (L/min) 3 Oxygen Delivery Method Nasal Cannula Weight: 78 kg Body Mass Index (BMI) 23.5 Intake and Output for Last 24 Hours 11/23/19 11/24/19 11/25/19 23:59 23:59 23:59 Intake Total 480 / 480 980 / 980 420 / 420 Output Total 450 / 450 550 / 550 2600 / 2600 Balance 30 / 30 430 / 430 -2180 / -2180 General: Alert, Cooperative HEENT: Atraumatic, Normocephalic Oral: Moist Mucosa Neck: Supple, Trachea Midline Lungs: Clear to auscultation, Normal air movement Cardiovascular: Regular rate, Regular Rhythm, Normal S1, Normal S2 Abdomen: Bowel Sounds Present, Soft, Non Tender Laboratory Results 11/25/19 06:40: WBC 7.8, RBC 2.64 L, Hgb 8.7 L, Hct 26.9 L, MCV 101.9 H, MCH 33.0 H, MCHC 32.3, RDW Std Deviation 50.5 H, RDW Coeff of Maritza 13.5, Plt Count 172, MPV 11.6, Immature Gran % (Auto) 0.800, Neut % (Auto) 75.5 H, Lymph % (Auto) 11.1 L, [place] % (Auto) 8.9, Eos % (Auto) 3.4, Baso % (Auto) 0.3, Absolute Neuts (auto) 5.9, Absolute Lymphs (auto) 0.86, Nucleated RBC % 0 11/25/19 06:40: Sodium 136, Potassium 4.8, Chloride 99, Carbon Dioxide 28.0, Anion Gap 9, BUN 72 H, Creatinine 6.91 H, Estim Creat Clear Calc 8.22, Est GFR (MDRD) Af Amer 10 L, Est GFR (MDRD) Non-Af 8 L, BUN/Creatinine Ratio 10.4, Glucose 92, Calcium 8.0 L Current Medications Acetaminophen (Tylenol) 650 mg PO Q6H PRN PRN PRN Reason: Pain 1-10 or Fever Albuterol Sulfate (Ventolin Aerosols) 2.5 mg INHALATION Q2H PRN PRN PRN Reason: DYSPNEA Last Admin: 11/22/19 06:46 Dose: 2.5 mg Documented by: Albuterol/Ipratropium (Duoneb) 3 ml INHALATION Q6H.RT [facility] Last Admin: 11/25/19 13:25 Dose: 3 ml Documented by: Amiodarone HCl (Cordarone) 200 mg PO DAILY [facility] Last Admin: 11/25/19 15:10 Dose: Not Given Documented by: Aspirin (Aspirin, Baby) 81 mg PO DAILY@0800 [facility] Last Admin: 11/25/19 15:12 Dose: 81 mg Documented by: Atorvastatin Calcium (Lipitor) 80 mg PO QHS [facility] Last Admin: 11/24/19 21:37 Dose: 80 mg Documented by: Calcium Acetate (Phoslo Gel Cap) 667 mg PO TIDCM [facility] Last Admin: 11/25/19 15:12 Dose: 667 mg Documented by: Carvedilol (Coreg) 3.125 mg PO BID [facility] Last Admin: 11/25/19 15:10 Dose: Not Given Documented by: Heparin Sodium (Porcine) (Heparin Injection (Vial) 5,000 Unit/Ml Vial) 5,000 unit SC Q8 [facility] Last Admin: 11/25/19 15:11 Dose: Not Given Documented by: Levothyroxine Sodium (Synthroid) 50 mcg PO DAILY@0600 [facility] Last Admin: 11/25/19 05:45 Dose: 50 mcg Documented by: Lisinopril (Lisinopril 2.5 Mg Tablet) 2.5 mg PO BID [facility] Last Admin: 11/25/19 15:14 Dose: Not Given Documented by: Lorazepam (Ativan) 0.5 mg PO Q12H PRN PRN PRN Reason: anxiety with BIPAP Last Admin: 11/17/19 21:54 Dose: 0.5 mg Documented by: Memantine (Namenda) 5 mg PO BID [facility] Last Admin: 11/25/19 15:12 Dose: 5 mg Documented by: Ondansetron HCl (Zofran) 4 mg IV Q8H PRN PRN PRN Reason: NAUSEA/VOMITING Senna/Docusate Sodium (Senna/Docusate Sodium 1 Tablet) 1 tablet PO BID PRN PRN Reason: CONSTIPATION Sodium Chloride () 10 - 40 ml IV UD PRN PRN Reason: SALINE FLUSH Last Admin: 11/24/19 09:25 Dose: 10 ml Documented by: Sodium Chloride () 10 ml IV UD PRN PRN Reason: Dialysis Catheter Flush Medical Necessity - Tobacco Use Smoking Status: Current every day smoker Tobacco Use: Cigarettes Assessment/Plan All Active Problems Septic shock (Acute) Community acquired pneumonia (Acute) Sepsis with acute hypoxic respiratory failure and septic shock (Acute) [place] (acute kidney injury) (Acute) [place] CKD stage IV CKD MBD Non-ST elevation [place] Congestive heart failure mwf HD avoid nephrotoxins to preserve RRF bp per cards controlled Continue PhosLo d/w patient awaiting placement
--- NOTE | 2019-11-25 15:53 | PCM.PN.HOSP ---
Patient Problems: Active and Suspected Problems Septic shock (Acute) Community acquired pneumonia (Acute) Bilateral community-acquired pneumonia Sepsis with acute hypoxic respiratory failure and septic shock (Acute) [place] (acute kidney injury) (Acute) Reason for Visit: Follow-up for respiratory failure, new start of hemodialysis. Objective: Heart rate and blood pressure is controlled. Currently patient undergoing hemodialysis tolerating well. Has right subclavian tunneled dialysis catheter. bus driver/monitor shows sinus bradycardia at 50 bpm. Physical exam General: Alert, Oriented x3, Cooperative HEENT: Atraumatic, PERRLA, EOMI, Normocephalic Oral: No Gingival or Mucosal Lesions/ Ulcerations Neck: Supple, No JVD, Negative Carotid Bruits Lungs: Air entry diminished in bilateral lung bases. No crepitation/rhonchi Cardiovascular: sinus bradycardia, Normal S1, Normal S2, systolic murmur over left lower sternal border. Abdomen: Bowel Sounds Present, Soft, Non Tender, Non-Distended : No renal angle tenderness. No suprapubic tenderness. Extremities: No edema, Capillary Refill Less than 3 Seconds Skin: No rashes, No breakdown Musculoskeletal: No Tenderness to Palpation of Joints or Extremities Neurological: Cranial nerves II-XII grossly intact, Deep Tendon Reflexes 2+/4 and Symmetrical, Neuro grossly intact Psych/Mental Status: Normal Affect, Appropriate. Vitals/I&O's: Vital Signs Temp Pulse Resp BP Pulse Ox 98.2 F 66 18 97/52 L 98 11/25/19 15:23 11/25/19 15:23 11/25/19 15:23 11/25/19 15:23 11/25/19 15:23 Oxygen Flow Rate (L/min) 3 Oxygen Delivery Method Nasal Cannula Weight: 171 lb 15.369 oz Body Mass Index (BMI) 23.5 Intake and Output for Last 24 Hours 11/23/19 11/24/19 11/25/19 23:59 23:59 23:59 Intake Total 480 / 480 980 / 980 420 / 420 Output Total 450 / 450 550 / 550 2600 / 2600 Balance 30 / 30 430 / 430 -2180 / -2180 Laboratory Results 11/25/19 06:40: WBC 7.8, RBC 2.64 L, Hgb 8.7 L, Hct 26.9 L, MCV 101.9 H, MCH 33.0 H, MCHC 32.3, RDW Std Deviation 50.5 H, RDW Coeff of Maritza 13.5, Plt Count 172, MPV 11.6, Immature Gran % (Auto) 0.800, Neut % (Auto) 75.5 H, Lymph % (Auto) 11.1 L, [place] % (Auto) 8.9, Eos % (Auto) 3.4, Baso % (Auto) 0.3, Absolute Neuts (auto) 5.9, Absolute Lymphs (auto) 0.86, Nucleated RBC % 0 11/25/19 06:40: Sodium 136, Potassium 4.8, Chloride 99, Carbon Dioxide 28.0, Anion Gap 9, BUN 72 H, Creatinine 6.91 H, Estim Creat Clear Calc 8.22, Est GFR (MDRD) Af Amer 10 L, Est GFR (MDRD) Non-Af 8 L, BUN/Creatinine Ratio 10.4, Glucose 92, Calcium 8.0 L Current Medications Acetaminophen (Tylenol) 650 mg PO Q6H PRN PRN PRN Reason: Pain 1-10 or Fever Albuterol Sulfate (Ventolin Aerosols) 2.5 mg INHALATION Q2H PRN PRN PRN Reason: DYSPNEA Last Admin: 11/22/19 06:46 Dose: 2.5 mg Documented by: Albuterol/Ipratropium (Duoneb) 3 ml INHALATION Q6H.RT [facility] Last Admin: 11/25/19 13:25 Dose: 3 ml Documented by: Amiodarone HCl (Cordarone) 200 mg PO DAILY [facility] Last Admin: 11/25/19 15:10 Dose: Not Given Documented by: Aspirin (Aspirin, Baby) 81 mg PO DAILY@0800 [facility] Last Admin: 11/25/19 15:12 Dose: 81 mg Documented by: Atorvastatin Calcium (Lipitor) 80 mg PO QHS [facility] Last Admin: 11/24/19 21:37 Dose: 80 mg Documented by: Calcium Acetate (Phoslo Gel Cap) 667 mg PO TIDCM [facility] Last Admin: 11/25/19 15:12 Dose: 667 mg Documented by: Carvedilol (Coreg) 3.125 mg PO BID [facility] Last Admin: 11/25/19 15:10 Dose: Not Given Documented by: Heparin Sodium (Porcine) (Heparin Injection (Vial) 5,000 Unit/Ml Vial) 5,000 unit SC Q8 [facility] Last Admin: 10/19/20 15:11 Dose: Not Given Documented by: Levothyroxine Sodium (Synthroid) 50 mcg PO DAILY@0600 [facility] Last Admin: 11/25/19 05:45 Dose: 50 mcg Documented by: Lisinopril (Lisinopril 2.5 Mg Tablet) 2.5 mg PO BID [facility] Last Admin: 11/25/19 15:14 Dose: Not Given Documented by: Lorazepam (Ativan) 0.5 mg PO Q12H PRN PRN PRN Reason: anxiety with BIPAP Last Admin: 11/17/19 21:54 Dose: 0.5 mg Documented by: Memantine (Namenda) 5 mg PO BID [facility] Last Admin: 11/25/19 15:12 Dose: 5 mg Documented by: Ondansetron HCl (Zofran) 4 mg IV Q8H PRN PRN PRN Reason: NAUSEA/VOMITING Senna/Docusate Sodium (Senna/Docusate Sodium 1 Tablet) 1 tablet PO BID PRN PRN Reason: CONSTIPATION Sodium Chloride () 10 - 40 ml IV UD PRN PRN Reason: SALINE FLUSH Last Admin: 11/24/19 09:25 Dose: 10 ml Documented by: Sodium Chloride () 10 ml IV UD PRN PRN Reason: Dialysis Catheter Flush STROKE Vital Signs/Narrative: Vital Signs Temp Pulse Resp BP Pulse Ox 11/25/19 15:23 98.2 F 66 18 97/52 L 98 11/25/19 15:19 66 11/25/19 14:21 97.8 F 66 16 116/64 11/25/19 13:25 65 16 96 Medical Necessity - Tobacco Use Smoking Status: Current every day smoker Tobacco Use: Cigarettes Assessment/Plan All Active Problems Septic shock (Acute) Community acquired pneumonia (Acute) Sepsis with acute hypoxic respiratory failure and septic shock (Acute) [place] (acute kidney injury) (Acute) Acute Hypoxic Respiratory Failure, multifactorial secondary to acute on chronic systolic heart failure, non-STEMI and pneumonia: Wean off oxygen. Currently on 3 L of oxygen. Sputum culture shows mixed respiratory henri and antibiotic, Unasyn for aspiration pneumonia completed on 11/22. Patient not on home oxygen. Urinary antigens, respiratory panel, COVID-19 PCR are negative. Pulmonology signed off. Septic Shock secondary to aspiration pneumonia: Resolved. Lactic acid was elevated. Patient had hemoptysis, started prior to admission; resolved off anticoagulation. ESRD on hemodialysis Monday, Monday and Monday. Had dialysis tunnel catheter on 11/21. NSTEMI with acute on chronic systolic heart failure: On Coreg 3.125 mg p.o. twice daily, aspirin, statin, baby aspirin. On medical management. Ammunition Officer had a long discussion with does not want cardiac cath because of dementia. Echo EF 30 to 35% with severe distal septal anteroapical hypokinesis. Old record reviewed. Had nuc stress test 02/2018 that showed a sm to med-sized partially reversible defect in the mid ant wall of the LV, LV with mod to severe hypokinesis Patient has history of coronary artery disease, hypertension, dyslipidemia and heart failure with reduced EF suggestive of acute on chronic systolic heart failure PAF -remains in NSR -Eliquis on hold as pt was on heparin ggt but held 2/2 hemoptysis. Risk of anticoagulation outweighs benefit because of hemoptysis and fall risk. Continue amiodarone. 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 Inpatient E&M: 02945 Subs Hosp L2
--- NOTE | 2019-11-25 17:01 | CASEMGMT ---
Social Work PCU Received call from Brinda at [facility]. Message left for this typewriter operator automatic that the facility has not beds available for this patient. Spoke with Beckie at [facility] several times this afternoon. [facility] would be willing to consider this patient so long as transportation issues to/from dialysis are worked out. The facility could not accept a patient knowing there is no transportation in place for a medically necessary procedure. Beckie was able to find [employer] transport company willing to transport via wheelchair van to the [facility], but payment needs to be determined. Per Beckie, the business office at the facility was unable to ascertain from the insurance whether wheelchair van is covered. Per Beckie, due to COVID family members are not being allowed to provide transportation to any appointments. This typewriter operator automatic spoke with Jian from [employer] ([phone]) who reports private pay rate is 90 base rate and then 2 dollars per mile. Fom facility to facility it is around 20 miles. Jian reports would be willing to work with family on alternate pricing in light of this being a 3 time a week transport to 120 dollars each trip (saving the family approximately 50 dollars each trip). This typewriter operator automatic called the insurance and spoke with Bree who reports wheelchair vans and lifts are not covered by insurance plan. Call to the family and message left for the to call this typewriter operator automatic for an update. If transport can be figured out then [facility] is willing to start precert. [facility]. Plan: Social work to continue to follow for discharge planning. -JONO Aguilar, DRESSAGE JUDGE
[2019-11-25] MEDS: Lisinopril 2.5 MG Tablet PO (21:35)
[2019-11-25] MEDS: Atorvastatin Calcium 80 MG Tablet PO (21:35)
[2019-11-25] MEDS: Acetaminophen 325 MG Tablet 650 MG PO (21:35)
[2019-11-25] MEDS: Carvedilol 3.125 MG TABLET PO (21:35)
[2019-11-26] VITALS (10 sets, daily range): BP systolic 100–149; BP diastolic 50–100; PULSE 49–62; RESP 16–18; TEMP 36.4–37.1; O2SAT 95–99
[2019-11-26] MEDS: Ipratropium/Albuterol Sulfate 3 ML AMPUL.NEB INHALATION ×2 (01:07→07:17)
[2019-11-26] MEDS: Levothyroxine 50 MCG Tablet PO (05:26)
[2019-11-26] MEDS: Heparin Injection (Vial) 5,000 UNIT/ML VIAL 5000 UNIT SC (05:26)
[2019-11-26 07:42] LABS: Anion Gap 7 (5-15); BUN 39 mg/dL (7-18); BUN/Creat Ratio 8.5 RATIO (10-20); Calcium,Total 7.7 mg/dL (8.5-10.1); Chloride 94 mmol/L (98-107); Creatinine, Serum 4.57 mg/dL (0.70-1.30); EST Glomerular Filtration Rate 13 mL/min (>60); Est Glom Filt Rate - Afr Amer 16 mL/min (>60); Estimated Creatinine Clearance 12.42 ml/min; Glucose 81 mg/dL (74-106); Potassium 4.3 mmol/L (3.5-5.1); Sodium Level 132 mmol/L (136-145)
[2019-11-26] MEDS: Carvedilol 3.125 MG TABLET PO (08:57)
[2019-11-26] MEDS: Memantine Hydrochloride 5 MG Tablet PO (08:57)
[2019-11-26] MEDS: Calcium Acetate 667 MG Capsule PO ×2 (08:57→12:58)
[2019-11-26] MEDS: Amiodarone 200 MG Tablet PO (08:57)
[2019-11-26] MEDS: Aspirin 81 MG TAB.CHEW PO (08:57)
[2019-11-26] MEDS: Lisinopril 2.5 MG Tablet PO (08:58)
--- NOTE | 2019-11-26 09:30 | CASEMGMT ---
Social Work PCU Spoke with patient's today and updated to discharge planning from 11.25.2019. Educated to the issue of transportation in finding an accepting SNF. Educated to cost of the round trip transportation, as well as this music writer's call to insurance about whether there is a wheelchair benefit. Per Shana, paying out of pocket for the wheelchair is not an option. The reviewed with this music writer the fixed and limte income patient and Shana have, as well as some of the bills and strict budget in place. From what Shana described there is not a lot in the way of wiggle room for the extra cost of paying for a WC van. Broached applying for medicaid to help supplement some of the cost of the transportation, or even to see if would qualify as a qualified medicare beneficiary under Medicaid. reports she and patient both grew up on assistance and neither are interested in applying for assistance for themselves. Broached a free senior care care consultation through the [facility] as something to help the and patient see if there are other programs out there which may be helpful. indicated she would not mind talking to someone, but not interested in applying for medicaid. asked about rehab at home. Educated to HHC PT/OT, that this is intermittent and only a few days a week. expressed feeling that HHC would be the only option in light of financial constraints present. 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 Let the know that will do some checking and someone would be in touch to update. Handoff to Karina SLATER on PCU. -JONO Aguilar, NECK BAND OPERATOR
--- NOTE | 2019-11-26 11:17 | PCM.DC ---
- Discharge Diagnoses Current Active Problems: Current Active and Chronic Problems Septic shock (Acute) Community acquired pneumonia (Acute) Bilateral community-acquired pneumonia Sepsis with acute hypoxic respiratory failure and septic shock (Acute) [place] (acute kidney injury) (Acute) CKD (chronic kidney disease) stage 4, GFR 15-29 ml/min (Chronic) You will use the following diet at home:: Cardiac, Renal (restricted protein/sodium) Discharge Activity: May Not Drive Weight Bearing Status: Weight bearing as tolerated Call your doctor if you observe: Fever of 101 or Higher, Coldness, Increased Pain, Numbness or Tingling, Inability to urinate, Inability to have a bowel movement, Shortness of breath, Dizziness, Fainting spells, Swelling in the ankles, Chest pain, Prolonged hiccoughing, Increased palpitations (irregular heartbeat), Calf discomfort, Uncontrolled pain Allergies/Adverse Reactions: Allergies adhesive tape Allergy (Mild, Verified 07/31/18 09:58) Rash oxycodone Allergy (Mild, Verified 07/31/18 09:58) Rash tramadol Allergy (Mild, Verified 07/31/18 09:58) Other Medications to take at Discharge allopurinol 100 mg tablet PO #90 tab 07/26/18 amlodipine 5 mg tablet PO #90 tab 07/26/18 apixaban 5 mg tablet PO #60 tab 07/26/18 Amiodarone HCl [Cordarone] 200 mg PO DAILY #30 tab 11/26/19 Aspirin [Aspirin, Baby] 81 mg PO DAILY@0800 #30 tab.chew 11/26/19 Atorvastatin Calcium [Lipitor] 80 mg PO QHS #30 tab 11/26/19 Calcium Acetate [Phoslo Gel Cap] 667 mg PO TIDCM #90 cap 11/26/19 Carvedilol [Coreg (Beta Ivanna)] 3.125 mg PO BID #60 tab 11/26/19 Levothyroxine [Synthroid] 50 mcg PO DAILY@0600 #30 tab 11/26/19 Lisinopril [Zestril] 2.5 mg PO BID #60 tab 11/26/19 Memantine Hydrochloride [Namenda] 5 mg PO BID #60 tab 11/26/19 The following prescriptions were given: Aspirin [Aspirin, Baby] 81 mg PO DAILY@0800 #30 tab.chew Transmission Status: Pending to [facility] Amiodarone HCl [Cordarone] 200 mg PO DAILY #30 tab Transmission Status: Pending to [facility] Carvedilol [Coreg (Beta Ivanna)] 3.125 mg PO BID #60 tab Transmission Status: Pending to [facility] Atorvastatin Calcium [Lipitor] 80 mg PO QHS #30 tab Transmission Status: Pending to [facility] Memantine Hydrochloride [Namenda] 5 mg PO BID #60 tab Transmission Status: Pending to [facility] Calcium Acetate [Phoslo Gel Cap] 667 mg PO TIDCM #90 cap Transmission Status: Pending to [facility] Levothyroxine [Synthroid] 50 mcg PO DAILY@0600 #30 tab Transmission Status: Pending to [facility] Lisinopril [Zestril] 2.5 mg PO BID #60 tab Transmission Status: Pending to [facility] Please follow up with your Primary Care Physician in: in 2 weeks Test Results: Test results from this visit will be discussed in further detail at your follow-up appointment, if applicable. Please Follow Up With: Ben Cotto MD When: IN 4 weeks Please Follow Up With: Graham Driscoll MD When: in 2 weeks Please Follow Up With: Shukri Lopez MD When: in 4 weeks
--- NOTE | 2019-11-26 11:18 | PN_ITS ---
Patient Problems: Active and Suspected Problems Septic shock (Acute) Community acquired pneumonia (Acute) Bilateral community-acquired pneumonia Sepsis with acute hypoxic respiratory failure and septic shock (Acute) [place] (acute kidney injury) (Acute) Vitals/I&O's: Vital Signs Temp Pulse Resp BP Pulse Ox 98.3 F 52 L 18 149/100 H 95 11/26/19 08:55 11/26/19 10:27 11/26/19 08:55 11/26/19 08:55 11/26/19 09:09 Oxygen Flow Rate (L/min) 3.5 Oxygen Delivery Method Room Air Weight: 169 lb 1.513 oz Body Mass Index (BMI) 23.5 Intake and Output for Last 24 Hours 11/24/19 11/25/19 11/26/19 23:59 23:59 23:59 Intake Total 980 / 980 920 / 920 Output Total 550 / 550 2900 / 3100 250 / 250 Balance 430 / 430 -1980 / -2180 -250 / -250 Laboratory Results 11/26/19 07:05: Sodium 132 L, Potassium 4.3, Chloride 94 L, Carbon Dioxide 31.0, Anion Gap 7, BUN 39 H, Creatinine 4.57 H, Estim Creat Clear Calc 12.42, Est GFR (MDRD) Af Amer 16 L, Est GFR (MDRD) Non-Af 13 L, BUN/Creatinine Ratio 8.5 L, Glucose 81, Calcium 7.7 L Current Medications Acetaminophen (Tylenol) 650 mg PO Q6H PRN PRN PRN Reason: Pain 1-10 or Fever Last Admin: 11/25/19 21:35 Dose: 650 mg Documented by: Albuterol Sulfate (Ventolin Aerosols) 2.5 mg INHALATION Q2H PRN PRN PRN Reason: DYSPNEA Last Admin: 11/22/19 06:46 Dose: 2.5 mg Documented by: Albuterol/Ipratropium (Duoneb) 3 ml INHALATION Q6H.RT [facility] Last Admin: 11/26/19 07:17 Dose: 3 ml Documented by: Amiodarone HCl (Cordarone) 200 mg PO DAILY [facility] Last Admin: 11/26/19 08:57 Dose: 200 mg Documented by: Aspirin (Aspirin, Baby) 81 mg PO DAILY@0800 [facility] Last Admin: 11/26/19 08:57 Dose: 81 mg Documented by: Atorvastatin Calcium (Lipitor) 80 mg PO QHS [facility] Last Admin: 11/25/19 21:35 Dose: 80 mg Documented by: Calcium Acetate (Phoslo Gel Cap) 667 mg PO TIDCM [facility] Last Admin: 11/26/19 08:57 Dose: 667 mg Documented by: Carvedilol (Coreg) 3.125 mg PO BID [facility] Last Admin: 11/26/19 08:57 Dose: 3.125 mg Documented by: Heparin Sodium (Porcine) (Heparin Injection (Vial) 5,000 Unit/Ml Vial) 5,000 un it SC Q8 [facility] Last Admin: 11/26/19 05:26 Dose: 5,000 unit Documented by: Levothyroxine Sodium (Synthroid) 50 mcg PO DAILY@0600 [facility] Last Admin: 11/26/19 05:26 Dose: 50 mcg Documented by: Lisinopril (Lisinopril 2.5 Mg Tablet) 2.5 mg PO BID [facility] Last Admin: 11/26/19 08:58 Dose: 2.5 mg Documented by: Lorazepam (Ativan) 0.5 mg PO Q12H PRN PRN PRN Reason: anxiety with BIPAP Last Admin: 11/17/19 21:54 Dose: 0.5 mg Documented by: Memantine (Namenda) 5 mg PO BID [facility] Last Admin: 11/26/19 08:57 Dose: 5 mg Documented by: Ondansetron HCl (Zofran) 4 mg IV Q8H PRN PRN PRN Reason: NAUSEA/VOMITING Senna/Docusate Sodium (Senna/Docusate Sodium 1 Tablet) 1 tablet PO BID PRN PRN Reason: CONSTIPATION Sodium Chloride () 10 - 40 ml IV UD PRN PRN Reason: SALINE FLUSH Last Admin: 11/24/19 09:25 Dose: 10 ml Documented by: Sodium Chloride () 10 ml IV UD PRN PRN Reason: Dialysis Catheter Flush STROKE Vital Signs/Narrative: Vital Signs Temp Pulse Resp BP Pulse Ox 11/26/19 10:27 52 L 11/26/19 09:09 95 11/26/19 08:55 98.3 F 53 L 18 149/100 H 96 Medical Necessity - Tobacco Use Smoking Status: Current every day smoker Tobacco Use: Cigarettes Assessment/Plan All Active Problems Septic shock (Acute) Community acquired pneumonia (Acute) Sepsis with acute hypoxic respiratory failure and septic shock (Acute) [place] (acute kidney injury) (Acute)
--- NOTE | 2019-11-26 12:02 | CASEMGMT ---
EUN Neves spoke with patient's and she expressed interest in bringing patient home with home health. EUN spoke with Siri from PT and told her to let SW know how patient does today. Siri from PT said patient would benefit from going to a half-way for rehab, but he would also be fine to go home with home health as long as he uses a walker. He walked 125 feet. EUN called patient's and introduced self. EUN let her know about therapy today and that if she would like we can arrange home health. She said that would be her preference. EUN told her SW will leave a list of home health agencies that are in network in patient's room. EUN will notify [facility]. EUN notified physician. Plan: home with home health. Awaiting 's arrival to pick home health agency. Karina SLATER MSW
--- NOTE | 2019-11-26 12:57 | PCM.DC.SUM ---
Discharge Date and Diagnosis - Problem List Patient Problems: Active and Suspected Problems Septic shock (Acute) Community acquired pneumonia (Acute) Bilateral community-acquired pneumonia Sepsis with acute hypoxic respiratory failure and septic shock (Acute) [place] (acute kidney injury) (Acute) Date of Admission: 11/15/19 Date of Discharge: 11/26/19 - Primary Discharge Diagnosis Acute Problems: Active Problems Septic shock (Acute) Community acquired pneumonia (Acute) Bilateral community-acquired pneumonia Sepsis with acute hypoxic respiratory failure and septic shock (Acute) [place] (acute kidney injury) (Acute) - Secondary Discharge Diagnosis Chronic Problems: Chronic Problems CKD (chronic kidney disease) stage 4, GFR 15-29 ml/min (Chronic) Hospital Course and Treatment Summary of Care Provided: The patient is a 84 year old M was directly admitted to ICU from [facility] for diagnosis of presumed diagnosis of septic shock based on elevated lactic acid 6.2, acute hypoxic respiratory failure and bilateral community-acquired pneumonia. Patient had shortness of breath for 2 days and chest x-ray showed bilateral infiltrate right more than left. Mild leukocytosis. Covid PCR was negative. Patient was admitted in ICU was placed in BiPAP and then changed to AIRVO. Patient was seen by transmission design engineer. On IV Rocephin and Zithromax which later was changed to Zosyn and then Unasyn. Patient also has CKD stage IV which progressed to the point that patient is dialysis dependent now. Patient was seen by clerical administrative assistant Acute Hypoxic Respiratory Failure, multifactorial secondary to acute on chronic systolic heart failure, non-STEMI and pneumonia: Wean off oxygen. Most recent 95% on room air. Sputum culture shows mixed respiratory henri and antibiotic, Unasyn for aspiration pneumonia completed on 11/22. Patient not on home oxygen. Urinary antigens, respiratory panel, COVID-19 PCR and MRSA nasal screen are negative. Hepatitis B surface antigen, surface antibody and core antibody negative. Pulmonology signed off. Septic Shock secondary to aspiration pneumonia: Resolved. Patient did not had hypotension or required vasopressor. lactic acid was elevated. Patient had hemoptysis, started prior to admission; resolved off anticoagulation. ESRD on hemodialysis Monday, Monday and Monday. Had dialysis tunnel catheter on 11/21. On hemodialysis Monday, Monday and Monday. NSTEMI with acute on chronic systolic heart failure: On Coreg 3.125 mg p.o. twice daily, aspirin, statin, baby aspirin. On medical management. Regional Program Manager had a long discussion with does not want cardiac cath because of dementia. Echo EF 30 to 35% with severe distal septal anteroapical hypokinesis. Old record reviewed. Had nuc stress test 02/2018 that showed a sm to med-sized partially reversible defect in the mid ant wall of the LV, LV with mod to severe hypokinesis Patient has history of coronary artery disease, hypertension, dyslipidemia and heart failure with reduced EF suggestive of acute on chronic systolic heart failure. A prescription given for cardiac new medications. PAF -currently sinus bradycardia Risk of anticoagulation outweighs benefit because of hemoptysis and fall risk. Continue amiodarone. Eliquis was discontinued after the discussion of benefit and risk with patient's . 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 Discharge follow-up instructions completed. Discharge process discussed with the patient and all questions were answered to patient's satisfaction. Patient prescription sent to retail pharmacy. Discharge home with home health care. Continue hemodialysis session, 3 times a week Total time spent, exact 35 minutes on discharge meds reconciliation, examination, coordination of care with nurses and ancillary staff, review of imaging and blood test and discussion with the patient on follow-up instructions Patient Problems: Active and Suspected Problems Septic shock (Acute) Community acquired pneumonia (Acute) Bilateral community-acquired pneumonia Sepsis with acute hypoxic respiratory failure and septic shock (Acute) [place] (acute kidney injury) (Acute) Objective: Patient complain of sore throat. nuclear monitoring technician shows sinus bradycardia at 52 bpm. No chest pain or shortness of breath. Physical exam General: Alert, Oriented x3, Cooperative, mild dementia HEENT: Atraumatic, PERRLA, EOMI, Normocephalic Oral: No Gingival or Mucosal Lesions/ Ulcerations. No oral thrush lesion or patch seen. Neck: Supple, No JVD, Negative Carotid Bruits Lungs: Air entry diminished in bilateral lung bases. No crepitation/rhonchi Cardiovascular: sinus bradycardia, Normal S1, Normal S2, systolic murmur over left lower sternal border. Abdomen: Bowel Sounds Present, Soft, Non Tender, Non-Distended : No renal angle tenderness. No suprapubic tenderness. Extremities: No edema, Capillary Refill Less than 3 Seconds Skin: No rashes, No breakdown Musculoskeletal: No Tenderness to Palpation of Joints or Extremities Neurological: Cranial nerves II-XII grossly intact, Deep Tendon Reflexes 2+/4 and Symmetrical, Neuro grossly intact Psych/Mental Status: Mild dementia. - Physical Exam Vitals/I&O's: Vital Signs Temp Pulse Resp BP Pulse Ox 98.3 F 52 L 18 149/100 H 95 11/26/19 08:55 11/26/19 10:27 11/26/19 08:55 11/26/19 08:55 11/26/19 09:09 Oxygen Flow Rate (L/min) 3.5 Oxygen Delivery Method Room Air Weight: 169 lb 1.513 oz Body Mass Index (BMI) 23.5 Intake and Output for Last 24 Hours 11/24/19 11/25/19 11/26/19 23:59 23:59 23:59 Intake Total 980 / 980 920 / 920 Output Total 550 / 550 2900 / 3100 250 / 250 Balance 430 / 430 -1980 / -2180 -250 / -250 Laboratory Results 11/26/19 07:05: Sodium 132 L, Potassium 4.3, Chloride 94 L, Carbon Dioxide 31.0, Anion Gap 7, BUN 39 H, Creatinine 4.57 H, Estim Creat Clear Calc 12.42, Est GFR (MDRD) Af Amer 16 L, Est GFR (MDRD) Non-Af 13 L, BUN/Creatinine Ratio 8.5 L, Glucose 81, Calcium 7.7 L Current Medications Acetaminophen (Tylenol) 650 mg PO Q6H PRN PRN PRN Reason: Pain 1-10 or Fever Last Admin: 11/25/19 21:35 Dose: 650 mg Documented by: Albuterol Sulfate (Ventolin Aerosols) 2.5 mg INHALATION Q2H PRN PRN PRN Reason: DYSPNEA Last Admin: 11/22/19 06:46 Dose: 2.5 mg Documented by: Albuterol/Ipratropium (Duoneb) 3 ml INHALATION Q6H.RT ALAN Last Admin: 11/26/19 07:17 Dose: 3 ml Documented by: Amiodarone HCl (Cordarone) 200 mg PO DAILY [facility] Last Admin: 11/26/19 08:57 Dose: 200 mg Documented by: Aspirin (Aspirin, Baby) 81 mg PO DAILY@0800 [facility] Last Admin: 11/26/19 08:57 Dose: 81 mg Documented by: Atorvastatin Calcium (Lipitor) 80 mg PO QHS [facility] Last Admin: 11/25/19 21:35 Dose: 80 mg Documented by: Calcium Acetate (Phoslo Gel Cap) 667 mg PO TIDCM [facility] Last Admin: 11/26/19 08:57 Dose: 667 mg Documented by: Carvedilol (Coreg) 3.125 mg PO BID [facility] Last Admin: 11/26/19 08:57 Dose: 3.125 mg Documented by: Heparin Sodium (Porcine) (Heparin Injection (Vial) 5,000 Unit/Ml Vial) 5,000 unit SC Q8 [facility] Last Admin: 11/26/19 05:26 Dose: 5,000 unit Documented by: Levothyroxine Sodium (Synthroid) 50 mcg PO DAILY@0600 [facility] Last Admin: 11/26/19 05:26 Dose: 50 mcg Documented by: Lisinopril (Lisinopril 2.5 Mg Tablet) 2.5 mg PO BID [facility] Last Admin: 11/26/19 08:58 Dose: 2.5 mg Documented by: Lorazepam (Ativan) 0.5 mg PO Q12H PRN PRN PRN Reason: anxiety with BIPAP Last Admin: 11/17/19 21:54 Dose: 0.5 mg Documented by: Memantine (Namenda) 5 mg PO BID [facility] Last Admin: 11/26/19 08:57 Dose: 5 mg Documented by: Nystatin (Nystatin 500,000 Unit/5 Ml Udc) 500,000 unit PO 4X/DAY [facility] Ondansetron HCl (Zofran) 4 mg IV Q8H PRN PRN PRN Reason: NAUSEA/VOMITING Senna/Docusate Sodium (Senna/Docusate Sodium 1 Tablet) 1 tablet PO BID PRN PRN Reason: CONSTIPATION Sodium Chloride () 10 - 40 ml IV UD PRN PRN Reason: SALINE FLUSH Last Admin: 11/24/19 09:25 Dose: 10 ml Documented by: Sodium Chloride () 10 ml IV UD PRN PRN Reason: Dialysis Catheter Flush Throat Lozenges (Benzocaine/Menthol 1 Lozenge) 1 lozenge MUCOUS MEM Q2H PRN PRN PRN Reason: SORE THROAT Discharge Activity: May Not Drive Weight Bearing Status: Weight bearing as tolerated Call your doctor if you observe: Fever of 101 or Higher, Coldness, Increased Pain, Numbness or Tingling, Inability to urinate, Inability to have a bowel movement, Shortness of breath, Dizziness, Fainting spells, Swelling in the ankles, Chest pain, Prolonged hiccoughing, Increased palpitations (irregular heartbeat), Calf discomfort, Uncontrolled pain Home Medications: Medications to take at Discharge allopurinol 100 mg tablet PO #90 tab 07/26/18 amlodipine 5 mg tablet PO #90 tab 07/26/18 apixaban 5 mg tablet PO #60 tab 07/26/18 Amiodarone HCl [Cordarone] 200 mg PO DAILY #30 tab 11/26/19 Aspirin [Aspirin, Baby] 81 mg PO DAILY@0800 #30 tab.chew 11/26/19 Atorvastatin Calcium [Lipitor] 80 mg PO QHS #30 tab 11/26/19 Calcium Acetate [Phoslo Gel Cap] 667 mg PO TIDCM #90 cap 11/26/19 Carvedilol [Coreg (Beta Ivanna)] 3.125 mg PO BID #60 tab 11/26/19 Dextromethorphan/Benzocaine [Cepacol Sorethroat-Cough Robbie] 1 ea PO Q4H PRN PRN #20 robbie 11/26/19 Levothyroxine [Synthroid] 50 mcg PO DAILY@0600 #30 tab 11/26/19 Lisinopril [Zestril] 2.5 mg PO BID #60 tab 11/26/19 Memantine Hydrochloride [Namenda] 5 mg PO BID #60 tab 11/26/19 Following Prescriptions Were Given to Patient: Aspirin [Aspirin, Baby] 81 mg PO DAILY@0800 #30 tab.chew Transmission Status: Pending to [facility] Dextromethorphan/Benzocaine [Cepacol Sorethroat-Cough Robbie] 1 ea PO Q4H PRN PRN #20 robbie PRN Reason: sore throat Transmission Status: Received by [facility] Amiodarone HCl [Cordarone] 200 mg PO DAILY #30 tab Transmission Status: Pending to [facility] Carvedilol [Coreg (Beta Ivanna)] 3.125 mg PO BID #60 tab Transmission Status: Pending to [facility] Atorvastatin Calcium [Lipitor] 80 mg PO QHS #30 tab Transmission Status: Pending to [facility] Memantine Hydrochloride [Namenda] 5 mg PO BID #60 tab Transmission Status: Pending to [facility] Calcium Acetate [Phoslo Gel Cap] 667 mg PO TIDCM #90 cap Transmission Status: Pending to [facility] Levothyroxine [Synthroid] 50 mcg PO DAILY@0600 #30 tab Transmission Status: Pending to [facility] Lisinopril [Zestril] 2.5 mg PO BID #60 tab Transmission Status: Pending to [facility] Please follow up with your Primary Care Physician in: in 2 weeks Please Follow Up With: Ben Cotto MD When: IN 4 weeks Please Follow Up With: Graham Driscoll MD When: in 2 weeks Please Follow Up With: Shukri Lopez MD When: in 4 weeks Medical Necessity - Tobacco Use Smoking Status: Current every day smoker Tobacco Use: Cigarettes Meaningful Use Info Meaningful Use Diagnoses (Choose all that apply): None applicable Inpatient E&M: 49586 Disch Hosp
--- NOTE | 2019-11-26 14:34 | PCM.PN.REN ---
Patient Problems: Active and Suspected Problems Septic shock (Acute) Community acquired pneumonia (Acute) Bilateral community-acquired pneumonia Sepsis with acute hypoxic respiratory failure and septic shock (Acute) [place] (acute kidney injury) (Acute) Subjective: no cp/sob/no c/o - Physical Exam Vitals/I&O's: Vital Signs Temp Pulse Resp BP Pulse Ox 98.3 F 52 L 18 149/100 H 95 11/26/19 08:55 11/26/19 10:27 11/26/19 08:55 11/26/19 08:55 11/26/19 09:09 Oxygen Flow Rate (L/min) 3.5 Oxygen Delivery Method Room Air Weight: 76.7 kg Body Mass Index (BMI) 23.5 Intake and Output for Last 24 Hours 11/24/19 11/25/19 11/26/19 23:59 23:59 23:59 Intake Total 980 / 980 920 / 920 420 / 420 Output Total 550 / 550 2900 / 3100 250 / 250 Balance 430 / 430 -1980 / -2180 170 / 170 General: Alert, Cooperative HEENT: Atraumatic, Normocephalic Neck: Supple, Trachea Midline Lungs: Clear to auscultation, Normal air movement Cardiovascular: Normal S1, Normal S2 Abdomen: Bowel Sounds Present, Soft Laboratory Results 11/26/19 07:05: Sodium 132 L, Potassium 4.3, Chloride 94 L, Carbon Dioxide 31.0, Anion Gap 7, BUN 39 H, Creatinine 4.57 H, Estim Creat Clear Calc 12.42, Est GFR (MDRD) Af Amer 16 L, Est GFR (MDRD) Non-Af 13 L, BUN/Creatinine Ratio 8.5 L, Glucose 81, Calcium 7.7 L Current Medications Acetaminophen (Tylenol) 650 mg PO Q6H PRN PRN PRN Reason: Pain 1-10 or Fever Last Admin: 11/25/19 21:35 Dose: 650 mg Documented by: Albuterol Sulfate (Ventolin Aerosols) 2.5 mg INHALATION Q2H PRN PRN PRN Reason: DYSPNEA Last Admin: 11/22/19 06:46 Dose: 2.5 mg Documented by: Albuterol/Ipratropium (Duoneb) 3 ml INHALATION Q6H.RT ALAN Last Admin: 11/26/19 07:17 Dose: 3 ml Documented by: Amiodarone HCl (Cordarone) 200 mg PO DAILY [facility] Last Admin: 11/26/19 08:57 Dose: 200 mg Documented by: Aspirin (Aspirin, Baby) 81 mg PO DAILY@0800 [facility] Last Admin: 11/26/19 08:57 Dose: 81 mg Documented by: Atorvastatin Calcium (Lipitor) 80 mg PO QHS [facility] Last Admin: 11/25/19 21:35 Dose: 80 mg Documented by: Calcium Acetate (Phoslo Gel Cap) 667 mg PO TIDCM [facility] Last Admin: 11/26/19 12:58 Dose: 667 mg Documented by: Carvedilol (Coreg) 3.125 mg PO BID [facility] Last Admin: 11/26/19 08:57 Dose: 3.125 mg Documented by: Heparin Sodium (Porcine) (Heparin Injection (Vial) 5,000 Unit/Ml Vial) 5,000 unit SC Q8 [facility] Last Admin: 11/26/19 05:26 Dose: 5,000 unit Documented by: Levothyroxine Sodium (Synthroid) 50 mcg PO DAILY@0600 [facility] Last Admin: 11/26/19 05:26 Dose: 50 mcg Documented by: Lisinopril (Lisinopril 2.5 Mg Tablet) 2.5 mg PO BID [facility] Last Admin: 11/26/19 08:58 Dose: 2.5 mg Documented by: Lorazepam (Ativan) 0.5 mg PO Q12H PRN PRN PRN Reason: anxiety with BIPAP Last Admin: 11/17/19 21:54 Dose: 0.5 mg Documented by: Memantine (Namenda) 5 mg PO BID [facility] Last Admin: 11/26/19 08:57 Dose: 5 mg Documented by: Nystatin (Nystatin 500,000 Unit/5 Ml Udc) 500,000 unit PO 4X/DAY [facility] Ondansetron HCl (Zofran) 4 mg IV Q8H PRN PRN PRN Reason: NAUSEA/VOMITING Senna/Docusate Sodium (Senna/Docusate Sodium 1 Tablet) 1 tablet PO BID PRN PRN Reason: CONSTIPATION Sodium Chloride () 10 - 40 ml IV UD PRN PRN Reason: SALINE FLUSH Last Admin: 11/24/19 09:25 Dose: 10 ml Documented by: Sodium Chloride () 10 ml IV UD PRN PRN Reason: Dialysis Catheter Flush Throat Lozenges (Benzocaine/Menthol 1 Lozenge) 1 lozenge MUCOUS MEM Q2H PRN PRN PRN Reason: SORE THROAT Medical Necessity - Tobacco Use Smoking Status: Current every day smoker Tobacco Use: Cigarettes Assessment/Plan All Active Problems Septic shock (Acute) Community acquired pneumonia (Acute) Sepsis with acute hypoxic respiratory failure and septic shock (Acute) [place] (acute kidney injury) (Acute) ESRD now from CKD stage IV CKD MBD Non-ST elevation SD Congestive heart failure mwf HD avoid nephrotoxins to preserve RRF bp per cards controlled Continue PhosLo d/w patient for [place] HD unit tomorrow HD
--- NOTE | 2019-11-26 14:35 | CASEMGMT ---
Addendum entered by Karina Rubio 11/26/19 16:21: EUN has talked with [facility] several times. They have to send information to [employer] and a few other things. SW did not want to make patient and his wait any longer. SW let patient's know that SW is waiting on agency to get back to SW. EUN told her SW will call her tomorrow and let her know the agency that accepted. She thanked EUN for the update. Plan: d/c home with home health. EUN working on home health, just waiting on a response from [facility]. Karina COLBY Original Note: Patient's chose 3 home health agencies. EUN told her SW will work on setting this up. She asked if therapy could walk patient up a couple of steps. SW told her SW could ask. EUN did talk with a couple therapists and one of them felt she could assist patient with steps. EUN called [facility] as this is their first choice. EUN called [facility] and was instructed that the [facility] branch of their agency takes Medicare and the [facility] services [facility]. The number SW should call is [phone]. EUN called and was told to fax the referral. The fax number is [phone]. EUN faxed referral. Await response. Karina COLBY
--- NOTE | 2019-11-26 14:43 | CASEMGMT ---
EUN called Beckie at [facility] and let her know patient will not be coming there for rehab. Karina SLATER MSW
--- NOTE | 2019-11-26 15:00 | CASEMGMT ---
This RN CM attempted to reach [facility] to notify them of pt discharge today and that he will be coming for OP HD tomorrow but they closed at 12noon. Message left for them to call this RN CM back but no pt identifiers left on message as it was not identified as a confidential voicemail at this time. This RN CM will attempt to call again tomorrow morning brannon to notify that pt will be there at 1030 for his 1st OP session. Ana CALIXTO CM
--- NOTE | 2019-11-27 07:55 | CASEMGMT ---
This RN YESICA spoke with [facility] and they got message left yesterday and are expecting pt arrival at 1030 this am[facility] no further questions/concerns/needs at this time. Ana CALIXTO CM
--- NOTE | 2019-11-27 12:32 | CASEMGMT ---
EUN called [facility] and inquired if they were able to accept patient. EUN was told they did accept patient and should be out to see him on . EUN then called patient's home and left a voice mail letting them know [facility] accepted him and should be contacting them if they have not already to arrange a visit. EUN also left EUN's contact information. Home with [facility] and fax: [phone] Karina SLATER MSW
--- NOTE | 2019-11-27 14:59 | CASEMGMT ---
Addendum entered by Jody Taylor 11/28/19 16:42: Call back from pt's at this time. states that pt is 'tired after 5hour dialysis yesterday but is getting around ok.' states that HHC was out today and assisted with a medication question. states no further questions regarding discharge instructions/medications at this time. states 'she is overwhelmed, busy' but states 'We just got to get thru this for now.' This RN CM offered assist but states no further questions/needs, 'it just needs to quiet down(meaning HHC, dialysis and appts).' aware to call this RN CM back with any further questions/concerns and states gratitude for the care that pt received at [facility]. voices no further questions/concerns/needs at this time. Ana CALIXTO CM Addendum entered by Jody Taylor 11/28/19 15:29: Attempted to reach pt at this time without success, message left for pt/ to give this RN CM a call back if/when able. Ana CALIXTO CM Original Note: DURGA ROBERT Discharge F/U Phone Call LACE: 10 Strata: 3 Discharge date: 11/26/2019 Pt is currently at new OP dialysis so unable to place f/u call at this time, will attempt on 11/28/2019. Ana CALIXTO CM Admission dx: Resp failure, CAP
== END 2019-11-26 16:52 | disposition home or self-care (01) | DRG 871 ==
LOC: ICU 11-21 13:48 → PCU 11-25 07:35
PROVIDERS: Family Medicine; Internal Medicine; Internal Medicine Cardiovascular Disease; Internal Medicine Critical Care Medicine; Internal Medicine Interventional Cardiology; Internal Medicine Nephrology; Surgery; Admitting Provider Internal Medicine; Visit Provider Internal Medicine
PROC: 0JH63XZ Insertion of Tunneled Vascular Access Device into Chest Subcutaneous Tissue and Fascia, Percutaneous Approach (ICD-10-PCS; principal; 2019-11-22 07:15)
DX: A41.9 Sepsis, unspecified organism (principal); R65.21 Severe sepsis with septic shock; J96.21 Acute and chronic respiratory failure with hypoxia; N18.6 End stage renal disease; J69.0 Pneumonitis due to inhalation of food and vomit; I50.23 Acute on chronic systolic (congestive) heart failure; I21.4 Non-ST elevation (NSTEMI) myocardial infarction; N17.9 Acute kidney failure, unspecified; I13.2 Hypertensive heart and chronic kidney disease with heart failure and with stage 5 chronic kidney disease, or end stage renal disease; J44.0 Chronic obstructive pulmonary disease with (acute) lower respiratory infection; R04.2 Hemoptysis; N25.81 Secondary hyperparathyroidism of renal origin; I42.0 Dilated cardiomyopathy; I48.0 Paroxysmal atrial fibrillation; F17.210 Nicotine dependence, cigarettes, uncomplicated; F02.80 Dementia in other diseases classified elsewhere, unspecified severity, without behavioral disturbance, psychotic disturbance, mood disturbance, and anxiety; G30.9 Alzheimer's disease, unspecified; E78.5 Hyperlipidemia, unspecified; M10.9 Gout, unspecified; I25.10 Atherosclerotic heart disease of native coronary artery without angina pectoris; I25.5 Ischemic cardiomyopathy; D63.1 Anemia in chronic kidney disease; E03.9 Hypothyroidism, unspecified; D69.6 Thrombocytopenia, unspecified; Z99.2 Dependence on renal dialysis; Z79.01 Long term (current) use of anticoagulants
CPT/HCPCS: 36415; 71045; 76000; 80048; 80053; 80061; 82728; 83605; 83615; 83735; 83880; 84100; 84145; 84484; 85025; 85027; 85379; 85610; 85730; 86140; 86704; 86706; 87070; 87205; 87340; 87449; 87633; 87635; 87641; 90937; 93005; 93306; 94002; 94003; 94640; 94667; 94668; 97110; 97116; 97162; 97166; 97530; 97802; 97803; 99406; Q9957; A4216; C1750; C1752; G0257; J0295; J1940; U0003

== ENCOUNTER 2020-08-06 13:51 | Emergency (ER) | payer MEDICARE, SELFPAY ==
[2020-03-12 11:07] VITALS: BMI 28.3
[2020-08-06 13:52] VITALS: BP 157/86; PULSE 66; RESP 14; TEMP 36.3; O2SAT 94; BMI 26.7
--- NOTE | 2020-08-06 14:56 | EKG12_ITS ---
Test Reason : COUGH Blood Pressure : / mmHG Vent. Rate : 061 BPM Atrial Rate : 061 BPM P-R Int : 000 ms QRS Dur : 098 ms QT Int : 474 ms P-R-T Axes : 000 -54 -03 degrees QTc Int : 477 ms Atrial fibrillation Left anterior fascicular block Inferior infarct , age undetermined Cannot rule out Anterior infarct , age undetermined Abnormal ECG Confirmed by AWAIS MCDERMOTT, ERICA ([id number]), manager editorial ARPAN REDDY ([id number]) on 08/07/2020 1:05:39 PM Referred By: MARTI Confirmed By:ERICA ERNANDEZ MD
--- NOTE | 2020-08-06 14:58 | EDS_ITS ---
HPI History of Present Illness Chief Complaint: Cough Informant: patient and spouse/S.O. Onset/Context/Timing Onset: Weeks (1) Context: Gradual Onset Timing: Continuous Quality: Short of breath Location: Chest Worsened by: Nothing Relieved by: Air conditioning Narrative Narrative: Patient presents with cough and shortness of breath that has been getting worse over the past week. Patient states she is coughing up some yellow sputum. Patient states his breathing is better whenever he is in the air conditioning. Patient states nothing makes it worse. Patient denies any chest pain. Patient also admits to some rhinorrhea. Patient states he has been vaccinated for COVID-19 in February and March. Patient denies any fevers or chills. Patient denies any nausea or vomiting. [facility] Medical History (Updated 08/06/20 @ 16:[address] Jian Benedict, ) [place] (acute kidney injury) CKD (chronic kidney disease) stage 4, GFR 15-29 ml/min Community acquired pneumonia History of aorta surgery History of back surgery History of dialysis History of femur surgery History of heart surgery History of irregular heartbeat History of Jaw surgery Kidney disease Sepsis with acute hypoxic respiratory failure and septic shock Septic shock Home Medications allopurinol 100 mg tablet PO #90 tab 07/26/18 [History Last Taken Unknown] atorvastatin 80 mg PO QHS #30 tab 11/26/19 [Rx Last Taken Unknown] calcium acetate(phosphat bind) 667 mg PO TIDCM #90 cap 11/26/19 [Rx Last Taken Unknown] carvedilol 3.125 mg PO BID #60 tab 11/26/19 [Rx Last Taken Unknown] dextromethorphan-benzocaine 1 ea PO Q4H PRN PRN #20 diana 11/26/19 [Rx Last Taken Unknown] levothyroxine 50 mcg PO DAILY@0600 #30 tab 11/26/19 [Rx Last Taken Unknown] memantine 5 mg PO BID #60 tab 11/26/19 [Rx Last Taken Unknown] albuterol sulfate 2.5 mg CONTINUOUS NEBULIZATION ONCE #1 ml 12/12/19 [Clinic Last Taken Unknown] ipratropium 0.5 mg-albuterol 3 mg (2.5 mg base)/3 mL nebulization soln 3 ml INHALATION Q6H PRN #180 ml 12/12/19 [Rx Last Taken Unknown] albuterol sulfate 2.5 mg INHALATION Q4H PRN #180 ml 12/13/19 [Rx Last Taken Unknown] apixaban 2.5 mg tablet 2.5 mg PO BID 01/14/20 [History Last Taken Unknown] lisinopril 2.5 mg tablet 5 mg PO BID tab 01/14/20 [History Last Taken Unknown] acetaminophen 500 mg capsule 500 mg PO Q6H PRN 03/12/20 [History Last Taken Unknown] loratadine 10 mg capsule 10 mg PO DAILY 03/12/20 [History Last Taken Unknown] lorazepam 0.5 mg tablet 0.5 mg PO DAILY PRN 03/12/20 [History Last Taken Unknown] magnesium 250 mg tablet 250 mg PO DAILY 03/12/20 [History Last Taken Unknown] amiodarone 100 mg PO DAILY 08/06/20 [History Last Taken Unknown] amoxicillin-pot clavulanate 875 mg PO Q12H #20 tablet 08/06/20 [Rx Last Taken Unknown] Allergy/AdvReac Type Severity Reaction Status Date / Time adhesive tape Allergy Mild Rash Verified 08/06/20 13:54 oxycodone Allergy Mild Rash Verified 08/06/20 13:54 tramadol Allergy Mild Other Verified 08/06/20 13:54 Family History Grandfather No problems noted. Father No problems noted. Brother No problems noted. Brother Brain aneurysm Social History Smoking Status: Current every day smoker tobacco type: cigarettes ROS ROS ED Constitutional Constitutional ED: Denies chills or fever(s) Eyes Eyes: Denies blurry vision or change in vision ENT ENT ED: Reports rhinorrhea; Denies sore throat Cardiovascular Cardiovascular: Denies chest pain or palpitations Respiratory/Chest Respiratory/Chest: Reports cough and dyspnea Gastrointestinal Gastrointestinal: Denies nausea or vomiting Genitourinary Genitourinary ED: Denies dysuria or hematuria Musculoskeletal Musculoskeletal: Reports back pain; Denies neck pain Integumentary Denies abscess or rash Neurologic Neurologic: Denies headache(s) or weakness Allergic/Immunologic Allergic/Immunologic ED: Denies mouth swelling or urticaria EXAM Physical Exam Const Vital Signs: 08/06/20 13:52 08/06/20 15:26 08/06/20 15:28 Temperature 97.3 F L Temperature Source Temporal Pulse Rate 66 63 Respiratory Rate 14 16 Respiratory Effort Normal Non-Labored Respiratory Depth Normal Respiratory Pattern Normal Blood Pressure 157/86 H 152/79 H Blood Pressure Mean 109 103 Pulse Ox 94 96 Oxygen Delivery Method Room Air Room Air Room Air 08/06/20 15:48 Temperature Temperature Source Pulse Rate 98 Respiratory Rate 16 Respiratory Effort Respiratory Depth Respiratory Pattern Normal Blood Pressure Blood Pressure Mean Pulse Ox Oxygen Delivery Method Positive well nourished and well developed General Appearance ED: well developed HEENT Reports moist mucous membranes Neck supple and no JVD Resp normal respiratory effort and clear to auscultation bilaterally Cardio regular rate, regular rhythm and no murmurs GI normal to inspection, nondistended, normoactive bowel sounds and non-tender Palpation: soft Extremity normal to inspection General Extremety ED: Negative for edema or tenderness General Extremity: Negative for edema Neuro oriented x3, CN's II-XII intact bilaterally and no sensory deficits noted Sensorium / Orientation: alert Motor Exam: strength 5/5 throughout Psych mental status grossly normal Skin no rashes or lesions noted MDM MDM MDM Narrative Medical decision making narrative: Patient was given a DuoNeb aerosol here. Patient feels better. CBC was essentially within normal limits. Comprehensive metabolic profile showed an elevated BUN and creatinine which were unchanged compared to previous results. Portable chest x-ray was obtained. There is 1 view. On my interpretation, there is cardiomegaly. There is no acute infiltrate. There is no effusion. Bony thorax is normal. Radiologist also interpreted the x-ray and agrees. EKG was obtained. On my interpretation, it shows a normal sinus rhythm with a rate of 61. There are nonspecific ST-T wave changes. 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 This was unchanged compared to previous EKG. Patient feels better on reevaluation. Patient was given a prescription for Zithromax. Patient was instructed to follow-up with his primary care physician in 5 to 7 days. Patient understood and was agreeable with the plan. All questions were answered. Lab Data Attestation: I reviewed the patient's lab results. Labs: Laboratory Results - last 24 hr 08/06/20 08/06/20 15:25 15:25 WBC 4.8 RBC 3.49 L Hgb 12.1 L Hct 35.8 L MCV 102.6 H MCH 34.7 H MCHC 33.8 RDW Std Deviation 51.4 H RDW Coeff of Maritza 13.5 Plt Count 157 MPV 10.2 Immature Gran % (Auto) 0.200 Neut % (Auto) 41.7 L Lymph % (Auto) 32.6 [place] % (Auto) 17.1 H Eos % (Auto) 7.2 H Baso % (Auto) 1.2 H Absolute Neuts (auto) 2.0 Absolute Lymphs (auto) 1.58 Nucleated RBC % 0 Sodium 136 Potassium 3.8 Chloride 96 L Carbon Dioxide 32.0 Anion Gap 8 BUN 32 H Creatinine 4.90 H Estim Creat Clear Calc 11.74 Est GFR (MDRD) Af Amer 15 L Est GFR (MDRD) Non-Af 12 L BUN/Creatinine Ratio 6.5 L Glucose 81 Calcium 8.9 Total Bilirubin 0.40 AST 16 ALT 14 L Alkaline Phosphatase 111 Total Protein 7.5 Albumin 3.8 Globulin 3.7 Albumin/Globulin Ratio 1.0 Radiography Chest X-Ray - ED: 1 View, Read by ED Physician, Read by Radiologist and Cardiomegaly Diagnostic Testing: Radiology Impression Chest X-Ray 08/06/20 15:33 IMPRESSION: Cardiomegaly. Electronically Signed: Deion Arevalo MD at 15:45 EDT , Service support , EKG Initial EKG: Attestation: I personally reviewed and interpreted this EKG as follows: Interpretation: Sinus Rhythm (61), No Acute Injury Pattern, LAFB and Non- Specific ST Changes Prior EKG tracings: available for review Prior: Unchanged Discharge Plan Triage Chief Complaint: Cough ED Provider: Jian Benedict Dx/Rx/DC Orders Clinical Impression: Acute bronchitis Instructions: ED Bronchitis with Wheezing (Adult) Prescriptions: New amoxicillin-pot clavulanate [amoxicillin-pot clavulanate] 875 MG tablet 875 mg PO Q12H Qty: 20 RF: 0 No Action allopurinol 100 mg tablet PO Qty: 90 RF: 0 albuterol sulfate 2.5 mg /3 mL (0.083 %) solution for nebulization 2.5 mg continuous nebulization ONCE Qty: 1 RF: 0 ipratropium-albuterol 0.5 mg-3 mg(2.5 mg base)/3 mL solution for nebulization 3 ml INHALATION Q6H PRN (Reason: SOB &/OR WHEEZING) Qty: 180 RF: 6 albuterol sulfate 2.5 mg /3 mL (0.083 %) solution for nebulization 2.5 mg INHALATION Q4H PRN (Reason: Sob &/Or Wheezing) Qty: 180 RF: 3 Eliquis 2.5 mg tablet 2.5 mg PO BID RF: 0 lisinopril 2.5 mg tablet 5 mg PO BID RF: 0 acetaminophen 500 mg capsule 500 mg PO Q6H PRNRF: 0 loratadine 10 mg capsule 10 mg PO DAILY RF: 0 lorazepam 0.5 mg tablet 0.5 mg PO DAILY PRNRF: 0 magnesium 250 mg tablet 250 mg PO DAILY RF: 0 atorvastatin 80 MG tablet 80 mg PO QHS Qty: 30 RF: 1 carvedilol 3.125 MG tablet 3.125 mg PO BID Qty: 60 RF: 1 levothyroxine 50 MCG tablet 50 mcg PO DAILY@0600 Qty: 30 RF: 1 memantine 5 MG tablet 5 mg PO BID Qty: 60 RF: 0 calcium acetate(phosphat bind) 667 MG capsule 667 mg PO TIDCM Qty: 90 RF: 0 dextromethorphan-benzocaine 1 EACH lozenge 1 ea PO Q4H PRN PRN (Reason: sore throat) Qty: 20 RF: 0 amiodarone 200 MG tablet 100 mg PO DAILY RF: 0 Primary Care Provider: Yair Vásquez Referrals: Yair Vásquez MD [Primary Care Provider] - 5-7 Days Disposition Disposition: Home, Self Care
[2020-08-06] MEDS: Ipratropium/Albuterol Sulfate 3 ML AMPUL.NEB INHALATION (15:09)
[2020-08-06 15:26] VITALS: BP 152/79; PULSE 63; RESP 16; O2SAT 96
[2020-08-06 15:28] VITALS: O2SAT 96
--- NOTE | 2020-08-06 15:33 | RAD_ITS ---
STUDY: X-RAY CHEST REASON FOR EXAM: Male, 85 years old. PT WITH PRODUCTIVE COUGH X1 WEEK TECHNIQUE: Single AP portable view of the chest. COMPARISON: Comparison is made with prior examination dated 11/22/2019. FINDINGS: EKG electrodes are seen. The lungs are clear and expanded. There is no demonstrated pleural abnormality. There is mild cardiac enlargement. Normal mediastinum and sanjeev. Normal visualized pulmonary arteries. There is atherosclerotic calcification of the aortic arch with tortuosity. There are diffuse degenerative changes of the visualized thoracic spine. Normal visualized ribs, clavicles, and shoulders. There is no demonstrated abnormality of the visualized soft tissue structures of the upper abdomen. RAD/Chest 1 View (Portable) IMPRESSION: Cardiomegaly. Electronically Signed: Deion Arevalo MD at 15:45 EDT , Service support ,
[2020-08-06 15:41] LABS: Absolute Lymphocyte Count 1.58 X10^3/uL (0.83-4.51); Basophil# 0.06 X10^3/uL; Basophil% 1.2 % (0-1); Eosinophil# 0.35 X10^3/uL; Eosinophils% 7.2 % (0-5); Hematocrit 35.8 % (40-54); Hemoglobin 12.1 g/dL (13.0-16.5); Lymphocyte # 1.58 X10^3/ul (0.83-4.51); Lymphocyte % 32.6 % (19-41); Mean Corp Hgb Conc 33.8 g/dL (32-36); Mean Corpuscular Hgb 34.7 pg (27.0-32.0); Mean Corpuscular Volume 102.6 fL (80-94); Mean Platelet Vol. 10.2 fl (6.2-12.0); Monocyte# 0.83 X10^3/uL; Monocyte% 17.1 % (0-10); NRBC Flagged by Analyzer 0 % (0-5); Neutrophil # 2.01 X10^3/uL (2.7-7.7); Neutrophil % 41.7 % (47-70); Platelet Count 157 K/mm3 (150-450); RBC Distribution Width CV 13.5 % (11.6-14.6); RBC Distribution Width SD 51.4 fl (35.1-43.9); Red Blood Count 3.49 M/mm3 (4.6-6.2); White Blood Count 4.8 K/mm3 (4.4-11.0)
[2020-08-06 15:48] VITALS: PULSE 98; RESP 16
[2020-08-06 16:07] LABS: AST(SGOT) 16 U/L (15-37); Alanine Aminotransfer ALT/SGPT 14 U/L (16-61); Albumin, Serum 3.8 g/dL (3.2-5.0); Alkaline Phosphatase 111 U/L (45-117); Anion Gap 8 (5-15); BUN 32 mg/dL (7-18); BUN/Creat Ratio 6.5 RATIO (10-20); Calcium,Total 8.9 mg/dL (8.5-10.1); Chloride 96 mmol/L (98-107); EST Glomerular Filtration Rate 12 mL/min (>60); Est Glom Filt Rate - Afr Amer 15 mL/min (>60); Estimated Creatinine Clearance 11.74 ml/min; Globulin 3.7 g/dL (2.2-4.2); Glucose 81 mg/dL (74-106); Potassium 3.8 mmol/L (3.5-5.1); Protein, Total 7.5 g/dL (6.4-8.2); Sodium Level 136 mmol/L (136-145)
[2020-08-06] MEDS: Amox/Clavulanate 875 MG Tablet PO (17:10)
[2020-08-06 17:16] VITALS: BP 141/85; PULSE 64; RESP 15; O2SAT 96
== END 2020-08-06 17:16 | disposition home or self-care (01) ==
PROVIDERS: Emergency Provider Emergency Medicine
DX: J20.9 Acute bronchitis, unspecified (principal); F17.210 Nicotine dependence, cigarettes, uncomplicated; Z99.2 Dependence on renal dialysis
CPT/HCPCS: 71045; 80053; 85025; 87070; 87205; 87426; 93005; 94640; 99284; A4216

== ENCOUNTER 2021-02-23 11:52 | Inpatient (IN) | payer MEDICARE, SELFPAY ==
[2021-02-23] VITALS (12 sets, daily range): BP systolic 153–161; BP diastolic 81–106; PULSE 70–97; RESP 18–24; TEMP 36.3–37.1; O2SAT 92–95; BMI 26.2; BMI 26.3
--- NOTE | 2021-02-23 13:09 | EKG12_ITS ---
Test Reason : SOB Blood Pressure : / mmHG Vent. Rate : 066 BPM Atrial Rate : 066 BPM P-R Int : 248 ms QRS Dur : 082 ms QT Int : 456 ms P-R-T Axes : 058 -29 041 degrees QTc Int : 478 ms Sinus rhythm with marked sinus arrhythmia with 1st degree A-V block Low voltage QRS Septal infarct , age undetermined ST & Marked T wave abnormality, consider anterolateral ischemia Abnormal ECG Confirmed by AWAIS MCDERMOTT, ERICA ([id number]), news videotape editor ARPAN REDDY ([id number]) on 02/24/2021 10:09:26 AM Referred By: ALLYSON Confirmed By:ERICA ERNANDEZ MD
--- NOTE | 2021-02-23 13:25 | RAD_ITS ---
STUDY: X-RAY CHEST REASON FOR EXAM: Male, 85 years old. Shortness of breath with increased bloody sputum. TECHNIQUE: Single AP portable view of the chest. COMPARISON: Comparison is made with prior study dated 08/06/2020. FINDINGS: EKG electrodes are seen. Diffuse airspace disease in the right hemithorax. With the patient''s history of a bloody sputum, this may represent hemorrhage or pneumonic infiltrate. There is no demonstrated pleural abnormality. Normal size heart. Normal mediastinum and sanjeev. Normal visualized pulmonary arteries. Normal visualized aortic arch and descending thoracic aorta. There are diffuse degenerative changes of the visualized thoracic spine. Prior fusion of the lower cervical spine. There is no demonstrated abnormality of the visualized soft tissue structures of the upper abdomen. RAD/Chest 1 View (Portable) IMPRESSION: Diffuse airspace disease in the right hemithorax as described. Electronically Signed: Deion rAevalo MD at 13:57 EST , Service support ,
[2021-02-23 13:37] LABS: Absolute Lymphocyte Count 1.06 X10^3/uL (0.83-4.51); Absolute Neutrophil Count 5.9 X10^3/uL (2.0-7.7); Basophil# 0.05 X10^3/uL; Basophil% 0.6 % (0-1); Eosinophil# 0.04 X10^3/uL; Eosinophils% 0.5 % (0-5); Hematocrit 30.9 % (40-54); Hemoglobin 10.8 g/dL (13.0-16.5); Lymphocyte # 1.06 X10^3/ul (0.83-4.51); Lymphocyte % 13.7 % (19-41); Mean Corpuscular Hgb 35.9 pg (27.0-32.0); Mean Corpuscular Volume 102.7 fL (80-94); Mean Platelet Vol. 11.5 fl (6.2-12.0); Monocyte# 0.66 X10^3/uL; Monocyte% 8.5 % (0-10); NRBC Flagged by Analyzer 0 % (0-5); Neutrophil # 5.89 X10^3/uL (2.7-7.7); Neutrophil % 76.1 % (47-70); Platelet Count 174 K/mm3 (150-450); RBC Distribution Width CV 14.5 % (11.6-14.6); RBC Distribution Width SD 52.2 fl (35.1-43.9); Red Blood Count 3.01 M/mm3 (4.6-6.2); White Blood Count 7.8 K/mm3 (4.4-11.0)
--- NOTE | 2021-02-23 13:45 | CT_ITS ---
STUDY: CT BRAIN WITHOUT CONTRAST REASON FOR EXAM: Male, 85 years old. History of fall. RADIATION DOSAGE (If Supplied By Facility): CTDIvol = ( 47.06 ) mGy, DLP = ( 872.68 ) mGycm TECHNIQUE: Transaxial CT imaging of the brain was performed without administration of intravenous contrast material. Individualized dose optimization techniques were used for this CT. COMPARISON: No relevant priors. FINDINGS: Normal soft tissue structures. Normal calvarium. There is moderate cerebral atrophy with widening of the extra-axial spaces and ventricular dilatation. There are areas of decreased attenuation within the white matter tracts of the supratentorial brain, consistent with microvascular disease changes. Normal basal ganglia and thalami. Normal brainstem. Normal cerebellum. There is no intracranial hemorrhage. There are no findings of an acute ischemic infarction. Atherosclerotic calcification of the vertebral arteries and cavernous portions of the internal carotid arteries bilaterally. Normal visualized paranasal sinuses. CT/Brain/Head without Contrast IMPRESSION: Chronic involutional changes of the brain. Electronically Signed: Deion Arevalo MD at 15:36 EST , Service support ,
--- NOTE | 2021-02-23 13:45 | CT_ITS ---
STUDY: CT CHEST WITHOUT CONTRAST REASON FOR EXAM: Male, 85 years old. Fall, chest trauma RADIATION DOSAGE (If Supplied By Facility): CTDIvol = ( 20.74 ) mGy, DLP = ( 778.64 ) mGycm TECHNIQUE: Transaxial imaging was performed without the administration of intravenous contrast material. Multiplanar coronal and sagittal images were reformatted. Individualized dose optimization techniques were used for this CT. COMPARISON: Comparison is made with prior chest radiograph done earlier in the day. FINDINGS: Airspace disease in the right upper lobe abutting the right minor fissure. Airspace disease is also seen in the right middle lobe as well as in the left lower lobe. Small right pleural effusion. There are calcifications of the coronary arteries. Tiny pericardial effusion. There are multiple small lymph nodes within the mediastinum, which are normal in size and morphology most compatible with reactive lymph hyperplasia. Normal hilar regions. Normal unenhanced pulmonary arteries. There is atherosclerotic calcification of the aortic arch with tortuosity and elongation of the aortic arch and descending thoracic aorta. There are multi-level degenerative changes of the thoracic spine. Partial collapse of the L1 vertebrae. Multiple small gallstones. CT/Chest without Contrast IMPRESSION: Airspace disease involving the right upper, right middle and right lower lobes with a small right pleural effusion. Tiny pericardial effusion. Electronically Signed: Deion Arevalo MD at 15:39 EST , Service support ,
[2021-02-23 14:15] LABS: Lactic Acid 1.5 mmol/L (0.4-1.9)
[2021-02-23 14:33] LABS: Anion Gap 8 (5-15); BUN 56 mg/dL (7-18); BUN/Creat Ratio 9.1 RATIO (10-20); CPK Total, Creatine Kinase 67 U/L (39-308); Calcium,Total 9.1 mg/dL (8.5-10.1); Chloride 106 mmol/L (98-107); Creatinine, Serum 6.14 mg/dL (0.70-1.30); EST Glomerular Filtration Rate 9 mL/min (>60); Est Glom Filt Rate - Afr Amer 11 mL/min (>60); Estimated Creatinine Clearance 9.37 ml/min; Glucose 103 mg/dL (74-106); Potassium 5.2 mmol/L (3.5-5.1); Sodium Level 140 mmol/L (136-145); Troponin-I HS 1069 pg/mL (3.0-78.0)
--- NOTE | 2021-02-23 16:01 | NURSING ---
DR CONTE FOR DR VALADEZ
--- NOTE | 2021-02-23 16:16 | EDS_ITS ---
HPI History of Present Illness Chief Complaint: Shortness of Breath Informant: patient and spouse/S.O. Narrative Narrative: Patient is an 85-year-old male with complex medical history including end-stage renal disease on hemodialysis (Monday and Monday), atrial fibrillation (on Eliquis), and reduced ejection fraction presenting from home with hemoptysis. This started last night. Patient's had increased shortness of breath for the past week. notes that he has had decreased appetite and oral intake. No reported fevers. She notes he has been walking more slowly and seemed off balance as well as using his cane. He did have a fall last week and landed on his left side. He has a bruise on his left flank. She is unsure if this is related to his shortness of breath and hemoptysis today. Patient admits dialysis yesterday because of the snow and weather. His last dialysis was 4 days ago. Patient was have a chronic cough for the past 5 years per the from sinus drainage but has had increased coughing lately. Patient denies any head injury. He denies any other complaints at this time. [facility] Medical History [place] (acute kidney injury) CKD (chronic kidney disease) stage 4, GFR 15-29 ml/min Community acquired pneumonia History of aorta surgery History of back surgery History of dialysis History of femur surgery History of heart surgery History of irregular heartbeat History of Jaw surgery Kidney disease Sepsis with acute hypoxic respiratory failure and septic shock Septic shock Thyroid disease Home Medications allopurinol 100 mg tablet PO #90 tab 07/26/18 [History Last Taken Unknown] atorvastatin 80 mg PO QHS #30 tab 11/26/19 [Rx Last Taken Unknown] calcium acetate(phosphat bind) 667 mg PO TIDCM #90 cap 11/26/19 [Rx Last Taken Unknown] carvedilol 3.125 mg PO BID #60 tab 11/26/19 [Rx Last Taken Unknown] dextromethorphan-benzocaine 1 ea PO Q4H PRN PRN #20 diana 11/26/19 [Rx Last Taken Unknown] levothyroxine 50 mcg PO DAILY@0600 #30 tab 11/26/19 [Rx Last Taken Unknown] memantine 5 mg PO BID #60 tab 11/26/19 [Rx Last Taken Unknown] albuterol sulfate 2.5 mg CONTINUOUS NEBULIZATION ONCE #1 ml 12/12/19 [Clinic Last Taken Unknown] ipratropium 0.5 mg-albuterol 3 mg (2.5 mg base)/3 mL nebulization soln 3 ml INHALATION Q6H PRN #180 ml 12/12/19 [Rx Last Taken Unknown] albuterol sulfate 2.5 mg INHALATION Q4H PRN #180 ml 12/13/19 [Rx Last Taken Unknown] apixaban 2.5 mg tablet 2.5 mg PO BID 01/14/20 [History Last Taken Unknown] lisinopril 2.5 mg tablet 5 mg PO BID tab 01/14/20 [History Last Taken Unknown] acetaminophen 500 mg capsule 500 mg PO Q6H PRN 03/12/20 [History Last Taken Unknown] loratadine 10 mg capsule 10 mg PO DAILY 03/12/20 [History Last Taken Unknown] lorazepam 0.5 mg tablet 0.5 mg PO DAILY PRN 03/12/20 [History Last Taken Unknown] magnesium 250 mg tablet 250 mg PO DAILY 03/12/20 [History Last Taken Unknown] amiodarone 100 mg PO DAILY 08/06/20 [History Last Taken Unknown] amoxicillin-pot clavulanate 875 mg PO Q12H #20 tablet 08/06/20 [Rx Last Taken Unknown] meclizine 25 mg PO TID 02/23/21 [History Last Taken Unknown] polyethylene glycol 3350 17 g PO DAILY 02/23/21 [History Last Taken Unknown] Allergy/AdvReac Type Severity Reaction Status Date / Time adhesive tape Allergy Mild Rash Verified 02/23/21 12:00 oxycodone Allergy Mild Rash Verified 02/23/21 12:00 tramadol Allergy Mild LIGHTHEADED Verified 02/23/21 12:00 AND DIZZY WITH HALLUCINATIONS Family History Grandfather No problems noted. Father No problems noted. Brother No problems noted. Brother Brain aneurysm Social History Smoking Status: Current every day smoker tobacco type: cigarettes ROS ROS ED Constitutional Constitutional ED: Reports other Details: decreased appetite ; Denies chills or fever(s) Eyes Eyes: Denies blurry vision ENT ENT ED: Denies rhinorrhea or sore throat Cardiovascular Cardiovascular: Reports other Details: Left rib pain ; Denies chest pain or palpitations Respiratory/Chest Respiratory/Chest: Reports cough, dyspnea and other Details: Hemoptysis Gastrointestinal Gastrointestinal: Denies abdominal pain, nausea or vomiting Musculoskeletal Musculoskeletal: Reports arthralgias; Denies myalgias or neck pain Integumentary Denies rash Neurologic Neurologic: Denies headache(s) or weakness Psychiatric Psychiatric: Denies depression EXAM Physical Exam Const Vital Signs: 02/23/21 11:53 02/23/21 12:01 02/23/21 12:05 Temperature 98.0 F 98.0 F Temperature Source Oral Oral Pulse Rate 76 70 Respiratory Rate 24 H 23 H Respiratory Effort Short of Breath Respiratory Pattern Tachypnea Blood Pressure 153/92 H 155/93 H Blood Pressure Mean 112 113 Pulse Ox 95 95 Oxygen Delivery Method Room Air Room Air Room Air 02/23/21 15:12 02/23/21 15:13 Temperature 97.3 F L Temperature Source Temporal Pulse Rate 76 75 Respiratory Rate 18 18 Respiratory Effort Respiratory Pattern Blood Pressure 153/106 H 153/106 H Blood Pressure Mean 121 121 Pulse Ox 95 95 Oxygen Delivery Method Room Air Room Air Positive well nourished and well developed General Appearance ED: well developed HEENT Reports TM's clear and dry mucous membranes Negative for tenderness Tympanic Membrane ED: Yes TM's clear Mouth ED: Yes dry mucous membranes Mouth: dry mucous membranes Eyes PERRL and EOMs intact bilaterally Neck no lymphadenopathy and supple Chest Wall inspection of chest normal Resp Auscultation: diminished lung sounds right Cardio regular rate and no murmurs Rhythm: abnormal rhythm irregularly irregular GI normal to inspection, nondistended, normoactive bowel sounds Back/Spine no CVA tenderness Back/Spine Narrative: No midline tenderness. Ecchymosis noted at the left flank with some associated tenderness to palpation superficially Extremity normal to inspection Extremity Narrative: AV fistula with palpable thrill in the left forearm General Extremety ED: Negative for edema or tenderness General Extremity: Negative for edema Neuro oriented x3 and no sensory deficits noted Sensorium / Orientation: alert Motor Exam: general weakness Psych mental status grossly normal Skin no rashes or lesions noted Skin Narrative: 3 cm x 10 cm area of ecchymosis of the left flank MDM MDM MDM Narrative Medical decision making narrative: Patient is evaluated for hemoptysis as well as increased shortness of breath. Patient is mildly tachypneic but he is not hypoxic in the ER at rest. He does not produce subhash mopped assist in the emergency room that is dark red blood. Patient is mildly anemic with a hemoglobin of 10.8 however he is hypertensive. I do not think he has any signs of hemorrhagic shock. His lactate is normal at 1.5. His potassium is mildly elevated at 5.2. He does have an elevated BUN and creatinine consistent with end-stage renal disease. Patient has a significantly elevated high-sensitivity troponin of 1069. EKG does show acute T wave changes in V2 through V5. Patient is not having any chest pain. Case is discussed with Dr. Cotto, cardiology on-call, who reviewed the EKG and patient's history. Given his comorbidities and current presentation he suspects this is more strain related or associated with his end-stage renal disease and patient does not require an emergent cath. Previously patient has had an NSTEMI and been treated medically. Patient does appear to have airspace disease involving the right lung diffusely with a small right pleural effusion and tiny pericardial effusion. Given patient's new hemop tysis and worsening cough and shortness of breath he will be treated as an infection with azithromycin and cefepime. He does not have any associated leukocytosis or fever which is a little unusual. Case is discussed with pulmonology, Dr. Driscoll, who will follow the patient. Given patient is on Eliquis and having hemoptysis we will refrain from starting a heparin drip for NSTEMI at this time. Will trend troponin on the floor. Patient has had bruising to his left flank. I do not think this is associate with his presentation today. Head CT was obtained as had reported unsteady gait. No acute processes seen there. His potassium is mildly having at 5.2 but do not think this is enough to cause his degree of EKG changes. I do not think patient requires emergent dialysis. Lab Data Attestation: I reviewed the patient's lab results. Labs: Laboratory Results - last 24 hr 02/23/21 02/23/21 02/23/21 13:18 13:18 13:18 WBC 7.8 RBC 3.01 L Hgb 10.8 L Hct 30.9 L MCV 102.7 H MCH 35.9 H MCHC 35.0 RDW Std Deviation 52.2 H RDW Coeff of Maritza 14.5 Plt Count 174 MPV 11.5 Immature Gran % (Auto) 0.600 Neut % (Auto) 76.1 H Lymph % (Auto) 13.7 L [place] % (Auto) 8.5 Eos % (Auto) 0.5 Baso % (Auto) 0.6 Absolute Neuts (auto) 5.9 Absolute Lymphs (auto) 1.06 Nucleated RBC % 0 Sodium Cancelled Potassium Cancelled Chloride Cancelled Carbon Dioxide Cancelled Anion Gap Cancelled BUN Cancelled Creatinine Cancelled Estim Creat Clear Calc Cancelled Est GFR (MDRD) Af Amer Cancelled Est GFR (MDRD) Non-Af Cancelled BUN/Creatinine Ratio Cancelled Glucose Cancelled Lactic Acid 1.5 Calcium Cancelled Total Creatine Kinase Cancelled Troponin I High Sens Cancelled 02/23/21 14:00 WBC RBC Hgb Hct MCV MCH MCHC RDW Std Deviation RDW Coeff of Maritza Plt Count MPV Immature Gran % (Auto) Neut % (Auto) Lymph % (Auto) [place] % (Auto) Eos % (Auto) Baso % (Auto) Absolute Neuts (auto) Absolute Lymphs (auto) Nucleated RBC % Sodium 140 Potassium 5.2 H Chloride 106 Carbon Dioxide 26.0 Anion Gap 8 BUN 56 H Creatinine 6.14 H Estim Creat Clear Calc 9.37 Est GFR (MDRD) Af Amer 11 L Est GFR (MDRD) Non-Af 9 L BUN/Creatinine Ratio 9.1 L Glucose 103 Lactic Acid Calcium 9.1 Total Creatine Kinase 67 Troponin I High Sens 1069 H* Radiography Chest X-Ray - ED: 1 View, Read by ED Physician, Read by Radiologist and Right Infiltrate Diagnostic Testing: Clinical Impression(s) from Imaging Studies Chest X-Ray 02/23/21 13:25 IMPRESSION: Diffuse airspace disease in the right hemithorax as described. Electronically Signed: Deion Arevalo MD at 13:57 EST , Service support , Brain CT 02/23/21 13:45 IMPRESSION: Chronic involutional changes of the brain. Electronically Signed: Deion Arevalo MD at 15:36 EST , Service support , Chest CT 02/23/21 13:45 IMPRESSION: Airspace disease involving the right upper, right middle and right lower lobes with a small right pleural effusion. Tiny pericardial effusion. Electronically Signed: Deion Arevalo MD at 15:39 EST , Service support , Rhythm Strip Rhythm Strip: Sinus Rhythm Rate: 66 Ectopy: None EKG Initial EKG: Attestation: I personally reviewed and interpreted this EKG as follows: Interpretation: Sinus Rhythm Comments: Sinus rhythm with sinus arrhythmia at a rate of 66 First-degree AV block with a NC interval of 248 Left axis deviation T wave inversions in V2 through V5 with ST segment depressions in V4 and V5. No reciprocal changes. These T wave inversions are new compared to prior EKG on 08/06/2020 Discharge Plan Triage Chief Complaint: Shortness of Breath ED Provider: Jeniffer Sandoval Dx/Rx/DC Orders Clinical Impression: Cough with hemoptysis, Community acquired pneumonia, Non-ST elevation (NSTEMI) myocardial infarction, End-stage renal disease (ESRD) Primary Care Provider: Yair Vásquez
--- NOTE | 2021-02-23 16:30 | NURSING ---
PCU DG NSTEMI, HEMOPTYSIS, MULTIFOCAL INFILTRATE
--- NOTE | 2021-02-23 16:50 | CASEMGMT ---
DURGA ROBERT to room to meet with patient for initial transition planning/care coordination assessment. DURGA ROBERT introduced self and role at [facility]. Patient voices understanding and consents to assessment at this time. Patient's Shana present at bedside and patient directs most questions to . Patient is alert and oriented and answers all questions appropriately (admits that he is forgetful). Care providers, pharmacy, and demographics verified/updated at this time. PCP: Vee Melissa [facility] ([facility]) Specialists: [facility] (unsure of corporate trainer's name), Dr. Vicky Sadler- cardiology ([facility]) Preferred Pharmacy: [facility] Insurance: [employer] [facility] Prescription Benefit: yes Living Will/HPOA: Patient's states patient has living will and HPOA. Patient and made aware these forms are not on file at [facility]. LNOK: , Shana Chua Living Arrangements: Patient lives with in one story house with 2 steps to enter the home, no handrail present. Patient states independent with ADLs prior to recent illness/hospitalization. Smoking/ETOH: Current smoker (1-3 cigarettes/day), denies ETOH use Transportation: Patient does not drive, reporting he gave up his courtesy driver's license because he would often forget how to get places. drives patient and patient denies transportation concerns. DME/HHC/SNF: Patient typically ambulates with a cane and reports she has noticed him walking more slowly and appears off balance. Other DME available in the home: shower chair, raised toilet seat, grab bars and walker. Patient does not have home oxygen. Previous HHC but is unable to recall name of agency. Denies previous SNF stays. Hemodialysis MWF- [facility] in [place], [place]. Patient missed HD on 02/22/2021 related to snowy weather and poor driving conditions. Patient has no concerns with going home at time of discharge. DURGA ROBERT spoke with patient and regarding HHC. Patient and agreeable to HHC at time of discharge, if indicated. CM to follow for any discharge planning/needs. Patient voices no concerns/needs at this time. Advised patient to ask for CM if any questions/concerns/needs arise. Voices understanding. Plan: home, agreeable to HHC if indicated
--- NOTE | 2021-02-23 17:26 | PCM.HP.STD ---
[facility] - General General Date of Admission: 02/23/21 Chief Complaint: Hemoptysis for 3 days. Worsening shortness of breath for last 1 week. HPI Narrative LEYDA ISAACS, is a 85 M with multiple comorbidities came to ER for hemoptysis for last 3 days and worsening shortness of breath for 1 week. Patient has dyspnea on mild exertion for about 6 months as per but has gotten worse for last 1 week with minimal exertion or at rest. Patient also had hemoptysis for last 3 days moderate amount getting less. Denies chest pain, pressure or tightness. Patient also has chronic cough for the last 5 years mainly from upper airway cough syndrome from sinus drainage that increased in the last 1 week. Patient also had fall last week on his knee and chest. Patient has decreased appetite and oral intake and decreased functional status. Patient also getting off balance, disequilibrium on cane. His unclear does not know exactly about the change of his weight or measured his weight but states he is holding/maintaining his weight. Denies any fever chills or sweating. Patient was admitted in November 2019 in ICU for septic shock due to severe bilateral pneumonia and follows in pulmonary clinic. Patient also follows blueprint processor Dr. Cotto for chronic systolic heart failure paroxysmal A. fib on Eliquis. 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 In ED, patient afebrile, mild short of breath and tachypneic. Pulse ox 95% on room air. Blood pressure 153/106. Twelve-lead EKG shows sinus rhythm with marked sinus arrhythmia, first-degree AV block. Low voltage QRS, QTC [address] depression and T inversion in V1 to V5 leads. Previous EKG in August 06, 2020 shows A. fib, LAFB but T inversion is marked and new; not seen in previous EKG Troponin elevated. Patient also had chest x-ray and CT scan as mentioned below [facility] Medical History [place] (acute kidney injury) CKD (chronic kidney disease) stage 4, GFR 15-29 ml/min Community acquired pneumonia History of aorta surgery History of back surgery History of dialysis History of femur surgery History of heart surgery History of irregular heartbeat History of Jaw surgery Kidney disease Sepsis with acute hypoxic respiratory failure and septic shock Septic shock Thyroid disease Home Medications allopurinol 100 mg tablet PO #90 tab 07/26/18 [History Last Taken Unknown] atorvastatin 80 mg PO QHS #30 tab 11/26/19 [Rx Last Taken Unknown] calcium acetate(phosphat bind) 667 mg PO TIDCM #90 cap 11/26/19 [Rx Last Taken Unknown] carvedilol 3.125 mg PO BID #60 tab 11/26/19 [Rx Last Taken Unknown] dextromethorphan-benzocaine 1 ea PO Q4H PRN PRN #20 diana 11/26/19 [Rx Last Taken Unknown] levothyroxine 50 mcg PO DAILY@0600 #30 tab 11/26/19 [Rx Last Taken Unknown] memantine 5 mg PO BID #60 tab 11/26/19 [Rx Last Taken Unknown] albuterol sulfate 2.5 mg CONTINUOUS NEBULIZATION ONCE #1 ml 12/12/19 [Clinic Last Taken Unknown] ipratropium 0.5 mg-albuterol 3 mg (2.5 mg base)/3 mL nebulization soln 3 ml INHALATION Q6H PRN #180 ml 12/12/19 [Rx Last Taken Unknown] albuterol sulfate 2.5 mg INHALATION Q4H PRN #180 ml 12/13/19 [Rx Last Taken Unknown] apixaban 2.5 mg tablet 2.5 mg PO BID 01/14/20 [History Last Taken Unknown] lisinopril 2.5 mg tablet 5 mg PO BID tab 01/14/20 [History Last Taken Unknown] acetaminophen 500 mg capsule 500 mg PO Q6H PRN 03/12/20 [History Last Taken Unknown] loratadine 10 mg capsule 10 mg PO DAILY 03/12/20 [History Last Taken Unknown] lorazepam 0.5 mg tablet 0.5 mg PO DAILY PRN 03/12/20 [History Last Taken Unknown] magnesium 250 mg tablet 250 mg PO DAILY 03/12/20 [History Last Taken Unknown] amiodarone 100 mg PO DAILY 08/06/20 [History Last Taken Unknown] amoxicillin-pot clavulanate 875 mg PO Q12H #20 tablet 08/06/20 [Rx Last Taken Unknown] meclizine 25 mg PO TID 02/23/21 [History Last Taken Unknown] polyethylene glycol 3350 17 g PO DAILY 02/23/21 [History Last Taken Unknown] Allergy/AdvReac Type Severity Reaction Status Date / Time adhesive tape Allergy Mild Rash Verified 02/23/21 12:00 oxycodone Allergy Mild Rash Verified 02/23/21 12:00 tramadol Allergy Mild LIGHTHEADED Verified 02/23/21 12:00 AND DIZZY WITH HALLUCINATIONS Family History Grandfather No problems noted. Father No problems noted. Brother No problems noted. Brother Brain aneurysm Social History Smoking Status: Current every day smoker tobacco type: cigarettes ROS ROS Narrative Constitutional: Reports fatigue and weakness, fall, decreased functional status HEENT: Reports systems reviewed and no addt'l complaints, except as documented Respiratory/Chest: Denies chest pain, rest admission HPI Gastrointestinal: Denies coffee ground emesis, hematemesis or vomiting Genitourinary: On hemodialysis. Musculoskeletal: Pain over left subcostal region from fall. Reports joint pain and limited range of motion Neurologic: Denies seizure-like activity skin: No ulcer. No rash Endocrinology: Reports systems reviewed and no addt'l complaints, except as documented Hematologic/Lymphatic: Reports systems reviewed and no addt'l complaints, except as documented Rest 14 ROS are negative except as mentioned in HPI Vital Signs Vital Signs Vital Signs: 02/23/21 11:53 02/23/21 12:01 02/23/21 12:05 Temperature 98.0 F 98.0 F Temperature Source Oral Oral Pulse Rate 76 70 Respiratory Rate 24 H 23 H Respiratory Effort Short of Breath Respiratory Pattern Tachypnea Blood Pressure 153/92 H 155/93 H Blood Pressure Mean 112 113 Pulse Ox 95 95 Oxygen Delivery Method Room Air Room Air Room Air 02/23/21 15:12 02/23/21 15:13 02/23/21 16:28 Temperature 97.3 F L 98.8 F Temperature Source Temporal Temporal Pulse Rate 76 75 73 Respiratory Rate 18 18 20 H Respiratory Effort Respiratory Pattern Blood Pressure 153/106 H 153/106 H 161/81 H Blood Pressure Mean 121 121 107 Pulse Ox 95 95 95 Oxygen Delivery Method Room Air Room Air Room Air Weight Weight: 187 lb 9.814 oz Body Mass Index (BMI) 26.2 Physical Exam Narrative General: Alert, Oriented x3, Cooperative HEENT: Atraumatic, PERRLA, EOMI, Normocephalic Oral: Oral mucosa dry. No Gingival or Mucosal Lesions/ Ulcerations Neck: Supple, No JVD, Negative Carotid Bruits Lungs: Air entry diminished in bilateral lung bases. No crepitation/rhonchi/wheezing. Dyspnea on exertion Cardiovascular: Regular rate, Regular Rhythm, Normal S1, Normal S2, No murmurs Abdomen: Midline old surgical scar for AAA repair. Mild tenderness in the left subcostal margin. Bowel Sounds Present, Soft, Non-Distended : No renal angle tenderness. No suprapubic tenderness. Extremities: No edema, Capillary Refill Less than 3 Seconds Skin: No rashes, No breakdown Musculoskeletal: No Tenderness to Palpation of Joints or Extremities. Neurological: Cranial nerves II-XII grossly intact, DTR 2+/4 and Symmetrical. Muscle strength 5/5 at major joints in lower extremities Psych/Mental Status: Flat affect, dementia Results Lab / Micro Data Result Diagrams: 02/23/21 13:18 02/23/21 14:00 Labs: Laboratory Results - last 24 hr 02/23/21 13:18: WBC 7.8, RBC 3.01 L, Hgb 10.8 L, Hct 30.9 L, MCV 102.7 H, MCH 35.9 H, MCHC 35.0, RDW Std Deviation 52.2 H, RDW Coeff of [place] 14.5, Plt Count 174, MPV 11.5, Immature Gran % (Auto) 0.600, Neut % (Auto) 76.1 H, Lymph % (Auto) 13.7 L, [place] % (Auto) 8.5, Eos % (Auto) 0.5, Baso % (Auto) 0.6, Absolute Neuts (auto) 5.9, Absolute Lymphs (auto) 1.06, Nucleated RBC % 0 02/23/21 13:18: Lactic Acid 1.5 02/23/21 14:00: Sodium 140, Potassium 5.2 H, Chloride 106, Carbon Dioxide 26.0, Anion Gap 8, BUN 56 H, Creatinine 6.14 H, Estim Creat Clear Calc 9.37, Est GFR (MDRD) Af Amer 11 L, Est GFR (MDRD) Non-Af 9 L, BUN/Creatinine Ratio 9.1 L, Glucose 103, Calcium 9.1, Total Creatine Kinase 67, Troponin I High Sens 1069 H* Micro: Microbiology 02/23/21 13:23 Interface Orders SARS-CoV-2 Antigen (Rapid) - Final Rhythm Strip Rhythm Strip: Sinus Rhythm Rate: 66 Ectopy: None Radiology Impression Chest X-Ray 02/23/21 13:25 IMPRESSION: Diffuse airspace disease in the right hemithorax as described. Electronically Signed: Deion Arevalo MD at 13:57 EST , Service support , Brain CT 02/23/21 13:45 IMPRESSION: Chronic involutional changes of the brain. Electronically Signed: Deion Arevalo MD at 15:36 EST , Service support , Chest CT 02/23/21 13:45 IMPRESSION: Airspace disease involving the right upper, right middle and right lower lobes with a small right pleural effusion. Tiny pericardial effusion. Electronically Signed: Deion Arevalo MD at 15:39 EST , Service support , Assessment & Plan Assessment/Plan (1) Non-ST elevation (NSTEMI) myocardial infarction: (2) Cough with hemoptysis: PLAN: 1. Acute hemoptysis probably related to subacute right upper lobe atypical pneumonia: Patient is being admitted in PCU. Chest x-ray and chest CT individually reviewed shows decreased hypoventilation and right lung. Chest CT shows right upper lobe nodular airspace/parenchymal disease. Small right pleural effusion. Pneumonia work-up with a sputum culture, blood cultures and urinary antigens ordered. Patient empirically on IV ceftriaxone and doxycycline to avoid QTC prolongation with amiodarone. Pulmonology service consulted for abnormal CT findings and hemoptysis. 2. Non-STEMI most likely secondary to primary pulmonary disease: Troponin is high. EKG shows T wave depression in anterolateral leads. Patient cannot have antiplatelet or anticoagulant because of active hemoptysis, therefore Eliquis is on hold. Patient on Coreg and lisinopril and high intensity statin. Fasting profile tomorrow a.m. 2D echo ordered. Paper Bag Maker is consulted. Patient does not have chest pain/pressure or tightness. 3. Chronic ischemic systolic heart failure: Patient had last 2D echo in November 2019 when he was last admitted for septic shock secondary to bilateral pneumonia. EF 30 to 35%, severe LV systolic dysfunction with severe anteroapical hypokinesia. Patient had nuclear stress test in February 2018 showed a small to medium sized partially reversible defect in the mid anterior wall of LV. Patient has history of coronary artery disease hypertension, dyslipidemia. At that time patient and his did not want cardiac cath. Medical management. 4.ESRD on hemodialysis Monday, Monday and Monday. Had dialysis tunnel catheter on 11/21. On hemodialysis Monday, Monday and Monday. 5. Currently sinus rhythm with sinus arrhythmia. Continue amiodarone and low-dose Coreg, home medication. Eliquis on hold as mentioned above. 6. Chronic microcytic anemia probably related to chronic kidney disease: Hemoglobin 10.8. Platelet count 1 74,000. Follow CBC. 7. Gout continue allopurinol 8. Hypothyroidism -cont Synthroid 9. Dementia: On memantine 5 mg twice daily. Living will/advanced directive/end of life care: Patient does have living will or advanced directive. 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 After discussion of benefits/risks procedures involved with full code, DNR CC arrest and DNR CC, the patient opted for DNR CC arrest with no intubation Patient and his doesn't want artificial life support including intubation, tube feed, ventilator and/chest compression, central venous catheter, vasopressor and DC shock if needed Total time spent in [id number] encounter in discussion of advanced directive 16 minutes. Charges/Coding Visit Charges Inpatient E&M: 98839 Init Hosp L3 Procedures Hospitalists Procedures: 90084 Advncd Care Plan 30 Min
--- NOTE | 2021-02-23 17:30 | EKG12_ITS ---
Test Reason : PCU ADMIT Blood Pressure : / mmHG Vent. Rate : 093 BPM Atrial Rate : 061 BPM P-R Int : 000 ms QRS Dur : 090 ms QT Int : 402 ms P-R-T Axes : 000 -37 026 degrees QTc Int : 499 ms Atrial fibrillation Left axis deviation Low voltage QRS (Limb Leads) Septal infarct , age undetermined Inferior infarct , age undetermined ST & T wave abnormality, consider anterolateral ischemia Abnormal ECG Confirmed by CAMILA MCDERMOTT, PIETER ([id number]), fan mail editor ARPAN REDDY ([id number]) on 02/25/2021 9:44:04 AM Referred By: DG Confirmed By:PIETER JENSEN MD
--- NOTE | 2021-02-23 17:45 | PCS.PANDOC ---
PANDEMIC DOCUMENTATION INITIATED: Date: 09/21/2020 Time: 190
[2021-02-23 17:47] LABS: Magnesium 2.2 mg/dL (1.6-2.6)
[2021-02-23] MEDS: Doxycycline 100 MG CAPSULE PO (18:09)
[2021-02-23] MEDS: Calcium Acetate 667 MG Capsule PO (18:26)
[2021-02-23 18:29] LABS: Troponin-I HS 1143 pg/mL (3.0-78.0)
[2021-02-23 18:34] LABS: BNP,B-Type NATRIURETIC PEPTIDE 1861.6 pg/mL (0-100)
[2021-02-23] MEDS: 0.9% Saline Lock 10 ML Syringe IV (19:19)
[2021-02-23] MEDS: proCHLORPERazine 10 MG/2 ML Vial 5 MG IV (19:19)
[2021-02-23 19:56] LABS: M R Staph aureus DNA By PCR Negative (Negative); Probe Check PASS; Specimen Processing Control PASS
[2021-02-23] MEDS: Ipratropium/Albuterol Sulfate 3 ML AMPUL.NEB INHALATION (20:21)
[2021-02-23] MEDS: Atorvastatin Calcium 80 MG Tablet PO (21:06)
[2021-02-23] MEDS: Carvedilol 3.125 MG TABLET PO (21:06)
[2021-02-23] MEDS: Memantine Hydrochloride 5 MG Tablet PO (21:06)
[2021-02-23] MEDS: Lisinopril 5 MG Tablet PO (21:06)
[2021-02-23] MEDS: guaiFENesin 1,200 MG Tablet 1200 MG PO (21:06)
[2021-02-23 21:27] LABS: Troponin-I HS 1080 pg/mL (3.0-78.0)
[2021-02-24] VITALS (13 sets, daily range): BP systolic 120–153; BP diastolic 78–95; PULSE 75–92; RESP 16–22; TEMP 36.5–36.6; O2SAT 89–98
[2021-02-24] MEDS: Ipratropium/Albuterol Sulfate 3 ML AMPUL.NEB INHALATION ×4 (01:04→19:35)
[2021-02-24] MEDS: Levothyroxine 50 MCG Tablet PO (05:55)
--- NOTE | 2021-02-24 05:55 | ECHOD_ITS ---
Reason For Study: NSTEMI Procedure This was a 2D Doppler, Color Flow transthoracic echocardiogram. The study was technically difficult. Exam performed portable in patient room. Left Ventricle Normal LV size. Moderate segmental systolic dysfunction (see wall motion). The estimated ejection fraction is 30 %. There is evidence of diastolic dysfunction. Basal inferoseptal: Hypokinetic. Basal anteroseptal: Hypokinetic. Mid-Anterior : Akinetic. Mid-Lateral : Akinetic. Mid-Posterior: Hypokinetic. Mid-Inferior: Hypokinetic. Mid-inferoseptal : Akinetic. Mid-anteroseptal : Akinetic. [place] : Akinetic. Right Ventricle Normal RV size. Normal systolic function. Atria The left atrium is moderately enlarged. The right atrium is mildly enlarged. No doppler evidence for ASD. Mitral Valve There is no mitral annular calcification. Mild diffuse mitral valve thickening. Moderate (2+) mitral valve insufficiency. Tricuspid Valve Normal tricuspid valve. Mild tricuspid valve insufficiency. Right ventricular systolic pressure estimated to be 55 c/w pulmonary hypertension. mmHg. Aortic Valve Trisinus/trileaflet aortic valve. Mild diffuse aortic valve thickening. Mild focal aortic valve calcification. Trivial aortic valve insufficiency. Pulmonic Valve The pulmonic valve is not well visualized. Trivial pulmonic valve insufficiency. Great Vessels Normal sized aortic root. Calcified aortic root. Pericardium/Pleural No pericardial effusion. MMode/2D Measurements & Calculations LVIDd: 5.5 cm IVSd: 0.99 cm LVOT diam: 2.0 cm LVIDs: 4.3 cm LVPWd: 1.0 cm LVOT area: 3.2 cm2 RVDd: 3.3 cm FS: 21.5 % Ao root diam: 3.6 cm LAV(MOD-bp): 115.8 ml LVAd ap4: 35.3 cm2 LAV(MOD-bp) Indexed: 57.6 ml/m2 LVLd ap4: 8.4 cm LAV(MOD-sp2): 136.8 ml EDV(MOD-sp4): 118.8 ml LAV(MOD-sp4): 92.3 ml EDV(sp4-el): 126.8 ml LVAs ap4: 27.9 cm2 LVLs ap4: 7.7 cm ESV(MOD-sp4): 80.0 ml ESV(sp4-el): 85.4 ml EF(MOD-sp4): 32.6 % EF(sp4-el): 32.7 % LVAd ap2: 38.5 cm2 SV(MOD-sp4): 38.8 ml SV(MOD-sp2): 59.8 ml LVLd ap2: 8.9 cm EDV(MOD-sp2): 133.9 ml EDV(sp2-el): 140.9 ml LVAs ap2: 27.9 cm2 LVLs ap2: 8.5 cm ESV(MOD-sp2): 74.1 ml ESV(sp2-el): 77.5 ml EF(MOD-sp2): 44.7 % SV(sp4-el): 41.4 ml LA dimension(2D): 4.8 cm LA A4 area: 26.7 cm2 RA A4 area: 22.4 cm2 Doppler Measurements & Calculations MV E max kael: 98.6 cm/sec Lat Peak E' Kael: 5.7 cm/sec Med Peak E' Kael: 4.5 cm/sec E/E' lat: 17.4 E/E' med: 22.1 Ao V2 max: 123.2 cm/sec LV V1 max: 76.3 cm/sec PA V2 max: 82.8 cm/sec Ao max P.1 mmHg LV V1 max P.3 mmHg FREDERIC(V,D): 2.0 cm2 PI end-d kael: 102.2 cm/sec TR max kael: 359.3 cm/sec TR max P.6 mmHg ECHO/Echo Complete Interpretation Summary The study was technically difficult. Moderate segmental systolic dysfunction (see wall motion). The estimated ejection fraction is 30 %. The left atrium is moderately enlarged. The right atrium is mildly enlarged. Mild diffuse mitral valve thickening. Moderate (2+) mitral valve insufficiency. Mild tricuspid valve insufficiency. Mild diffuse aortic valve thickening. Mild focal aortic valve calcification. Trivial aortic valve insufficiency. Trivial pulmonic valve insufficiency. Calcified aortic root. Right ventricular systolic pressure estimated to be 55 mmHg c/w pulmonary hyper tension. There is evidence of diastolic dysfunction. Ordering Physician: Kar Cruz Performed By: Kady Coulter RDCS, RVT
[2021-02-24 06:02] LABS: Absolute Lymphocyte Count 1.08 X10^3/uL (0.83-4.51); Absolute Neutrophil Count 6.4 X10^3/uL (2.0-7.7); Basophil# 0.05 X10^3/uL; Basophil% 0.6 % (0-1); Eosinophil# 0.12 X10^3/uL; Eosinophils% 1.4 % (0-5); Hematocrit 33.2 % (40-54); Hemoglobin 11.1 g/dL (13.0-16.5); Lymphocyte # 1.08 X10^3/ul (0.83-4.51); Lymphocyte % 12.7 % (19-41); Mean Corp Hgb Conc 33.4 g/dL (32-36); Mean Corpuscular Hgb 35.4 pg (27.0-32.0); Mean Corpuscular Volume 105.7 fL (80-94); Mean Platelet Vol. 10.8 fl (6.2-12.0); Monocyte# 0.77 X10^3/uL; Monocyte% 9.1 % (0-10); NRBC Flagged by Analyzer 0 % (0-5); Neutrophil % 75.5 % (47-70); Platelet Count 172 K/mm3 (150-450); RBC Distribution Width CV 14.6 % (11.6-14.6); RBC Distribution Width SD 54.3 fl (35.1-43.9); Red Blood Count 3.14 M/mm3 (4.6-6.2); White Blood Count 8.5 K/mm3 (4.4-11.0)
[2021-02-24 06:50] LABS: Anion Gap 9 (5-15); BUN 65 mg/dL (7-18); Chloride 106 mmol/L (98-107); Creatinine, Serum 6.49 mg/dL (0.70-1.30); EST Glomerular Filtration Rate 9 mL/min (>60); Est Glom Filt Rate - Afr Amer 11 mL/min (>60); Estimated Creatinine Clearance 8.59 ml/min; Glucose 114 mg/dL (74-106); Phosphorus 2.9 mg/dL (2.5-4.9); Potassium 4.5 mmol/L (3.5-5.1); Sodium Level 139 mmol/L (136-145); Thyroid Stim Hormone (TSH) 2.76 uIU/mL (0.358-3.74)
[2021-02-24] MEDS: guaiFENesin 1,200 MG Tablet 1200 MG PO ×2 (08:26→20:30)
[2021-02-24] MEDS: Memantine Hydrochloride 5 MG Tablet PO ×2 (08:26→20:30)
[2021-02-24] MEDS: Doxycycline 100 MG CAPSULE PO (08:26)
[2021-02-24] MEDS: Amiodarone 200 MG Tablet 100 MG PO (08:26)
[2021-02-24] MEDS: Lisinopril 5 MG Tablet PO ×2 (08:26→20:30)
[2021-02-24] MEDS: Calcium Acetate 667 MG Capsule PO ×2 (08:26→12:45)
[2021-02-24] MEDS: Carvedilol 3.125 MG TABLET PO ×2 (08:26→20:30)
[2021-02-24] MEDS: Allopurinol 100 MG Tablet PO (08:27)
--- NOTE | 2021-02-24 08:39 | CON.PCM.CC_ITS ---
Assessment & Plan Assessment/Plan (1) Cough with hemoptysis: (2) Non-ST elevation (NSTEMI) myocardial infarction: (3) End-stage renal disease (ESRD): PLAN: RECOMMENDATIONS: 1. Complete hemodialysis with volume removal if possible 2. Encourage incentive spirometer 3. Pain control as needed for left rib pain 4. Possibly reinitiate Eliquis if hemoptysis resolved for 48 hours 5. Agree with empiric antibiotics for pneumonia IMPRESSIONS: 1. Hemoptysis with acute hypoxic respiratory insufficiency Unclear etiology at this time. Pattern on CT scan does show a dependent nature indicating possibility of fluid overload. Pattern is not consistent with a contrecoup injury, but pneumonia secondary to splinting is a possibility. Patient is on empiric antibiotics. Patient could have an element of hemoptysis secondary to anticoagulation with appropriate lung inflammation. Discontinuation of anticoagulation appears to have resolved hemoptysis at this time. We will hold on any bronchoscopy. Agree with holding anticoagulation for now, but likely reinitiate if able to avoid hemoptysis for 48 hours. We will hold on steroids as patient does not have wheezing on exam and no history of obstructive lung disease. 2. Elevated troponin/systolic CHF/A. fib Cardiology has been consulted. Unclear if elevated troponin is secondary to supply demand mismatch, decreased elimination with renal failure and missed dialysis or a new insult. Patient off of anticoagulation at this time. Chest pain is localized to the rib area, not substernal. Await cardiology assessment. 3. ESRD/gout/hypothyroidism/dementia/advanced age Complicates care, management, recovery and prognosis. Okay to continue with baseline medications. Patient would benefit from volume removal with hemodialysis as this can complicate overall clinical picture. CODE STATUS was discussed by hospitalist and patient is appropriately DNR Comfort Care arrest without intubation. HPI Consult Data Date of Consult: 02/24/21 HPI Narrative HPI Narrative: LEYDA ISAACS is an 85 M, with past medical history listed below, who presents to [facility] on 02/23/2021 secondary to hemoptysis. Patient does have a complex medical situation with end-stage renal disease on hemodialysis, anticoagulation secondary to atrial fibrillation and systolic CHF. Patient reportedly was feeling of his usual health and fell on his left side. Shortly thereafter, patient started to have hemoptysis that was reportedly significant. Patient described this as yellow sputum with bright blood intermixed. Patient reportedly had missed his last dialysis secondary to weather issues. Patient does have a chronic cough with sinus drainage, but reportedly this had worsened recently. Patient was not aware of any fevers or chills. In the ER, patient was afebrile, but tachypneic at 24 breaths/min. Patient was saturating well on room air, and hypertensive at 153/92. Laboratory work-up showed a white blood cell count of 7.8, hemoglobin of 10.8 and platelets of 174. Lactate was within normal limits. High-sensitivity troponin was elevated over thousand and creatinine was 6.14 with a potassium of 5.2. Chest x-ray showed diffuse airspace disease in the right hemithorax and a CT of the chest showed significant airspace disease on the right with a associated pleural effusion. No family members were available to discuss on my evaluation. Patient oxana burroughs does have some dementia, but was answering questions relatively appropriate. Patient had stated that he had fallen on the day prior to presentation, but the ER had reported a week ago. Patient is still having pain on his left chest, primarily in his inferior rib border. Patient states that he has had hemoptysis previously approximately 2 years ago following a fall. Patient is not aware of any bronchoscopies or work-up at that time. Patient does state that he has not had much hemoptysis since being admitted to the hospital. Patient is denying any substernal chest pain or focal neurologic deficit. Patient is unclear if he follows with a drophammer operator at baseline. [facility] Medical History [place] (acute kidney injury) CKD (chronic kidney disease) stage 4, GFR 15-29 ml/min Community acquired pneumonia History of aorta surgery History of back surgery History of dialysis History of femur surgery History of heart surgery History of irregular heartbeat History of Jaw surgery Kidney disease Sepsis with acute hypoxic respiratory failure and septic shock Septic shock Thyroid disease Home Medications allopurinol 100 mg tablet 100 mg PO DAILY #90 tab 07/26/18 [History Last Taken Unknown] atorvastatin 80 mg PO QHS #30 tab 11/26/19 [Rx Last Taken Unknown] calcium acetate(phosphat bind) 667 mg PO TIDCM #90 cap 11/26/19 [Rx Last Taken Unknown] carvedilol 3.125 mg PO BID #60 tab 11/26/19 [Rx Last Taken Unknown] levothyroxine 50 mcg PO DAILY@0600 #30 tab 11/26/19 [Rx Last Taken Unknown] memantine 5 mg PO BID #60 tab 11/26/19 [Rx Last Taken Unknown] albuterol sulfate 2.5 mg INHALATION Q4H PRN #180 ml 12/13/19 [Rx Last Taken Unk nown] apixaban 2.5 mg tablet 2.5 mg PO BID 01/14/20 [History Last Taken Unknown] lisinopril 2.5 mg tablet 5 mg PO DAILY tab 01/14/20 [History Last Taken Unknown] acetaminophen 500 mg capsule 500 mg PO Q6H PRN 03/12/20 [History Last Taken Unknown] amiodarone 100 mg PO DAILY 08/06/20 [History Last Taken Unknown] meclizine 25 mg PO TID 02/23/21 [History Last Taken Unknown] polyethylene glycol 3350 17 g PO DAILY 02/23/21 [History Last Taken Unknown] Allergy/AdvReac Type Severity Reaction Status Date / Time adhesive tape Allergy Mild Rash Verified 02/23/21 12:00 oxycodone Allergy Mild Rash Verified 02/23/21 12:00 tramadol Allergy Mild LIGHTHEADED Verified 02/23/21 12:00 AND DIZZY WITH HALLUCINATIONS Family History Grandfather No problems noted. Father No problems noted. Brother No problems noted. Brother Brain aneurysm Social History Smoking Status: Current every day smoker tobacco type: cigarettes ROS Review of Systems ROS Unobtainable: due to mental condition Physical Exam Const alert and no apparent distress Constitutional Narrative: Readily interactive, but some difficulty with more complex questions General Appearance: cooperative HEENT normocephalic, head/scalp atraumatic and moist oral mucous membranes HEENT Narrative: No epistaxis, oral lacerations or facial swelling appreciated Eyes PERRL and EOMs intact bilaterally Eyes Narrative: Decreased visual acuity (unable to see clock on the wall) Neck full ROM and no lymphadenopathy Chest Chest Narrative: Slight guarding with deep inhalation Chest: localized rib tenderness with anteroposterior compression 10th rib (Left); Negative for crepitus or sternal flail Resp Resp Narrative: Fair effort Effort and Inspection: able to speak in complete sentences Auscultation: Negative for rales, rhonchi or wheezes Cardio regular rate, S1 normal heart sound, S2 normal heart sound, no murmurs, no rub and no gallops Rhythm: abnormal rhythm irregularly irregular GI normal to inspection, nondistended, normoactive bowel sounds Extremity no clubbing, cyanosis or edema Skin no rashes or lesions noted Neuro oriented x3, CN's II-XII intact bilaterally and moves all extremities Psych cooperative Mood & Affect: flat affect Lab / Micro Data Result Diagrams: 02/24/21 05:42 02/24/21 05:42 Labs: Laboratory Results - last 24 hr 02/23/21 13:18: WBC 7.8, RBC 3.01 L, Hgb 10.8 L, Hct 30.9 L, MCV 102.7 H, MCH 35.9 H, MCHC 35.0, RDW Std Deviation 52.2 H, RDW Coeff of Maritza 14.5, Plt Count 174, MPV 11.5, Immature Gran % (Auto) 0.600, Neut % (Auto) 76.1 H, Lymph % (Auto) 13.7 L, [place] % (Auto) 8.5, Eos % (Auto) 0.5, Baso % (Auto) 0.6, Absolute Neuts (auto) 5.9, Absolute Lymphs (auto) 1.06, Nucleated RBC % 0 02/23/21 13:18: Sodium Cancelled, Potassium Cancelled, Chloride Cancelled, Carbon Dioxide Cancelled, Anion Gap Cancelled, BUN Cancelled, Creatinine Cancelled, Estim Creat Clear Calc Cancelled, Est GFR (MDRD) Af Amer Cancelled, Est GFR (MDRD) Non-Af Cancelled, BUN/Creatinine Ratio Cancelled, Glucose Cancelled, Calcium Cancelled, Total Creatine Kinase Cancelled, Troponin I High Sens Cancelled 02/23/21 13:18: Lactic Acid 1.5 02/23/21 13:18: B-Natriuretic Peptide 1861.6 H 02/23/21 14:00: Sodium 140, Potassium 5.2 H, Chloride 106, Carbon Dioxide 26.0, Anion Gap 8, BUN 56 H, Creatinine 6.14 H, Estim Creat Clear Calc 9.37, Est GFR (MDRD) Af Amer 11 L, Est GFR (MDRD) Non-Af 9 L, BUN/Creatinine Ratio 9.1 L, Glucose 103, Calcium 9.1, Total Creatine Kinase 67, Troponin I High Sens 1069 H* 02/23/21 14:00: Magnesium 2.2 02/23/21 17:40: Troponin I High Sens 1143 H* 02/23/21 18:00: MRSA (PCR) Negative 02/23/21 20:05: Troponin I High Sens 1080 H* 02/24/21 05:42: WBC 8.5, RBC 3.14 L, Hgb 11.1 L, Hct 33.2 L, MCV 105.7 H, MCH 35.4 H, MCHC 33.4, RDW Std Deviation 54.3 H, RDW Coeff of Maritza 14.6, Plt Count 172, MPV 10.8, Immature Gran % (Auto) 0.700, Neut % (Auto) 75.5 H, Lymph % (Auto) 12.7 L, [place] % (Auto) 9.1, Eos % (Auto) 1.4, Baso % (Auto) 0.6, Absolute Neuts (auto) 6.4, Absolute Lymphs (auto) 1.08, Nucleated RBC % 0 02/24/21 05:42: Sodium 139, Potassium 4.5, Chloride 106, Carbon Dioxide 24.0, Anion Gap 9, BUN 65 H, Creatinine 6.49 H, Estim Creat Clear Calc 8.59, Est GFR (MDRD) Af Amer 11 L, Est GFR (MDRD) Non-Af 9 L, BUN/Creatinine Ratio 10.0, Glucose 114 H, Calcium 9.0, Phosphorus 2.9, TSH 2.76 Micro: Microbiology 02/24/21 02:40 Urine, Clean Catch Legionella Antigen - Final 02/24/21 02:40 Urine, Clean Catch Streptococcus pneumoniae Antigen (M - Final 02/23/21 13:23 Interface Orders SARS-CoV-2 Antigen (Rapid) - Final Rhythm Strip Rhythm Strip: Sinus Rhythm Rate: 66 Ectopy: None Radiology Impression Chest X-Ray 02/23/21 13:25 IMPRESSION: Diffuse airspace disease in the right hemithorax as described. Electronically Signed: Deion Arevalo MD at 13:57 EST , Service support , Brain CT 02/23/21 13:45 IMPRESSION: Chronic involutional changes of the brain. Electronically Signed: Deion Arevalo MD at 15:36 EST , Service support , Chest CT 02/23/21 13:45 IMPRESSION: Airspace disease involving the right upper, right middle and right lower lobes with a small right pleural effusion. Tiny pericardial effusion. Electronically Signed: Deion Arevalo MD at 15:39 EST , Service support , Charges/Coding Visit Charges Inpatient E&M: 52492 Init Hosp L2
--- NOTE | 2021-02-24 10:26 | CON.PCM.RE_ITS ---
Assessment & Plan Assessment/Plan (1) End-stage renal disease (ESRD): (2) Cough with hemoptysis: (3) Anemia: (4) Dementia: (5) HTN (hypertension), benign: PLAN: Patient was admitted for probable pneumonia, also found to have detectable troponins. He has been empirically started on IV antibiotics, ceftriaxone. Negative for covid 19 rapid test. Blood cultures pending. Urine and sputum cultures also pending. CT chest showed airspace disease involving the right upper, right middle and right lower lobes with a small right pleural effusion, tiny pericardial effusion. Pulmonary consulted. Patient also had CT of brain with no acute findings. We will plan dialysis today over 4 hours on 2K bath. Outpatient EDW 86 kg. We will attempt UF as patient/blood pressure tolerates. May need EDW lowered. Hgb acceptable, does not need SANDY with HD today. Goal hgb between 10 -11g/dL. Patient is on phoslo, will continue to monitor phos levels periodically. Continue protein supplement. Current blood pressures acceptable on lisinopril and coreg. Further orders forthcoming as hospitalization evolves, thank you for allowing us to participate in care of Mr. Chua HPI Consult Data Date of Consult: 02/24/21 HPI Narrative HPI Narrative: LEYDA CHUA, is a 85 M who presented to the emergency room with complaints of cough and hemoptysis after a fall at home. Admitted for probable pneumonia. Also noted to have elevated troponin levels. Patient has a past medical history significant for ESRD on hemodialysis Monday, dialyzes at [facility], he also has a history of chronic ischemic systolic heart failure last known EF 30 to 35%, history of dementia and Afib on eliquis. Patient is alert to self, he is very pleasant, he is having difficult time recalling recent events. Most information gathered from the chart. He last dialyzed at his kidney center on Monday. [facility] Medical History [place] (acute kidney injury) CKD (chronic kidney disease) stage 4, GFR 15-29 ml/min Community acquired pneumonia History of aorta surgery History of back surgery History of dialysis History of femur surgery History of heart surgery History of irregular heartbeat History of Jaw surgery Kidney disease Sepsis with acute hypoxic respiratory failure and septic shock Septic shock Thyroid disease Home Medications allopurinol 100 mg tablet 100 mg PO DAILY #90 tab 07/26/18 [History Last Taken Unknown] atorvastatin 80 mg PO QHS #30 tab 11/26/19 [Rx Last Taken Unknown] calcium acetate(phosphat bind) 667 mg PO TIDCM #90 cap 11/26/19 [Rx Last Taken Unknown] carvedilol 3.125 mg PO BID #60 tab 11/26/19 [Rx Last Taken Unknown] levothyroxine 50 mcg PO DAILY@0600 #30 tab 11/26/19 [Rx Last Taken Unknown] memantine 5 mg PO BID #60 tab 11/26/19 [Rx Last Taken Unknown] albuterol sulfate 2.5 mg INHALATION Q4H PRN #180 ml 12/13/19 [Rx Last Taken Unknown] apixaban 2.5 mg tablet 2.5 mg PO BID 01/14/20 [History Last Taken Unknown] lisinopril 2.5 mg tablet 5 mg PO DAILY tab 01/14/20 [History Last Taken Unknown] acetaminophen 500 mg capsule 500 mg PO Q6H PRN 03/12/20 [History Last Taken Unknown] amiodarone 100 mg PO DAILY 08/06/20 [History Last Taken Unknown] meclizine 25 mg PO TID 02/23/21 [History Last Taken Unknown] polyethylene glycol 3350 17 g PO DAILY 02/23/21 [History Last Taken Unknown] Allergy/AdvReac Type Severity Reaction Status Date / Time adhesive tape Allergy Mild Rash Verified 02/23/21 12:00 oxycodone Allergy Mild Rash Verified 02/23/21 12:00 tramadol Allergy Mild LIGHTHEADED Verified 02/23/21 12:00 AND DIZZY WITH HALLUCINATIONS Family History Grandfather No problems noted. Father No problems noted. Brother No problems noted. Brother Brain aneurysm Social History Smoking Status: Current every day smoker tobacco type: cigarettes Physical Exam Narrative Const: Alert to self, confused to time Cardio: S1S2 RRR Respiratory: LS clear anteriorly, diminished breath sounds bases, harsh non- productive cough : abdomen soft, non-tender, +BS Extremities: no edema AVF Left FA +thrill/bruit Lab / Micro Data Result Diagrams: 02/24/21 05:42 02/24/21 05:42 Labs: Laboratory Results - last 24 hr 02/23/21 13:18: WBC 7.8, RBC 3.01 L, Hgb 10.8 L, Hct 30.9 L, MCV 102.7 H, MCH 35.9 H, MCHC 35.0, RDW Std Deviation 52.2 H, RDW Coeff of Maritza 14.5, Plt Count 174, MPV 11.5, Immature Gran % (Auto) 0.600, Neut % (Auto) 76.1 H, Lymph % (Auto) 13.7 L, Sunflower % (Auto) 8.5, Eos % (Auto) 0.5, Baso % (Auto) 0.6, Absolute Neuts (auto) 5.9, Absolute Lymphs (auto) 1.06, Nucleated RBC % 0 02/23/21 13:18: Sodium Cancelled, Potassium Cancelled, Chloride Cancelled, Carbon Dioxide Cancelled, Anion Gap Cancelled, BUN Cancelled, Creatinine Cancelled, Estim Creat Clear Calc Cancelled, Est GFR (MDRD) Af Amer Cancelled, Est GFR (MDRD) Non-Af Cancelled, BUN/Creatinine Ratio Cancelled, Glucose Cancelled, Calcium Cancelled, Total Creatine Kinase Cancelled, Troponin I High Sens Cancelled 02/23/21 13:18: Lactic Acid 1.5 02/23/21 13:18: B-Natriuretic Peptide 1861.6 H 02/23/21 14:00: Sodium 140, Potassium 5.2 H, Chloride 106, Carbon Dioxide 26.0, Anion Gap 8, BUN 56 H, Creatinine 6.14 H, Estim Creat Clear Calc 9.37, Est GFR (MDRD) Af Amer 11 L, Est GFR (MDRD) Non-Af 9 L, BUN/Creatinine Ratio 9.1 L, Glucose 103, Calcium 9.1, Total Creatine Kinase 67, Troponin I High Sens 1069 H* 02/23/21 14:00: Magnesium 2.2 02/23/21 17:40: Troponin I High Sens 1143 H* 02/23/21 18:00: MRSA (PCR) Negative 02/23/21 20:05: Troponin I High Sens 1080 H* 02/24/21 05:42: WBC 8.5, RBC 3.14 L, Hgb 11.1 L, Hct 33.2 L, MCV 105.7 H, MCH 35.4 H, MCHC 33.4, RDW Std Deviation 54.3 H, RDW Coeff of Maritza 14.6, Plt Count 172, MPV 10.8, Immature Gran % (Auto) 0.700, Neut % (Auto) 75.5 H, Lymph % (Auto) 12.7 L, Sunflower % (Auto) 9.1, Eos % (Auto) 1.4, Baso % (Auto) 0.6, Absolute Neuts (auto) 6.4, Absolute Lymphs (auto) 1.08, Nucleated RBC % 0 02/24/21 05:42: Sodium 139, Potassium 4.5, Chloride 106, Carbon Dioxide 24.0, Anion Gap 9, BUN 65 H, Creatinine 6.49 H, Estim Creat Clear Calc 8.59, Est GFR ( MDRD) Af Amer 11 L, Est GFR (MDRD) Non-Af 9 L, BUN/Creatinine Ratio 10.0, Glucose 114 H, Calcium 9.0, Phosphorus 2.9, TSH 2.76 Micro: Microbiology 02/23/21 18:25 Sputum, Expectorated/Coughed Gram Stain - Final 02/24/21 02:40 Urine, Clean Catch Legionella Antigen - Final 02/24/21 02:40 Urine, Clean Catch Streptococcus pneumoniae Antigen (M - Final 02/23/21 13:23 Interface Orders SARS-CoV-2 Antigen (Rapid) - Final Rhythm Strip Rhythm Strip: Sinus Rhythm Rate: 66 Ectopy: None Radiology Impression Chest X-Ray 02/23/21 13:25 IMPRESSION: Diffuse airspace disease in the right hemithorax as described. Electronically Signed: Deion Arevalo MD at 13:57 EST , Service support , Brain CT 02/23/21 13:45 IMPRESSION: Chronic involutional changes of the brain. Electronically Signed: Deion Arevalo MD at 15:36 EST , Service support , Chest CT 02/23/21 13:45 IMPRESSION: Airspace disease involving the right upper, right middle and right lower lobes with a small right pleural effusion. Tiny pericardial effusion. Electronically Signed: Deion Arevalo MD at 15:39 EST , Service support ,
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
--- NOTE | 2021-02-24 16:56 | PCM.PN.HOSP ---
Subjective Subjective Follow-up for pneumonia/hemoptysis/elevated troponin: Patient was seen and examined. Denied any chest pain or dizziness or palpitation. Overnight, he has had occasional dark hemoptysis. Discussed patient's care with cardiology and with his . His recommended discussing with his primary senior android developer Dr. Sadler. She was agreeable to aggressive care including cardiac cath if recommends that. Objective Data Objective Data Vital Signs: Vital Signs Temp Pulse Resp BP Pulse Ox 97.7 F L 78 20 H 141/78 H 94 02/24/21 15:00 02/24/21 15:20 02/24/21 15:00 02/24/21 15:00 02/24/21 15:00 Oxygen Flow Rate (L/min) 2 Oxygen Delivery Method Room Air Weight: 81.7 kg Body Mass Index (BMI) 26.3 Intake & Output: Intake and Output for Last 24 Hours 02/22/21 02/23/21 02/24/21 23:59 23:59 23:59 Intake Total 905 / 905 600 / 600 Output Total 200 / 200 Balance 905 / 905 400 / 400 Lab / Micro Data Result Diagrams: 02/24/21 05:42 02/24/21 05:42 Labs: Laboratory Results - last 24 hr 02/23/21 13:18: B-Natriuretic Peptide 1861.6 H 02/23/21 14:00: Magnesium 2.2 02/23/21 17:40: Troponin I High Sens 1143 H* 02/23/21 18:00: MRSA (PCR) Negative 02/23/21 20:05: Troponin I High Sens 1080 H* 02/24/21 05:42: WBC 8.5, RBC 3.14 L, Hgb 11.1 L, Hct 33.2 L, MCV 105.7 H, MCH 35.4 H, MCHC 33.4, RDW Std Deviation 54.3 H, RDW Coeff of [place]it[place] 14.6, Plt Count 172, MPV 10.8, Immature Gran % (Auto) 0.700, Neut % (Auto) 75.5 H, Lymph % (Auto) 12.7 L, [place] % (Auto) 9.1, Eos % (Auto) 1.4, Baso % (Auto) 0.6, Absolute Neuts (auto) 6.4, Absolute Lymphs (auto) 1.08, Nucleated RBC % 0 02/24/21 05:42: Sodium 139, Potassium 4.5, Chloride 106, Carbon Dioxide 24.0, Anion Gap 9, BUN 65 H, Creatinine 6.49 H, Estim Creat Clear Calc 8.59, Est GFR (MDRD) Af Amer 11 L, Est GFR (MDRD) Non-Af 9 L, BUN/Creatinine Ratio 10.0, Glucose 114 H, Calcium 9.0, Phosphorus 2.9, TSH 2.76 Micro: Microbiology 02/23/21 18:25 Sputum, Expectorated/Coughed Gram Stain - Final 02/23/21 18:25 Sputum, Expectorated/Coughed Respiratory Culture - Preliminary Appears to be normal respiratory henri. Further studies to follow. 02/24/21 02:40 Urine, Clean Catch Legionella Antigen - Final 02/24/21 02:40 Urine, Clean Catch Streptococcus pneumoniae Antigen (M - Final 02/23/21 13:23 Interface Orders SARS-CoV-2 Antigen (Rapid) - Final Radiography Diagnostic Testing: Radiology Impression Echocardiogram 02/24/21 05:55 Interpretation Summary The study was technically difficult. Moderate segmental systolic dysfunction (see wall motion). The estimated ejection fraction is 30 %. The left atrium is moderately enlarged. The right atrium is mildly enlarged. Mild diffuse mitral valve thickening. Moderate (2+) mitral valve insufficiency. Mild tricuspid valve insufficiency. Mild diffuse aortic valve thickening. Mild focal aortic valve calcification. Trivial aortic valve insufficiency. Trivial pulmonic valve insufficiency. Calcified aortic root. Right ventricular systolic pressure estimated to be 55 mmHg c/w pulmonary hypertension. There is evidence of diastolic dysfunction. Ordering Physician: Kar Cruz Performed By: Kady Coulter, LOULOUCS, RVT Rhythm Strip Rhythm Strip: Sinus Rhythm Rate: 66 Ectopy: None Physical Exam Narrative Physical exam: General: Alert, Oriented x3, Cooperative, No apparent distress, Well developed, not on oxygen HEENT: Atraumatic Oral: Moist Mucosa Neck: Supple Lungs: Diminished to auscultation Cardiovascular: HS I+II, regular, no murmurs Abdomen: Bowel Sounds Present, Soft, Non Tender Extremities: No edema Assessment & Plan Assessment/Plan (1) Non-ST elevation (NSTEMI) myocardial infarction: (2) Cough with hemoptysis: PLAN: 1. Acute hemoptysis secondary to acute right extensive pneumonia Patient clinically stable Urine Legionella and streptococcal antigen negative Continue on ceftriaxone and doxycycline Continue off Eliquis Continue to monitor 2. Acute non-STEMI likely secondary #1, admitted EKG does not have any ST-T changes History of underlining ischemic cardiomyopathy Cardiology consulted, follow-up on recommendations Continue on aspirin for now, statin, carvedilol, lisinopril, 3. ESRD on hemodialysis?Monday?Monday?Monday, nephrology consulted 4. Rest of chronic medical conditions including hypothyroidism, gout, anemia, dementia remained stable Continue home medications Charges/Coding Visit Charges Inpatient E&M: 90350 Subs Hosp L2
--- NOTE | 2021-02-24 19:18 | DIALYSIS ---
HD x 3.5 hours complete. Tolerated tx well. Ran on 2k bath. UF of 1000ml. Used left arm access. [place] removed post tx and pressure applied x 10 minutes. Hemostasis achieved. Fresh gauze and tape applied. Report was given to DURGA Olea.
[2021-02-24] MEDS: Atorvastatin Calcium 80 MG Tablet PO (20:30)
[2021-02-25] VITALS (15 sets, daily range): BP systolic 118–137; BP diastolic 68–88; PULSE 64–84; RESP 16–20; TEMP 35.9–36.7; O2SAT 92–98
[2021-02-25] MEDS: Levothyroxine 50 MCG Tablet PO (05:19)
--- NOTE | 2021-02-25 05:55 | EKG12_ITS ---
Test Reason : AM EKG Blood Pressure : / mmHG Vent. Rate : 061 BPM Atrial Rate : 357 BPM P-R Int : 000 ms QRS Dur : 092 ms QT Int : 498 ms P-R-T Axes : 000 -49 159 degrees QTc Int : 501 ms Atrial fibrillation Low voltage QRS Left anterior fascicular block Inferior infarct , age undetermined ST & T wave abnormality, consider lateral ischemia Confirmed by AWAIS MCDERMOTT, ERICA ([id number]), material expeditor ARPAN REDDY ([id number]) on 02/25/2021 1:36:12 PM Referred By: DR CONTE Confirmed By:ERICA ERNANDEZ MD
[2021-02-25] MEDS: Ipratropium/Albuterol Sulfate 3 ML AMPUL.NEB INHALATION ×2 (06:42→19:50)
[2021-02-25 07:29] LABS: Absolute Lymphocyte Count 1.13 X10^3/uL (0.83-4.51); Absolute Neutrophil Count 3.7 X10^3/uL (2.0-7.7); Basophil# 0.05 X10^3/uL; Basophil% 0.8 % (0-1); Eosinophil# 0.27 X10^3/uL; Eosinophils% 4.5 % (0-5); Hematocrit 29.9 % (40-54); Hemoglobin 9.9 g/dL (13.0-16.5); Lymphocyte # 1.13 X10^3/ul (0.83-4.51); Mean Corp Hgb Conc 33.1 g/dL (32-36); Mean Corpuscular Hgb 34.6 pg (27.0-32.0); Mean Corpuscular Volume 104.5 fL (80-94); Mean Platelet Vol. 11.4 fl (6.2-12.0); Monocyte# 0.74 X10^3/uL; Monocyte% 12.4 % (0-10); NRBC Flagged by Analyzer 0 % (0-5); Neutrophil # 3.74 X10^3/uL (2.7-7.7); Platelet Count 155 K/mm3 (150-450); RBC Distribution Width CV 14.4 % (11.6-14.6); Red Blood Count 2.86 M/mm3 (4.6-6.2)
[2021-02-25] MEDS: Calcium Acetate 667 MG Capsule PO ×3 (07:54→17:36)
[2021-02-25 07:58] LABS: Anion Gap 6 (5-15); BUN 41 mg/dL (7-18); BUN/Creat Ratio 10.6 RATIO (10-20); Calcium,Total 8.5 mg/dL (8.5-10.1); Chloride 102 mmol/L (98-107); Creatinine, Serum 3.85 mg/dL (0.70-1.30); EST Glomerular Filtration Rate 16 mL/min (>60); Est Glom Filt Rate - Afr Amer 19 mL/min (>60); Estimated Creatinine Clearance 14.48 ml/min; Glucose 86 mg/dL (74-106); Potassium 4.1 mmol/L (3.5-5.1); Sodium Level 137 mmol/L (136-145)
--- NOTE | 2021-02-25 08:03 | NURSING ---
pt up in chair after working with therapy. spo2 on ra 98% and only dropped to 92% when walked around bed. o2 left off and will monitor on ra today. pt with strong loose cough and expectorated dime sized bright red thick sputum out in tissue. will wait for to see if wants to continue with aspirin
--- NOTE | 2021-02-25 08:51 | PN.CARD_ITS ---
Subjective Subjective The patient has been awake and alert. He denies any acute chest discomfort or associated symptoms at this time. Objective Data Vital Signs: Vital Signs Temp Pulse Resp BP Pulse Ox 97.3 F L 77 16 118/74 97 02/25/21 04:13 02/25/21 07:00 02/25/21 06:42 02/25/21 04:13 02/25/21 06:42 Oxygen Flow Rate (L/min) 2 Oxygen Delivery Method Nasal Cannula Weight: 182 lb 15.739 oz Body Mass Index (BMI) 26.3 Intake & Output: Intake and Output for Last 24 Hours 02/23/21 02/24/21 02/25/21 23:59 23:59 23:59 Intake Total 905 / 905 1010 / 1060 80 / 80 Output Total 1200 / 1200 Balance 905 / 905 -190 / -140 80 / 80 Lab / Micro Data Result Diagrams: 02/25/21 06:16 02/25/21 06:16 Labs: Laboratory Results - last 24 hr 02/25/21 06:16: WBC 6.0, RBC 2.86 L, Hgb 9.9 L, Hct 29.9 L, MCV 104.5 H, MCH 34.6 H, MCHC 33.1, RDW Std Deviation 54.0 H, RDW Coeff of Maritza 14.4, Plt Count 155, MPV 11.4, Immature Gran % (Auto) 0.300, Neut % (Auto) 63.0, Lymph % (Auto) 19.0, Jerome % (Auto) 12.4 H, Eos % (Auto) 4.5, Baso % (Auto) 0.8, Absolute Neuts (auto) 3.7, Absolute Lymphs (auto) 1.13, Nucleated RBC % 0 02/25/21 06:16: Sodium 137, Potassium 4.1, Chloride 102, Carbon Dioxide 29.0, Anion Gap 6, BUN 41 H, Creatinine 3.85 H, Estim Creat Clear Calc 14.48, Est GFR (MDRD) Af Amer 19 L, Est GFR (MDRD) Non-Af 16 L, BUN/Creatinine Ratio 10.6, Glucose 86, Calcium 8.5 Micro: Microbiology 02/23/21 18:25 Sputum, Expectorated/Coughed Gram Stain - Final 02/23/21 18:25 Sputum, Expectorated/Coughed Respiratory Culture - Preliminary Appears to be normal respiratory henri. Further studies to follow. Rhythm Strip Rhythm Strip: Sinus Rhythm Rate: 66 Ectopy: None Cardiology Labs/Tests 02/25/21 06:16: WBC 6.0, RBC 2.86 L, Hgb 9.9 L, Hct 29.9 L, MCV 104.5 H, MCH 34.6 H, MCHC 33.1, Plt Count 155, MPV 11.4, Immature Gran % (Auto) 0.300, Neut % (Auto) 63.0, Lymph % (Auto) 19.0, Jerome % (Auto) 12.4 H, Eos % (Auto) 4.5, Baso % (Auto) 0.8, Absolute Neuts (auto) 3.7, Nucleated RBC % 0 02/25/21 06:16: Sodium 137, Potassium 4.1, Chloride 102, Carbon Dioxide 29.0, Anion Gap 6, BUN 41 H, Creatinine 3.85 H, Est GFR (MDRD) Af Amer 19 L, Est GFR (MDRD) Non-Af 16 L, BUN/Creatinine Ratio 10.6, Glucose 86, Calcium 8.5 Rhythm: Atrial fibrillation EKG: Atrial fibrillation; low voltage QRS (limb leads); septal RI of indeterminate age; T wave abnormality: Consider myocardial ischemia- anterolateral ECHO: As noted below Radiography Diagnostic Testing: Radiology Impression Echocardiogram 02/24/21 05:55 Interpretation Summary The study was technically difficult. Moderate segmental systolic dysfunction (see wall motion). The estimated ejection fraction is 30 %. The left atrium is moderately enlarged. The right atrium is mildly enlarged. Mild diffuse mitral valve thickening. Moderate (2+) mitral valve insufficiency. Mild tricuspid valve insufficiency. Mild diffuse aortic valve thickening. Mild focal aortic valve calcification. Trivial aortic valve insufficiency. Trivial pulmonic valve insufficiency. Calcified aortic root. Right ventricular systolic pressure estimated to be 55 mmHg c/w pulmonary hypertension. There is evidence of diastolic dysfunction. _ Ordering Physician: Kar Cruz Performed By: Kady Coulter, JAME, RVT Physical Exam Const no apparent distress Orientation / Consciousness: awake HEENT normocephalic, head/scalp atraumatic and hearing grossly normal bilaterally Eyes PERRL, EOMs intact bilaterally and conjunctivae normal Neck supple and no JVD Resp Auscultation: rhonchi right upper and right lower Cardio Rhythm: abnormal rhythm irregularly irregular Heart Sounds: S1 normal and S2 normal GI normal to inspection, nondistended, normoactive bowel sounds Extremity no pedal edema Skin no rashes or lesions noted Neuro moves all extremities, no focal motor deficits and no sensory deficits noted Psych mental status grossly normal Assessment & Plan Assessment/Plan (1) Abnormal cardiac enzyme level: PLAN: He does have abnormal cardiac enzyme levels. Technically this would be compatible with a non-ST segment elevation RI. Based upon the information at hand this may be a type II event brought out by his underlying acute pulmonary disease process superimposed upon his chronic renal insufficiency/end-stage renal disease/chronic hemodialysis. At the moment the patient has been monitored with cardiac enzymes as noted above. His ECG as noted above. His transthoracic echocardiogram was performed and it was noted to have similar type findings compared to his study from 2019. At this time, in the midst of his ongoing pneumonia and hemoptysis, he would be recommended for continued conservative medical management of his cardiovascular status barring unforeseen urgent/emergent events. As he recuperates from his acute pulmonary disease process he can be considered, by his primary loader operator in [place], [place], as to whether or not he wants to and/or needs to pursue any additional noninvasive or invasive cardiovascular studies. (2) Cardiomyopathy, ischemic: PLAN: He does have a cardiomyopathy. It is presumed ischemic mediated. At the present time he will continue medical management. He does not appear to be an ideal candidate for ICD therapy based upon a combination of his age, his multiple comorbidities, and long-term poor prog nosis. (3) CHF (congestive heart failure): PLAN: He does not appear to have any acute on chronic systolic mediated CHF symptoms at this time. He will continue medical therapy and hemodialysis therapy to assist with volume management. (4) Atrial fibrillation: PLAN: He has a history of atrial fibrillation. He has been on medical therapy. This has included anticoagulant therapy. His anticoagulant therapy appears to been placed on hold at this time secondary to his ongoing hemoptysis. (5) HLD (hyperlipidemia): PLAN: He should continue risk factor evaluation care as deemed appropriate. (6) HTN (hypertension), benign: PLAN: His blood pressure can be followed with adjustment of his medications taking into consideration his multiple comorbidities. (7) S/P AAA repair: PLAN: He also has a history of a remote AAA repair. This would have to be taken into consideration if he were to undergo any invasive cardiovascular studies from the lower extremity approach. (8) Community acquired pneumonia: QUALIFIERS: Laterality: right Lung location: lower lobe of lung Qualified Code(s): J18.9 - Pneumonia, unspecified organism PLAN: He is undergoing evaluation care by internal medicine and pulmonology/critical care medicine. (9) Cough with hemoptysis: PLAN: He has had hemoptysis in the past and again now. At the moment it is reasonable to hold his anticoagulant therapy based upon his ongoing hemoptysis. This also makes it challenging to perform to any further invasive evaluation at this time that may include additional antiplatelet or anticoagulants. (10) End-stage renal disease (ESRD): PLAN: He will continue nephrology evaluation and care and chronic hemodialysis. (11) Dementia: PLAN: He carries, from his previous evaluation in 2020, a diagnosis of dementia. This does play a role in his ongoing evaluation and care. Addt'l Comments Overall, the patient appears without any new acute cardiovascular complaints or objective findings. He is continuing conservative cardiovascular medical therapy at this time. He is continuing evaluation care by internal medicine and pulmonology/critical care medicine for his pneumonitis. He will eventually follow-up with his primary loader operator for his long-term cardiovascular evaluation and care. This note was generated using a voice recognition system and there may be incorrect words, spelling or punctuation that were not noted when reviewing the office note prior to saving.
[2021-02-25] MEDS: Allopurinol 100 MG Tablet PO (09:08)
[2021-02-25] MEDS: Doxycycline 100 MG CAPSULE PO (09:10)
[2021-02-25] MEDS: Amiodarone 200 MG Tablet 100 MG PO (09:10)
[2021-02-25] MEDS: Carvedilol 3.125 MG TABLET PO ×2 (09:10→21:42)
[2021-02-25] MEDS: guaiFENesin 1,200 MG Tablet 1200 MG PO ×2 (09:11→21:41)
[2021-02-25] MEDS: Lisinopril 5 MG Tablet PO ×2 (09:11→21:41)
[2021-02-25] MEDS: Memantine Hydrochloride 5 MG Tablet PO ×2 (09:11→21:41)
--- NOTE | 2021-02-25 09:58 | PN.RENAL_ITS ---
Subjective Subjective Following for ESRD No overnight events. Sitting up in bed. Objective Data Objective Data Vital Signs: Vital Signs Temp Pulse Resp BP Pulse Ox 96.7 F L 76 17 124/76 H 95 02/25/21 09:39 02/25/21 09:39 02/25/21 09:39 02/25/21 09:39 02/25/21 09:39 Oxygen Flow Rate (L/min) 2 Oxygen Delivery Method Room Air Weight: 83 kg Body Mass Index (BMI) 26.3 Intake & Output: Intake and Output for Last 24 Hours 02/23/21 02/24/21 02/25/21 23:59 23:59 23:59 Intake Total 905 / 905 1010 / 1060 80 / 80 Output Total 1200 / 1200 Balance 905 / 905 -190 / -140 80 / 80 Lab / Micro Data Result Diagrams: 02/25/21 06:16 02/25/21 06:16 Labs: Laboratory Results - last 24 hr 02/25/21 06:16: WBC 6.0, RBC 2.86 L, Hgb 9.9 L, Hct 29.9 L, MCV 104.5 H, MCH 34.6 H, MCHC 33.1, RDW Std Deviation 54.0 H, RDW Coeff of Maritza 14.4, Plt Count 155, MPV 11.4, Immature Gran % (Auto) 0.300, Neut % (Auto) 63.0, Lymph % (Auto) 19.0, [place] % (Auto) 12.4 H, Eos % (Auto) 4.5, Baso % (Auto) 0.8, Absolute Neuts (auto) 3.7, Absolute Lymphs (auto) 1.13, Nucleated RBC % 0 02/25/21 06:16: Sodium 137, Potassium 4.1, Chloride 102, Carbon Dioxide 29.0, Anion Gap 6, BUN 41 H, Creatinine 3.85 H, Estim Creat Clear Calc 14.48, Est GFR (MDRD) Af Amer 19 L, Est GFR (MDRD) Non-Af 16 L, BUN/Creatinine Ratio 10.6, Glucose 86, Calcium 8.5 Micro: Microbiology 02/23/21 18:25 Sputum, Expectorated/Coughed Gram Stain - Final 02/23/21 18:25 Sputum, Expectorated/Coughed Respiratory Culture - Pr eliminary 02/24/21 02:40 Urine, Clean Catch Legionella Antigen - Final 02/24/21 02:40 Urine, Clean Catch Streptococcus pneumoniae Antigen (M - Final 02/23/21 13:23 Interface Orders SARS-CoV-2 Antigen (Rapid) - Final Radiography Diagnostic Testing: Radiology Impression Echocardiogram 02/24/21 05:55 Interpretation Summary The study was technically difficult. Moderate segmental systolic dysfunction (see wall motion). The estimated ejection fraction is 30 %. The left atrium is moderately enlarged. The right atrium is mildly enlarged. Mild diffuse mitral valve thickening. Moderate (2+) mitral valve insufficiency. Mild tricuspid valve insufficiency. Mild diffuse aortic valve thickening. Mild focal aortic valve calcification. Trivial aortic valve insufficiency. Trivial pulmonic valve insufficiency. Calcified aortic root. Right ventricular systolic pressure estimated to be 55 mmHg c/w pulmonary hyp ertension. There is evidence of diastolic dysfunction. Ordering Physician: Kar Cruz Performed By: Kady Coulter, JAME, RVT Rhythm Strip Rhythm Strip: Sinus Rhythm Rate: 66 Ectopy: None Physical Exam Narrative Const: A&O x3, NAD Cardio: S1S2 RRR Respiratory: LS clear anteriorly, faint rhonchi post bases : abdomen soft, non-tender, +BS Extremities: no edema AVF Left FA +thrill/bruit Assessment & Plan Assessment/Plan (1) End-stage renal disease (ESRD): (2) Cough with hemoptysis: (3) Anemia: (4) Dementia: (5) HTN (hypertension), benign: PLAN: - ESRD HD MWF: tolerated HD with 1L UF 02/24 (post bed weight 82.5kg). No acute indication for [employer]. Next HD tomorrow. EDW was 86kg, will have a new lowered dry weight at time of discharge - Pnemonia: Negative for covid 19 rapid test. on Ceftriaxone and oral doxy. Blood cultures pending. CT chest showed airspace disease involving the right upper, right middle and right lower lobes with a small right pleural effusion, tiny pericardial effusion. Pulmonary consulted. Increase activity, up to chair for meals. Ambulated with therapy this am. - detectable troponins, seen by cardiology, conservative tx at this time - Hgb acceptable. Goal hgb between 10 -11g/dL. - MBD: Patient is on phoslo, will continue to monitor phos levels periodically. Continue protein supplement. - Current blood pressures acceptable on lisinopril and coreg.
[2021-02-25] MEDS: 0.9% Saline Lock 10 ML Syringe IV (10:27)
--- NOTE | 2021-02-25 10:30 | PN.CC_ITS ---
Assessment & Plan Assessment/Plan (1) Cough with hemoptysis: (2) Non-ST elevation (NSTEMI) myocardial infarction: (3) End-stage renal disease (ESRD): PLAN: RECOMMENDATIONS: 1. Continue hemodialysis per nephrology recommendations 2. Encourage incentive spirometer 3. Pain control as needed for left rib pain 4. Possibly reinitiate Eliquis if hemoptysis resolved for 48 hours 5. Agree with empiric antibiotics for pneumonia 6. Walking oximetry prior to discharge IMPRESSIONS: 1. Hemoptysis with acute hypoxic respiratory insufficiency Unclear etiology at this time. Pattern on CT scan does show a dependent nature indicating possibility of fluid overload. Pattern is not consistent with a contrecoup injury, but pneumonia secondary to splinting is a possibility. Patient is on empiric antibiotics and sputum does appear to be purulent. Patient could have an element of hemoptysis secondary to anticoagulation with appropriate lung inflammation. Likely reasonable to reinitiate anticoagulation after 48 hours. We will hold on any bronchoscopy. We will hold on steroids as patient does not have wheezing on exam and no history of obstructive lung disease. Patient currently on room air, likely secondary to hemodialysis more than resolution of infectious process 2. Elevated troponin/systolic CHF/A. fib Cardiology has been consulted. Unclear if elevated troponin is secondary to supply demand mismatch, decreased elimination with renal failure and missed dialysis or a new insult. Patient off of anticoagulation at this time. Chest pain is localized to the rib area, not substernal. Appreciate cardiology assessment. Echocardiogram is grossly unchanged 3. ESRD/gout/hypothyroidism/dementia/advanced age Complicates care, management, recovery and prognosis. Okay to continue with baseline medications. Patient would benefit from volume removal with hemodialysis as this can complicate overall clinical picture. CODE STATUS was discussed by hospitalist and patient is appropriately DNR Comfort Care arrest without intubation. Subjective Subjective Patient continues to improve. Patient currently on room air and tolerating well. Patient did report some mild hemoptysis overnight, but nothing like at home. Patient states his left chest feels better compared to yesterday. Objective Data Objective Data Vital Signs: Vital Signs Temp Pulse Resp BP Pulse Ox 35.9 C L 76 17 124/76 H 95 02/25/21 09:39 02/25/21 09:39 02/25/21 09:39 02/25/21 09:39 02/25/21 09:39 Oxygen Flow Rate (L/min) 2 Oxygen Delivery Method Room Air Weight: 83 kg Body Mass Index (BMI) 26.3 Intake & Output: Intake and Output for Last 24 Hours 02/23/21 02/24/21 02/25/21 23:59 23:59 23:59 Intake Total 905 / 905 1010 / 1060 80 / 80 Output Total 1200 / 1200 Balance 905 / 905 -190 / -140 80 / 80 Lab / Micro Data Result Diagrams: 02/25/21 06:16 02/25/21 06:16 Labs: Laboratory Results - last 24 hr 02/25/21 06:16: WBC 6.0, RBC 2.86 L, Hgb 9.9 L, Hct 29.9 L, MCV 104.5 H, MCH 34.6 H, MCHC 33.1, RDW Std Deviation 54.0 H, RDW Coeff of Maritza 14.4, Plt Count 155, MPV 11.4, Immature Gran % (Auto) 0.300, Neut % (Auto) 63.0, Lymph % (Auto) 19.0, [place] % (Auto) 12.4 H, Eos % (Auto) 4.5, Baso % (Auto) 0.8, Absolute Neuts (auto) 3.7, Absolute Lymphs (auto) 1.13, Nucleated RBC % 0 02/25/21 06:16: Sodium 137, Potassium 4.1, Chloride 102, Carbon Dioxide 29.0, Anion Gap 6, BUN 41 H, Creatinine 3.85 H, Estim Creat Clear Calc 14.48, Est GFR (MDRD) Af Amer 19 L, Est GFR (MDRD) Non-Af 16 L, BUN/Creatinine Ratio 10.6, Glucose 86, Calcium 8.5 Micro: Microbiology 02/23/21 18:25 Sputum, Expectorated/Coughed Gram Stain - Final 02/23/21 18:25 Sputum, Expectorated/Coughed Respiratory Culture - Preliminary 02/24/21 02:40 Urine, Clean Catch Legionella Antigen - Final 02/24/21 02:40 Urine, Clean Catch Streptococcus pneumoniae Antigen (M - Final 02/23/21 13:23 Interface Orders SARS-CoV-2 Antigen (Rapid) - Final Radiography Diagnostic Testing: Radiology Impression Echocardiogram 02/24/21 05:55 Interpretation Summary The study was technically difficult. Moderate segmental systolic dysfunction (see wall motion). The estimated ejection fraction is 30 %. The left atrium is moderately enlarged. The right atrium is mildly enlarged. Mild diffuse mitral valve thickening. Moderate (2+) mitral valve insufficiency. Mild tricuspid valve insufficiency. Mild diffuse aortic valve thickening. Mild focal aortic valve calcification. Trivial aortic valve insufficiency. Trivial pulmonic valve insufficiency. Calcified aortic root. Right ventricular systolic pressure estimated to be 55 mmHg c/w pulmonary hypertension. There is evidence of diastolic dysfunction. ____ Ordering Physician: Kar Cruz Performed By: Kady Coulter, JAME, RVT Rhythm Strip Rhythm Strip: Sinus Rhythm Rate: 66 Ectopy: None Physical Exam Const no apparent distress Orientation / Consciousness: awake HEENT normocephalic, head/scalp atraumatic and hearing grossly normal bilaterally Eyes PERRL, EOMs intact bilaterally and conjunctivae normal Neck supple and no JVD Resp Auscultation: rhonchi right upper and right lower Cardio Rhythm: abnormal rhythm irregularly irregular Heart Sounds: S1 normal and S2 normal GI normal to inspection, nondistended, normoactive bowel sounds Extremity no pedal edema Skin no rashes or lesions noted Neuro moves all extremities, no focal motor deficits and no sensory deficits noted Psych mental status grossly normal Charges/Coding Visit Charges Inpatient E&M: 38762 Subs Hosp L2
--- NOTE | 2021-02-25 10:54 | PN.HOSP_ITS ---
Subjective Subjective Follow-up for pneumonia/hemoptysis/elevated troponin: Patient was seen and examined. Patient has had sporadic hemoptysis during his stay. Denied any fever or chills. Remains off oxygen. Objective Data Objective Data Vital Signs: Vital Signs Temp Pulse Resp BP Pulse Ox 96.7 F L 76 17 124/76 H 95 02/25/21 09:39 02/25/21 09:39 02/25/21 09:39 02/25/21 09:39 02/25/21 10:00 Oxygen Flow Rate (L/min) 2 Oxygen Delivery Method Room Air Weight: 83 kg Body Mass Index (BMI) 26.3 Intake & Output: Intake and Output for Last 24 Hours 02/23/21 02/24/21 02/25/21 23:59 23:59 23:59 Intake Total 905 / 905 1010 / 1060 80 / 80 Output Total 1200 / 1200 Balance 905 / 905 -190 / -140 80 / 80 Lab / Micro Data Result Diagrams: 02/25/21 06:16 02/25/21 06:16 Labs: Laboratory Results - last 24 hr 02/25/21 06:16: WBC 6.0, RBC 2.86 L, Hgb 9.9 L, Hct 29.9 L, MCV 104.5 H, MCH 34.6 H, MCHC 33.1, RDW Std Deviation 54.0 H, RDW Coeff of Maritza 14.4, Plt Count 155, MPV 11.4, Immature Gran % (Auto) 0.300, Neut % (Auto) 63.0, Lymph % (Auto) 19.0, [place] % (Auto) 12.4 H, Eos % (Auto) 4.5, Baso % (Auto) 0.8, Absolute Neuts (auto) 3.7, Absolute Lymphs (auto) 1.13, Nucleated RBC % 0 02/25/21 06:16: Sodium 137, Potassium 4.1, Chloride 102, Carbon Dioxide 29.0, Anion Gap 6, BUN 41 H, Creatinine 3.85 H, Estim Creat Clear Calc 14.48, Est GFR (MDRD) Af Amer 19 L, Est GFR (MDRD) Non-Af 16 L, BUN/Creatinine Ratio 10.6, Glucose 86, Calcium 8.5 Micro: Microbiology 02/23/21 18:25 Sputum, Expectorated/Coughed Gram Stain - Final 02/23/21 18:25 Sputum, Expectorated/Coughed Respiratory Culture - Preliminary 02/24/21 02:40 Urine, Clean Catch Legionella Antigen - Final 02/24/21 02:40 Urine, Clean Catch Streptococcus pneumoniae Antigen (M - Final 02/23/21 13:23 Interface Orders SARS-CoV-2 Antigen (Rapid) - Final Radiography Diagnostic Testing: Radiology Impression Echocardiogram 02/24/21 05:55 Interpretation Summary The study was technically difficult. Moderate segmental systolic dysfunction (see wall motion). The estimated ejection fraction is 30 %. The left atrium is moderately enlarged. The right atrium is mildly enlarged. Mild diffuse mitral valve thickening. Moderate (2+) mitral valve insufficiency. Mild tricuspid valve insufficiency. Mild diffuse aortic valve thickening. Mild focal aortic valve calcification. Trivial aortic valve insufficiency. Trivial pulmonic valve insufficiency. Calcified aortic root. Right ventricular systolic pressure estimated to be 55 mmHg c/w pulmonary hypertension. There is evidence of diastolic dysfunction. Ordering Physician: Kar Cruz Performed By: Kady Coulter, JAME, RVT Rhythm Strip Rhythm Strip: Sinus Rhythm Rate: 66 Ectopy: None Physical Exam Narrative Physical exam: General: Alert, Oriented x3, Cooperative, No apparent distress, Well developed, not on oxygen HEENT: Atraumatic Oral: Moist Mucosa Neck: Supple Lungs: Diminished to auscultation Cardiovascular: HS I+II, regular, no murmurs Abdomen: Bowel Sounds Present, Soft, Non Tender Extremities: No edema Assessment & Plan Assessment/Plan (1) Non-ST elevation (NSTEMI) myocardial infarction: (2) Cough with hemoptysis: PLAN: 1. Acute hemoptysis secondary to acute right extensive pneumonia Patient is clinically stable Urine Legionella and streptococcal antigen negative Continue on ceftriaxone and doxycycline Continue off Eliquis and aspirin 2. Acute non-STEMI likely secondary #1, admitted EKG does not have any ST-T changes History of underlining ischemic cardiomyopathy Cardiology consulted, medical management recommended Continue on statin, carvedilol, lisinopril, 3. ESRD on hemodialysis?Monday?Monday?Monday, nephrology consulted 4. Rest of chronic medical conditions including hypothyroidism, gout, anemia, dementia remained stable Continue home medications Charges/Coding Visit Charges Inpatient E&M: 80338 Subs Hosp L2
--- NOTE | 2021-02-25 11:00 | CASEMGMT ---
Plan is to possibly discharge pt tomorrow and Dr. Wall would like pt to be dialyzed(per his MWF schedule) prior to leaving to stabilize medically prior to discharge rather than discharge to go to OP HD clinic. Ana CALIXTO CM
--- NOTE | 2021-02-25 14:34 | NURSING ---
This RN taking over care of pt at this time. Report received from Collin CALIXTO
--- NOTE | 2021-02-25 14:34 | PCS.PANDOC ---
PANDEMIC DOCUMENTATION INITIATED: Date: 09/21/2020 Time: 190
[2021-02-25] MEDS: Atorvastatin Calcium 80 MG Tablet PO (21:41)
[2021-02-26] VITALS (12 sets, daily range): BP systolic 119–144; BP diastolic 76–89; PULSE 62–82; RESP 16–18; TEMP 35.9–36.6; O2SAT 93–96
[2021-02-26] MEDS: MELATONIN 3 MG TABLET PO (03:08)
[2021-02-26] MEDS: Acetaminophen 325 MG Tablet 650 MG PO (05:13)
[2021-02-26] MEDS: Levothyroxine 50 MCG Tablet PO (05:13)
[2021-02-26 05:45] LABS: Absolute Neutrophil Count 3.5 X10^3/uL (2.0-7.7); Basophil# 0.07 X10^3/uL; Basophil% 1.2 % (0-1); Eosinophil# 0.44 X10^3/uL; Eosinophils% 7.3 % (0-5); Hematocrit 31.7 % (40-54); Hemoglobin 10.9 g/dL (13.0-16.5); Lymphocyte % 19.8 % (19-41); Mean Corp Hgb Conc 34.4 g/dL (32-36); Mean Corpuscular Hgb 36.2 pg (27.0-32.0); Mean Corpuscular Volume 105.3 fL (80-94); Mean Platelet Vol. 10.7 fl (6.2-12.0); Monocyte# 0.79 X10^3/uL; NRBC Flagged by Analyzer 0 % (0-5); Neutrophil # 3.54 X10^3/uL (2.7-7.7); Neutrophil % 58.4 % (47-70); Platelet Count 191 K/mm3 (150-450); RBC Distribution Width CV 14.5 % (11.6-14.6); RBC Distribution Width SD 54.4 fl (35.1-43.9); Red Blood Count 3.01 M/mm3 (4.6-6.2); White Blood Count 6.1 K/mm3 (4.4-11.0)
[2021-02-26 06:13] LABS: Anion Gap 9 (5-15); BUN 63 mg/dL (7-18); BUN/Creat Ratio 12.8 RATIO (10-20); Chloride 101 mmol/L (98-107); Creatinine, Serum 4.93 mg/dL (0.70-1.30); EST Glomerular Filtration Rate 12 mL/min (>60); Est Glom Filt Rate - Afr Amer 15 mL/min (>60); Estimated Creatinine Clearance 11.31 ml/min; Glucose 106 mg/dL (74-106); Potassium 4.2 mmol/L (3.5-5.1); Sodium Level 137 mmol/L (136-145)
[2021-02-26] MEDS: Ipratropium/Albuterol Sulfate 3 ML AMPUL.NEB INHALATION ×2 (06:52→19:29)
--- NOTE | 2021-02-26 07:28 | PN.CARD_ITS ---
Subjective Subjective The patient appears to be a wake and alert this morning. He denies any new acute cardiovascular concerns such as chest discomfort or worsening shortness of breath/dyspnea. Objective Data Vital Signs: Vital Signs Temp Pulse Resp BP Pulse Ox 97.7 F L 69 16 144/76 H 93 02/26/21 05:15 02/26/21 07:00 02/26/21 06:52 02/26/21 05:15 02/26/21 06:52 Oxygen Flow Rate (L/min) 2 Oxygen Delivery Method Room Air Weight: 182 lb 5.156 oz Body Mass Index (BMI) 26.3 Intake & Output: Intake and Output for Last 24 Hours 02/24/21 02/25/21 02/26/21 23:59 23:59 23:59 Intake Total 1010 / 1060 610 / 610 150 / 150 Output Total 1200 / 1200 100 / 100 Balance -190 / -140 510 / 510 150 / 150 Lab / Micro Data Result Diagrams: 02/26/21 05:06 02/26/21 05:06 Labs: Laboratory Results - last 24 hr 02/25/21 06:16: WBC 6.0, RBC 2.86 L, Hgb 9.9 L, Hct 29.9 L, MCV 104.5 H, MCH 34.6 H, MCHC 33.1, RDW Std Deviation 54.0 H, RDW Coeff of Maritza 14.4, Plt Count 155, MPV 11.4, Immature Gran % (Auto) 0.300, Neut % (Auto) 63.0, Lymph % (Auto) 19.0, [place] % (Auto) 12.4 H, Eos % (Auto) 4.5, Baso % (Auto) 0.8, Absolute Neuts (auto) 3.7, Absolute Lymphs (auto) 1.13, Nucleated RBC % 0 02/25/21 06:16: Sodium 137, Potassium 4.1, Chloride 102, Carbon Dioxide 29.0, Anion Gap 6, BUN 41 H, Creatinine 3.85 H, Estim Creat Clear Calc 14.48, Est GFR (MDRD) Af Amer 19 L, Est GFR (MDRD) Non-Af 16 L, BUN/Creatinine Ratio 10.6, Glucose 86, Calcium 8.5 02/26/21 05:06: Sodium 137, Potassium 4.2, Chloride 101, Carbon Dioxide 27.0, Anion Gap 9, BUN 63 H, Creatinine 4.93 H, Estim Creat Clear Calc 11.31, Est GFR (MDRD) Af Amer 15 L, Est GFR (MDRD) Non-Af 12 L, BUN/Creatinine Ratio 12.8, Glucose 106, Calcium 9.0 02/26/21 05:06: WBC 6.1, RBC 3.01 L, Hgb 10.9 L, Hct 31.7 L, MCV 105.3 H, MCH 36.2 H, MCHC 34.4, RDW Std Deviation 54.4 H, RDW Coeff of Maritza 14.5, Plt Count 191, MPV 10.7, Immature Gran % (Auto) 0.300, Neut % (Auto) 58.4, Lymph % (Auto) 19.8, [place] % (Auto) 13.0 H, Eos % (Auto) 7.3 H, Baso % (Auto) 1.2 H, Absolute Neuts (auto) 3.5, Absolute Lymphs (auto) 1.20, Nucleated RBC % 0 Micro: Microbiology 02/23/21 18:25 Sputum, Expectorated/Coughed Gram Stain - Final 02/23/21 18:25 Sputum, Expectorated/Coughed Respiratory Culture - Preliminary Rhythm Strip Rhythm Strip: Sinus Rhythm Rate: 66 Ectopy: None Cardiology Labs/Tests 02/25/21 06:16: WBC 6.0, RBC 2.86 L, Hgb 9.9 L, Hct 29.9 L, MCV 104.5 H, MCH 34.6 H, MCHC 33.1, Plt Count 155, MPV 11.4, Immature Gran % (Auto) 0.300, Neut % (Auto) 63.0, Lymph % (Auto) 19.0, [place] % (Auto) 12.4 H, Eos % (Auto) 4.5, Baso % (Auto) 0.8, Absolute Neuts (auto) 3.7, Nucleated RBC % 0 02/25/21 06:16: Sodium 137, Potassium 4.1, Chloride 102, Carbon Dioxide 29.0, Anion Gap 6, BUN 41 H, Creatinine 3.85 H, Est GFR (MDRD) Af Amer 19 L, Est GFR (MDRD) Non-Af 16 L, BUN/Creatinine Ratio 10.6, Glucose 86, Calcium 8.5 02/26/21 05:06: Sodium 137, Potassium 4.2, Chloride 101, Carbon Dioxide 27.0, Anion Gap 9, BUN 63 H, Creatinine 4.93 H, Est GFR (MDRD) Af Amer 15 L, Est GFR (MDRD) Non-Af 12 L, BUN/Creatinine Ratio 12.8, Glucose 106, Calcium 9.0 02/26/21 05:06: WBC 6.1, RBC 3.01 L, Hgb 10.9 L, Hct 31.7 L, MCV 105.3 H, MCH 36.2 H, MCHC 34.4, Plt Count 191, MPV 10.7, Immature Gran % (Auto) 0.300, Neut % (Auto) 58.4, Lymph % (Auto) 19.8, [place] % (Auto) 13.0 H, Eos % (Auto) 7.3 H, Baso % (Auto) 1.2 H, Absolute Neuts (auto) 3.5, Nucleated RBC % 0 Rhythm: Atrial fibrillation Physical Exam Const no apparent distress Orientation / Consciousness: awake HEENT normocephalic, head/scalp atraumatic and hearing grossly normal bilaterally Eyes PERRL, EOMs intact bilaterally and conjunctivae normal Neck supple and no JVD Resp Auscultation: rhonchi right upper and right lower Cardio Rhythm: abnormal rhythm irregularly irregular Heart Sounds: S1 normal and S2 normal GI normal to inspection, nondistended, normoactive bowel sounds Extremity no pedal edema Skin no rashes or lesions noted Neuro moves all extremities, no focal motor deficits and no sensory deficits noted Psych mental status grossly normal Assessment & Plan Assessment/Plan (1) Abnormal cardiac enzyme level: PLAN: He does have abnormal cardiac enzyme levels. Technically this would be compatible with a non-ST segment elevation DE. Based upon the information at hand this may be a type II event brought out by his underlying acute pulmonary disease process superimposed upon his chronic renal insufficiency/end-stage renal disease/chronic hemodialysis. At the moment the patient has been monitored with cardiac enzymes as noted above. His ECG as noted above. His transthoracic echocardiogram was performed and it was noted to have similar type findings compared to his study from 2020. At this time, in the midst of his ongoing pneumonia and hemoptysis, he would be recommended for continued conservative medical management of his cardiovascular status barring unforeseen urgent/emergent events. As he recuperates from his acute pulmonary disease process he can be considered, by his primary flight control specialist in [place], [place], as to whether or not he wants to and/or needs to pursue any additional noninvasive or invasive cardiovascular studies. (2) Cardiomyopathy, ischemic: PLAN: He does have a cardiomyopathy. It is presumed ischemic mediated. At the present time he will continue medical management. He does not appear to be an ideal candidate for ICD therapy based upon a combination of his age, his multiple comorbidities, and long-term poor prognosis. (3) CHF (congestive heart failure): PLAN: He does not appear to have any acute on chronic systolic mediated CHF symptoms at this time. He will continue medical therapy and hemodialysis therapy to assist with volume management. (4) Atrial fibrillation: PLAN: He has a history of atrial fibrillation. He has been on medical therapy. This has included anticoagulant therapy. His anticoagulant therapy appears to been placed on hold at this time secondary to his ongoing hemoptysis. Hopefully once his pulmonary process improves he will be able to restart his anticoagulant therapy. (5) HLD (hyperlipidemia): PLAN: He should continue risk factor evaluation care as deemed appropriate. (6) HTN (hypertension), benign: PLAN: His blood pressure can be followed with adjustment of his medications taking into consideration his multiple comorbidities. (7) S/P AAA repair: PLAN: He also has a history of a remote AAA repair. This would have to be taken into consideration if he were to undergo any invasive cardiovascular studies from the lower extremity approach. (8) Community acquired pneumonia: QUALIFIERS: Laterality: right Lung location: lower lobe of lung Qualified Code(s): J18.9 - Pneumonia, unspecified organism PLAN: He is undergoing evaluation care by internal medicine and pulmonology/critical care medicine. (9) Cough with hemoptysis: PLAN: He has had hemoptysis in the past and again now. At the moment it is reasonable to hold his anticoagulant therapy based upon his ongoing hemoptysis. This also makes it challenging to perform to any further invasive evaluation at this time that may include additional antiplatelet or anticoagulants. As noted above: Hopefully once his pulmonary process improves he will be able to reinitiate his anticoagulant therapy unless otherwise contraindicated. (10) End-stage renal disease (ESRD): PLAN: He will continue nephrology evaluation and care and chronic he modialysis. (11) Dementia: PLAN: He carries, from his previous evaluation in 2019, a diagnosis of dementia. This does play a role in his ongoing evaluation and care. Addt'l Comments Thank you for allowing me to participate in the care of your patient. Please don't hesitate to call if any issues arise. This note was generated using a voice recognition system and there may be incorrect words, spelling or punctuation that were not noted when reviewing the office note prior to saving.
--- NOTE | 2021-02-26 08:00 | PN.CC_ITS ---
Assessment & Plan Assessment/Plan (1) Cough with hemoptysis: (2) Non-ST elevation (NSTEMI) myocardial infarction: (3) End-stage renal disease (ESRD): PLAN: RECOMMENDATIONS: 1. Continue hemodialysis per nephrology recommendations 2. Encourage incentive spirometer 3. Pain control as needed for left rib pain 4. Okay to reinitiate Eliquis from my perspective 5. Continue with empiric antibiotics for pneumonia pending culture 6. Walking oximetry prior to discharge IMPRESSIONS: 1. Hemoptysis with acute hypoxic respiratory insufficiency Unclear etiology at this time. Pattern on CT scan does show a dependent nature indicating possibility of fluid overload. Pattern is not consistent with a contrecoup injury, but pneumonia secondary to splinting is a possibility. Patient is on empiric antibiotics and sputum does appear to be purulent. Patient could have an element of hemoptysis secondary to anticoagulation with appropriate lung inflammation. Okay to reinitiate anticoagulation from a pulmonary perspective. We will hold on any bronchoscopy. We will hold on steroids as patient does not have wheezing on exam and no history of obstructive lung disease. Patient currently on room air, likely secondary to hemodialysis more than resolution of infectious process, but this also appears to be improving. 2. Elevated troponin/systolic CHF/A. fib Cardiology has been consulted. Unclear if elevated troponin is secondary to supply demand mismatch, decreased elimination with renal failure and missed dialysis or a new insult. Patient off of anticoagulation at this time. Chest pain is localized to the rib area, not substernal. Appreciate cardiology assessment. Echocardiogram is grossly unchanged 3. ESRD/gout/hypothyroidism/dementia/advanced age Complicates care, management, recovery and prognosis. Okay to continue with baseline medications. Patient would benefit from volume removal with hemodialysis as this can complicate overall clinical picture. CODE STATUS was discussed by hospitalist and patient is appropriately DNR Comfort Care arrest without intubation. Subjective Subjective Patient did okay overnight. No acute issues were reported. Patient is still having some mild hemoptysis, but cough is predominantly productive of mucus. Patient is to have hemodialysis today. Patient is not reporting significant left-sided chest pain. Objective Data Objective Data Vital Signs: Vital Signs Temp Pulse Resp BP Pulse Ox 36.5 C L 69 16 144/76 H 93 02/26/21 05:15 02/26/21 07:00 02/26/21 06:52 02/26/21 05:15 02/26/21 06:52 Oxygen Flow Rate (L/min) 2 Oxygen Delivery Method Room Air Weight: 82.7 kg Body Mass Index (BMI) 26.3 Intake & Output: Intake and Output for Last 24 Hours 02/24/21 02/25/21 02/26/21 23:59 23:59 23:59 Intake Total 1010 / 1060 610 / 610 150 / 150 Output Total 1200 / 1200 100 / 100 Balance -190 / -140 510 / 510 150 / 150 Lab / Micro Data Result Diagrams: 02/26/21 05:06 02/26/21 05:06 Labs: Laboratory Results - last 24 hr 02/26/21 05:06: Sodium 137, Potassium 4.2, Chloride 101, Carbon Dioxide 27.0, Anion Gap 9, BUN 63 H, Creatinine 4.93 H, Estim Creat Clear Calc 11.31, Est GFR (MDRD) Af Amer 15 L, Est GFR (MDRD) Non-Af 12 L, BUN/Creatinine Ratio 12.8, Glucose 106, Calcium 9.0 02/26/21 05:06: WBC 6.1, RBC 3.01 L, Hgb 10.9 L, Hct 31.7 L, MCV 105.3 H, MCH 36.2 H, MCHC 34.4, RDW Std Deviation 54.4 H, RDW Coeff of Maritza 14.5, Plt Count 191, MPV 10.7, Immature Gran % (Auto) 0.300, Neut % (Auto) 58.4, Lymph % (Auto) 19.8, [place] % (Auto) 13.0 H, Eos % (Auto) 7.3 H, Baso % (Auto) 1.2 H, Absolute Neuts (auto) 3.5, Absolute Lymphs (auto) 1.20, Nucleated RBC % 0 Micro: Microbiology 02/23/21 18:25 Sputum, Expectorated/Coughed Gram Stain - Final 02/23/21 18:25 Sputum, Expectorated/Coughed Respiratory Culture - Preli minary 02/24/21 02:40 Urine, Clean Catch Legionella Antigen - Final 02/24/21 02:40 Urine, Clean Catch Streptococcus pneumoniae Antigen (M - Final 02/23/21 13:23 Interface Orders SARS-CoV-2 Antigen (Rapid) - Final Rhythm Strip Rhythm Strip: Sinus Rhythm Rate: 66 Ectopy: None Physical Exam Const no apparent distress Constitutional Narrative: On room air with no conversational dyspnea Orientation / Consciousness: awake HEENT normocephalic, head/scalp atraumatic and hearing grossly normal bilaterally Eyes PERRL, EOMs intact bilaterally and conjunctivae normal Neck supple and no JVD Resp Auscultation: rhonchi right lower Cardio Rhythm: abnormal rhythm irregularly irregular Heart Sounds: S1 normal, S2 normal and murmur; Negative for gallop or rub GI normal to inspection, nondistended, normoactive bowel sounds Extremity no pedal edema Skin no rashes or lesions noted Neuro moves all extremities, no focal motor deficits and no sensory deficits noted Psych mental status grossly normal Charges/Coding Visit Charges Inpatient E&M: 26982 Subs Hosp L2
--- NOTE | 2021-02-26 11:46 | DIALYSIS ---
HD x 3.5 hours complete. Tolerated tx well. Ran on 2k bath. UF of 300ml. Used left arm access. [place] removed post tx and pressure applied x 10 minutes. Hemostasis achieved. Fresh gauze and tape applied. See tx sheet for more details. Report was given to DURGA Giron.
[2021-02-26] MEDS: Calcium Acetate 667 MG Capsule PO ×2 (11:55→17:45)
[2021-02-26] MEDS: Doxycycline 100 MG CAPSULE PO (11:55)
[2021-02-26] MEDS: guaiFENesin 1,200 MG Tablet 1200 MG PO ×2 (11:55→22:41)
[2021-02-26] MEDS: Allopurinol 100 MG Tablet PO (11:56)
[2021-02-26] MEDS: Memantine Hydrochloride 5 MG Tablet PO ×2 (11:56→22:41)
[2021-02-26] MEDS: Amiodarone 200 MG Tablet 100 MG PO (11:56)
[2021-02-26] MEDS: Carvedilol 3.125 MG TABLET PO ×2 (11:56→22:41)
--- NOTE | 2021-02-26 12:02 | NURSING ---
AM medications late d/t pt getting dialysis.
--- NOTE | 2021-02-26 12:04 | PN.HOSP_ITS ---
Subjective Subjective Follow-up for pneumonia/hemoptysis/elevated troponin: Patient was seen and examined. No new complains. Denied any fever or chills. Remains off oxygen. Objective Data Objective Data Vital Signs: Vital Signs Temp Pulse Resp BP Pulse Ox 97.4 F L 72 16 119/78 95 02/26/21 11:53 02/26/21 11:53 02/26/21 11:53 02/26/21 11:53 02/26/21 11:53 Oxygen Flow Rate (L/min) 2 Oxygen Delivery Method Room Air Weight: 82.7 kg Body Mass Index (BMI) 26.3 Intake & Output: Intake and Output for Last 24 Hours 02/24/21 02/25/21 02/26/21 23:59 23:59 23:59 Intake Total 1010 / 1060 610 / 610 150 / 150 Output Total 1200 / 1200 100 / 100 Balance -190 / -140 510 / 510 150 / 150 Lab / Micro Data Result Diagrams: 02/26/21 05:06 02/26/21 05:06 Labs: Laboratory Results - last 24 hr 02/26/21 05:06: Sodium 137, Potassium 4.2, Chloride 101, Carbon Dioxide 27.0, Anion Gap 9, BUN 63 H, Creatinine 4.93 H, Estim Creat Clear Calc 11.31, Est GFR (MDRD) Af Amer 15 L, Est GFR (MDRD) Non-Af 12 L, BUN/Creatinine Ratio 12.8, G lucose 106, Calcium 9.0 02/26/21 05:06: WBC 6.1, RBC 3.01 L, Hgb 10.9 L, Hct 31.7 L, MCV 105.3 H, MCH 36.2 H, MCHC 34.4, RDW Std Deviation 54.4 H, RDW Coeff of Maritza 14.5, Plt Count 191, MPV 10.7, Immature Gran % (Auto) 0.300, Neut % (Auto) 58.4, Lymph % (Auto) 19.8, [place] % (Auto) 13.0 H, Eos % (Auto) 7.3 H, Baso % (Auto) 1.2 H, Absolute Neuts (auto) 3.5, Absolute Lymphs (auto) 1.20, Nucleated RBC % 0 Micro: Microbiology 02/23/21 18:25 Sputum, Expectorated/Coughed Gram Stain - Final 02/23/21 18:25 Sputum, Expectorated/Coughed Respiratory Culture - Preliminary 02/24/21 02:40 Urine, Clean Catch Legionella Antigen - Final 02/24/21 02:40 Urine, Clean Catch Streptococcus pneumoniae Antigen (M - Final 02/23/21 13:23 Interface Orders SARS-CoV-2 Antigen (Rapid) - Final Rhythm Strip Rhythm Strip: Sinus Rhythm Rate: 66 Ectopy: None Physical Exam Narrative Physical exam: General: Alert, Oriented x3, Cooperative, No apparent distress, Well developed, not on oxygen HEENT: Atraumatic Oral: Moist Mucosa Neck: Supple Lungs: Diminished to auscultation Cardiovascular: HS I+II, regular, no murmurs Abdomen: Bowel Sounds Present, Soft, Non Tender Extremities: No edema Assessment & Plan Assessment/Plan (1) Non-ST elevation (NSTEMI) myocardial infarction: (2) Cough with hemoptysis: PLAN: 1. Acute hemoptysis secondary to acute right extensive pneumonia, appears improved Urine Legionella and streptococcal antigen negative Continue on ceftriaxone and doxycycline Restart back on Eliquis, monitor closely 2. Acute non-STEMI likely secondary #1, admitted EKG does not have any ST-T changes History of underlining ischemic cardiomyopathy Cardiology consulted, medical management recommended Continue on statin, carvedilol, lisinopril, Not on aspirin because of #1 3. ESRD on hemodialysis?Monday?Monday?Monday, nephrology consulted 4. Rest of chronic medical conditions including hypothyroidism, gout, anemia, dementia remained stable Continue home medications Charges/Coding Visit Charges Inpatient E&M: 60078 Subs Hosp L2
[2021-02-26] MEDS: APIXABAN 2.5 MG TABLET PO ×2 (12:05→22:41)
--- NOTE | 2021-02-26 14:05 | PN.RENAL_ITS ---
Subjective Subjective Resting in bed, no acute distress. No overnight events. No complaints. Objective Data Objective Data Vital Signs: Vital Signs Temp Pulse Resp BP Pulse Ox 97.4 F L 72 16 119/78 95 02/26/21 11:53 02/26/21 11:53 02/26/21 11:53 02/26/21 11:53 02/26/21 11:53 Oxygen Flow Rate (L/min) 2 Oxygen Delivery Method Room Air Weight: 82.7 kg Body Mass Index (BMI) 26.3 Intake & Output: Intake and Output for Last 24 Hours 02/24/21 02/25/21 02/26/21 23:59 23:59 23:59 Intake Total 1010 / 1060 610 / 610 680 / 680 Output Total 1200 / 1200 100 / 100 Balance -190 / -140 510 / 510 680 / 680 Lab / Micro Data Result Diagrams: 02/26/21 05:06 02/26/21 05:06 Labs: Laboratory Results - last 24 hr 02/26/21 05:06: Sodium 137, Potassium 4.2, Chloride 101, Carbon Dioxide 27.0, Anion Gap 9, BUN 63 H, Creatinine 4.93 H, Estim Creat Clear Calc 11.31, Est GFR (MDRD) Af Amer 15 L, Est GFR (MDRD) Non-Af 12 L, BUN/Creatinine Ratio 12.8, Glucose 106, Calcium 9.0 02/26/21 05:06: WBC 6.1, RBC 3.01 L, Hgb 10.9 L, Hct 31.7 L, MCV 105.3 H, MCH 36.2 H, MCHC 34.4, RDW Std Deviation 54.4 H, RDW Coeff of Maritza 14.5, Plt Count 191, MPV 10.7, Immature Gran % (Auto) 0.300, Neut % (Auto) 58.4, Lymph % (Auto) 19.8, [place] % (Auto) 13.0 H, Eos % (Auto) 7.3 H, Baso % (Auto) 1.2 H, Absolute Neuts (auto) 3.5, Absolute Lymphs (auto) 1.20, Nucleated RBC % 0 Micro: Microbiology 02/23/21 16:45 Blood Culture (Wb) - Right Wrist Blood Culture - Preliminary No growth in 48 hours. 02/23/21 16:10 Blood Culture (Wb) - Right Wrist Blood Culture - Preliminary No growth in 48 hours. 02/23/21 18:25 Sputum, Expectorated/Coughed Gram Stain - Final 02/23/21 18:25 Sputum, Expectorated/Coughed Respiratory Culture - Preliminary 02/24/21 02:40 Urine, Clean Catch Legionella Antigen - Final 02/24/21 02:40 Urine, Clean Catch Streptococcus pneumoniae Antigen (M - Final 02/23/21 13:23 Interface Orders SARS-CoV-2 Antigen (Rapid) - Final Rhythm Strip Rhythm Strip: Sinus Rhythm Rate: 66 Ectopy: None Physical Exam Narrative Const: A&O x3, NAD Cardio: S1S2 RRR Respiratory: LS clear anteriorly : abdomen soft, non-tender, +BS Extremities: no edema AVF Left FA +thrill/bruit Assessment & Plan Assessment/Plan (1) End-stage renal disease (ESRD): (2) Cough with hemoptysis: (3) Anemia: (4) Dementia: (5) HTN (hypertension), benign: PLAN: - ESRD HD MWF: Patient tolerated dialysis today over 3.5 hours. Patient will have a new lowered dry weight, dry weight lowered by about 4 kg. Old EDW was 86kg. - Pnemonia: Negative for covid 19 rapid test. on Ceftriaxone and oral doxy. Blood cultures so far no growth to date. CT chest showed airspace disease involving the right upper, right middle and right lower lobes with a small right pleural effusion, tiny pericardial effusion. Pulmonary consulted. Increase activity, up to chair for meals. Ambulated with therapy this am. - detectable troponins, seen by cardiology, conservative tx at this time - Hgb acceptable. Goal hgb between 10 -11g/dL. - MBD: Patient is on phoslo, will continue to monitor phos levels periodically. Continue protein supplement. - Current blood pressures acceptable on lisinopril and coreg. - Discharge planning in progress, possibly to home tomorrow
--- NOTE | 2021-02-26 14:37 | CASEMGMT ---
Pt is confused at this time and only alert to self. Call to to discuss discharge plan. Per , pt does have intermittent confusion and has been dx'd with dementia. states she saw him walk with therapy and states no concerns with pt coming home at time of discharge. declines need for any further therapy/resources at this time. Ana CALIXTO CM
[2021-02-26] MEDS: Atorvastatin Calcium 80 MG Tablet PO (22:40)
[2021-02-26] MEDS: Lisinopril 5 MG Tablet PO (22:41)
[2021-02-27] VITALS (10 sets, daily range): BP systolic 121–124; BP diastolic 79–88; PULSE 67–75; RESP 18; TEMP 36.3–36.6; O2SAT 95–97
[2021-02-27] MEDS: Levothyroxine 50 MCG Tablet PO (06:20)
[2021-02-27] MEDS: Ipratropium/Albuterol Sulfate 3 ML AMPUL.NEB INHALATION (06:38)
[2021-02-27 07:43] LABS: Hematocrit 31.6 % (40-54); Hemoglobin 10.4 g/dL (13.0-16.5); Mean Corp Hgb Conc 32.9 g/dL (32-36); Mean Corpuscular Hgb 35.3 pg (27.0-32.0); Mean Corpuscular Volume 107.1 fL (80-94); Mean Platelet Vol. 10.9 fl (6.2-12.0); Platelet Count 188 K/mm3 (150-450); RBC Distribution Width CV 14.4 % (11.6-14.6); RBC Distribution Width SD 56.2 fl (35.1-43.9); Red Blood Count 2.95 M/mm3 (4.6-6.2); White Blood Count 5.5 K/mm3 (4.4-11.0)
[2021-02-27 08:04] LABS: Anion Gap 6 (5-15); BUN 37 mg/dL (7-18); BUN/Creat Ratio 9.9 RATIO (10-20); Calcium,Total 8.5 mg/dL (8.5-10.1); Chloride 101 mmol/L (98-107); Creatinine, Serum 3.72 mg/dL (0.70-1.30); EST Glomerular Filtration Rate 17 mL/min (>60); Est Glom Filt Rate - Afr Amer 20 mL/min (>60); Estimated Creatinine Clearance 14.99 ml/min; Glucose 91 mg/dL (74-106); Potassium 4.2 mmol/L (3.5-5.1); Sodium Level 138 mmol/L (136-145)
--- NOTE | 2021-02-27 08:21 | PCM.PN.INT ---
Assessment & Plan Assessment/Plan (1) Cough with hemoptysis: (2) Non-ST elevation (NSTEMI) myocardial infarction: (3) End-stage renal disease (ESRD): PLAN: RECOMMENDATIONS: 1. Continue hemodialysis per nephrology recommendations 2. Encourage incentive spirometer 3. Pain control as needed for left rib pain 4. Hemodynamically stable on room air. Will sign off from a critical care perspective 5. Okay to transition to p.o. antibiotics to complete a 5-day course 6. Walking oximetry prior to discharge IMPRESSIONS: 1. Hemoptysis with acute hypoxic respiratory insufficiency secondary to Moraxella pneumonia Unclear etiology at this time. Pattern on CT scan does show a dependent nature indicating possibility of fluid overload. Pattern is not consistent with a contrecoup injury, but pneumonia secondary to splinting is a possibility. Patient is on empiric antibiotics and sputum does appear to be purulent. Patient tolerating Eliquis and antibiotics. Okay to treat for total of 5 days. Okay to discharge from a pulmonary perspective. Patient can have walking oximetry prior to discharge to ensure no desaturation 2. Elevated troponin/systolic CHF/A. fib Cardiology has been consulted. Unclear if elevated troponin is secondary to supply demand mismatch, decreased elimination with renal failure and missed dialysis or a new insult. Patient off of anticoagulation at this time. Chest pain is localized to the rib area, not substernal. Appreciate cardiology assessment. Echocardiogram is grossly unchanged 3. ESRD/gout/hypothyroidism/dementia/advanced age Complicates care, management, recovery and prognosis. Okay to continue with baseline medications. Patient would benefit from volume removal with hemodialysis as this can complicate overall clinical picture. CODE STATUS was discussed by hospitalist and patient is appropriately DNR Comfort Care arrest without intubation. Subjective Subjective Patient did well overnight. No acute issues are reported. Patient states the hemoptysis continues to improve. Patient was able to tolerate dialysis with no issues. Patient feels strong enough to get out of here. Objective Data Objective Data Vital Signs: Vital Signs Temp Pulse Resp BP Pulse Ox 36.6 C 71 18 124/88 H 95 02/27/21 04:23 02/27/21 07:00 02/27/21 06:39 02/27/21 04:23 02/27/21 04:24 Oxygen Flow Rate (L/min) 2 Oxygen Delivery Method Room Air Weight: 83.1 kg Body Mass Index (BMI) 26.3 Intake & Output: Intake and Output for Last 24 Hours 02/25/21 02/26/21 02/27/21 23:59 23:59 23:59 Intake Total 610 / 610 1300 / 1300 120 / 120 Output Total 100 / 100 100 / 100 Balance 510 / 510 1300 / 1300 Lab / Micro Data Result Diagrams: 02/27/21 07:16 02/27/21 07:16 Labs: Laboratory Results - last 24 hr 02/27/21 07:16: WBC 5.5, RBC 2.95 L, Hgb 10.4 L, Hct 31.6 L, MCV 107.1 H, MCH 35.3 H, MCHC 32.9, RDW Std Deviation 56.2 H, RDW Coeff of Maritza 14.4, Plt Count 188, MPV 10.9 02/27/21 07:16: Sodium 138, Potassium 4.2, Chloride 101, Carbon Dioxide 31.0, Anion Gap 6, BUN 37 H, Creatinine 3.72 H, Estim Creat Clear Calc 14.99, Est GFR (MDRD) Af Amer 20 L, Est GFR (MDRD) Non-Af 17 L, BUN/Creatinine Ratio 9.9 L, Glucose 91, Calcium 8.5 Micro: Microbiology 02/23/21 18:25 Sputum, Expectorated/Coughed Gram Stain - Final 02/23/21 18:25 Sputum, Expectorated/Coughed Respiratory Culture - Final Moraxella(Elma.)Catarrhalis 02/23/21 16:45 Blood Culture (Wb) - Right Wrist Blood Culture - Preliminary No growth in 48 hours. 02/23/21 16:10 Blood Culture (Wb) - Right Wrist Blood Culture - Preliminary No growth in 48 hours. 02/24/21 02:40 Urine, Clean Catch Legionella Antigen - Final 02/24/21 02:40 Urine, Clean Catch Streptococcus pneumoniae Antigen (M - Final 02/23/21 13:23 Interface Orders SARS-CoV-2 Antigen (Rapid) - Final Rhythm Strip Rhythm Strip: Sinus Rhythm Rate: 66 Ectopy: None Physical Exam Const no apparent distress Constitutional Narrative: On room air with no conversational dyspnea Orientation / Consciousness: awake HEENT normocephalic, head/scalp atraumatic and hearing grossly normal bilaterally Eyes PERRL, EOMs intact bilaterally and conjunctivae normal Neck supple and no JVD Resp Auscultation: rhonchi right lower Cardio Rhythm: abnormal rhythm irregularly irregular Heart Sounds: S1 normal, S2 normal and murmur; Negative for gallop or rub GI normal to inspection, nondistended, normoactive bowel sounds Extremity no pedal edema Skin no rashes or lesions noted Neuro moves all extremities, no focal motor deficits and no sensory deficits noted Psych mental status grossly normal Charges/Coding Visit Charges Inpatient E&M: 13169 Subs Hosp L2
--- NOTE | 2021-02-27 08:22 | PCM.PN.HOSP ---
Subjective Subjective Follow-up for pneumonia/hemoptysis/elevated troponin: Patient was seen and examined. No new complains. Denied any fever or chills. No acute events overnight. Objective Data Objective Data Vital Signs: Vital Signs Temp Pulse Resp BP Pulse Ox 97.8 F 71 18 124/88 H 95 02/27/21 04:23 02/27/21 07:00 02/27/21 06:39 02/27/21 04:23 02/27/21 04:24 Oxygen Flow Rate (L/min) 2 Oxygen Delivery Method Room Air Weight: 83.1 kg Body Mass Index (BMI) 26.3 Intake & Output: Intake and Output for Last 24 Hours 02/25/21 02/26/21 02/27/21 23:59 23:59 23:59 Intake Total 610 / 610 1300 / 1300 120 / 120 Output Total 100 / 100 100 / 100 Balance 510 / 510 1300 / 1300 Lab / Micro Data Result Diagrams: 02/27/21 07:16 02/27/21 07:16 Labs: Laboratory Results - last 24 hr 02/27/21 07:16: WBC 5.5, RBC 2.95 L, Hgb 10.4 L, Hct 31.6 L, MCV 107.1 H, MCH 35.3 H, MCHC 32.9, RDW Std Deviation 56.2 H, RDW Coeff of Maritza 14.4, Plt Count 188, MPV 10.9 02/27/21 07:16: Sodium 138, Potassium 4.2, Chloride 101, Carbon Dioxide 31.0, Anion Gap 6, BUN 37 H, Creatinine 3.72 H, Estim Creat Clear Calc 14.99, Est GFR (MDRD) Af Amer 20 L, Est GFR (MDRD) Non-Af 17 L, BUN/Creatinine Ratio 9.9 L, Glucose 91, Calcium 8.5 Micro: Microbiology 02/23/21 18:25 Sputum, Expectorated/Coughed Gram Stain - Final 02/23/21 18:25 Sputum, Expectorated/Coughed Respiratory Culture - Final Moraxella([place]ma.)Catarrhalis 02/23/21 16:45 Blood Culture (Wb) - Right Wrist Blood Culture - Preliminary No growth in 48 hours. 02/23/21 16:10 Blood Culture (Wb) - Right Wrist Blood Culture - Preliminary No growth in 48 hours. 02/24/21 02:40 Urine, Clean Catch Legionella Antigen - Final 02/24/21 02:40 Urine, Clean Catch Streptococcus pneumoniae Antigen (M - Final 02/23/21 13:23 Interface Orders SARS-CoV-2 Antigen (Rapid) - Final Rhythm Strip Rhythm Strip: Sinus Rhythm Rate: 66 Ectopy: None Physical Exam Narrative Physical exam: General: Alert, Oriented x3, Cooperative, No apparent distress, Well developed, not on oxygen HEENT: Atraumatic Oral: Moist Mucosa Neck: Supple Lungs: Diminished to auscultation Cardiovascular: HS I+II, regular, no murmurs Abdomen: Bowel Sounds Present, Soft, Non Tender Extremities: No edema Assessment & Plan Assessment/Plan (1) Non-ST elevation (NSTEMI) myocardial infarction: (2) Cough with hemoptysis: PLAN: 1. Acute hemoptysis secondary to acute right extensive pneumonia, resolved No hemoptysis since starting Eliquis Urine Legionella and streptococcal antigen negative Continue on ceftriaxone and doxycycline Will switch to Augmentin for total of 7 days 2. Acute non-STEMI likely secondary #1, admitted EKG does not have any ST-T changes History of underlining ischemic cardiomyopathy Cardiology consulted, medical management recommended Continue on statin, carvedilol, lisinopril, Not on aspirin because of #1 3. ESRD on hemodialysis?Monday?Monday?Monday, nephrology consulted 4. Rest of chronic medical conditions including hypothyroidism, gout, anemia, dementia remained stable Continue home medications Charges/Coding Visit Charges Inpatient E&M: 70839 Subs Hosp L2
[2021-02-27] MEDS: Carvedilol 3.125 MG TABLET PO (08:33)
[2021-02-27] MEDS: Amiodarone 200 MG Tablet 100 MG PO (08:33)
[2021-02-27] MEDS: Lisinopril 5 MG Tablet PO (08:33)
[2021-02-27] MEDS: guaiFENesin 1,200 MG Tablet 1200 MG PO (08:35)
[2021-02-27] MEDS: Calcium Acetate 667 MG Capsule PO (08:36)
[2021-02-27] MEDS: Allopurinol 100 MG Tablet PO (08:37)
[2021-02-27] MEDS: Doxycycline 100 MG CAPSULE PO (08:37)
[2021-02-27] MEDS: APIXABAN 2.5 MG TABLET PO (08:38)
[2021-02-27] MEDS: Memantine Hydrochloride 5 MG Tablet PO (08:39)
--- NOTE | 2021-02-27 08:48 | DS.PCM_ITS ---
Providers Date of Admission: 02/23/21 Date of Discharge: 02/27/21 Primary Care Physician: JELANI GOMEZ Consultations 02/23/21 17:30 Consult: Cardiology Routine Consulting Provider: Ben Cotto Reason for Consult: NSTEMI EMERGENT Consult: No Notified: Yes Date Notified: 02/23/21 Time Notified: 17:00 Method of Notification: Verbal Consult: Airplane Gastank Liner Assembler / Pulmonary Medicine Routine Consulting Provider: Pulmonary Medicine thu Gilbert Reason for Consult: RUL nodular infiltrate, hemoptysis EMERGENT Consult: No Notified: Yes Date Notified: 02/23/21 Time Notified: 17:00 Method of Notification: Text Consult: Nephrology Routine Consulting Provider: Braeden Maradiaga Reason for Consult: ESRD on HD EMERGENT Consult: No Notified: Yes Date Notified: 02/23/21 Time Notified: 17:20 Method of Notification: Answering Service Reason For Visit: NSTEMI WITH HEMOPTYSIS Diagnosis Discharge Diagnosis (1) Non-ST elevation (NSTEMI) myocardial infarction: Status: Acute Code(s): I21.4 - Non-ST elevation (NSTEMI) myocardial infarction (2) Cough with hemoptysis: Status: Acute Code(s): R04.2 - Hemoptysis (3) Pneumonia: Status: Acute Code(s): J18.9 - Pneumonia, unspecified organism Medications at Discharge Home Medications allopurinol 100 mg tablet 100 mg PO DAILY #90 tab 07/26/18 atorvastatin 80 mg PO QHS #30 tab 11/26/19 calcium acetate(phosphat bind) 667 mg PO TIDCM #90 cap 11/26/19 carvedilol 3.125 mg PO BID #60 tab 11/26/19 levothyroxine 50 mcg PO DAILY@0600 #30 tab 11/26/19 memantine 5 mg PO BID #60 tab 11/26/19 albuterol sulfate 2.5 mg INHALATION Q4H PRN #180 ml 12/13/19 apixaban 2.5 mg tablet 2.5 mg PO BID 01/14/20 lisinopril 2.5 mg tablet 5 mg PO DAILY tab 01/14/20 amiodarone 100 mg PO DAILY 08/06/20 polyethylene glycol 3350 17 g PO DAILY 02/23/21 amoxicillin-pot clavulanate [Augmentin] 1 tab PO BID 3 Days #6 tab 02/27/21 guaifenesin [Mucus Relief ER] 1,200 mg PO BID 5 Days #10 tab 02/27/21 Hospital Course Operations None Procedures 2-D Echocardiogram Summary of Care Provided Minutes Spent on Discharge: 40 Hospital Course: 85-year-old male with past medical history of ESRD on hemodialysis, dementia who comes in with hemoptysis ongoing for 3 days and shortness of breath for 1 week. Patient was found to have extensive right upper, middle and lower lobe airspace disease. Patient also had elevated troponin, no ST-T changes on EKG. He was managed as acute non-STEMI. Medical Office Representative and director of integrated marketing were consulted. Patient was started on IV antibiotics. His Eliquis was held. Medical management with aspirin, statin, carvedilol was recommended for the non-STEMI. Patient however had slight worsening hemoptysis. Aspirin was held. Eliquis was resumed the next day with no events. Patient was discharged with 3 more days of Augmentin to complete 1 week of antibiotics. He will follow-up with pulmonology and primary care doctor in the outpatient. Physical Exam Narrative See progress note Weight / BMI Weight Weight: 83.1 kg Body Mass Index (BMI) 26.3 ABG / Lab / Microbiology Data Result Diagrams: 02/27/21 07:16 02/27/21 07:16 Laboratory: Laboratory Results - last 24 hr 02/27/21 07:16: WBC 5.5, RBC 2.95 L, Hgb 10.4 L, Hct 31.6 L, MCV 107.1 H, MCH 35.3 H, MCHC 32.9, RDW Std Deviation 56.2 H, RDW Coeff of Maritza 14.4, Plt Count 188, MPV 10.9 02/27/21 07:16: Sodium 138, Potassium 4.2, Chloride 101, Carbon Dioxide 31.0, Anion Gap 6, BUN 37 H, Creatinine 3.72 H, Estim Creat Clear Calc 14.99, Est GFR (MDRD) Af Amer 20 L, Est GFR (MDRD) Non-Af 17 L, BUN/Creatinine Ratio 9.9 L, Glucose 91, Calcium 8.5 Microbiology: Microbiology 02/23/21 18:25 Sputum, Expectorated/Coughed Gram Stain - Final 01/18/22 18:25 Sputum, Expectorated/Coughed Respiratory Culture - Final Moraxella(Elma.)Catarrhalis 02/23/21 16:45 Blood Culture (Wb) - Right Wrist Blood Culture - Preliminary No growth in 48 hours. 02/23/21 16:10 Blood Culture (Wb) - Right Wrist Blood Culture - Preliminary No growth in 48 hours. 02/24/21 02:40 Urine, Clean Catch Legionella Antigen - Final 02/24/21 02:40 Urine, Clean Catch Streptococcus pneumoniae Antigen (M - Final 02/23/21 13:23 Interface Orders SARS-CoV-2 Antigen (Rapid) - Final D/C Instructions Discharge Diet: Renal Diet Meaningful Use Info Meaningful Use Diagnoses (Choose all that apply): None applicable Discharge Plan Admission Admit Date/Time: 02/23/21 16:04 Primary Reason for Your Visit: Hemoptysis/Pneumonia Attending Provider: Ginny Wall Consulting Providers: Ben Cotto ; Graham Driscoll ; Stephen Lezama ; Samina Khan NP ; Braeden Maradiaga Instructions Additional Instructions / Restrictions: Continue to use your incentive spirometer. Complete your antibiotics. Follow- up with pulmonology within 2 weeks as well as your primary care doctor. Continue with dialysis as scheduled. Discharge Orders/Prescriptions Prescriptions: New Mucus Relief ER 1,200 mg Tablet Extended Release 12hr 1,200 mg PO BID 5 Days Qty: 10 RF: 0 amoxicillin-pot clavulanate [Augmentin] 500-125 mg tablet 1 tab PO BID 3 Days Qty: 6 RF: 0 Continued allopurinol 100 mg tablet 100 mg PO DAILY Qty: 90 RF: 0 albuterol sulfate 2.5 mg /3 mL (0.083 %) solution for nebulization 2.5 mg INHALATION Q4H PRN (Reason: Sob &/Or Wheezing) Qty: 180 RF: 3 Eliquis 2.5 mg tablet 2.5 mg PO BID RF: 0 lisinopril 2.5 mg tablet 5 mg PO DAILY RF: 0 atorvastatin 80 MG tablet 80 mg PO QHS Qty: 30 RF: 1 carvedilol 3.125 MG tablet 3.125 mg PO BID Qty: 60 RF: 1 levothyroxine 50 MCG tablet 50 mcg PO DAILY@0600 Qty: 30 RF: 1 memantine 5 MG tablet 5 mg PO BID Qty: 60 RF: 0 calcium acetate(phosphat bind) 667 MG capsule 667 mg PO TIDCM Qty: 90 RF: 0 amiodarone 200 MG tablet 100 mg PO DAILY RF: 0 polyethylene glycol 3350 17 gram Powder In Packet 17 g PO DAILY RF: 0 Discontinued acetaminophen 500 mg capsule 500 mg PO Q6H PRN (Reason: pain / fever) RF: 0 meclizine 25 mg Tablet 25 mg PO TID RF: 0 Referrals / Follow Up: JELANI GOMEZ [Other] - Within 2 Weeks Graham Driscoll MD [STAFF PHYSICIAN] - Within 2 Weeks Disposition Disposition (needs filled in before D/C Order can be placed): Home, Self Care Charges/Coding Visit Charges Inpatient E&M: 15117 Disch Hosp
[2021-02-27] MEDS: 0.9% Saline Lock 10 ML Syringe IV (10:31)
== END 2021-02-27 11:31 | disposition home or self-care (01) | DRG 177 ==
LOC: ED 12:48 → PCU 16:35
PROVIDERS: Internal Medicine Critical Care Medicine; Nurse Practitioner Adult Health; Admitting Provider Internal Medicine; Emergency Provider Emergency Medicine; Visit Provider Internal Medicine
DX: J15.6 Pneumonia due to other Gram-negative bacteria (principal); N18.6 End stage renal disease; I21.A1 Myocardial infarction type 2; R04.2 Hemoptysis; I50.22 Chronic systolic (congestive) heart failure; D63.1 Anemia in chronic kidney disease; F03.90 Unspecified dementia, unspecified severity, without behavioral disturbance, psychotic disturbance, mood disturbance, and anxiety; Z99.2 Dependence on renal dialysis; I48.0 Paroxysmal atrial fibrillation; F17.210 Nicotine dependence, cigarettes, uncomplicated; E03.9 Hypothyroidism, unspecified; E78.5 Hyperlipidemia, unspecified; M10.9 Gout, unspecified; I25.5 Ischemic cardiomyopathy; I25.2 Old myocardial infarction; I25.10 Atherosclerotic heart disease of native coronary artery without angina pectoris; Z66 Do not resuscitate; Z20.822 Contact with and (suspected) exposure to COVID-19; R09.02 Hypoxemia; Z79.82 Long term (current) use of aspirin; Z79.01 Long term (current) use of anticoagulants; Z79.890 Hormone replacement therapy
CPT/HCPCS: 36415; 70450; 71045; 71250; 80048; 82550; 83605; 83735; 83880; 84100; 84443; 84484; 85025; 85027; 87040; 87070; 87077; 87205; 87426; 87449; 87641; 90937; 93005; 93306; 94640; 97161; 97166; 97530; 97535; 97802; 99251; 99285; J7030; J7050; Q9957; A4216; G0257; G0463; J0696

== ENCOUNTER 2021-03-29 10:59 | Observation (INO) | payer MEDICARE, SELFPAY ==
[2021-03-29 11:09] VITALS: BP 142/77; PULSE 69; RESP 16; TEMP 36.1; O2SAT 94; BMI 27.9
--- NOTE | 2021-03-29 11:25 | CT_ITS ---
STUDY: CT SCAN LOWER EXTREMITY LEFT REASON FOR EXAM: Male, 85 years old. Pain -- Neg xrays 03/20. continued pain/decreased ambulati RADIATION DOSAGE (If Supplied By Facility): CTDIvol = ( 13.20 ) mGy, DLP = ( 497.59 ) mGycm. Individualized dose optimization techniques were used for this CT.? TECHNIQUE: Multiple axial tomographic images of the hip joint and left femur were obtained. Coronal and sagittal reconstruction was obtained as well. COMPARISON: None. FINDINGS: The patient is status post open reduction and internal fixation of the proximal left femoral fracture. There are 2 metallic screws seen in the diaphysis of the femur. There has been hardware removal in the region of the proximal femur and intertrochanteric region. There is evidence of a 3.6 x 2.7 cm septated cyst in the intertrochanteric region of the proximal portion of the left femur. This may be postoperative in nature. No acute fracture is seen. No evidence of soft tissue swelling. CT/Extremity Lower without Contra IMPRESSION: Evidence of prior open reduction and internal fixation of a proximal left femoral fracture with the 2 metallic screws seen in the diaphysis of the left femur. 3.6 x 2.7 cm cystic structure in the intertrochanteric region of the left femur. This may be postoperative in nature. No acute fracture is seen. Electronically Signed: Deion Arevalo MD at 12:37 EST ,
--- NOTE | 2021-03-29 11:27 | EX.ED.DYSGE1 ---
HPI History of Present Illness Chief Complaint: Lower Extremity Injury Informant: patient Onset/Context/Timing Onset: Weeks (1.5-weeks) Narrative Narrative: Patient presents via EMS for evaluation of continued left hip pain. He reportedly fell on the 12th and was seen at [facility]. Head CT was unremarkable and he had faraz placed in his scalp laceration. These are still in place. He had x-rays of his left hip that he was told was negative. He presents secondary to continued severe left hip pain with difficulty ambulating. He points to the lateral side along the greater trochanter when describing the worst area of pain. Patient has been taking Tylenol for pain stating that he has not been able to tolerate narcotics in the past. [facility] Medical History Abnormal cardiac enzyme level [place] (acute kidney injury) Atrial fibrillation Cardiomyopathy, ischemic CHF (congestive heart failure) CKD (chronic kidney disease) stage 4, GFR 15-29 ml/min Community acquired pneumonia Dementia History of aorta surgery History of back surgery History of dialysis History of femur surgery History of heart surgery History of irregular heartbeat History of Jaw surgery HLD (hyperlipidemia) Kidney disease Sepsis with acute hypoxic respiratory failure and septic shock Septic shock Thyroid disease Home Medications allopurinol 100 mg tablet 100 mg PO DAILY #90 tab 07/26/18 [History Last Taken Unknown] atorvastatin 80 mg PO QHS #30 tab 11/26/19 [Rx Last Taken Unknown] calcium acetate(phosphat bind) 667 mg PO TIDCM #90 cap 11/26/19 [Rx Last Taken Unknown] carvedilol 3.125 mg PO BID #60 tab 11/26/19 [Rx Last Taken Unknown] levothyroxine 50 mcg PO DAILY@0600 #30 tab 11/26/19 [Rx Last Taken Unknown] memantine 5 mg PO BID #60 tab 11/26/19 [Rx Last Taken Unknown] albuterol sulfate 2.5 mg INHALATION Q4H PRN #180 ml 12/13/19 [Rx Last Taken Unknown] apixaban 2.5 mg tablet 2.5 mg PO BID 01/14/20 [History Last Taken Unknown] lisinopril 2.5 mg tablet 5 mg PO DAILY tab 01/14/20 [History Last Taken Unknown] amiodarone 100 mg PO DAILY 08/06/20 [History Last Taken Unknown] polyethylene glycol 3350 17 g PO DAILY 02/23/21 [History Last Taken Unknown] amoxicillin-pot clavulanate [Augmentin] 1 tab PO BID 3 Days #6 tab 02/27/21 [Rx Last Taken Unknown] guaifenesin [Mucus Relief ER] 1,200 mg PO BID 5 Days #10 tab 02/27/21 [Rx Last Taken Unknown] Allergy/AdvReac Type Severity Reaction Status Date / Time adhesive tape Allergy Mild Rash Verified 02/23/21 12:00 oxycodone Allergy Mild Rash Verified 02/23/21 12:00 tramadol Allergy Mild LIGHTHEADED Verified 02/23/21 12:00 AND DIZZY WITH HALLUCINATIONS Family History Grandfather No problems noted. Father No problems noted. Brother No problems noted. Brother Brain aneurysm Surgical History S/P AAA repair Social History Smoking Status: Former smoker ROS ROS ED Constitutional Constitutional ED: Denies chills or fever(s) Eyes Eyes: Denies blurry vision or change in vision ENT ENT ED: Denies rhinorrhea or sore throat Cardiovascular Cardiovascular: Denies chest pain or palpitations Respiratory/Chest Respiratory/Chest: Denies cough or dyspnea Gastrointestinal Gastrointestinal: Denies abdominal pain or vomiting Genitourinary Genitourinary ED: Denies dysuria Musculoskeletal Musculoskeletal: Reports arthralgias Neurologic Neurologic: Denies headache(s) or weakness Allergic/Immunologic Allergic/Immunologic ED: Denies urticaria EXAM Physical Exam Const Vital Signs: 03/29/21 11:09 Temperature 97.0 F L Temperature Source Oral Pulse Rate 69 Respiratory Rate 16 Blood Pressure 142/77 H Blood Pressure Mean 98 Pulse Ox 94 Oxygen Delivery Method Room Air Positive well nourished and well developed General Appearance ED: well developed HEENT HEENT Narrative: Healed laceration of the posterior parietal scalp with faraz intact. Eyes PERRL and EOMs intact bilaterally Neck supple Chest Wall inspection of chest normal and palpation of chest normal Resp normal respiratory effort and clear to auscultation bilaterally Cardio regular rate and regular rhythm GI non-tender Palpation: soft Extremity normal to inspection Extremity Narrative: Tenderness palpation over both the anterior and lateral surface of the left hip. He does have pain with logroll. Equal leg lengths noted. Neuro oriented x3 Sensorium / Orientation: alert Psych mental status grossly normal Skin no rashes or lesions noted MDM MDM MDM Narrative Medical decision making narrative: CT scan the left hip obtained. [place] from scalp laceration are removed without difficulty. Radiography Diagnostic Testing: Clinical Impression(s) from Imaging Studies Lower Extremity CT 03/29/21 11:25 IMPRESSION: Evidence of prior open reduction and internal fixation of a proximal left femoral fracture with the 2 metallic screws seen in the diaphysis of the left femur. 3.6 x 2.7 cm cystic structure in the intertrochanteric region of the left femur. This may be postoperative in nature. No acute fracture is seen. Electronically Signed: Deion Arevalo MD at 12:37 EST , Treatment and Re-Evaluation Comments:: CT scan reveals no acute fracture. He does have chronic changes from prior fracture and screws. There is a intertrochanteric cyst but no fracture. These test results were discussed with patient as well as at bedside. They do report that they need some kind of a rehab or physical therapy stay as he is not getting around well at home. Social work has called 8 different facilities and we are unable to get direct placement at this time. I will speak with hospitalist for admission. Discharge Plan Triage Chief Complaint: Lower Extremity Injury ED Provider: Linette Montoya Dx/Rx/DC Orders Clinical Impression: Hip pain, left, Declining functional status Prescriptions: No Action allopurinol 100 mg tablet 100 mg PO DAILY Qty: 90 RF: 0 albuterol sulfate 2.5 mg /3 mL (0.083 %) solution for nebulization 2.5 mg INHALATION Q4H PRN (Reason: Sob &/Or Wheezing) Qty: 180 RF: 3 Eliquis 2.5 mg tablet 2.5 mg PO BID RF: 0 lisinopril 2.5 mg tablet 5 mg PO DAILY RF: 0 atorvastatin 80 MG tablet 80 mg PO QHS Qty: 30 RF: 1 carvedilol 3.125 MG tablet 3.125 mg PO BID Qty: 60 RF: 1 levothyroxine 50 MCG tablet 50 mcg PO DAILY@0600 Qty: 30 RF: 1 memantine 5 MG tablet 5 mg PO BID Qty: 60 RF: 0 calcium acetate(phosphat bind) 667 MG capsule 667 mg PO TIDCM Qty: 90 RF: 0 amiodarone 200 MG tablet 100 mg PO DAILY RF: 0 polyethylene glycol 3350 17 gram Powder In Packet 17 g PO DAILY RF: 0 Mucus Relief ER 1,200 mg Tablet Extended Release 12hr 1,200 mg PO BID 5 Days Qty: 10 RF: 0 amoxicillin-pot clavulanate [Augmentin] 500-125 mg tablet 1 tab PO BID 3 Days Qty: 6 RF: 0 Primary Care Provider: Care Physician,No Primary Referrals: Care Physician,No Primary [Primary Care Provider] - Disposition Disposition: Acute Care Hospital [facility]
--- NOTE | 2021-03-29 13:31 | CM.ED ---
Addendum entered by Michelle Fletcher 03/29/21 14:30: Correction. 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 Original Note: Social Work Consult: [facility] placement. Referral source: Dr. Montoya Met with patient and patient spouse, Shana in room. Introduced self and elementary school social worker role, patient agreeable to speak with this elementary school social worker and provided permission for this elementary school social worker to speak openly with patient spouse present. Patient with recent fall within the past week and has not been doing well since. Patient reports pain and difficulty getting around. Patient and patient spouse concerned about patient being able to function within the home currently and would like patient to transition to a fpc short term for rehabilitation and strengthening. This elementary school social worker provided patient and patient spouse with list of in-network facilities local to patient geographical region. [facility], [facility]. Patient has dialysis every Mon/Wed/Fri at [facility] in [place]. Patient typically uses [place] [facility] for transportation to and from dialysis. Patient insurance appears to be still waiving [facility] the [facility] is not currently waiving [facility]. Will continue to follow. Austin COLBY, JONO
--- NOTE | 2021-03-29 14:21 | CM.ED ---
Social Work This social science instructor back to patient room to communicating finds with contacting nursing homes. Patient now request for [facility] to be called. Telephone call to [facility]. not accepting patient on waiver and under impression that [employer] is no longer waiving pre-cert. Telephone call to [facility]. Not accepting on [employer] waiver, will need pre-cert. Pre-cert will take 24-48 hours. Will continue to follow. Austin COLBY, ALLIES
--- NOTE | 2021-03-29 14:40 | CM.ED ---
Social Work Collaborating with patient in room on intermediate findings as placement is not being able to be obtained. Patient spouse inquired about admitting to hospital to allow for pre-cert to be started. This social studies teacher collaborating with Dr. Montoya. Dr. Montoya to attempt acute admission to facilitate intermediate placement. Will continue to follow as needed. Austin COLBY, JONO
--- NOTE | 2021-03-29 15:11 | PCM.HP.STD ---
HPI - General General Date of Admission: 03/29/21 Date of Service: 03/29/21 Chief Complaint: Fall 03/20, ongoing pain HPI Narrative The patient is an 85 y/o M w/ PMHx: Chronic dementia unclear type without behavioral disturbance history reported, ESRD on HD MWF following w/ Dr. 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, Ischemic Cardiomyopathy, recent discharge 02/27/21 following evaluation and treatment for NSTEMI, PNA with associated transient hemoptysis treated following dicharge with augmentin x 1 week with follow-up with PCP/pulmonary who now re-presents to the [facility] ED on 03/29/21 with history of mechanical fall onto his left side on the L hip with evaluation at [facility] [place] ED on 03/20/21 without any evidence of fractures at that time; however, patient has ongoing pain, debility, difficulty ambulating even with his walker with severe sharp pain with palpation of the left lateral upper hip region, bearing weight, reported 10/10 in severity when occurring, improves with rest. He has been unable to be safe at home with his and she is having difficulty caring for him prompting them to bring him to the ED for evaluation. Attempts were made to place him to SNF from ED but not successful. Work-up in the ED included T 97.4, heart rate 75, BP 121/79, respiratory rate 18, 95% on room air, CBC with WC 6, hemoglobin 11.2, platelet 178 without marked shift, CMP with BUN/: 36/5.14, ALT 14, alk phos 118 otherwise not marked perihepatic profile, left lower extremity CT with evidence of prior ORIF of the proximal left femoral fracture with 2 metallic screws seen the diaphysis of the left femur, 3.6 x 2.7 cystic structure in the intertrochanteric region of the left femur possibly postop in nature with no acute fracture identified. [facility] Medical History (Updated 03/29/21 @ 17:[address] Heather Gutierrez MD) Abnormal cardiac enzyme level Acute arthritis [place] (acute kidney injury) Anxiety Arthritis Atrial fibrillation Cardiomyopathy, ischemic CHF (congestive heart failure) CKD (chronic kidney disease) stage 4, GFR 15-29 ml/min Community acquired pneumonia Dementia Dialysis patient GERD (gastroesophageal reflux disease) History of aorta surgery History of back surgery History of dialysis History of femur surgery History of heart surgery History of irregular heartbeat History of Jaw surgery History of stress test HLD (hyperlipidemia) Kidney disease Kidney disease Sepsis with acute hypoxic respiratory failure and septic shock Septic shock Stroke/cerebrovascular accident Thyroid disease Home Medications allopurinol 100 mg tablet 100 mg PO DAILY #90 tab 07/26/18 [History Last Taken Unknown] atorvastatin 80 mg PO QHS #30 tab 11/26/19 [Rx Last Taken 03/28/21] calcium acetate(phosphat bind) 667 mg PO TIDCM #90 cap 11/26/19 [Rx Last Taken Unknown] carvedilol 3.125 mg PO BID #60 tab 11/26/19 [Rx Last Taken Unknown] levothyroxine 50 mcg PO DAILY@0600 #30 tab 11/26/19 [Rx Last Taken 03/29/21] memantine 5 mg PO BID #60 tab 11/26/19 [Rx Last Taken 03/29/21] albuterol sulfate 2.5 mg INHALATION Q4H PRN #180 ml 12/13/19 [Rx Last Taken Unknown] apixaban 2.5 mg tablet 2.5 mg PO BID 01/14/20 [History Last Taken 03/29/21] lisinopril 2.5 mg tablet 5 mg PO DAILY tab 01/14/20 [History Last Taken 03/29/21] amiodarone 100 mg PO DAILY 08/06/20 [History Last Taken Unknown] polyethylene glycol 3350 17 g PO DAILY PRN 02/23/21 [History Last Taken Unknown] guaifenesin 600 mg PO BID PRN 03/29/21 [History Last Taken Unknown] loratadine-pseudoephedrine [Claritin-D 12 Hour] 1 tab PO Q12H PRN 03/29/21 [History Last Taken Unknown] Allergy/AdvReac Type Severity Reaction Status Date / Time adhesive tape Allergy Mild Rash Verified 02/23/21 12:00 oxycodone Allergy Mild Rash Verified 02/23/21 12:00 tramadol Allergy Mild LIGHTHEADED Verified 02/23/21 12:00 AND DIZZY WITH HALLUCINATIONS Family History (Updated 03/29/21 @ 17:[address] Heather Gutierrez MD) Grandfather No problems noted. Father Myocardial infarction Heart disease Hypertension Brother No problems noted. Brother Brain aneurysm Mother Diabetes Surgical History (Updated 03/29/21 @ 15:36 by Yaima Arce) History of AAA (abdominal aortic aneurysm) repair History of appendectomy S/P AAA repair Social History (Updated 03/29/21 @ 17:[address] Heather Gutierrez MD) household members: spouse Smoking Status: Former smoker how long ago did patient quit smoking: Quit 02/2021 with that admit, 1-2 cig/day prior, up to 1 ppd since teen. alcohol intake: never substance use type: does not use ROS ROS Narrative Admission Review of Systems: CONSTITUTIONAL: No weight loss, fever, chills, + weakness or fatigue. HEENT: Eyes: No visual loss, blurred vision, double vision or yellow sclerae. Ears, Nose, Throat: No hearing loss, sneezing, congestion, runny nose or sore throat. SKIN: + Occasional staged ecchymoses given fall history. CARDIOVASCULAR: No chest pain, chest pressure or chest discomfort, palpitations, edema, orthopnea, syncopal events. RESPIRATORY: No shortness of breath, cough or sputum, wheezing, hemoptysis. GASTROINTESTINAL: No anorexia, nausea, vomiting or diarrhea, abdominal pain, melena, BRBPR. GENITOURINARY: + ESRD on HD. No dysuria, frequency, urgency or retention. NEUROLOGICAL: No headache, dizziness, syncope, paralysis, ataxia, numbness or tingling in the extremities, focal weakness, change in bowel or bladder control, seizure. MUSCULOSKELETAL: + muscle, back pain, joint pain or stiffness. HEMATOLOGIC: + anemia, bleeding or bruising. LYMPHATICS: No enlarged nodes. No history of splenectomy. PSYCHIATRIC: No history of depression or anxiety. ENDOCRINOLOGIC: No reports of sweating, cold or heat intolerance. No polyuria or polydipsia. ALLERGIES: No history of asthma, hives, eczema or rhinitis. Vital Signs Vital Signs Vital Signs: 03/29/21 11:09 Temperature 97.0 F L Temperature Source Oral Pulse Rate 69 Respiratory Rate 16 Blood Pressure 142/77 H Blood Pressure Mean 98 Pulse Ox 94 Oxygen Delivery Method Room Air Weight Weight: 200 lb 2.876 oz Body Mass Index (BMI) 27.9 Physical Exam Narrative Physical Examination: General: Awake, alert, oriented x 3 and cooperative, seated upright in the ED bed in no apparent distress, notes pain to left hip worse with palpation or ambulation, improved with rest currently. Skin: Normal color, normal turgor, no icterus, no cyanosis except occasional staged ecchymoses. HEENT: AT/NC, EOMI, PERRLA, MMM, no carotid bruits or JVD noted. Lungs: Diminished, greater bases, moderate effort, no rales, ronchi or wheezing. Heart: Currently regular rate and rhythm; no gallop, rub audible. Abdomen: Soft, NTTP, ND, mildly hyperactive BS, no HSM. Extremities: No cyanosis, clubbing, or edema. Pain elicited with palpation of the left lateral hip, primarily to the musculature. Neurological: Patient awake, alert, oriented as noted, cognitive function intact; pupils equally reactive to light and accommodation, cranial nerves II-XII grossly normal, moving all 4 extremities however some limitation of left lower extremity movement secondary to pain elicited, no focal deficits, strength accordingly moderately to severely global decreased. Psychiatric: Affect appears normal, no acute evidence of depressive or anxiety feelings. Results Lab / Micro Data Result Diagrams: 03/29/21 16:14 03/29/21 16:14 Radiology Impression Lower Extremity CT 03/29/21 11:25 IMPRESSION: Evidence of prior open reduction and internal fixation of a proximal left femoral fracture with the 2 metallic screws seen in the diaphysis of the left femur. 3.6 x 2.7 cm cystic structure in the intertrochanteric region of the left femur. This may be postoperative in nature. No acute fracture is seen. Electronically Signed: Deion Arevalo MD at 12:37 EST , Assessment & Plan Assessment/Plan (1) FTT (failure to thrive) in adult: (2) Hip pain, left: PLAN: The patient is an 85 y/o M w/ PMHx: Chronic dementia unclear type without behavioral disturbance history reported, ESRD on HD MWF following w/ Dr. 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, Ischemic Cardiomyopathy, recent discharge 02/27/21 following evaluation and treatment for NSTEMI, PNA with associated transient hemoptysis who now re-presents to the [facility] ED on 03/29/21 with history of mechanical fall onto his left side on the L hip with evaluation at [facility] ED on 03/20/21 without any evidence of fractures at that time; however, patient has ongoing pain, debility, difficulty ambulating even with his walker with severe sharp pain with palpation of the left lateral upper hip region, bearing weight, reported 10/10 in severity when occurring, improves with rest. #1. Mechanical fall with intractable ongoing left hip pain without fracture with failure to thrive, adult: We will admit to medical surgical floor, maintain on fall precautions, continue positional changes, given allergies to narcotics listed will trial Tylenol as needed and also pain compound regimen, add regimen once clarified further allergies, case management/PT/OT consultations for discharge planning, likely will need skilled placement. If further concerns and intractable pain may need to consider orthopedic surgery involvement especially given cystic findings however this is reported as potentially postoperative in nature with prior records noting Dr. Dewey involved with his care. #2. Recent pneumonia with hemoptysis: Hemoptysis has resolved, Eliquis resumed without further issues, completed outpatient Augmentin therapy, will continue as needed albuterol if needed. #3. Recent NSTEMI: We will continue patient Eliquis, Coreg, lisinopril, atorvastatin regimen, encourage continued outpatient evaluation and follow-up with cardiology per prior discharge recommendations. Echo 02/24/2021 with moderate segmental systolic dysfunction, EF 30%, mildly enlarged LA, mildly enlarged RA, moderate MVI, mild TVI, trivial KAYLA, trivial PVI, RVSP 55 mmHg consistent with pulmonary hypertension, evidence of diastolic dysfunction. #4. ESRD: Patient with ongoing Monday dialysis, following with Dr. Sierra, missed dialysis on day of presentation therefore will request evaluation for initiation dialysis on admission. #5. PAF: We will continue patient home amiodarone, Eliquis with fall precautions especially given recent fall history. #6. Hypertension: Continue home regimen including Coreg, lisinopril with hold parameters as needed, PRN hydralazine. #7. Hyperlipidemia: We will continue patient on statin therapy #8. Hypothyroidism: We will continue patient on levothyroxine regimen #9. Chronic dementia, unclear type with unclear behavioral disturbance history: Complicates presentation, maintain on fall precautions, continue memantine regimen, therapies and case management consulted for placement as noted. #10. Gout: We will continue patient home allopurinol regimen. #11. Recent tobacco cessation: Patient recently quit cigarette tobacco usage during prior admission, previous to this had only smoked 1 to 2 cigarettes daily but prior to that was up to a pack a day since he been a teenager. Encourage continued tobacco cessation. #12. 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 #13. DVT prophylaxis: SCDs, continue patient home Eliquis regimen. #14. CODE status: Patient HCPCHAUNCEY is his who is present and living will is currently in place. Discussed CODE status at length including difference between FULL code, DNR-CCA and DNR-CC status. Following discussions about the differences in these status, requested Full Code. Advanced Care Planning Face to Face Time: 16 minutes. Charges/Coding Visit Charges OBSV E&M: 11380 Initial observation care L3 Procedures Hospitalists Procedures: 99092 Advncd Care Plan 30 Min
[2021-03-29 15:21] VITALS: BP 137/72; PULSE 76; RESP 18; TEMP 36.2; O2SAT 97
[2021-03-29 15:22] LABS: Absolute Lymphocyte Count 1.24 X10^3/uL (0.83-4.51); Absolute Neutrophil Count 3.2 X10^3/uL (2.0-7.7); Basophil# 0.06 X10^3/uL; Basophil% 1.1 % (0-1); Eosinophil# 0.35 X10^3/uL; Eosinophils% 6.4 % (0-5); Hematocrit 30.8 % (40-54); Hemoglobin 10.3 g/dL (13.0-16.5); Lymphocyte # 1.24 X10^3/ul (0.83-4.51); Lymphocyte % 22.7 % (19-41); Mean Corp Hgb Conc 33.4 g/dL (32-36); Mean Corpuscular Hgb 35.5 pg (27.0-32.0); Mean Corpuscular Volume 106.2 fL (80-94); Mean Platelet Vol. 10.6 fl (6.2-12.0); Monocyte# 0.59 X10^3/uL; Monocyte% 10.8 % (0-10); NRBC Flagged by Analyzer 0 % (0-5); Neutrophil # 3.22 X10^3/uL (2.7-7.7); Neutrophil % 58.8 % (47-70); Platelet Count 151 K/mm3 (150-450); RBC Distribution Width CV 14.7 % (11.6-14.6); RBC Distribution Width SD 56.7 fl (35.1-43.9); White Blood Count 5.5 K/mm3 (4.4-11.0)
[2021-03-29 15:24] VITALS: RESP 18
[2021-03-29 15:30] LABS: Anion Gap 3 (5-15); BUN 36 mg/dL (7-18); BUN/Creat Ratio 6.9 RATIO (10-20); Calcium,Total 8.8 mg/dL (8.5-10.1); Chloride 105 mmol/L (98-107); Creatinine, Serum 5.24 mg/dL (0.70-1.30); EST Glomerular Filtration Rate 11 mL/min (>60); Est Glom Filt Rate - Afr Amer 14 mL/min (>60); Estimated Creatinine Clearance 10.98 ml/min; Glucose 118 mg/dL (74-106); Potassium 3.9 mmol/L (3.5-5.1); Sodium Level 139 mmol/L (136-145)
--- NOTE | 2021-03-29 15:32 | NURSING ---
MED SURG OBS WHITE HIP PAIN, FAILURE TO THRIVE
[2021-03-29 15:54] VITALS: BMI 25.5
--- NOTE | 2021-03-29 15:56 | NURSING ---
Pt arrived with he missed his dialysis treatment today , pt is a Monday, Monday and Monday treatmet..
[2021-03-29 15:58] VITALS: BP 172/102; PULSE 66; RESP 18; TEMP 36.4; O2SAT 96
[2021-03-29 16:37] VITALS: O2SAT 97
[2021-03-29 16:37] LABS: Absolute Lymphocyte Count 1.51 X10^3/uL (0.83-4.51); Absolute Neutrophil Count 3.3 X10^3/uL (2.0-7.7); Basophil% 1.7 % (0-1); Eosinophil# 0.37 X10^3/uL; Eosinophils% 6.1 % (0-5); Hemoglobin 11.2 g/dL (13.0-16.5); Lymphocyte # 1.51 X10^3/ul (0.83-4.51); Mean Corpuscular Hgb 35.9 pg (27.0-32.0); Mean Corpuscular Volume 102.6 fL (80-94); Mean Platelet Vol. 11.1 fl (6.2-12.0); Monocyte# 0.77 X10^3/uL; Monocyte% 12.7 % (0-10); NRBC Flagged by Analyzer 0 % (0-5); Neutrophil # 3.27 X10^3/uL (2.7-7.7); Neutrophil % 54.2 % (47-70); Platelet Count 178 K/mm3 (150-450); RBC Distribution Width CV 14.8 % (11.6-14.6); RBC Distribution Width SD 55.3 fl (35.1-43.9); Red Blood Count 3.12 M/mm3 (4.6-6.2)
[2021-03-29 16:43] LABS: ALB/GLOB Ratio 0.8 RATIO (0.9-2.4); AST(SGOT) 16 U/L (15-37); Alanine Aminotransfer ALT/SGPT 14 U/L (16-61); Albumin, Serum 3.1 g/dL (3.2-5.0); Alkaline Phosphatase 118 U/L (45-117); Anion Gap 5 (5-15); BUN 36 mg/dL (7-18); Calcium,Total 9.2 mg/dL (8.5-10.1); Chloride 103 mmol/L (98-107); Creatinine, Serum 5.14 mg/dL (0.70-1.30); EST Glomerular Filtration Rate 11 mL/min (>60); Est Glom Filt Rate - Afr Amer 14 mL/min (>60); Estimated Creatinine Clearance 11.19 ml/min; Globulin 3.7 g/dL (2.2-4.2); Glucose 97 mg/dL (74-106); Magnesium 2.5 mg/dL (1.6-2.6); Potassium 3.8 mmol/L (3.5-5.1); Protein, Total 6.8 g/dL (6.4-8.2); Sodium Level 139 mmol/L (136-145)
[2021-03-29] MEDS: Calcium Acetate 667 MG Capsule PO (16:57)
[2021-03-29] MEDS: Gabapentin 100 MG Capsule PO ×2 (16:57→17:00)
[2021-03-29] MEDS: Arthritis Pain Compound 60 CLICK TUBE TOPICAL ×2 (16:57→22:28)
--- NOTE | 2021-03-29 19:26 | PCM.CONS.R ---
Assessment & Plan Assessment/Plan (1) End-stage renal disease (ESRD): PLAN: -He usually dialyzes on MWF schedule. -Since he is presented to the hospital, he has missed today's dialysis. -No need for HD today:he is not volume OL, no hyperkalemia or severe acidosis. -Will arrange for HD tomorrow. (2) Anemia: PLAN: -Continue SANDY with HD. -Monitor Hgb. (3) HTN (hypertension), benign: PLAN: -Continue current BP medication. -UF with HD tomorrow. -Following BP. (4) Secondary hyperparathyroidism: PLAN: -Continue phosphorus binder. -Check Ca/P periodically. (5) FTT (failure to thrive) in adult: (6) Hip pain, left: PLAN: -Management as per hospital medicine service. HPI Consult Data Date of Consult: 03/30/21 HPI Narrative Reason for Consultation: ESRD HPI Narrative: LEYDA ISAACS, is a 85-year-old man with past hsitory of ESRD, HTN, PAD, HFrEF and CAD who presents with frequent fall and FTT. The patient was jsut admitted to the hospital in february 2021 with NSTEMI. He usually dialyzes at [facility] on MWF schedule. He missed dialysis today because of presentation to the hospital. The patient denies current CP, SOB, nausea, vomiting or edema of LE. [facility] Medical History (Updated 03/30/21 @ 01:[address] Andrea Xiao MD) Abnormal cardiac enzyme level Acute arthritis [place] (acute kidney injury) Anxiety Arthritis Atrial fibrillation Cardiomyopathy, ischemic CHF (congestive heart failure) CKD (chronic kidney disease) stage 4, GFR 15-29 ml/min Community acquired pneumonia Dementia Dialysis patient GERD (gastroesophageal reflux disease) History of aorta surgery History of back surgery History of dialysis History of femur surgery History of heart surgery History of irregular heartbeat History of Jaw surgery History of stress test HLD (hyperlipidemia) Kidney disease Kidney disease Sepsis with acute hypoxic respiratory failure and septic shock Septic shock Stroke/cerebrovascular accident Thyroid disease Home Medications allopurinol 100 mg tablet 100 mg PO DAILY #90 tab 07/26/18 [History Last Taken Unknown] atorvastatin 80 mg PO QHS #30 tab 11/26/19 [Rx Last Taken 03/28/21] calcium acetate(phosphat bind) 667 mg PO TIDCM #90 cap 10/20/20 [Rx Last Taken Unknown] carvedilol 3.125 mg PO BID #60 tab 11/26/19 [Rx Last Taken Unknown] levothyroxine 50 mcg PO DAILY@0600 #30 tab 11/26/19 [Rx Last Taken 03/29/21] memantine 5 mg PO BID #60 tab 11/26/19 [Rx Last Taken 03/29/21] albuterol sulfate 2.5 mg INHALATION Q4H PRN #180 ml 12/13/19 [Rx Last Taken Unknown] apixaban 2.5 mg tablet 2.5 mg PO BID 01/14/20 [History Last Taken 03/29/21] lisinopril 2.5 mg tablet 5 mg PO DAILY tab 01/14/20 [History Last Taken 03/29/21] amiodarone 100 mg PO DAILY 08/06/20 [History Last Taken Unknown] polyethylene glycol 3350 17 g PO DAILY PRN 02/23/21 [History Last Taken Unknown] guaifenesin 600 mg PO BID PRN 03/29/21 [History Last Taken Unknown] loratadine-pseudoephedrine [Claritin-D 12 Hour] 1 tab PO Q12H PRN 03/29/21 [History Last Taken Unknown] Allergy/AdvReac Type Severity Reaction Status Date / Time adhesive tape Allergy Mild Rash Verified 02/23/21 12:00 oxycodone Allergy Mild Rash Verified 02/23/21 12:00 tramadol Allergy Mild LIGHTHEADED Verified 02/23/21 12:00 AND DIZZY WITH HALLUCINATIONS Family History (Updated 03/29/21 @ 17:[address] Heather Gutierrez MD) Grandfather No problems noted. Father Myocardial infarction Heart disease Hypertension Brother No problems noted. Brother Brain aneurysm Mother Diabetes Surgical History (Updated 03/29/21 @ 15:36 by Yaima Arce) History of AAA (abdominal aortic aneurysm) repair History of appendectomy S/P AAA repair Social History (Updated 03/29/21 @ 17:[address] Heather Gutierrez MD) household members: spouse Smoking Status: Former smoker how long ago did patient quit smoking: Quit 02/2021 with that admit, 1-2 cig/day prior, up to 1 ppd since teen. alcohol intake: never substance use type: does not use ROS ROS Narrative 11/15 RIS done. Pertinent positive/negative are in HPI. Physical Exam Narrative General: A+Ox 3. NAD. HEENT: NCAT, PERRLA, EOMI. Hearing is intact. Neck: Supple. Heart: Normal S1, S2. No G/R/M. Lungs: Decreased BS at bases. Abdomen: +BS, soft, NT. Extremity: No C/C/E. Neuro: No focal neurologic deficit. Lab / Micro Data Result Diagrams: 03/29/21 16:14 03/29/21 16:14 Labs: Laboratory Results - last 24 hr 03/29/21 15:00: WBC 5.5, RBC 2.90 L, Hgb 10.3 L, Hct 30.8 L, MCV 106.2 H, MCH 35.5 H, MCHC 33.4, RDW Std Deviation 56.7 H, RDW Coeff of Maritza 14.7 H, Plt Count 151, MPV 10.6, Immature Gran % (Auto) 0.200, Neut % (Auto) 58.8, Lymph % (Auto) 22.7, Perry % (Auto) 10.8 H, Eos % (Auto) 6.4 H, Baso % (Auto) 1.1 H, Absolute Neuts (auto) 3.2, Absolute Lymphs (auto) 1.24, Nucleated RBC % 0 03/29/21 15:00: Sodium 139, Potassium 3.9, Chloride 105, Carbon Dioxide 31.0, Anion Gap 3 L, BUN 36 H, Creatinine 5.24 H, Estim Creat Clear Calc 10.98, Est GFR (MDRD) Af Amer 14 L, Est GFR (MDRD) Non-Af 11 L, BUN/Creatinine Ratio 6.9 L, Glucose 118 H, Calcium 8.8 03/29/21 16:14: WBC 6.0, RBC 3.12 L, Hgb 11.2 L, Hct 32.0 L, MCV 102.6 H, MCH 35.9 H, MCHC 35.0, RDW Std Deviation 55.3 H, RDW Coeff of Maritza 14.8 H, Plt Count 178, MPV 11.1, Immature Gran % (Auto) 0.300, Neut % (Auto) 54.2, Lymph % (Auto) 25.0, Perry % (Auto) 12.7 H, Eos % (Auto) 6.1 H, Baso % (Auto) 1.7 H, Absolute Neuts (auto) 3.3, Absolute Lymphs (auto) 1.51, Nucleated RBC % 0 03/29/21 16:14: Sodium 139, Potassium 3.8, Chloride 103, Carbon Dioxide 31.0, Anion Gap 5, BUN 36 H, Creatinine 5.14 H, Estim Creat Clear Calc 11.19, Est GFR (MDRD) Af Amer 14 L, Est GFR (MDRD) Non-Af 11 L, BUN/Creatinine Ratio 7.0 L, Glucose 97, Calcium 9.2, Phosphorus 3.0, Magnesium 2.5, Total Bilirubin 0.50, AST 16, ALT 14 L, Alkaline Phosphatase 118 H, Total Protein 6.8, Albumin 3.1 L, Globulin 3.7, Albumin/Globulin Ratio 0.8 L Radiology Impression Lower Extremity CT 03/29/21 11:25 IMPRESSION: Evidence of prior open reduction and internal fixation of a proximal left femoral fracture with the 2 metallic screws seen in the diaphysis of the left femur. 3.6 x 2.7 cm cystic structure in the intertrochanteric region of the left femur. This may be postoperative in nature. No acute fracture is seen. Electronically Signed: Deion Arevalo MD at 12:37 EST ,
[2021-03-29 22:13] VITALS: BP 154/75; PULSE 71; RESP 18; TEMP 36.6; O2SAT 95
[2021-03-29] MEDS: Carvedilol 3.125 MG TABLET PO (22:28)
[2021-03-29] MEDS: Atorvastatin Calcium 80 MG Tablet PO (22:28)
[2021-03-29] MEDS: Memantine Hydrochloride 5 MG Tablet PO (22:28)
[2021-03-29] MEDS: APIXABAN 2.5 MG TABLET PO (22:28)
[2021-03-30] VITALS (10 sets, daily range): BP systolic 134–153; BP diastolic 70–89; PULSE 60–82; RESP 16–18; TEMP 36.2–36.8; O2SAT 93–98
[2021-03-30 05:42] LABS: Absolute Lymphocyte Count 1.28 X10^3/uL (0.83-4.51); Absolute Neutrophil Count 3.2 X10^3/uL (2.0-7.7); Basophil# 0.07 X10^3/uL; Basophil% 1.3 % (0-1); Eosinophil# 0.32 X10^3/uL; Eosinophils% 5.8 % (0-5); Hematocrit 30.5 % (40-54); Hemoglobin 10.7 g/dL (13.0-16.5); Lymphocyte # 1.28 X10^3/ul (0.83-4.51); Mean Corp Hgb Conc 35.1 g/dL (32-36); Mean Corpuscular Volume 102.7 fL (80-94); Mean Platelet Vol. 10.6 fl (6.2-12.0); Monocyte# 0.63 X10^3/uL; Monocyte% 11.3 % (0-10); NRBC Flagged by Analyzer 0 % (0-5); Neutrophil # 3.24 X10^3/uL (2.7-7.7); Neutrophil % 58.2 % (47-70); Platelet Count 159 K/mm3 (150-450); RBC Distribution Width CV 14.6 % (11.6-14.6); RBC Distribution Width SD 54.3 fl (35.1-43.9); Red Blood Count 2.97 M/mm3 (4.6-6.2); White Blood Count 5.6 K/mm3 (4.4-11.0)
[2021-03-30 06:10] LABS: ALB/GLOB Ratio 0.9 RATIO (0.9-2.4); AST(SGOT) 15 U/L (15-37); Alanine Aminotransfer ALT/SGPT 13 U/L (16-61); Alkaline Phosphatase 113 U/L (45-117); Anion Gap 7 (5-15); BUN 40 mg/dL (7-18); BUN/Creat Ratio 7.4 RATIO (10-20); Calcium,Total 8.7 mg/dL (8.5-10.1); Chloride 102 mmol/L (98-107); Creatinine, Serum 5.44 mg/dL (0.70-1.30); EST Glomerular Filtration Rate 11 mL/min (>60); Est Glom Filt Rate - Afr Amer 13 mL/min (>60); Estimated Creatinine Clearance 10.57 ml/min; Globulin 3.4 g/dL (2.2-4.2); Glucose 91 mg/dL (74-106); Potassium 3.9 mmol/L (3.5-5.1); Protein, Total 6.4 g/dL (6.4-8.2); Sodium Level 137 mmol/L (136-145)
[2021-03-30] MEDS: Levothyroxine 50 MCG Tablet PO (06:26)
[2021-03-30] MEDS: Gabapentin 100 MG Capsule PO ×3 (08:36→18:09)
[2021-03-30] MEDS: Calcium Acetate 667 MG Capsule PO ×3 (08:36→18:09)
--- NOTE | 2021-03-30 09:14 | PN.RENAL_ITS ---
Subjective Subjective Eating breakfast, no complaints. No overnight events. Objective Data Objective Data Vital Signs: Vital Signs Temp Pulse Resp BP Pulse Ox 97.6 F L 69 18 153/70 H 93 03/30/21 07:45 03/30/21 07:45 03/30/21 08:01 03/30/21 07:45 03/30/21 07:45 Oxygen Delivery Method Room Air Weight: 83.5 kg Body Mass Index (BMI) 25.5 Intake & Output: Intake and Output for Last 24 Hours 03/28/21 03/29/21 03/30/21 23:59 23:59 23:59 Intake Total 550 / 550 Output Total 200 / 200 Balance 550 / 350 -200 / -200 Lab / Micro Data Result Diagrams: 03/30/21 05:19 03/30/21 05:19 Labs: Laboratory Results - last 24 hr 03/29/21 15:00: WBC 5.5, RBC 2.90 L, Hgb 10.3 L, Hct 30.8 L, MCV 106.2 H, MCH 35.5 H, MCHC 33.4, RDW Std Deviation 56.7 H, RDW Coeff of Maritza 14.7 H, Plt Count 151, MPV 10.6, Immature Gran % (Auto) 0.200, Neut % (Auto) 58.8, Lymph % (Auto) 22.7, Hitchcock % (Auto) 10.8 H, Eos % (Auto) 6.4 H, Baso % (Auto) 1.1 H, Absolute Neuts (auto) 3.2, Absolute Lymphs (auto) 1.24, Nucleated RBC % 0 03/29/21 15:00: Sodium 139, Potassium 3.9, Chloride 105, Carbon Dioxide 31.0, Anion Gap 3 L, BUN 36 H, Creatinine 5.24 H, Estim Creat Clear Calc 10.98, Est GFR (MDRD) Af Amer 14 L, Est GFR (MDRD) Non-Af 11 L, BUN/Creatinine Ratio 6.9 L, Glucose 118 H, Calcium 8.8 03/29/21 16:14: WBC 6.0, RBC 3.12 L, Hgb 11.2 L, Hct 32.0 L, MCV 102.6 H, MCH 35.9 H, MCHC 35.0, RDW Std Deviation 55.3 H, RDW Coeff of Maritza 14.8 H, Plt Count 178, MPV 11.1, Immature Gran % (Auto) 0.300, Neut % (Auto) 54.2, Lymph % (Auto) 25.0, [place]cock % (Auto) 12.7 H, Eos % (Auto) 6.1 H, Baso % (Auto) 1.7 H, Absolute Neuts (auto) 3.3, Absolute Lymphs (auto) 1.51, Nucleated RBC % 0 03/29/21 16:14: Sodium 139, Potassium 3.8, Chloride 103, Carbon Dioxide 31.0, Anion Gap 5, BUN 36 H, Creatinine 5.14 H, Estim Creat Clear Calc 11.19, Est GFR (MDRD) Af Amer 14 L, Est GFR (MDRD) Non-Af 11 L, BUN/Creatinine Ratio 7.0 L, Glucose 97, Calcium 9.2, Phosphorus 3.0, Magnesium 2.5, Total Bilirubin 0.50, AST 16, ALT 14 L, Alkaline Phosphatase 118 H, Total Protein 6.8, Albumin 3.1 L, Globulin 3.7, Albumin/Globulin Ratio 0.8 L 03/30/21 05:19: WBC 5.6, RBC 2.97 L, Hgb 10.7 L, Hct 30.5 L, MCV 102.7 H, MCH 36.0 H, MCHC 35.1, RDW Std Deviation 54.3 H, RDW Coeff of Maritza 14.6, Plt Count 159, MPV 10.6, Immature Gran % (Auto) 0.400, Neut % (Auto) 58.2, Lymph % (Auto) 23.0, Hitchcock % (Auto) 11.3 H, Eos % (Auto) 5.8 H, Baso % (Auto) 1.3 H, Absolute Neuts (auto) 3.2, Absolute Lymphs (auto) 1.28, Nucleated RBC % 0 03/30/21 05:19: Sodium 137, Potassium 3.9, Chloride 102, Carbon Dioxide 28.0, Anion Gap 7, BUN 40 H, Creatinine 5.44 H, Estim Creat Clear Calc 10.57, Est GFR (MDRD) Af Amer 13 L, Est GFR (MDRD) Non-Af 11 L, BUN/Creatinine Ratio 7.4 L, Glucose 91, Calcium 8.7, Total Bilirubin 0.50, AST 15, ALT 13 L, Alkaline Phosphatase 113, Total Protein 6.4, Albumin 3.0 L, Globulin 3.4, Albumin/Globulin Ratio 0.9 Radiography Diagnostic Testing: Radiology Impression Lower Extremity CT 03/29/21 11:25 IMPRESSION: Evidence of prior open reduction and internal fixation of a proximal left femoral fracture with the 2 metallic screws seen in the diaphysis of the left femur. 3.6 x 2.7 cm cystic structure in the intertrochanteric region of the left femur. This may be postoperative in nature. No acute fracture is seen. Electronically Signed: Deion Arevalo MD at 12:37 EST , Physical Exam Narrative General: A+Ox 3. NAD. Neck: Supple. Heart: Normal S1, S2. No G/R/M. Lungs: clear anteriorly Abdomen: +BS, soft, NT. Extremity: No pitting edema AVF left UA +thrill and bruit Assessment & Plan Assessment/Plan (1) End-stage renal disease (ESRD): PLAN: -He usually dialyzes on MWF schedule at [facility]. -He missed HD yesterday therefore to have HD today and then again tomorrow to regularize schedule. UF with HD today as patient and bp toelrates. (2) Anemia: PLAN: -Continue SANDY with HD in outpatient setting. Current Hgb 10.7. (3) HTN (hypertension), benign: PLAN: -Continue current BP medication. Bps acceptable -UF with HD to get to edw. No need to challenge dry weight at this time. (4) Secondary hyperparathyroidism: PLAN: -Check Ca/P periodically. Phos pending this am. Calcium 8.7. On calcium acetate and renal diet (5) FTT (failure to thrive) in adult: (6) Hip pain, left: PLAN: -Management as per hospital medicine service. - no acute fracture per CT left lower extremity
[2021-03-30 09:55] LABS: Phosphorus 3.4 mg/dL (2.5-4.9)
[2021-03-30] MEDS: Lidocaine/Prilocaine HCl 5 GM Tube 1 GM TOPICAL (10:35)
[2021-03-30] MEDS: Amiodarone 200 MG Tablet 100 MG PO (10:36)
[2021-03-30] MEDS: Allopurinol 100 MG Tablet PO (10:36)
[2021-03-30] MEDS: Arthritis Pain Compound 60 CLICK TUBE TOPICAL ×2 (10:36→22:21)
[2021-03-30] MEDS: APIXABAN 2.5 MG TABLET PO ×2 (10:37→22:22)
[2021-03-30] MEDS: Lisinopril 5 MG Tablet PO (10:37)
[2021-03-30] MEDS: Polyethylene Glycol 3350 17 GM PACKET PO (10:37)
[2021-03-30] MEDS: Carvedilol 3.125 MG TABLET PO ×2 (10:37→22:22)
[2021-03-30] MEDS: Memantine Hydrochloride 5 MG Tablet PO ×2 (10:37→22:22)
--- NOTE | 2021-03-30 10:48 | PN.HOSP_ITS ---
Subjective Subjective Patient seen and examined. He was admitted after he had a mechanical fall in his placement. He had no complaints this morning was eating breakfast. He denied any fever, chills, nausea vomiting and pain was well controlled. Review of systems otherwise negative. Objective Data Objective Data Vital Signs: Vital Signs Temp Pulse Resp BP Pulse Ox 97.1 F L 82 16 143/77 H 98 03/30/21 09:26 03/30/21 09:26 03/30/21 09:26 03/30/21 09:26 03/30/21 09:26 Oxygen Delivery Method Room Air Weight: 184 lb 1.376 oz Body Mass Index (BMI) 25.5 Intake & Output: Intake and Output for Last 24 Hours 03/28/21 03/29/21 03/30/21 23:59 23:59 23:59 Intake Total 550 / 550 Output Total 200 / 200 Balance 550 / 350 -200 / -200 Lab / Micro Data Result Diagrams: 03/30/21 05:19 03/30/21 05:19 Labs: Laboratory Results - last 24 hr 03/29/21 15:00: WBC 5.5, RBC 2.90 L, Hgb 10.3 L, Hct 30.8 L, MCV 106.2 H, MCH 35.5 H, MCHC 33.4, RDW Std Deviation 56.7 H, RDW Coeff of Maritza 14.7 H, Plt Count 151, MPV 10.6, Immature Gran % (Auto) 0.200, Neut % (Auto) 58.8, Lymph % (Auto) 22.7, Armstrong % (Auto) 10.8 H, Eos % (Auto) 6.4 H, Baso % (Auto) 1.1 H, Absolute Neuts (auto) 3.2, Absolute Lymphs (auto) 1.24, Nucleated RBC % 0 03/29/21 15:00: Sodium 139, Potassium 3.9, Chloride 105, Carbon Dioxide 31.0, Anion Gap 3 L, BUN 36 H, Creatinine 5.24 H, Estim Creat Clear Calc 10.98, Est GFR (MDRD) Af Amer 14 L, Est GFR (MDRD) Non-Af 11 L, BUN/Creatinine Ratio 6.9 L, Glucose 118 H, Calcium 8.8 03/29/21 16:14: WBC 6.0, RBC 3.12 L, Hgb 11.2 L, Hct 32.0 L, MCV 102.6 H, MCH 35.9 H, MCHC 35.0, RDW Std Deviation 55.3 H, RDW Coeff of Maritza 14.8 H, Plt Count 178, MPV 11.1, Immature Gran % (Auto) 0.300, Neut % (Auto) 54.2, Lymph % (Auto) 25.0, Armstrong % (Auto) 12.7 H, Eos % (Auto) 6.1 H, Baso % (Auto) 1.7 H, Absolute Neuts (auto) 3.3, Absolute Lymphs (auto) 1.51, Nucleated RBC % 0 03/29/21 16:14: Sodium 139, Potassium 3.8, Chloride 103, Carbon Dioxide 31.0, Anion Gap 5, BUN 36 H, Creatinine 5.14 H, Estim Creat Clear Calc 11.19, Est GFR (MDRD) Af Amer 14 L, Est GFR (MDRD) Non-Af 11 L, BUN/Creatinine Ratio 7.0 L, Glucose 97, Calcium 9.2, Phosphorus 3.0, Magnesium 2.5, Total Bilirubin 0.50, AST 16, ALT 14 L, Alkaline Phosphatase 118 H, Total Protein 6.8, Albumin 3.1 L, Globulin 3.7, Albumin/Globulin Ratio 0.8 L 03/30/21 05:19: WBC 5.6, RBC 2.97 L, Hgb 10.7 L, Hct 30.5 L, MCV 102.7 H, MCH 36.0 H, MCHC 35.1, RDW Std Deviation 54.3 H, RDW Coeff of Maritza 14.6, Plt Count 159, MPV 10.6, Immature Gran % (Auto) 0.400, Neut % (Auto) 58.2, Lymph % (Auto) 23.0, Armstrong % (Auto) 11.3 H, Eos % (Auto) 5.8 H, Baso % (Auto) 1.3 H, Absolute Neuts (auto) 3.2, Absolute Lymphs (auto) 1.28, Nucleated RBC % 0 03/30/21 05:19: Sodium 137, Potassium 3.9, Chloride 102, Carbon Dioxide 28.0, Anion Gap 7, BUN 40 H, Creatinine 5.44 H, Estim Creat Clear Calc 10.57, Est GFR (MDRD) Af Amer 13 L, Est GFR (MDRD) Non-Af 11 L, BUN/Creatinine Ratio 7.4 L, Glucose 91, Calcium 8.7, Total Bilirubin 0.50, AST 15, ALT 13 L, Alkaline Phosphatase 113, Total Protein 6.4, Albumin 3.0 L, Globulin 3.4, Albumin/Globulin Ratio 0.9 03/30/21 05:19: Phosphorus 3.4 Radiography Diagnostic Testing: Radiology Impression Lower Extremity CT 03/29/21 11:25 IMPRESSION: Evidence of prior open reduction and internal fixation of a proximal left femoral fracture with the 2 metallic screws seen in the diaphysis of the left femur. 3.6 x 2.7 cm cystic structure in the intertrochanteric region of the left femur. This may be postoperative in nature. No acute fracture is seen. Electronically Signed: Deion Arevalo MD at 12:37 EST Reading Location ID and State: [facility] / [place] , Service support , Physical Exam Const alert, oriented x3 and no apparent distress Exam Limitations: no limitations HEENT head/scalp atraumatic and moist oral mucous membranes Head and Scalp: normocephalic Eyes PERRL, EOMs intact bilaterally and conjunctivae normal Neck no lymphadenopathy and supple Resp normal respiratory effort, no retractions, no use of accessory muscles and clear to auscultation bilaterally Cardio regular rate, regular rhythm, S1 normal heart sound, S2 normal heart sound and no murmurs GI normal to inspection, nondistended, normoactive bowel sounds, soft to palpation and non-tender Extremity normal to inspection, full ROM and no clubbing, cyanosis or edema Extremity Narrative: AV fistula with good thrill in LUE Peripheral Pulses: Yes pulses 2+ throughout Skin no rashes or lesions noted Neuro oriented x3, CN's II-XII intact bilaterally and moves all extremities Sensorium / Orientation: awake and alert Psych affect normal Assessment & Plan Assessment/Plan (1) Hip pain, left: (2) FTT (failure to thrive) in adult: PLAN: #Left hip pain due to mechanical fall * Pain is well controlled * imaging showed no evidence of a fracture * PT/OT on board. * fall precautions * * #Debility with failure to thrive * PT/OT on board. fall precautions * #CAD * recently had nonstemi * on aspirin, eliquis and coreg as well as lisinopril and atorvastatin * has known EF of 30% * #ESRD: on HD MWF. Nephrology consulted. For dialysis today. On calcium acetate #Paroxysmal A. fib: On amiodarone and Eliquis #Hypertension: On Coreg and lisinopril' #Hypothyroidism: On Synthroid #Gout: On allopurinol #Dementia: Currently stable. On memantine. PT OT on board. DVT prophylaxis: Not indicated as patient is on Eliquis. Disposition: awaiting placement. Charges/Coding Visit Charges Inpatient E&M: 16826 Subs Hosp L2
--- NOTE | 2021-03-30 12:21 | CASEMGMT ---
Social Work Note EUN reviewed chart. Pt and pt's Shana are interested in SNF placement in [facility]. Pt receives dialysis M,W,F at [facility] in [place] and [place] [facility] provides transportation. Pt's mentioned [facility], [facility] and [facility]. Per previous SW notes, both [facility] [place] [facility] do not have beds available. EUN placed a call to [facility] and spoke with Daily, Daily states that pt's family would be responsible for transportation to and from Dialysis. SW informed Daily that pt does have transportation arranged already through [place] [facility], asked if they could come to the facility to transport pt to dialysis. Daily states they could if the transit would be able to do that. SW in to speak with pt and pt's Shana. SW spoke with pt and Shana about SNF placement. Shana states to try either [facility], [facility], and the SNF on [address] or any of the ones in [place]. EUN informed Shana that this worker thought Michellechepe HAQ had already called [facility] and they have no beds available. SW will check on SNF on [address]. Shana also agreeable to [facility] since they are still in [place]. EUN informed Shana that typically for dialysis patients, the family will need to pay for transport and arrange it. Shana states she already called [place] [facility] and they would continue to transport pt from SNF to dialysis. Shana states she would need an order for a wheelchair so pt could take his own wheelchair on the [place] [facility] and then insurance would cover transportation. EUN informed Shana that since pt is going to SNF, the order for a wheelchair would need to come from physician at SNF. Shana states to not try [facility] as they are not in [facility]. ENU reviewed chart. Michellechepe HAQ did call [facility] and no beds are available. SW checked SNF list in [place] that take's pt insurance. The SNF on [address] is [facility]. SW placed a call to [facility] and left message for admissions regarding referral. SW went ahead and faxed referral to [facility]. SW reviewed SNF list. The following SNF are in [facility] that accept pt's insurance. [facility] Plan: SNF pending acceptance and pre-cert Jody Lenz PERIOPERATIVE TECH, SECURITY RESEARCHER
[2021-03-30] MEDS: Acetaminophen 325 MG Tablet 650 MG PO (13:28)
--- NOTE | 2021-03-30 15:27 | CASEMGMT ---
DURGA CM in to discuss CORNELL form with patient. RN CM explained CORNELL form, patient voiced understanding. Pt signed form and filed in chart. Pt provided with a copy of signed CORNELL form. Patient had no further questions or concerns at this time.
--- NOTE | 2021-03-30 15:37 | CHAPLAIN ---
Type of Pastoral Visit _x__ Initial Visit ___ Follow-up Visit ___ On-call Visit ___ General Patient Visit ___ Spiritual Assessment ___ Family Conference ___ Bereavement ___ Rapid Response ___ Code Blue ___ Other (describe below) Pastoral Care Referral From _x__ Patient ___ Family ___ Nurse ___ Physician ___ Program Eligibility Specialist ___ Ripening Room Hand ___ Other (describe below) Sacrament/Intervention _x__ Active listening ___ Anointing ___ Shinto ___ Bereavement ___ Communion _x__ Joan exploration ___ ___ Life review _x__ Prayer ___ Reconciliation ___ Sacrament of Sick _x__ Supportive presence ___ Wedding ___ Other (describe below) Pastoral Comments patient and spouse together in the room; pt does express concern about his inability to walk well and how he might be able to stand and walk during rehab; couple talks about their sikhism and their spiritual connections; prayer is welcomed
[2021-03-30] MEDS: Atorvastatin Calcium 80 MG Tablet PO (22:22)
[2021-03-31] VITALS (7 sets, daily range): BP systolic 109–147; BP diastolic 68–91; PULSE 60–80; RESP 16–18; TEMP 36.3–36.6; O2SAT 93–97
[2021-03-31 04:48] LABS: Absolute Lymphocyte Count 1.41 X10^3/uL (0.83-4.51); Absolute Neutrophil Count 3.5 X10^3/uL (2.0-7.7); Basophil# 0.07 X10^3/uL; Basophil% 1.1 % (0-1); Eosinophil# 0.39 X10^3/uL; Eosinophils% 6.4 % (0-5); Hematocrit 28.9 % (40-54); Hemoglobin 10.3 g/dL (13.0-16.5); Lymphocyte # 1.41 X10^3/ul (0.83-4.51); Lymphocyte % 23.1 % (19-41); Mean Corp Hgb Conc 35.6 g/dL (32-36); Mean Corpuscular Hgb 36.4 pg (27.0-32.0); Mean Corpuscular Volume 102.1 fL (80-94); Mean Platelet Vol. 10.5 fl (6.2-12.0); Monocyte# 0.68 X10^3/uL; Monocyte% 11.1 % (0-10); NRBC Flagged by Analyzer 0 % (0-5); Neutrophil # 3.54 X10^3/uL (2.7-7.7); Platelet Count 161 K/mm3 (150-450); RBC Distribution Width CV 14.4 % (11.6-14.6); RBC Distribution Width SD 53.9 fl (35.1-43.9); Red Blood Count 2.83 M/mm3 (4.6-6.2); White Blood Count 6.1 K/mm3 (4.4-11.0)
[2021-03-31 05:08] LABS: Albumin, Serum 2.8 g/dL (3.2-5.0); BUN 52 mg/dL (7-18); Calcium,Total 8.2 mg/dL (8.5-10.1); Chloride 102 mmol/L (98-107); Creatinine, Serum 5.81 mg/dL (0.70-1.30); EST Glomerular Filtration Rate 10 mL/min (>60); Est Glom Filt Rate - Afr Amer 12 mL/min (>60); Glucose 89 mg/dL (74-106); Potassium 4.5 mmol/L (3.5-5.1); Sodium Level 136 mmol/L (136-145)
[2021-03-31] MEDS: Levothyroxine 50 MCG Tablet PO (06:40)
[2021-03-31] MEDS: Acetaminophen 325 MG Tablet 650 MG PO (06:40)
--- NOTE | 2021-03-31 09:42 | PCM.PN.REN ---
Subjective Subjective Patient seen on dialysis. Tolerating treatment well. Denies any complaints during HD. Objective Data Objective Data Vital Signs: Vital Signs Temp Pulse Resp BP Pulse Ox 97.9 F 64 16 147/91 H 93 03/31/21 08:05 03/31/21 08:05 03/31/21 08:05 03/31/21 08:05 03/31/21 04:00 Oxygen Delivery Method Room Air Weight: 85.2 kg Body Mass Index (BMI) 25.5 Intake & Output: Intake and Output for Last 24 Hours 03/29/21 03/30/21 03/31/21 23:59 23:59 23:59 Intake Total 550 / 550 1200 / 1200 Output Total 700 / 700 0 / 0 Balance 550 / 350 500 / 500 0 / 0 Lab / Micro Data Result Diagrams: 03/31/21 04:18 03/31/21 04:18 Labs: Laboratory Results - last 24 hr 03/30/21 05:19: Phosphorus 3.4 03/31/21 04:18: Sodium 136, Potassium 4.5, Chloride 102, Carbon Dioxide 28.0, BUN 52 H, Creatinine 5.81 H, Estim Creat Clear Calc 9.90, Est GFR (MDRD) Af Amer 12 L, Est GFR (MDRD) Non-Af 10 L, BUN/Creatinine Ratio 9.0 L, Glucose 89, Calcium 8.2 L, Phosphorus 4.0, Albumin 2.8 L 03/31/21 04:18: WBC 6.1, RBC 2.83 L, Hgb 10.3 L, Hct 28.9 L, MCV 102.1 H, MCH 36.4 H, MCHC 35.6, RDW Std Deviation 53.9 H, RDW Coeff of Maritza 14.4, Plt Count 161, MPV 10.5, Immature Gran % (Auto) 0.300, Neut % (Auto) 58.0, Lymph % (Auto) 23.1, Loíza % (Auto) 11.1 H, Eos % (Auto) 6.4 H, Baso % (Auto) 1.1 H, Absolute Neuts (auto) 3.5, Absolute Lymphs (auto) 1.41, Nucleated RBC % 0 Physical Exam Narrative General: A+Ox 3. NAD. Neck: Supple. Heart: Normal S1, S2. Lungs: clear anteriorly Abdomen: +BS, soft, NT. Extremity: No pitting edema AVF left UA accessed for dialysis Assessment & Plan Assessment/Plan (1) End-stage renal disease (ESRD): PLAN: - Patient dialyzes on MWF schedule at [facility]. -dialysis today over 4hours/2k bath and attempt ~2-2.5L UF. EDW 86kg, weight this am 84.8kg. Patient may have new lowered edw by time of discharge. Likely next HD will be Monday. (2) Anemia: PLAN: -Continue SANDY with HD in outpatient setting. Current Hgb 10.3. (3) HTN (hypertension), benign: PLAN: -Continue current BP medication, Coreg and lisinopril. Bps acceptable -UF with HD as pt/bp tolerates. No need to challenge dry weight at this time. (4) Secondary hyperparathyroidism: PLAN: -Check Ca/P periodically. Phos 4.0. Calcium 8.7. On calcium acetate and renal diet (5) FTT (failure to thrive) in adult: (6) Hip pain, left: PLAN: -Management as per hospital medicine service. - no acute fracture per CT left lower extremity
--- NOTE | 2021-03-31 10:17 | CASEMGMT ---
Social Work Note SW reviewed previous visits. From previous visits, this worker was able to obtain a fax number for [facility] SNF ([phone]). This worker went a head and faxed clinicals to [facility]. At this time, [facility] [place] [facility] [place] and [facility] do not have beds available. Referrals have been faxed to both [facility] and [facility]. Plan: SNF pending acceptance and pre-cert Jody Lenz BUGGY RUNNER, ENGINE MONITOR
--- NOTE | 2021-03-31 10:48 | CASEMGMT ---
Social Work Pt and requesting SNF placement in [facility] with the ability for pt to go to Dialysis at [facility] with [facility] to provide transportation. Phone calls to all SNFs in [facility] in network with pt insurance: [facility] - Referral Faxed 03/30, follow up call at this time and VM left requesting determination of acceptance [facility] [place] - No beds available and no pending discharges this week Pamela Self - VM left 03/30 and at this time [facility] - They do have beds available and can accept dialysis arrangement. Fax Linette for referral [phone] [facility] Abdullahi - VM left at this time [facility] - No beds available and no pending discharges this week [facility] - They do have beds available and can accept dialysis arrangement. Fax Alexus for referral [phone] YRIS Pagan. YRIS Wisdom
--- NOTE | 2021-03-31 11:23 | PN.HOSP_ITS ---
Subjective Subjective Patient seen and examined today. He was having dialysis at time of review. He had no active complaints and felt well. Review of systems otherwise negative. He has remained hemodynamically stable. He is awaiting placement. Objective Data Objective Data Vital Signs: Vital Signs Temp Pulse Resp BP Pulse Ox 97.9 F 62 16 128/75 H 93 03/31/21 09:54 03/31/21 09:54 03/31/21 09:54 03/31/21 09:54 03/31/21 09:54 Oxygen Delivery Method Room Air Weight: 187 lb 13.341 oz Body Mass Index (BMI) 25.5 Intake & Output: Intake and Output for Last 24 Hours 03/29/21 03/30/21 03/31/21 23:59 23:59 23:59 Intake Total 550 / 550 1200 / 1200 Output Total 700 / 700 0 / 0 Balance 550 / 350 500 / 500 0 / 0 Lab / Micro Data Result Diagrams: 03/31/21 04:18 03/31/21 04:18 Labs: Laboratory Results - last 24 hr 03/31/21 04:18: Sodium 136, Potassium 4.5, Chloride 102, Carbon Dioxide 28.0, BUN 52 H, Creatinine 5.81 H, Estim Creat Clear Calc 9.90, Est GFR (MDRD) Af Amer 12 L, Est GFR (MDRD) Non-Af 10 L, BUN/Creatinine Ratio 9.0 L, Glucose 89, Calcium 8.2 L, Phosphorus 4.0, Albumin 2.8 L 03/31/21 04:18: WBC 6.1, RBC 2.83 L, Hgb 10.3 L, Hct 28.9 L, MCV 102.1 H, MCH 36.4 H, MCHC 35.6, RDW Std Deviation 53.9 H, RDW Coeff of Maritza 14.4, Plt Count 161, MPV 10.5, Immature Gran % (Auto) 0.300, Neut % (Auto) 58.0, Lymph % (Auto) 23.1, Orange % (Auto) 11.1 H, Eos % (Auto) 6.4 H, Baso % (Auto) 1.1 H, Absolute Neuts (auto) 3.5, Absolute Lymphs (auto) 1.41, Nucleated RBC % 0 Physical Exam Const alert, oriented x3 and no apparent distress Exam Limitations: no limitations HEENT head/scalp atraumatic and moist oral mucous membranes Head and Scalp: normocephalic Eyes PERRL, EOMs intact bilaterally and conjunctivae normal Neck no lymphadenopathy and supple Resp normal respiratory effort, no retractions, no use of accessory muscles and clear to auscultation bilaterally Cardio regular rate, regular rhythm, S1 normal heart sound, S2 normal heart sound and no murmurs GI normal to inspection, nondistended, normoactive bowel sounds, soft to palpation and non-tender Extremity normal to inspection, full ROM and no clubbing, cyanosis or edema Extremity Narrative: AV fistula with good thrill in LUE Peripheral Pulses: Yes pulses 2+ throughout Skin no rashes or lesions noted Neuro oriented x3, CN's II-XII intact bilaterally and moves all extremities Sensorium / Orientation: awake and alert Psych affect normal Assessment & Plan Assessment/Plan (1) Hip pain, left: (2) FTT (failure to thrive) in adult: PLAN: #Left hip pain due to mechanical fall * Pain is well controlled * imaging showed no evidence of a fracture * PT/OT on board. * fall precautions * * #Debility with failure to thrive * PT/OT on board. fall precautions * #CAD * recently had nonstemi * on aspirin, eliquis and coreg as well as lisinopril and atorvastatin * has known EF of 30% * #ESRD: on HD MWF. Nephrology consulted. Having dialysis at time of review #Paroxysmal A. fib: On amiodarone and Eliquis #Hypertension: On Coreg and lisinopril' #Hypothyroidism: On Synthroid #Gout: On allopurinol #Dementia: Currently stable. On memantine. PT OT on board. DVT prophylaxis: Not indicated as patient is on Eliquis. Disposition: awaiting placement. Charges/Coding Visit Charges Inpatient E&M: 34360 Subs Hosp L2
--- NOTE | 2021-03-31 11:24 | CASEMGMT ---
Social Work Note From previous notes, pt's is agreeable to any SNF in [facility] that can accept pt. SW faxed referrals to both [facility] and [facility]. Plan: SNF pending acceptance and pre-cert Jody Lenz ELECTRIC PILE DRIVER OPERATOR, TAR LEVELER
--- NOTE | 2021-03-31 11:46 | CASEMGMT ---
Pt screened with [facility] Palliative Care Screening tool d/t FTT, CKD on dialysis. Pt met criteria. No order received at this time.
--- NOTE | 2021-03-31 12:35 | CASEMGMT ---
Social Work Return call from Daily at [facility]. They are able to accept pt and will allow [facility] to take pt to Dialysis MWF. SW will followup with [facility] to arrange for discharge when appropriate. EUN Pagan. YRIS Wisdom
--- NOTE | 2021-03-31 12:47 | DIALYSIS ---
Hemodialysis completed x 4 hrs. Access via LFA AVF. Net UF 2000ml. pt kat well. See HD flowsheet in chart.
[2021-03-31] MEDS: Arthritis Pain Compound 60 CLICK TUBE TOPICAL ×2 (12:49→21:33)
[2021-03-31] MEDS: Calcium Acetate 667 MG Capsule PO ×2 (12:49→16:30)
[2021-03-31] MEDS: Gabapentin 100 MG Capsule PO ×2 (12:49→16:30)
[2021-03-31] MEDS: Amiodarone 200 MG Tablet 100 MG PO (12:50)
[2021-03-31] MEDS: APIXABAN 2.5 MG TABLET PO ×2 (12:50→21:36)
[2021-03-31] MEDS: Polyethylene Glycol 3350 17 GM PACKET PO (12:51)
[2021-03-31] MEDS: Allopurinol 100 MG Tablet PO (12:51)
[2021-03-31] MEDS: Memantine Hydrochloride 5 MG Tablet PO ×2 (12:51→21:36)
[2021-03-31] MEDS: Carvedilol 3.125 MG TABLET PO ×2 (13:00→21:36)
[2021-03-31] MEDS: Lisinopril 5 MG Tablet PO (13:00)
--- NOTE | 2021-03-31 13:10 | CASEMGMT ---
Social Work Note EUN updated that [facility] can accept pt. EUN placed a call to Daily in admissions ([phone]) and informed her to submit for pre-cert. EUN in to speak with pt and pt's Shana. EUN updated pt and Shana that at this time, the only SNF accept pt accept pt is [facility]. Pt and Shana agreeable to [facility]. Shana states that [facility] will need to notified of where pt will be going so they can provide transportation to dialysis for pt. EUN informed Shana that this worker can update [facility]. EUN placed a call to [facility]. EUN updated that pt's transportation to and from dialysis will be on a day by day case and states that drivers on Monday are tight. EUN informed [facility] that the goal is to get pt to [facility] tomorrow and then pt will need transportation to dialysis Monday. Again, [facility] states drivers are tight on Monday. [facility] requested to be updated tomorrow if pt will need transportation or not on Monday. EUN in to speak with pt and Shana again. EUN informed Shana that this worker updated [facility] on SNF that pt will go to and was informed that transportation to and from dialysis is on a day by day case and that there may be some times that [facility] is not able to transport pt. Shana states I was told that they will be able to do it. EUN again reiterated that [facility] just told this worker that it will depend day by day and that Shana may be responsible for transportation to and from dialysis if [facility] is not able to do it. Shana states I will take care of it, I will get him to dialysis. Plan: [facility] pending pre-cert Jody Lenz MANAGER FUND, SET RIDER
--- NOTE | 2021-03-31 16:01 | CASEMGMT ---
Social Work Note SW updated [place] at [facility] to disregard referral and [facility] at [facility] to disregard referral. Jody Lenz RESEARCH CHEMIST, ACCOUNTANCY PROFESSOR
[2021-03-31] MEDS: 0.9% Saline Lock 10 ML Syringe IV (21:31)
[2021-03-31] MEDS: Atorvastatin Calcium 80 MG Tablet PO (21:36)
[2021-04-01 03:32] VITALS: BP 131/73; PULSE 57; RESP 16; TEMP 36.6; O2SAT 96
[2021-04-01] MEDS: Levothyroxine 50 MCG Tablet PO (06:10)
[2021-04-01 06:15] LABS: Absolute Lymphocyte Count 1.42 X10^3/uL (0.83-4.51); Absolute Neutrophil Count 3.9 X10^3/uL (2.0-7.7); Basophil# 0.08 X10^3/uL; Basophil% 1.2 % (0-1); Eosinophil# 0.34 X10^3/uL; Eosinophils% 5.2 % (0-5); Hematocrit 31.9 % (40-54); Hemoglobin 11.4 g/dL (13.0-16.5); Lymphocyte # 1.42 X10^3/ul (0.83-4.51); Lymphocyte % 21.7 % (19-41); Mean Corp Hgb Conc 35.7 g/dL (32-36); Mean Corpuscular Hgb 36.5 pg (27.0-32.0); Mean Corpuscular Volume 102.2 fL (80-94); Mean Platelet Vol. 10.8 fl (6.2-12.0); Monocyte% 12.2 % (0-10); NRBC Flagged by Analyzer 0 % (0-5); Neutrophil # 3.89 X10^3/uL (2.7-7.7); Neutrophil % 59.5 % (47-70); Platelet Count 175 K/mm3 (150-450); RBC Distribution Width CV 14.6 % (11.6-14.6); RBC Distribution Width SD 54.3 fl (35.1-43.9); Red Blood Count 3.12 M/mm3 (4.6-6.2); White Blood Count 6.5 K/mm3 (4.4-11.0)
[2021-04-01 07:19] VITALS: O2SAT 96
[2021-04-01 08:44] VITALS: BP 129/82; PULSE 70; RESP 18; TEMP 36.4; O2SAT 99
[2021-04-01] MEDS: Calcium Acetate 667 MG Capsule PO ×2 (08:49→12:09)
[2021-04-01] MEDS: Amiodarone 200 MG Tablet 100 MG PO (08:49)
[2021-04-01] MEDS: Gabapentin 100 MG Capsule PO ×2 (08:49→12:09)
[2021-04-01] MEDS: Carvedilol 3.125 MG TABLET PO (08:49)
[2021-04-01] MEDS: Lisinopril 5 MG Tablet PO (08:49)
[2021-04-01 08:50] VITALS: O2SAT 97
[2021-04-01] MEDS: Memantine Hydrochloride 5 MG Tablet PO (08:50)
[2021-04-01] MEDS: APIXABAN 2.5 MG TABLET PO (08:50)
[2021-04-01] MEDS: Arthritis Pain Compound 60 CLICK TUBE TOPICAL (08:50)
[2021-04-01] MEDS: Polyethylene Glycol 3350 17 GM PACKET PO (08:50)
[2021-04-01] MEDS: Allopurinol 100 MG Tablet PO (08:50)
--- NOTE | 2021-04-01 11:28 | CASEMGMT ---
Addendum entered by Jody Lenz 04/01/21 13:02: EUN back in to speak with Shana. EUN updated Shana that [facility] is stating no availability tomorrow to transport pt. EUN informed Shana that PT/OT is stating pt can transport via private vehicle, asked if Shana or other family could transport pt to dialysis tomorrow. Shana states she is able to transport pt tomorrow to Dialysis. EUN placed a call to Daily in admissions and left message that family is able to transport pt tomorrow as [facility] is not available, asked if family is able to transport. EUN received call from Daily stating yes pt's family is able to transport pt tomorrow to dialysis. EUN placed a call back to [facility] to let them know pt's family can transport pt tomorrow but was told that they did find transportation tomorrow to transport pt from [facility] to [facility] to transport pt. Pt will need to be ready for quill picking machine operator tomorrow at 10:00am for [facility] to transport pt and then will return to [facility] at 3:35pm to transport pt back to [facility]. EUN updated pt and Shana that [facility] is able to transport pt tomorrow. Shana denied any Mental Health/psych history for pt. EUN updated physician pt can discharge to SNF today - will need a COVID test. Plan: [facility] skilled today Addendum entered by Jody Lenz 04/01/21 12:17: EUN received call from Daily in admissions at [facility] stating pre-cert has been obtained. Daily asked what time pt's dialysis chair time is so they can have pt ready tomorrow. SW in to speak with pt and pt's Shana. Shana states that pt's dialysis chair time is 11:00am. EUN informed pt that this worker will [facility] to inquire about availability tomorrow to transport pt. Shana states she also talked to [facility]. EUN updated Daily on pt's chair time. Daily states that as long as transportation is confirmed for tomorrow, they can accept pt today. EUN placed a call to [facility]. EUN was informed that pt's had scheduled pt's transportation and then cancelled it twice so they have no availability tomorrow to transport pt. [facility] confirms they are booked for transportation time. [facility] states they would told to start transportation on Monday for pt. [facility] then states they will need to look at the scheduled, asked this worker to call back after 2:00pm, but is stating at this time that they have no availability tomorrow to transport pt. SW spoke with PT/OT. PT/OT stating pt can transport in private vehicle physically, pt is just confused. SW back in to speak with pt and Shana. Shana went down to get food. SW to follow up with pt and Shana. Original Note: Social Work Note SW faxed updated PT/OT to [facility]. Plan: [facility] pending pre-cert Jody Lenz FIELD SERVICE CONSULTANT, SLITTING MACHINE OPERATOR
--- NOTE | 2021-04-01 12:47 | PCM.PN.REN ---
Subjective Subjective Eating lunch, at bedside, denies any complaints. Objective Data Objective Data Vital Signs: Vital Signs Temp Pulse Resp BP Pulse Ox 97.6 F L 70 18 129/82 H 97 04/01/21 08:44 04/01/21 08:44 04/01/21 08:44 04/01/21 08:44 04/01/21 08:50 Oxygen Delivery Method Room Air Weight: 83.4 kg Body Mass Index (BMI) 25.5 Intake & Output: Intake and Output for Last 24 Hours 03/30/21 03/31/21 04/01/21 23:59 23:59 23:59 Intake Total 1200 / 1200 200 / 200 Output Total 700 / 700 2000 / 2000 Balance 500 / 500 -1800 / -1800 Lab / Micro Data Result Diagrams: 04/01/21 05:29 03/31/21 04:18 Labs: Laboratory Results - last 24 hr 04/01/21 05:29: WBC 6.5, RBC 3.12 L, Hgb 11.4 L, Hct 31.9 L, MCV 102.2 H, MCH 36.5 H, MCHC 35.7, RDW Std Deviation 54.3 H, RDW Coeff of Maritza 14.6, Plt Count 175, MPV 10.8, Immature Gran % (Auto) 0.200, Neut % (Auto) 59.5, Lymph % (Auto) 21.7, [place] % (Auto) 12.2 H, Eos % (Auto) 5.2 H, Baso % (Auto) 1.2 H, Absolute Neuts (auto) 3.9, Absolute Lymphs (auto) 1.42, Nucleated RBC % 0 Physical Exam Narrative General: A+Ox 3. NAD. Neck: Supple. Heart: Normal S1, S2. Lungs: clear anteriorly Abdomen: +BS, soft, NT. Extremity: No pitting edema AVF left UA positive thrill bruit Assessment & Plan Assessment/Plan (1) End-stage renal disease (ESRD): PLAN: - Patient dialyzes on MWF schedule at [facility]. -No acute indication for T[employer] today, next dialysis tomorrow. Patient will have a new lowered dry weight of around 82 kg. (2) Anemia: PLAN: -Continue SANDY with HD in outpatient setting. Current Hgb 11.4. (3) HTN (hypertension), benign: PLAN: -Continue current BP medication, Coreg and lisinopril. Bps acceptable -UF with HD as pt/bp tolerates. No need to challenge dry weight at this time. (4) Secondary hyperparathyroidism: PLAN: -Check Ca/P periodically. Continue on calcium acetate and renal diet (5) FTT (failure to thrive) in adult: (6) Hip pain, left: PLAN: -Management as per hospital medicine service. - no acute fracture per CT left lower extremity - Discharge planning in progress. Patient to be discharged to [facility] in [place], transportation has been arranged to take patient to and from his dialysis center in [facility].
--- NOTE | 2021-04-01 13:06 | DS.PCM_ITS ---
Providers Date of Admission: 03/29/21 Primary Care Physician: Lorena Primary Care Phys Consultations 03/29/21 15:58 Consult: Nephrology Routine Consulting Provider: Andrea Xiao Reason for Consult: ESRD on MWF, did not have it today, needs. EMERGENT Consult: No MD Notified: Yes Date Notified: 03/29/21 Time Notified: 16:00 Method of Notification: office Reason For Visit: HIP PAIN FAILURE TO THRIVE Diagnosis Discharge Diagnosis (1) End-stage renal disease (ESRD): Status: Acute Code(s): N18.6 - End stage renal disease (2) Anemia: Status: Acute Code(s): D64.9 - Anemia, unspecified (3) HTN (hypertension), benign: Status: Acute Code(s): I10 - Essential (primary) hypertension (4) Secondary hyperparathyroidism: Status: Acute Code(s): N25.81 - Secondary hyperparathyroidism of renal origin (5) FTT (failure to thrive) in adult: Status: Acute Code(s): R62.7 - Adult failure to thrive (6) Hip pain, left: Status: Acute Code(s): M25.552 - Pain in left hip Medications at Discharge Home Medications allopurinol 100 mg tablet 100 mg PO DAILY #90 tab 07/26/18 atorvastatin 80 mg PO QHS #30 tab 11/26/19 calcium acetate(phosphat bind) 667 mg PO TIDCM #90 cap 11/26/19 carvedilol 3.125 mg PO BID #60 tab 11/26/19 levothyroxine 50 mcg PO DAILY@0600 #30 tab 11/26/19 memantine 5 mg PO BID #60 tab 11/26/19 albuterol sulfate 2.5 mg INHALATION Q4H PRN #180 ml 12/13/19 apixaban 2.5 mg tablet 2.5 mg PO BID 01/14/20 lisinopril 2.5 mg tablet 5 mg PO DAILY tab 01/14/20 amiodarone 100 mg PO DAILY 08/06/20 polyethylene glycol 3350 17 g PO DAILY PRN 02/23/21 Claritin-D 12 Hour 1 tab PO Q12H PRN 03/29/21 guaifenesin 600 mg PO BID PRN 03/29/21 acetaminophen [Tylenol] 650 mg PO Q4H PRN PRN #30 tab 04/01/21 Hospital Course Operations None Procedures Dialysis Summary of Care Provided Minutes Spent on Discharge: 45 Hospital Course: Patient is an 85-year-old male with an extensive past medical history as outlined who was admitted through the ED on 03/29/2021 with a compl aint of mechanical fall. He landed on his left side. He was seen in [place] on 03/20/2021 after he had a fall but there was no evidence of fractures at that time. However upon being discharged home from [place], he had ongoing pain and debility and could not ambulate. was unable to care for him so he was brought into the ED. Imaging done showed evidence of prior open reduction and internal fixation of the proximal left femoral fracture with 2 metallic pins seen but no acute fracture. He was admitted to be managed for debility due to mechanical fall. Nephrology was consulted for dialysis. Hospital course was uncomplicated. Patient work with physical and Occupational Therapy. He was de emed as needing skilled therapy and obtained pre-CERT to go to a long term facility on 04/01/2021. He was discharged on 04/01/2021 and is to follow-up with his primary care doctor in 1 to 2 weeks. Patient seen and examined prior to discharge. He complained of some pain in his hip, but was otherwise fine. Review of systems otherwise negative. Labs and vitals reviewed. Home medication reviewed and reconciled. Physical Exam Const alert, oriented x3 and no apparent distress General Appearance: cooperative, comfortable and well kempt Exam Limitations: no limitations HEENT normocephalic, head/scalp atraumatic and moist oral mucous membranes Eyes PERRL, EOMs intact bilaterally and conjunctivae normal Neck no lymphadenopathy and supple Resp normal respiratory effort, no retractions, no use of accessory muscles and clear to auscultation bilaterally Cardio regular rate, regular rhythm, S1 normal heart sound, S2 normal heart sound and no murmurs GI normal to inspection, nondistended, normoactive bowel sounds, soft to palpation and non-tender Extremity normal to inspection, full ROM and no clubbing, cyanosis or edema Extremity Narrative: AV fistula with good thrill in LUE Skin no rashes or lesions noted Neuro oriented x3, CN's II-XII intact bilaterally and moves all extremities Sensorium / Orientation: awake and alert Psych affect normal Weight / BMI Weight Weight: 183 lb 13.848 oz Body Mass Index (BMI) 25.5 ABG / Lab / Microbiology Data Result Diagrams: 04/01/21 05:29 03/31/21 04:18 Laboratory: Laboratory Results - last 24 hr 04/01/21 05:29: WBC 6.5, RBC 3.12 L, Hgb 11.4 L, Hct 31.9 L, MCV 102.2 H, MCH 36.5 H, MCHC 35.7, RDW Std Deviation 54.3 H, RDW Coeff of Maritza 14.6, Plt Count 175, MPV 10.8, Immature Gran % (Auto) 0.200, Neut % (Auto) 59.5, Lymph % (Auto) 21.7, [place] % (Auto) 12.2 H, Eos % (Auto) 5.2 H, Baso % (Auto) 1.2 H, Absolute Neuts (auto) 3.9, Absolute Lymphs (auto) 1.42, Nucleated RBC % 0 D/C Instructions Discharge Diet: Low fat / Low cholesterol Discharge Activity: Return to Normal Activity Weight Bearing Status: Weight bearing as tolerated Call your doctor if you observe: Uncontrolled pain Meaningful Use Info Meaningful Use Diagnoses (Choose all that apply): None applicable Discharge Plan Admission Admit Date/Time: 03/29/21 15:47 Primary Reason for Your Visit: debility due to mechanical fall Attending Provider: Italia Angel Primary Care Provider: Care Physician,No Primary Consulting Providers: Andrea Xiao Instructions Patient Instructions: Contusion Bone Tx, ED Fall Dizziness Weakn Balance Discharge Orders/Prescriptions Prescriptions: New acetaminophen [Tylenol] 325 mg Tablet 650 mg PO Q4H PRN PRN (Reason: Fever, pain 1-11/15) Qty: 30 RF: 0 Continued allopurinol 100 mg tablet 100 mg PO DAILY Qty: 90 RF: 0 albuterol sulfate 2.5 mg /3 mL (0.083 %) solution for nebulization 2.5 mg INHALATION Q4H PRN (Reason: Sob &/Or Wheezing) Qty: 180 RF: 3 Eliquis 2.5 mg tablet 2.5 mg PO BID RF: 0 lisinopril 2.5 mg tablet 5 mg PO DAILY RF: 0 atorvastatin 80 MG tablet 80 mg PO QHS Qty: 30 RF: 1 carvedilol 3.125 MG tablet 3.125 mg PO BID Qty: 60 RF: 1 levothyroxine 50 MCG tablet 50 mcg PO DAILY@0600 Qty: 30 RF: 1 memantine 5 MG tablet 5 mg PO BID Qty: 60 RF: 0 calcium acetate(phosphat bind) 667 MG capsule 667 mg PO TIDCM Qty: 90 RF: 0 amiodarone 200 MG tablet 100 mg PO DAILY RF: 0 polyethylene glycol 3350 17 gram Powder In Packet 17 g PO DAILY PRN (Reason: Constipation) RF: 0 guaifenesin 600 mg Tablet Extended Release 600 mg PO BID PRN (Reason: Congestion) RF: 0 Claritin-D 12 Hour 5-120 mg Tablet Extended Release 12 Hr 1 tab PO Q12H PRN (Reason: allergies) RF: 0 Referrals / Follow Up: Care Physician,No Primary [Primary Care Provider] - Disposition Disposition (needs filled in before D/C Order can be placed): Detention Facility Charges/Coding Visit Charges Inpatient E&M: 83091 Disch Hosp
--- NOTE | 2021-04-01 13:14 | PCM.TXEXTCAR ---
Diet 03/29/21 15:58 Diet: Renal - General Food consistency:: Regular Liquid Consistency:: Regular/Thin Is pt able to select menu?: Yes Routine Orders/Code Status Enema Type: Fleetz Enema Frequency: Daily PRN Suppository Type: Dulcolax 10mg Suppository Frequency: Daily PRN O2 Frequency: PRN Keep PO Greater than or Equal to (%): 90 Therapies Weight Bearing: Weight bearing as tolerated Physical Therapy: Eval and Treat Occupational Therapy: Eval and Treat Problem/Diagnosis (1) End-stage renal disease (ESRD): Status: Acute (2) Anemia: Status: Acute (3) HTN (hypertension), benign: Status: Acute (4) Secondary hyperparathyroidism: Status: Acute (5) FTT (failure to thrive) in adult: Status: Acute (6) Hip pain, left: Status: Acute Allergies/Procedures Done in Hospital Allergies adhesive tape Allergy (Mild, Verified 02/23/21 12:00) Rash oxycodone Allergy (Mild, Verified 02/23/21 12:00) Rash tramadol Allergy (Mild, Verified 02/23/21 12:00) LIGHTHEADED AND DIZZY WITH HALLUCINATIONS Procedures: Dialysis Type of Care/Length of Stay Estimated LOS: Convalescent Care Less Than 30 days Type of Care Needed: Skilled Rehab Potential: Fair Prognosis: Fair Additional Orders/Day of Discharge Day of Discharge: 04/01/21 Discharge Plan Admission Admit Date/Time: 03/29/21 15:47 Primary Reason for Your Visit: debility due to mechanical fall Attending Provider: Italia Angel Primary Care Provider: Care Physician,No Primary Consulting Providers: Andrea Xiao Instructions Patient Instructions: Contusion Bone Tx, ED Fall Dizziness Weakn Balance Discharge Orders/Prescriptions Prescriptions: New acetaminophen [Tylenol] 325 mg Tablet 650 mg PO Q4H PRN PRN (Reason: Fever, pain 1-11/15) Qty: 30 RF: 0 Continued allopurinol 100 mg tablet 100 mg PO DAILY Qty: 90 RF: 0 albuterol sulfate 2.5 mg /3 mL (0.083 %) solution for nebulization 2.5 mg INHALATION Q4H PRN (Reason: Sob &/Or Wheezing) Qty: 180 RF: 3 Eliquis 2.5 mg tablet 2.5 mg PO BID RF: 0 lisinopril 2.5 mg tablet 5 mg PO DAILY RF: 0 atorvastatin 80 MG tablet 80 mg PO QHS Qty: 30 RF: 1 carvedilol 3.125 MG tablet 3.125 mg PO BID Qty: 60 RF: 1 levothyroxine 50 MCG tablet 50 mcg PO DAILY@0600 Qty: 30 RF: 1 memantine 5 MG tablet 5 mg PO BID Qty: 60 RF: 0 calcium acetate(phosphat bind) 667 MG capsule 667 mg PO TIDCM Qty: 90 RF: 0 amiodarone 200 MG tablet 100 mg PO DAILY RF: 0 polyethylene glycol 3350 17 gram Powder In Packet 17 g PO DAILY PRN (Reason: Constipation) RF: 0 guaifenesin 600 mg Tablet Extended Release 600 mg PO BID PRN (Reason: Congestion) RF: 0 Claritin-D 12 Hour 5-120 mg Tablet Extended Release 12 Hr 1 tab PO Q12H PRN (Reason: allergies) RF: 0 Referrals / Follow Up: Care Physician,No Primary [Primary Care Provider] - Disposition Disposition (needs filled in before D/C Order can be placed): [facility] Facility
[2021-04-01 14:19] VITALS: BP 129/73; PULSE 60; RESP 18; TEMP 36.5; O2SAT 98
--- NOTE | 2021-04-01 14:58 | CASEMGMT ---
Addendum entered by Jody Lenz 04/01/21 15:37: EUN faxed COVID test/tool to [facility]. Original Note: Social Work Note EUN faxed completed discharge paperwork to [facility] including transfer to extended care facility, signed medication list, any scripts, PAS/RR and PAS/RR results. Original in SNF folder and copy on pt's chart. SW spoke with RN, pt can transport via wheelchair van. SW in to speak with pt and pt's Shana and updated them that pt can transport via wheelchair and that they will get a bill for transport. Shana states she will transport pt to SNF. EUN placed a call to Daily at [facility] and updated her on transportation. Daily asked that pt leaves [facility] around 4-4:30pm since. EUN in to speak with pt and Shana and updated them on the request to leave [facility] around 4-4:30pm. Shana still able to transport pt at 4-4:30pm. EUN updated RN. EUN to fax COVID test/tool to [facility] once completed. Plan: [facility] skilled under PAS/RR level of care with pt's transporting pt via private vehicle at 4-4:30pm today Jody Lenz COMPONENT TECHNICIAN, TRAFFIC ENGINEERING TECHNICIAN
--- NOTE | 2021-04-01 15:30 | NURSING ---
Report called over to [facility]. Pt will be transported by private vehicle by .
== END 2021-04-01 15:58 | disposition skilled nursing facility (03) ==
LOC: ED 14:58 → MS3 16:04
PROVIDERS: Internal Medicine Nephrology; Nurse Practitioner Adult Health; Admitting Provider Family Medicine; Emergency Provider Emergency Medicine; Visit Provider Student in an Organized Health Care Education/Training Program
DX: M19.90 Unspecified osteoarthritis, unspecified site (principal); I13.2 Hypertensive heart and chronic kidney disease with heart failure and with stage 5 chronic kidney disease, or end stage renal disease; Z99.2 Dependence on renal dialysis; F03.90 Unspecified dementia, unspecified severity, without behavioral disturbance, psychotic disturbance, mood disturbance, and anxiety; I50.22 Chronic systolic (congestive) heart failure; N18.6 End stage renal disease; I48.0 Paroxysmal atrial fibrillation; N25.81 Secondary hyperparathyroidism of renal origin; I25.2 Old myocardial infarction; D64.9 Anemia, unspecified; E78.5 Hyperlipidemia, unspecified; I25.10 Atherosclerotic heart disease of native coronary artery without angina pectoris; R62.7 Adult failure to thrive; I25.5 Ischemic cardiomyopathy; S01.01XD Laceration without foreign body of scalp, subsequent encounter; W19.XXXD Unspecified fall, subsequent encounter; E03.9 Hypothyroidism, unspecified; M25.552 Pain in left hip; M10.9 Gout, unspecified; Z79.890 Hormone replacement therapy; Z79.899 Other long term (current) drug therapy; Z87.01 Personal history of pneumonia (recurrent); Z87.891 Personal history of nicotine dependence
CPT/HCPCS: 36415; 73700; 80048; 80053; 80069; 83735; 84100; 85025; 87426; 90937; 97110; 97162; 97166; 97530; 97535; 99218; 99251; 99285; A4216; G0257; G0378; G0463

== ENCOUNTER → 2021-04-05 | Outpatient (REF) | payer SELFPAY ==
[2021-04-05 08:39] LABS: Hematocrit 31.3 % (40-54); Hemoglobin 10.6 g/dL (13.0-16.5); Mean Corp Hgb Conc 33.9 g/dL (32-36); Mean Corpuscular Volume 103.3 fL (80-94); Platelet Count 199 K/mm3 (150-450); RBC Distribution Width CV 14.6 % (11.6-14.6); RBC Distribution Width SD 55.5 fl (35.1-43.9); Red Blood Count 3.03 M/mm3 (4.6-6.2); White Blood Count 5.3 K/mm3 (4.4-11.0)
[2021-04-05 08:50] LABS: Vitamin D,25 Hydroxy 46.7 ng/mL
[2021-04-05 08:54] LABS: Hemoglobin A1c 5.1 % (3.8-5.6)
[2021-04-05 09:00] LABS: ALB/GLOB Ratio 0.9 RATIO (0.9-2.4); AST(SGOT) 19 U/L (15-37); Alanine Aminotransfer ALT/SGPT 15 U/L (16-61); Alkaline Phosphatase 160 U/L (45-117); Anion Gap 7 (5-15); BUN 45 mg/dL (7-18); BUN/Creat Ratio 8.7 RATIO (10-20); Calcium,Total 8.6 mg/dL (8.5-10.1); Chloride 103 mmol/L (98-107); Cholesterol 98 mg/dL (200); Creatinine, Serum 5.19 mg/dL (0.70-1.30); EST Glomerular Filtration Rate 11 mL/min (>60); Est Glom Filt Rate - Afr Amer 14 mL/min (>60); Globulin 3.5 g/dL (2.2-4.2); Glucose 83 mg/dL (74-106); High Density Lipoprotein 40 mg/dL; Magnesium 2.3 mg/dL (1.6-2.6); Potassium 4.8 mmol/L (3.5-5.1); Protein, Total 6.5 g/dL (6.4-8.2); Sodium Level 138 mmol/L (136-145); Thyroid Stim Hormone (TSH) 4.73 uIU/mL (0.358-3.74); Triglycerides 66 mg/dL; Very Low Density Lipoprotein 13 mg/dL (5-40)
== END | disposition home or self-care (01) ==
LOC: OLS.ACW100 05:00
PROVIDERS: Visit Provider Family Medicine
DX: I63.9 Cerebral infarction, unspecified (principal); F03.90 Unspecified dementia, unspecified severity, without behavioral disturbance, psychotic disturbance, mood disturbance, and anxiety; M25.552 Pain in left hip; D63.8 Anemia in other chronic diseases classified elsewhere; W19.XXXD Unspecified fall, subsequent encounter
CPT/HCPCS: 36415; 80053; 80061; 82306; 83036; 83735; 84443; 85027

== ENCOUNTER 2021-09-02 07:49 | Emergency (ER) | payer MEDICARE, SELFPAY ==
[2021-09-02 07:50] VITALS: BP 171/97; PULSE 88; RESP 14; TEMP 36.6; O2SAT 100; BMI 27.4
--- NOTE | 2021-09-02 08:09 | EDS_ITS ---
HPI History of Present Illness Chief Complaint: Shortness of Breath Informant: patient and spouse/S.O. Onset/Context/Timing Onset: Yesterday Context: Gradual Onset Timing: Continuous Quality: Nauseated Location: Diffuse Worsened by: Going up and down stairs Relieved by: Rest Narrative Narrative: Patient presents with abdominal pain and shortness of breath that began yesterday. Patient states it has gradually gotten worse. Patient states his pain is diffuse across his abdomen. Patient describes it as a nauseated feeling. Patient states it is worse with going up and down stairs. Patient admits to a cough with some sputum production. Patient denies any vomiting. Patient denies any diarrhea. Patient does go to dialysis on Monday and Monday but he did not go to dialysis yesterday because he did not feel well. Patient denies any fevers or chills. [facility] Medical History Abnormal cardiac enzyme level Acute arthritis [place] (acute kidney injury) Anemia Anxiety Arthritis Atrial fibrillation Cardiomyopathy, ischemic CHF (congestive heart failure) CKD (chronic kidney disease) stage 4, GFR 15-29 ml/min Community acquired pneumonia Declining functional status Dementia Dialysis patient End-stage renal disease (ESRD) FTT (failure to thrive) in adult GERD (gastroesophageal reflux disease) Hip pain, left Hip pain, left History of aorta surgery History of back surgery History of dialysis History of femur surgery History of heart surgery History of irregular heartbeat History of Jaw surgery History of stress test HLD (hyperlipidemia) HTN (hypertension), benign Kidney disease Kidney disease Secondary hyperparathyroidism Sepsis with acute hypoxic respiratory failure and septic shock Septic shock Stroke/cerebrovascular accident Thyroid disease Home Medications allopurinol 100 mg tablet 100 mg PO DAILY kidney stones #90 tabs 07/26/18 [History Last Taken Unknown] atorvastatin 80 mg tablet 80 mg PO QHS #30 tabs 11/26/19 [Rx Last Taken 03/28/21] calcium acetate(phosphat bind) 667 mg capsule 667 mg PO TIDCM #90 caps 11/26/19 [Rx Last Taken Unknown] carvedilol 3.125 mg tablet 3.125 mg PO BID #60 tabs 11/26/19 [Rx Last Taken Unknown] levothyroxine 50 mcg tablet 50 mcg PO DAILY@0600 #30 tabs 11/26/19 [Rx Last Taken 03/29/21] memantine 5 mg tablet 5 mg PO BID #60 tabs 11/26/19 [Rx Last Taken 03/29/21] albuterol sulfate 2.5 mg/3 mL (0.083 %) solution for nebulization 2.5 mg (3 mL) inhalation Q4H PRN Sob &/Or Wheezing #180 mL 12/13/19 [Rx Last Taken Unknown] apixaban 2.5 mg tablet (Eliquis) 2.5 mg PO BID blood thinner 01/14/20 [History Last Taken 03/29/21] lisinopril 2.5 mg tablet 5 mg PO DAILY blood pressure 01/14/20 [History Last Taken 03/29/21] amiodarone 200 mg tablet 100 mg PO DAILY heart rate 08/06/20 [History Last Taken Unknown] polyethylene glycol 3350 17 gram oral powder packet 17 g PO DAILY PRN Constipation 02/23/21 [History Last Taken Unknown] guaifenesin 600 mg tablet,extended release 600 mg PO BID PRN Congestion 03/29/21 [History Last Taken Unknown] loratadine 5 mg-pseudoephedrine ER 120 mg tablet,extended release,12hr (Claritin-D 12 Hour) 1 tab PO Q12H PRN allergies 03/29/21 [History Last Taken Unknown] acetaminophen 325 mg tablet (Tylenol) 650 mg PO Q4H PRN PRN Fever, pain 1-1010 #30 tabs 04/01/21 [Rx Last Taken Unknown] Allergy/AdvReac Type Severity Reaction Status Date / Time adhesive tape Allergy Mild Rash Verified 09/02/21 08:19 oxycodone Allergy Mild Rash Verified 09/02/21 08:19 tramadol Allergy Mild LIGHTHEADED Verified 09/02/21 08:19 AND DIZZY WITH HALLUCINATIONS Family History (Updated 03/29/21 @ 17:[address] Heather Gutierrez MD) Grandfather No problems noted. Father Myocardial infarction Heart disease Hypertension Brother No problems noted. Brother Brain aneurysm Mother Diabetes Surgical History History of AAA (abdominal aortic aneurysm) repair History of appendectomy S/P AAA repair Social History household members: spouse Smoking Status: Former smoker how long ago did patient quit smoking: Quit 02/2021 with that admit, 1-2 cig/day prior, up to 1 ppd since teen. alcohol intake: never substance use type: does not use ROS ROS ED Constitutional Constitutional ED: Denies chills or fever(s) Eyes Eyes: Denies blurry vision or change in vision ENT ENT ED: Reports rhinorrhea; Denies sore throat Cardiovascular Cardiovascular: Denies chest pain or palpitations Respiratory/Chest Respiratory/Chest: Reports cough, dyspnea and sputum Gastrointestinal Gastrointestinal: Reports abdominal pain and nausea; Denies vomiting Genitourinary Genitourinary ED: Denies dysuria or hematuria Musculoskeletal Musculoskeletal: Denies back pain or neck pain Integumentary Denies abscess or rash Neurologic Neurologic: Denies headache(s) or weakness Allergic/Immunologic Allergic/Immunologic ED: Denies mouth swelling or urticaria EXAM Physical Exam Const Vital Signs: 09/02/21 07:50 09/02/21 08:12 09/02/21 08:17 Temperature 98 F Temperature Source Temporal Pulse Rate 88 75 Respiratory Rate 14 23 H Respiratory Effort Short of Breath Labored Respiratory Depth Normal Respiratory Pattern Irregular Blood Pressure 171/97 H 156/102 H Blood Pressure Mean 121 120 Pulse Ox 100 98 Oxygen Delivery Method Room Air Room Air Room Air 09/02/21 08:42 09/02/21 10:11 Temperature 98.8 F 98.4 F Temperature Source Oral Oral Pulse Rate 75 66 Respiratory Rate 18 20 H Respiratory Effort Respiratory Depth Respiratory Pattern Blood Pressure 141/83 H 157/91 H Blood Pressure Mean 102 113 Pulse Ox 97 94 Oxygen Delivery Method Room Air Room Air Positive well nourished and well developed General Appearance ED: well developed and NAD HEENT Reports moist mucous membranes Neck supple and no JVD Resp normal respiratory effort and clear to auscultation bilaterally Cardio regular rate and regular rhythm GI normal to inspection, nondistended, normoactive bowel sounds Palpation: soft and tender epigastric, LLQ, RLQ, LUQ, RUQ, periumbilical and suprapubic; Negative for guarding or rebound tenderness present Extremity normal to inspection General Extremety ED: Negative for edema or tenderness General Extremity: Negative for edema Neuro oriented x3, CN's II-XII intact bilaterally and no sensory deficits noted Sensorium / Orientation: alert Motor Exam: strength 5/5 throughout Psych mental status grossly normal Skin no rashes or lesions noted MDM MDM MDM Narrative Medical decision making narrative: CBC shows a slight anemia with a hemoglobin of 10.5 and hematocrit 31.2. Co mprehensive metabolic profile shows an elevated creatinine of 5.23 and a BUN of 55. These are consistent with prior results. High-sensitivity troponin was normal at 99. Lactate was normal. Urinalysis does not show any evidence of urinary tract infection. Chest x-ray was obtained. There is 1 view. On my interpretation, there is cardiomegaly. There is no acute cardiopulmonary process noted. Radiologist also interpreted the x-rays and agrees. CT scan of the abdomen and pelvis was obtained. There is a slight aortic aneurysm measuring 2.7 cm. There is no leakage or bleeding from this. There is a 1 cm nodule posterior to the liver on the right. There are atherosclerotic plaques noted. There is no acute abnormality. This was interpreted by the radiologist and reviewed by myself. COVID-19 rapid antigen was obtained and was negative. Influenza A and influenza B swabs were obtained and were negative. Patient was advised of his findings. Patient is feeling better on reevaluation. Patient was instructed to follow-up with his primary care physician in 5 to 7 days. Patient is instructed to follow-up with his dialysis as scheduled tomorrow. Patient understood and was agreeable with the plan. All questions were answered. Lab Data Attestation: I reviewed the patient's lab results. Labs: Laboratory Results - last 24 hr 09/02/21 09/02/21 09/02/21 08:43 08:43 08:43 WBC 6.7 RBC 2.91 L Hgb 10.5 L Hct 31.2 L MCV 107.2 H MCH 36.1 H MCHC 33.7 RDW Std Deviation 54.7 H RDW Coeff of Maritza 13.9 Plt Count 161 MPV 10.7 Immature Gran % (Auto) 0.300 Neut % (Auto) 73.2 H Lymph % (Auto) 12.8 L Morrison % (Auto) 9.9 Eos % (Auto) 2.9 Baso % (Auto) 0.9 Absolute Neuts (auto) 4.9 Absolute Lymphs (auto) 0.85 Nucleated RBC % 0 Sodium 138 Potassium 4.7 Chloride 105 Carbon Dioxide 25.0 Anion Gap 8 BUN 55 H Creatinine 5.23 H Estim Creat Clear Calc 10.47 Est GFR (MDRD) Af Amer 14 L Est GFR (MDRD) Non-Af 11 L BUN/Creatinine Ratio 10.5 Glucose 101 Lactic Acid 0.9 Calcium 9.1 Total Bilirubin 0.80 AST 13 L ALT 11 L Alkaline Phosphatase 90 Troponin I High Sens 99 H Total Protein 7.0 Albumin 3.5 Globulin 3.5 Albumin/Globulin Ratio 1.0 Lipase 107 Urine Color Urine Clarity Urine pH Ur Specific Wells Urine Protein Urine Glucose (UA) Urine Ketones Urine Occult Blood Urine Nitrite Urine Bilirubin Urine Urobilinogen Ur Leukocyte Esterase Urine RBC Urine WBC Ur Squamous Epith Cells Urine Bacteria Urine Mucus 09/02/21 09:40 WBC RBC Hgb Hct MCV MCH MCHC RDW Std Deviation RDW Coeff of Maritza Plt Count MPV Immature Gran % (Auto) Neut % (Auto) Lymph % (Auto) Morrison % (Auto) Eos % (Auto) Baso % (Auto) Absolute Neuts (auto) Absolute Lymphs (auto) Nucleated RBC % Sodium Potassium Chloride Carbon Dioxide Anion Gap BUN Creatinine Estim Creat Clear Calc Est GFR (MDRD) Af Amer Est GFR (MDRD) Non-Af BUN/Creatinine Ratio Glucose Lactic Acid Calcium Total Bilirubin AST ALT Alkaline Phosphatase Troponin I High Sens Total Protein Albumin Globulin Albumin/Globulin Ratio Lipase Urine Color Yellow Urine Clarity Clear Urine pH 8.0 Ur Specific Wells 1.010 Urine Protein 100 H Urine Glucose (UA) Normal Urine Ketones Negative Urine Occult Blood Negative Urine Nitrite Negative Urine Bilirubin Negative Urine Urobilinogen Normal Ur Leukocyte Esterase 25 H Urine RBC 0 SEEN Urine WBC 0-5 SEEN Ur Squamous Epith Cells 0 SEEN Urine Bacteria 0 SEEN Urine Mucus 0 SEEN Radiography Chest X-Ray - ED: 1 View, Read by ED Physician, Read by Radiologist, No Acute Disease and Cardiomegaly Diagnostic Testing: Clinical Impression(s) from Imaging Studies Abdomen/Pelvis CT 09/02/21 08:13 IMPRESSION: Small bilateral pleural effusions slightly more prominent on the right side. One centimeters nodule seen posterior to the liver adjacent to the right hemidiaphragm. Abdominal aortic aneurysm with a transverse dimension of 2.7 cm. Atherosclerotic plaques. Multiple small gallstones. Electronically Signed: Deion Arevalo MD at 9:28 EDT , Chest X-Ray 09/02/21 08:20 IMPRESSION: Cardiomegaly. No acute abnormality is seen. Electronically Signed: Deion Arevalo MD at 8:57 EDT , EKG Initial EKG: Interpretation: Sinus Rhythm (With frequent PACs with a rate of 74) and Non-Specific ST Changes Prior EKG tracings: available for review Prior: Unchanged Discharge Plan Triage Chief Complaint: Shortness of Breath ED Provider: Jian Benedict Dx/Rx/DC Orders Clinical Impression: Dyspnea, Abdominal pain of unknown etiology, CKD (chronic kidney disease) stage 4, GFR 15-29 ml/min Instructions: ED Dyspnea, ED Abdominal Pain Unkn Cause Male... Prescriptions: No Action allopurinol 100 mg tablet 100 mg PO DAILY Qty: 90 albuterol sulfate 2.5 mg /3 mL (0.083 %) solution for nebulization 2.5 mg INHALATION Q4H PRN (Reason: Sob &/Or Wheezing) Qty: 180 3RF Eliquis 2.5 mg tablet 2.5 mg PO BID lisinopril 2.5 mg tablet 5 mg PO DAILY atorvastatin 80 MG tablet 80 mg PO QHS Qty: 30 1RF carvedilol 3.125 MG tablet 3.125 mg PO BID Qty: 60 1RF levothyroxine 50 MCG tablet 50 mcg PO DAILY@0600 Qty: 30 1RF memantine 5 MG tablet 5 mg PO BID Qty: 60 0RF calcium acetate(phosphat bind) 667 MG capsule 667 mg PO TIDCM Qty: 90 0RF amiodarone 200 MG tablet 100 mg PO DAILY polyethylene glycol 3350 17 gram Powder In Packet 17 g PO DAILY PRN (Reason: Constipation) guaifenesin 600 mg Tablet Extended Release 600 mg PO BID PRN (Reason: Congestion) Claritin-D 12 Hour 5-120 mg Tablet Extended Release 12 Hr 1 tab PO Q12H PRN (Reason: allergies) acetaminophen [Tylenol] 325 mg Tablet 650 mg PO Q4H PRN PRN (Reason: Fever, pain 1-11/15) Qty: 30 0RF Primary Care Provider: KARMEN BUSTILLOS Referrals: Care Physician,No Primary [NON-STAFF] - 5-7 Days Disposition Disposition: Home, Self Care
[2021-09-02 08:12] VITALS: BP 156/102; PULSE 75; RESP 23; O2SAT 98
--- NOTE | 2021-09-02 08:13 | CT_ITS ---
STUDY: CT ABDOMEN AND PELVIS WITHOUT CONTRAST REASON FOR EXAM: Male, 86 years old. Abdominal pain RADIATION DOSAGE (If Supplied By Facility): CTDIvol = ( 10.00 ) mGy, DLP = ( 497.24 ) mGycm TECHNIQUE: Transaxial images were obtained from the dome of the diaphragm to the symphysis pubis without oral contrast, and without intravenous contrast. Sagittal and coronal images were reconstructed. Individualized dose optimization techniques were used for this CT. COMPARISON: None. FINDINGS: Small bilateral pleural effusions slightly more prominent on the right side with bibasilar atelectasis. There is a 9.2 mm nodule in the fat posterior to the right lobe of the liver adjacent to the right hemidiaphragm. A similar-appearing nodule measuring 1 cm in posteriorly. Coronary artery calcification. Normal liver. There are multiple small gallstones. Normal spleen. Normal pancreas. Normal bilateral adrenal glands. There is evidence of atherosclerotic calcific plaques are bilateral intrarenal arterial branches. There is a 1.9 sinus cyst in the lower pole of the right kidney. Normal visualized stomach. Normal small intestine. There are multiple colonic diverticula consistent with diverticulosis. The appendix is visualized and appears normal. There is diffuse atherosclerotic calcification of the abdominal aorta and its major visceral branches., Infrarenal abdominal aortic dilatation with a transverse dimension of 2.7 cm. Normal inferior vena cava. Normal retroperitoneum. Normal urinary bladder. Prostatic calcification. Normal abdominal wall. There are diffuse degenerative changes of the visualized lumbar spine. Almost complete collapse of the L2 vertebrae. CT/Abdomen/Pelvis without Cont IMPRESSION: Small bilateral pleural effusions slightly more prominent on the right side. One centimeters nodule seen posterior to the liver adjacent to the right hemidiaphragm. Abdominal aortic aneurysm with a transverse dimension of 2.7 cm. Atherosclerotic plaques. Multiple small gallstones. Electronically Signed: Deion Arevalo MD at 9:28 EDT ,
--- NOTE | 2021-09-02 08:13 | EKG12_ITS ---
Test Reason : SOB Blood Pressure : / mmHG Vent. Rate : 074 BPM Atrial Rate : 000 BPM P-R Int : 000 ms QRS Dur : 094 ms QT Int : 396 ms P-R-T Axes : 000 -51 016 degrees QTc Int : 439 ms Atrial fibrillation Left anterior fascicular block Septal infarct , age undetermined Inferior infarct , age undetermined Abnormal ECG Confirmed by NABEEL MDCERMOTT, GUZMAN ([id number]), design editor ARPAN REDDY ([id number]) on 09/06/2021 11:21:09 AM Referred By: Marichuy Confirmed By:ASH LEES MD
[2021-09-02 08:17] VITALS: O2SAT 99
--- NOTE | 2021-09-02 08:20 | RAD_ITS ---
STUDY: X-RAY CHEST REASON FOR EXAM: Male, 86 years old. Cough TECHNIQUE: Single AP portable view of the chest. COMPARISON: Comparison is made with prior examination dated 02/23/2021. FINDINGS: EKG electrodes are seen. The lungs are clear and expanded. There is no demonstrated pleural abnormality. There is moderate cardiac enlargement. Normal mediastinum and sanjeev. Normal visualized pulmonary arteries. There is atherosclerotic calcification of the aortic arch with tortuosity. There are diffuse degenerative changes of the visualized thoracic spine. Prior fusion of the lower cervical spine. There is no demonstrated abnormality of the visualized soft tissue structures of the upper abdomen. RAD/Chest 1 View (Portable) IMPRESSION: Cardiomegaly. No acute abnormality is seen. Electronically Signed: Deion Arevalo MD at 8:57 EDT ,
[2021-09-02 08:42] VITALS: BP 141/83; PULSE 75; RESP 18; TEMP 37.1; O2SAT 97
[2021-09-02 09:04] LABS: Absolute Lymphocyte Count 0.85 X10^3/uL (0.83-4.51); Absolute Neutrophil Count 4.9 X10^3/uL (2.0-7.7); Basophil# 0.06 X10^3/uL; Basophil% 0.9 % (0-1); Eosinophil# 0.19 X10^3/uL; Eosinophils% 2.9 % (0-5); Hematocrit 31.2 % (40-54); Hemoglobin 10.5 g/dL (13.0-16.5); Lymphocyte # 0.85 X10^3/ul (0.83-4.51); Lymphocyte % 12.8 % (19-41); Mean Corp Hgb Conc 33.7 g/dL (32-36); Mean Corpuscular Hgb 36.1 pg (27.0-32.0); Mean Corpuscular Volume 107.2 fL (80-94); Mean Platelet Vol. 10.7 fl (6.2-12.0); Monocyte# 0.66 X10^3/uL; Monocyte% 9.9 % (0-10); NRBC Flagged by Analyzer 0 % (0-5); Neutrophil # 4.88 X10^3/uL (2.7-7.7); Neutrophil % 73.2 % (47-70); Platelet Count 161 K/mm3 (150-450); RBC Distribution Width CV 13.9 % (11.6-14.6); RBC Distribution Width SD 54.7 fl (35.1-43.9); Red Blood Count 2.91 M/mm3 (4.6-6.2); White Blood Count 6.7 K/mm3 (4.4-11.0)
[2021-09-02 09:20] LABS: AST(SGOT) 13 U/L (15-37); Alanine Aminotransfer ALT/SGPT 11 U/L (16-61); Albumin, Serum 3.5 g/dL (3.2-5.0); Alkaline Phosphatase 90 U/L (45-117); Anion Gap 8 (5-15); BUN 55 mg/dL (7-18); BUN/Creat Ratio 10.5 RATIO (10-20); Calcium,Total 9.1 mg/dL (8.5-10.1); Chloride 105 mmol/L (98-107); Creatinine, Serum 5.23 mg/dL (0.70-1.30); EST Glomerular Filtration Rate 11 mL/min (>60); Est Glom Filt Rate - Afr Amer 14 mL/min (>60); Estimated Creatinine Clearance 10.47 ml/min; Globulin 3.5 g/dL (2.2-4.2); Glucose 101 mg/dL (74-106); Lipase 107 U/L (73-393); Potassium 4.7 mmol/L (3.5-5.1); Sodium Level 138 mmol/L (136-145); Troponin-I HS 99 pg/mL (3.0-78.0)
[2021-09-02 09:24] LABS: Lactic Acid 0.9 mmol/L (0.4-1.9)
[2021-09-02 09:51] LABS: Bacteria 0 SEEN /hpf (None Seen); Mucous, Urine 0 SEEN /hpf (<or=2+); Red Blood Cells-Urine 0 SEEN /hpf (0-5); Squamous Epithelial Cells - UA 0 SEEN /hpf (0-5)
[2021-09-02 09:53] LABS: Color, Urine Yellow (Yellow); Glucose, Dipstick Normal (Normal); Ketone-Dipstick Negative (Negative); Leukocyte Esterase-Dipstick 25 /ul (Negative); Nitrite-Dipstick Negative (Negative); Occult Blood-Urine Negative /ul (Negative); Protein-Dipstick 100 mg/dl (Negative); Urine Bilirubin Dipstick Negative (Negative); Urine Clarity Clear (Clear); Urine Urobilinogen Normal (Normal)
[2021-09-02 10:10] LABS: White Blood Cells 0-5 SEEN /hpf (0-5)
[2021-09-02 10:11] VITALS: BP 157/91; PULSE 66; RESP 20; TEMP 36.9; O2SAT 94
[2021-09-02 11:12] VITALS: BP 163/84; PULSE 78; RESP 16; O2SAT 96
== END 2021-09-02 11:13 | disposition home or self-care (01) ==
PROVIDERS: Emergency Provider Emergency Medicine; Visit Provider Emergency Medicine
DX: R06.00 Dyspnea, unspecified (principal); Z99.2 Dependence on renal dialysis; I13.0 Hypertensive heart and chronic kidney disease with heart failure and stage 1 through stage 4 chronic kidney disease, or unspecified chronic kidney disease; I50.9 Heart failure, unspecified; I42.9 Cardiomyopathy, unspecified; N18.4 Chronic kidney disease, stage 4 (severe); I48.91 Unspecified atrial fibrillation; R10.9 Unspecified abdominal pain; E78.5 Hyperlipidemia, unspecified; Z87.891 Personal history of nicotine dependence; Z79.899 Other long term (current) drug therapy; Z86.73 Personal history of transient ischemic attack (TIA), and cerebral infarction without residual deficits
CPT/HCPCS: 71045; 74176; 80053; 81001; 83605; 83690; 84484; 85025; 87428; 93005; 99284; A4216

== ENCOUNTER 2021-09-23 13:30 | Emergency (ER) | payer MEDICARE, SELFPAY ==
[2021-09-23] VITALS (8 sets, daily range): BP systolic 140–183; BP diastolic 88–107; PULSE 60–101; RESP 18–21; TEMP 36.7; O2SAT 93–97; BMI 26.3
--- NOTE | 2021-09-23 13:59 | EKG12_ITS ---
Test Reason : CP Blood Pressure : / mmHG Vent. Rate : 064 BPM Atrial Rate : 000 BPM P-R Int : 000 ms QRS Dur : 096 ms QT Int : 444 ms P-R-T Axes : 000 -45 043 degrees QTc Int : 458 ms Atrial fibrillation Left anterior fascicular block Septal infarct , age undetermined Inferior infarct , age undetermined, cannot be excluded Abnormal ECG Confirmed by CAMILA MCDERMOTT, PIETER ([id number]), news assignment editor ARPAN REDDY ([id number]) on 09/24/2021 9:47:11 AM Referred By: DAJA Confirmed By:PIETER JENSEN MD
--- NOTE | 2021-09-23 14:07 | ED.VIS.CHEST ---
HPI History of Present Illness Chief Complaint: Chest Pain Informant: patient Onset/Context/Timing Onset: Weeks Activity at onset: exertion Timing: Intermittent Quality: Positive for Aching Location: Right Chest and Left Chest Current Severity: Gone Maximum Severity: Mild Worsened By: Exertion Relieved By: Nothing Associated Symptoms: Positive for Dyspnea; Negative for Nausea, Vomiting, Diaphoresis, Cough, Fever, Lightheadedness, Acid Reflux or Palpitations Narrative Narrative: 86-year-old male history of A. fib, CHF, end-stage renal disease dialysis he was last dialyzed for a run yesterday. Also history of cardiomyopathy, hypertension and prior stroke. States has been short of breath more than a month. He had a negative work-up in the emergency department 4 weeks ago or so was discharged home. He said a cough of phlegm. He denies any vomiting or diarrhea. He does have intermittent constipation. Prior Similar Symptoms: Yes and No Recent Illness/Hospitalization: No CVD Risk Factors: Positive for Hypertension PE Risk Factors: Negative for Recent Travel/Surgery, Recent Immobilization, Prior DVT or PE, Cancer or OCP + Smoking + >/=35 TAD Risk Factors: Negative for Marfan's Syndrome [facility] Medical History Abnormal cardiac enzyme level Acute arthritis [place] (acute kidney injury) Anemia Anxiety Arthritis Atrial fibrillation Cardiomyopathy, ischemic CHF (congestive heart failure) CKD (chronic kidney disease) stage 4, GFR 15-29 ml/min Community acquired pneumonia Declining functional status Dementia Dialysis patient End-stage renal disease (ESRD) FTT (failure to thrive) in adult GERD (gastroesophageal reflux disease) Hip pain, left Hip pain, left History of aorta surgery History of back surgery History of dialysis History of femur surgery History of heart surgery History of irregular heartbeat History of Jaw surgery History of stress test HLD (hyperlipidemia) HTN (hypertension), benign Kidney disease Kidney disease Secondary hyperparathyroidism Sepsis with acute hypoxic respiratory failure and septic shock Septic shock Stroke/cerebrovascular accident Thyroid disease Home Medications allopurinol 100 mg tablet 100 mg PO DAILY kidney stones #90 tabs 07/26/18 [History Last Taken 09/22/21] atorvastatin 80 mg tablet 80 mg PO QHS #30 tabs 11/26/19 [Rx Last Taken 09/22/21] calcium acetate(phosphat bind) 667 mg capsule 667 mg PO TIDCM #90 caps 11/26/19 [Rx Last Taken 09/23/21] carvedilol 3.125 mg tablet 3.125 mg PO BID #60 tabs 11/26/19 [Rx Last Taken 09/23/21] levothyroxine 50 mcg tablet 50 mcg PO DAILY@0600 #30 tabs 11/26/19 [Rx Last Taken 09/23/21] apixaban 2.5 mg tablet (Eliquis) 2.5 mg PO BID blood thinner 01/14/20 [History Last Taken 09/23/21] polyethylene glycol 3350 17 gram oral powder packet 17 g PO DAILY PRN Constipation 02/23/21 [History Last Taken 09/17/21] loratadine 5 mg-pseudoephedrine ER 120 mg tablet,extended release,12hr (Claritin-D 12 Hour) 1 tab PO DAILY CONGESTION 03/29/21 [History Last Taken 09/23/21] albuterol sulfate 2.5 mg/3 mL (0.083 %) solution for nebulization 2.5 mg inhalation TID PRN sob 09/23/21 [History Last Taken 09/23/21] amiodarone 100 mg tablet 100 mg PO DAILY heart 09/23/21 [History Last Taken 09/23/21] lisinopril 5 mg tablet 5 mg PO DAILY bp 09/23/21 [History Last Taken 09/23/21] pseudoephedrine-guaifenesin ER 60 mg-600 mg tablet,extend release 12hr (Mucinex D) 1 tab PO DAILY CONGESTION 09/23/21 [History Last Taken 09/22/21] Allergy/AdvReac Type Severity Reaction Status Date / Time adhesive tape Allergy Mild Rash Verified 09/23/21 13:34 oxycodone Allergy Mild Rash Verified 09/23/21 13:34 tramadol Allergy Mild LIGHTHEADED Verified 09/23/21 13:34 AND DIZZY WITH HALLUCINATIONS Family History Grandfather No problems noted. Father Myocardial infarction Heart disease Hypertension Brother No problems noted. Brother Brain aneurysm Mother Diabetes Surgical History History of AAA (abdominal aortic aneurysm) repair History of appendectomy S/P AAA repair Social History household members: spouse Smoking Status: Former smoker how long ago did patient quit smoking: Quit 02/2021 with that admit, 1-2 cig/day prior, up to 1 ppd since teen. alcohol intake: never substance use type: does not use ROS ROS ED ROS Narrative Shortness of breath. Intermittent chest pain. Cough. Review of Systems ROS Unobtainable: Denies due to encephalopathy Constitutional Constitutional ED: Denies chills or fever(s) Eyes Eyes: Denies none ENT ENT ED: Denies ear pain Cardiovascular Cardiovascular: Reports as per HPI and chest pain; Denies palpitations or racing heartbeat Respiratory/Chest Respiratory/Chest: Reports cough and dyspnea Gastrointestinal Gastrointestinal: Denies abdominal pain Genitourinary Genitourinary ED: Denies dysuria or hematuria Musculoskeletal Musculoskeletal: Denies arthralgias Integumentary Denies abscess Neurologic Neurologic: Denies headache(s) Psychiatric Psychiatric: Denies anxiety Endocrine Endocrinology: Denies cold intolerance Hematologic/Lymphatic Hematologic/Lymphatic: Denies easy bleeding Allergic/Immunologic Allergic/Immunologic ED: Denies mouth swelling EXAM Physical Exam Narrative Exam Narrative: A 6-year-old male no acute distress. Vital signs stable afebrile. Pulse ox 96% on room air no signs hypoxia. at bedside. H EENT exam unremarkable. Neck nontender no JVD no lymphadenopathy. Lungs clear to auscultation. A. fib rate about 65 no murmur. Abdomen soft nontender. Moving all 4 extremities. Calves are nontender without edema or cords. Neurologically is awake and alert with no focal motor deficits. Const Vital Signs: 09/23/21 13:31 09/23/21 13:46 09/23/21 14:31 Temperature 98.0 F Temperature Source Oral Pulse Rate 64 61 Respiratory Rate 20 H 18 Respiratory Effort Normal Non-Labored Blood Pressure 140/88 H 159/89 H Blood Pressure Mean 105 112 Pulse Ox 96 96 Oxygen Delivery Method Room Air Room Air 09/23/21 15:31 09/23/21 16:31 09/23/21 17:31 Temperature Temperature Source Pulse Rate 60 72 68 Respiratory Rate 18 18 18 Respiratory Effort Blood Pressure 175/98 H 169/103 H 173/107 H Blood Pressure Mean 123 125 129 Pulse Ox 93 95 94 Oxygen Delivery Method Room Air Room Air Room Air 09/23/21 18:18 Temperature Temperature Source Pulse Rate 75 Respiratory Rate 18 Respiratory Effort Blood Pressure 183/95 H Blood Pressure Mean 124 Pulse Ox 95 Oxygen Delivery Method Room Air Positive well nourished and well developed; Negative for obese, cachectic, contractures or unkempt General Appearance ED: well developed and NAD; Negative for unkempt, cachectic, contractures or pallor Nutritional Appearance: Negative for cachectic or obese HEENT Reports moist mucous membranes normocephalic and atraumatic; Negative for trauma or tenderness Eyes PERRL and EOMs intact bilaterally General Eye ED: Negative for pale conjunctiva Neck no lymphadenopathy, supple and no JVD General: Negative for tenderness Chest Wall inspection of chest normal and palpation of chest normal Chest: Negative for tenderness Resp normal respiratory effort and clear to auscultation bilaterally Effort and Inspection: Negative for respiratory distress Auscultation: Negative for rales, rhonchi or wheezes Cardio regular rate, regular rhythm, S1 normal heart sound, S2 normal heart sound and no murmurs Rate: Negative for bradycardia Rhythm: Negative for abnormal rhythm GI normal to inspection, nondistended, normoactive bowel sounds, soft to palpation, non-tender, non-distended and no masses; Negative for hepatosplenomegaly Auscultation: Negative for hyperactive bowel sounds Palpation: Negative for splenomegaly or mass Back/Spine no CVA tenderness and no thoracic nor lumbar tenderness General Back: Negative for CVA tenderness Cervical Spine: Negative for cervical spine tenderness Extremity normal to inspection General Extremety ED: Negative for edema General Extremity: Negative for edema Neuro oriented x3 Sensorium / Orientation: awake, alert, oriented to person, oriented to place and oriented to time Motor Exam: strength 5/5 throughout Psych mental status grossly normal Appearance: Negative for unkempt Attitude: No agitated Mood & Affect: Negative for depressed, anxious or tearful Skin no rashes or lesions noted General Skin Exam: Negative for jaundice or pallor Rashes: No rashes noted Trauma: Negative for abrasion MDM MDM MDM Narrative Medical decision making narrative: 86-year-old male with atypical chest discomfort and shortness of breath. Exam benign. Undergo cardiac work-up. He has no recent travel surgery or immobilization. No prior DVT. No history of PE. Repeat exam unchanged. Discussed above the patient and his . She states that he can walk around and also gets so winded after just a few steps. He has had negative stress test in the last 4 years. He really did not get chest pain associated with this. Discussed with the afternoon hospitalist at length. She reviewed the patient's medical records. States there is really nothing additional they would do for admission. Patient be discharged home with outpatient follow-up. Nurses did ambulate him in the hallway his pulse ox stayed 92 to 93%. Patient doing well at 727. I have a long discussion with both he and his they are comfortable being discharged home. He sees a nurse practitioner in [facility] but did not have a true primary care physician they are to follow-up with someone here locally in [place] and also try to get into see the director of restaurant. Lab Data Attestation: I reviewed the patient's lab results. Lab results narrative: CBC shows a white count of 5.8 H&H 11.1 and 32. Platelets 167. Electrolytes potassium 3.4 gap of 3 BUN 18 creatinine at 3.3 history of end-stage renal disease. Glucose 111. Troponin is normal at 31. CTA shows no pulmonary emboli and bilateral pleural effusions. Labs: Laboratory Results - last 24 hr 09/23/21 09/23/21 09/23/21 13:35 13:35 16:25 WBC 5.8 RBC 2.99 L Hgb 11.1 L Hct 32.0 L MCV 107.0 H MCH 37.1 H MCHC 34.7 RDW Std Deviation 52.2 H RDW Coeff of Maritza 13.2 Plt Count 167 MPV 11.3 Immature Gran % (Auto) 0.200 Neut % (Auto) 62.5 Lymph % (Auto) 18.5 L Upton % (Auto) 9.3 Eos % (Auto) 8.1 H Baso % (Auto) 1.4 H Absolute Neuts (auto) 3.7 Absolute Lymphs (auto) 1.08 Nucleated RBC % 0 Sodium 140 Potassium 3.4 L Chloride 103 Carbon Dioxide 34.0 H Anion Gap 3 L BUN 18 Creatinine 3.38 H Estim Creat Clear Calc 16.20 Est GFR (MDRD) Af Amer 22 L Est GFR (MDRD) Non-Af 19 L BUN/Creatinine Ratio 5.3 L Glucose 111 H Calcium 9.0 Troponin I High Sens 31 34 TSH 09/23/21 16:25 WBC RBC Hgb Hct MCV MCH MCHC RDW Std Deviation RDW Coeff of Maritza Plt Count MPV Immature Gran % (Auto) Neut % (Auto) Lymph % (Auto) Upton % (Auto) Eos % (Auto) Baso % (Auto) Absolute Neuts (auto) Absolute Lymphs (auto) Nucleated RBC % Sodium Potassium Chloride Carbon Dioxide Anion Gap BUN Creatinine Estim Creat Clear Calc Est GFR (MDRD) Af Amer Est GFR (MDRD) Non-Af BUN/Creatinine Ratio Glucose Calcium Troponin I High Sens TSH 6.59 H Radiography Chest X-Ray - ED: 1 View, Read by ED Physician, Heart, Mediastinum, Bony Structures, No Acute Disease and Chronic Changes Diagnostic Testing: Clinical Impression(s) from Imaging Studies Chest X-Ray 09/23/21 14:29 IMPRESSION: Hyperinflation. Increased markings at the lung bases suggestive of atelectasis and/or early infiltrate. Moderate degree of cardiomegaly. Electronically Signed: Deion Arevalo MD at 14:52 EDT , Chest CTA 09/23/21 17:01 IMPRESSION: 1. No evidence of pulmonary embolus. 2. Bilateral pleural effusions larger on the right than the left. There is consolidation in both lung bases atelectasis or developing pneumonia. Electronically Signed: Al Ng MD at 17:57 EDT , Chest x-ray, portable, single view interpreted myself and radiologist shows increased markings right lung base either atelectasis or early infiltrate. Rhythm Strip Rhythm Strip: A-fib Rate: 64 Ectopy: None EKG Initial EKG: Attestation: I personally reviewed and interpreted this EKG as follows: Interpretation: No Acute Injury Pattern and Atrial Fibrillation Comments: Atrial fibrillation rate of 64. No acute signs of WI or ischemia. 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, Cardiomyopathy, Pleural effusion, Chronic a-fib Instructions: AFib, ED Dyspnea Prescriptions: No Action allopurinol 100 mg tablet 100 mg PO DAILY Qty: 90 Eliquis 2.5 mg tablet 2.5 mg PO BID atorvastatin 80 MG tablet 80 mg PO QHS Qty: 30 1RF carvedilol 3.125 MG tablet 3.125 mg PO BID Qty: 60 1RF levothyroxine 50 MCG tablet 50 mcg PO DAILY@0600 Qty: 30 1RF calcium acetate(phosphat bind) 667 MG capsule 667 mg PO TIDCM Qty: 90 0RF polyethylene glycol 3350 17 gram Powder In Packet 17 g PO DAILY PRN (Reason: Constipation) Claritin-D 12 Hour 5-120 mg Tablet Extended Release 12 Hr 1 tab PO DAILY pseudoephedrine-guaifenesin [Mucinex D] 60-600 mg Tablet Extended Release 12 Hr 1 tab PO DAILY lisinopril 5 mg tablet 5 mg PO DAILY amiodarone 100 mg Tablet 100 mg PO DAILY albuterol sulfate 2.5 mg /3 mL (0.083 %) solution for nebulization 2.5 mg INHALATION TID PRN (Reason: sob) Primary Care Provider: Care Physician,No Primary Referrals: Graham Driscoll MD [Med Staff - Active Staff] - As soon as possible Jasmeet Randhawa MD [Med Staff - Dynamometer Tuner] - As soon as possible Care Physician,No Primary [Primary Care Provider] - Activity Restrictions/Additional Instructions: Your shortness of breath is caused by multiple different current medical problems including your A. fib, your anemia, you have fluid along your lungs, pleural effusions, you also have cardiomyopathy which cause your heart to not pumping sufficiently and most likely underlying COPD. I spoke to the hospitalist there is nothing they were and add to your current care by admitting in the hospital today. Call and follow-up with a local primary care physician and the director of restaurant either Dr. Graham Driscoll or his partner Dr. Lezama. Return if feeling worse. Disposition Disposition: Home, Self Care
--- NOTE | 2021-09-23 14:10 | CM.ED ---
Social Work Note Reason for Referral: No PCP listed SW reviewed chart and pt has no PCP listed. SW in to speak with pt and pt's Shana present in room. Pt gave permission for this worker to speak to him in front of his guest. SW asked pt if he had a PCP and pt looked to his to answer. Shana states that pt's PCP is Vee Melissa at [facility]. Jody Lenz STAFF RESPIRATORY THERAPIST, DATA ENTRY ANALYST
[2021-09-23 14:24] LABS: Absolute Lymphocyte Count 1.08 X10^3/uL (0.83-4.51); Absolute Neutrophil Count 3.7 X10^3/uL (2.0-7.7); Basophil# 0.08 X10^3/uL; Basophil% 1.4 % (0-1); Eosinophil# 0.47 X10^3/uL; Eosinophils% 8.1 % (0-5); Hemoglobin 11.1 g/dL (13.0-16.5); Lymphocyte # 1.08 X10^3/ul (0.83-4.51); Lymphocyte % 18.5 % (19-41); Mean Corp Hgb Conc 34.7 g/dL (32-36); Mean Corpuscular Hgb 37.1 pg (27.0-32.0); Mean Platelet Vol. 11.3 fl (6.2-12.0); Monocyte# 0.54 X10^3/uL; Monocyte% 9.3 % (0-10); NRBC Flagged by Analyzer 0 % (0-5); Neutrophil # 3.65 X10^3/uL (2.7-7.7); Neutrophil % 62.5 % (47-70); Platelet Count 167 K/mm3 (150-450); RBC Distribution Width CV 13.2 % (11.6-14.6); RBC Distribution Width SD 52.2 fl (35.1-43.9); Red Blood Count 2.99 M/mm3 (4.6-6.2); White Blood Count 5.8 K/mm3 (4.4-11.0)
--- NOTE | 2021-09-23 14:29 | RAD_ITS ---
STUDY: X-RAY CHEST REASON FOR EXAM: Male, 86 years old. Chest pain TECHNIQUE: Single AP portable view of the chest. COMPARISON: Comparison is made with prior study dated 09/02/2021. FINDINGS: EKG electrodes are seen. Increased markings at the lung bases as compared to prior study suggestive of a bibasilar atelectasis and/or infiltrates. There is no demonstrated pleural abnormality. There is moderate cardiac enlargement. Normal mediastinum and sanjeev. There is prominence of the pulmonary hilar arteries without peripheral pulmonary vascular congestion, suggesting pulmonary hypertension. There is atherosclerotic calcification of the aortic arch with tortuosity. There are diffuse degenerative changes of the visualized thoracic spine. Prior fusion in the lower cervical spine. There is no demonstrated abnormality of the visualized soft tissue structures of the upper abdomen. RAD/Chest 1 View (Portable) IMPRESSION: Hyperinflation. Increased markings at the lung bases suggestive of atelectasis and/or early infiltrate. Moderate degree of cardiomegaly. Electronically Signed: Deion Arevalo MD at 14:52 EDT ,
[2021-09-23 14:40] LABS: Anion Gap 3 (5-15); BUN 18 mg/dL (7-18); BUN/Creat Ratio 5.3 RATIO (10-20); Chloride 103 mmol/L (98-107); Creatinine, Serum 3.38 mg/dL (0.70-1.30); EST Glomerular Filtration Rate 19 mL/min (>60); Est Glom Filt Rate - Afr Amer 22 mL/min (>60); Glucose 111 mg/dL (74-106); Potassium 3.4 mmol/L (3.5-5.1); Sodium Level 140 mmol/L (136-145); Troponin-I HS (w/2H Reflex) 31 pg/mL (3.0-78.0)
[2021-09-23 16:17] LABS: Reflex Troponin-HS? (from REC) Y
[2021-09-23 16:52] LABS: Troponin-I HS 34 pg/mL (3.0-78.0)
--- NOTE | 2021-09-23 17:01 | CT_ITS ---
EXAM: CT ANGIOGRAPHY CHEST WITHOUT AND WITH INTRAVENOUS CONTRAST CLINICAL INDICATION: dyspnea TECHNIQUE: Helically acquired angiography images were obtained of the chest without and with intravenous contrast. This CT exam was performed using one or more of the following dose reduction techniques: automated exposure control, adjustment of the mA and/or kV according to patient size, and/or use of iterative reconstruction technique. This report was created using [employer] report generation technology. MIP reconstructed images were created and reviewed. CONTRAST: IV 70mL [id number] COMPARISON: None. FINDINGS: PULMONARY ARTERIES: Unremarkable. Normal in caliber. No evidence of pulmonary embolism. AORTA: Unremarkable. Normal in caliber. No evidence of dissection. GREAT VESSELS OF AORTIC ARCH: Unremarkable. Normal in caliber. No evidence of dissection. LUNGS AND PLEURAL SPACES: There are moderate bilateral pleural effusions larger on the right than left. There is minimal consolidation in the lung bases may represent atelectasis or pneumonia. There are mild emphysematous changes in the lung apices. No mass. HEART: Unremarkable. Heart size is normal. No pericardial effusion. No signs of right heart strain, ratio of right ventricle to left ventricle measures less than 1. MEDIASTINUM: Unremarkable. No mediastinal or hilar adenopathy. Esophagus is unremarkable. No hiatal hernia. THYROID: Unremarkable. No thyroid lesions. BONES/JOINTS: Unremarkable. No suspicious lytic or blastic abnormality. CT/CTA Chest W/WO Contrast IMPRESSION: 1. No evidence of pulmonary embolus. 2. Bilateral pleural effusions larger on the right than the left. There is consolidation in both lung bases atelectasis or developing pneumonia. Electronically Signed: Al Ng MD at 17:57 EDT ,
[2021-09-23 17:47] LABS: Thyroid Stim Hormone (TSH) 6.59 uIU/mL (0.358-3.74)
--- NOTE | 2021-09-23 18:33 | ED.RN ---
AMBULATED PT. IN [place]. 92%-93% O2. DID APPEAR SHORT OF BREATH. BUT MAINTAINED APPROPRIATE LEVELS. DR. SHARMA UPDATED.
== END 2021-09-23 19:54 | disposition home or self-care (01) ==
PROVIDERS: Internal Medicine; Emergency Provider Emergency Medicine; Visit Provider Emergency Medicine
DX: R06.00 Dyspnea, unspecified (principal); I13.2 Hypertensive heart and chronic kidney disease with heart failure and with stage 5 chronic kidney disease, or end stage renal disease; Z99.2 Dependence on renal dialysis; F03.90 Unspecified dementia, unspecified severity, without behavioral disturbance, psychotic disturbance, mood disturbance, and anxiety; J44.9 Chronic obstructive pulmonary disease, unspecified; I50.9 Heart failure, unspecified; N18.6 End stage renal disease; I48.20 Chronic atrial fibrillation, unspecified; F41.9 Anxiety disorder, unspecified; I25.5 Ischemic cardiomyopathy; Z87.01 Personal history of pneumonia (recurrent); K21.9 Gastro-esophageal reflux disease without esophagitis; E78.5 Hyperlipidemia, unspecified; Z86.73 Personal history of transient ischemic attack (TIA), and cerebral infarction without residual deficits; E07.9 Disorder of thyroid, unspecified; Z79.899 Other long term (current) drug therapy; Z79.01 Long term (current) use of anticoagulants; Z87.891 Personal history of nicotine dependence; D63.8 Anemia in other chronic diseases classified elsewhere; J90 Pleural effusion, not elsewhere classified
CPT/HCPCS: 71045; 71275; 80048; 84443; 84484; 85025; 93005; 99284; Q9967; A4216

== ENCOUNTER → 2021-12-09 | Outpatient (CLI) | payer MEDICARE, SELFPAY ==
[2021-12-09 18:09] LABS: Absolute Lymphocyte Count 1.55 X10^3/uL (0.83-4.51); Absolute Neutrophil Count 2.6 X10^3/uL (2.0-7.7); Basophil# 0.11 X10^3/uL; Basophil% 2.1 % (0-1); Eosinophil# 0.29 X10^3/uL; Eosinophils% 5.4 % (0-5); Hematocrit 38.1 % (40-54); Hemoglobin 12.9 g/dL (13.0-16.5); Lymphocyte # 1.55 X10^3/ul (0.83-4.51); Mean Corp Hgb Conc 33.9 g/dL (32-36); Mean Corpuscular Hgb 37.5 pg (27.0-32.0); Mean Corpuscular Volume 110.8 fL (80-94); Mean Platelet Vol. 10.8 fl (6.2-12.0); Monocyte# 0.81 X10^3/uL; Monocyte% 15.2 % (0-10); NRBC Flagged by Analyzer 0 % (0-5); Neutrophil # 2.57 X10^3/uL (2.7-7.7); Neutrophil % 48.1 % (47-70); POSITIVE MORPHOLOGY YES; Platelet Count 169 K/mm3 (150-450); RBC Distribution Width CV 16.1 % (11.6-14.6); RBC Distribution Width SD 66.1 fl (35.1-43.9); Red Blood Count 3.44 M/mm3 (4.6-6.2); White Blood Count 5.3 K/mm3 (4.4-11.0)
[2021-12-09 18:19] LABS: Differential Indicated SCAN CRITERIA MET
[2021-12-09 18:34] LABS: Vitamin B12 388 pg/mL (211-911)
[2021-12-09 18:39] LABS: Anisocytosis RARE
[2021-12-09 19:15] LABS: ALB/GLOB Ratio 1.1 RATIO (0.9-2.4); AST(SGOT) 21 U/L (15-37); Alanine Aminotransfer ALT/SGPT 18 U/L (16-61); Alkaline Phosphatase 108 U/L (45-117); Anion Gap 10 (5-15); BUN 29 mg/dL (7-18); Calcium,Total 8.9 mg/dL (8.5-10.1); Chloride 93 mmol/L (98-107); Cholesterol 183 mg/dL (200); Creatinine, Serum 4.12 mg/dL (0.70-1.30); EST Glomerular Filtration Rate 15 mL/min (>60); Est Glom Filt Rate - Afr Amer 18 mL/min (>60); Ferritin 919 ng/mL (26-388); Globulin 3.7 g/dL (2.2-4.2); Glucose 79 mg/dL (74-106); High Density Lipoprotein 58 mg/dL; Iron 117 ug/dL (65-175); Iron Binding Capacity,Total 289 ug/dL (250-450); Protein, Total 7.7 g/dL (6.4-8.2); Sodium Level 133 mmol/L (136-145); T4 Free Direct 0.99 ng/dL (0.76-1.46); Thyroid Stim Hormone (TSH) 4.44 uIU/mL (0.358-3.74); Triglycerides 134 mg/dL; Uric Acid 3.1 mg/dL (3.5-7.2); Very Low Density Lipoprotein 27 mg/dL (5-40)
[2021-12-19 10:31] LABS: Anti-Thyroglobulin AB 3.1 IU/mL (0.0-0.9); Thyroglobulin RIA 16 ng/mL (.); Thyroid Peroxidase AB 8 IU/mL (0-34)
== END | disposition home or self-care (01) ==
LOC: MFPLAB 15:16
PROVIDERS: PCP Family Medicine; Referring Provider Family Medicine; Visit Provider Family Medicine
DX: F03.90 Unspecified dementia, unspecified severity, without behavioral disturbance, psychotic disturbance, mood disturbance, and anxiety (principal); E03.9 Hypothyroidism, unspecified; D63.8 Anemia in other chronic diseases classified elsewhere; E78.2 Mixed hyperlipidemia
CPT/HCPCS: 36415; 80053; 80061; 82607; 82728; 82746; 83540; 83550; 84432; 84439; 84443; 84550; 85025; 86376; 86800

== ENCOUNTER 2022-01-11 09:55 | Emergency (ER) | payer MEDICARE, SELFPAY ==
[2022-01-11 09:59] VITALS: BP 159/85; PULSE 74; RESP 26; TEMP 36.2; O2SAT 97; BMI 26.2
[2022-01-11 10:02] VITALS: BP 159/85; PULSE 74; RESP 26; TEMP 36.2; O2SAT 97
--- NOTE | 2022-01-11 10:56 | CT_ITS ---
STUDY: CT ABDOMEN AND PELVIS WITHOUT CONTRAST REASON FOR EXAM: Male, 86 years old. Left upper quadrant pain following a recent fall. Chronic kidney disease. RADIATION DOSAGE (If Supplied By Facility): CTDIvol = ( 12.30 ) mGy, DLP = ( 590.10 ) mGycm TECHNIQUE: Transaxial images were obtained from the dome of the diaphragm to the symphysis pubis without oral contrast, and without intravenous contrast. Sagittal and coronal images were reconstructed. Individualized dose optimization techniques were used for this CT. COMPARISON: Comparison is made with prior examination dated 09/02/2021. FINDINGS: There is a small right pleural effusion with right basilar atelectasis. Coronary artery calcification. Normal liver. There are multiple small gallstones. Normal spleen. Normal pancreas. Normal bilateral adrenal glands. Stable 1.9 cm cyst in the lower pole of the right kidney. Normal left kidney. Atherosclerotic plaque formation of the intrarenal arterial branches. There is a small hiatal hernia. Normal small intestine. There are multiple colonic diverticula consistent with diverticulosis. The patient is status post appendectomy. There is diffuse atherosclerotic calcification of the abdominal aorta and its major visceral branches. Stable mild dilatation of the abdominal aorta with a transverse dimension of 2.7 cm. Normal inferior vena cava. Normal retroperitoneum. Normal urinary bladder. There is enlargement of the prostate gland. Prostatic calcification. Stable complete collapse of the L2 vertebrae. Normal abdominal wall. There are diffuse degenerative changes of the visualized lumbar spine. CT/Abdomen/Pelvis without Cont IMPRESSION: Small right pleural effusion with right basilar atelectasis. Small gallstones. Electronically Signed: Deion Arevalo MD at 12:49 EST ,
--- NOTE | 2022-01-11 10:57 | EDS_ITS ---
HPI HPI - GI History of Present Illness Chief Complaint: Abd Pain Narrative Narrative: 86-year-old male past medical history of dementia, end-stage renal disease, missed dialysis yesterday because he has been having diarrhea. His loose stool has happened over the last 2 days, but his states that she did not notice any over the last 24 hours. He complains of left upper quadrant abdominal pain. They states he missed dialysis yesterday because he was not feeling well, and he was feeling weak. His last full dialysis was on Monday. 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 Deras. He complains of abdominal pain along with shortness of breath. History and physical is limited secondary to his dementia. Past surgical history includes AAA repair. [facility] Medical History Abnormal cardiac enzyme level Acute arthritis [place] (acute kidney injury) Anemia Anxiety Arthritis Atrial fibrillation Cardiomyopathy, ischemic CHF (congestive heart failure) CKD (chronic kidney disease) stage 4, GFR 15-29 ml/min Community acquired pneumonia Declining functional status Dementia Dialysis patient End-stage renal disease (ESRD) FTT (failure to thrive) in adult GERD (gastroesophageal reflux disease) Hip pain, left Hip pain, left History of aorta surgery History of back surgery History of dialysis History of femur surgery History of heart surgery History of irregular heartbeat History of Jaw surgery History of stress test HLD (hyperlipidemia) HTN (hypertension), benign Kidney disease Kidney disease Secondary hyperparathyroidism Sepsis with acute hypoxic respiratory failure and septic shock Septic shock Stroke/cerebrovascular accident Thyroid disease Home Medications allopurinol 100 mg tablet 100 mg PO DAILY kidney stones #90 tabs 07/26/18 [History Last Taken 09/22/21] atorvastatin 80 mg tablet 80 mg PO QHS #30 tabs 11/26/19 [Rx Last Taken 09/22/21] calcium acetate(phosphat bind) 667 mg capsule 667 mg PO TIDCM #90 caps 11/26/19 [Rx Last Taken 09/23/21] carvedilol 3.125 mg tablet 3.125 mg PO BID #60 tabs 11/26/19 [Rx Last Taken 09/23/21] levothyroxine 50 mcg tablet 50 mcg PO DAILY@0600 #30 tabs 11/26/19 [Rx Last Taken 09/23/21] apixaban 2.5 mg tablet (Eliquis) 2.5 mg PO BID blood thinner 01/14/20 [History Last Taken 09/23/21] polyethylene glycol 3350 17 gram oral powder packet 17 g PO DAILY PRN Constipation 02/23/21 [History Last Taken 09/17/21] loratadine 5 mg-pseudoephedrine ER 120 mg tablet,extended release,12hr (Claritin-D 12 Hour) 1 tab PO DAILY CONGESTION 03/29/21 [History Last Taken 09/23/21] albuterol sulfate 2.5 mg/3 mL (0.083 %) solution for nebulization 2.5 mg inhalation TID PRN sob 09/23/21 [History Last Taken 09/23/21] amiodarone 100 mg tablet 100 mg PO DAILY heart 09/23/21 [History Last Taken 09/23/21] lisinopril 5 mg tablet 5 mg PO DAILY bp 09/23/21 [History Last Taken 09/23/21] pseudoephedrine-guaifenesin ER 60 mg-600 mg tablet,extend release 12hr (Mucinex D) 1 tab PO DAILY CONGESTION 09/23/21 [History Last Taken 09/22/21] lisinopril 5 mg tablet 5 mg PO DAILY 01/11/22 [History Last Taken Unknown] memantine 5 mg tablet 5 mg PO DAILY 01/11/22 [History Last Taken Unknown] ondansetron 4 mg disintegrating tablet 4 mg PO Q6H PRN nausea and vomiting #15 tabs 01/11/22 [Rx Last Taken Unknown] Allergy/AdvReac Type Severity Reaction Status Date / Time adhesive tape Allergy Mild Rash Verified 09/23/21 13:34 oxycodone Allergy Mild Rash Verified 09/23/21 13:34 tramadol Allergy Mild LIGHTHEADED Verified 09/23/21 13:34 AND DIZZY WITH HALLUCINATIONS Family History Grandfather No problems noted. Father Myocardial infarction Heart disease Hypertension Brother No problems noted. Brother Brain aneurysm Mother Diabetes Surgical History History of AAA (abdominal aortic aneurysm) repair History of appendectomy S/P AAA repair Social History household members: spouse Smoking Status: Former smoker how long ago did patient quit smoking: Quit 02/2021 with that admit, 1-2 cig/day prior, up to 1 ppd since teen. alcohol intake: never substance use type: does not use ROS ROS ED ROS Narrative Constitutional: No fever, no chills. HEENT: No sore throat. No neck pain. No loss of vision. No rhinorrhea. Cardiovascular: No chest pain. No palpitations. No pedal edema. Respiratory: No cough, positive shortness of breath. Abdominal: Epigastric to left upper quadrant abdominal pain. No nausea. No vomiting. Positive diarrhea x2 days. Genitourinary: No dysuria. No hematuria. Musculoskeletal: No myalgias. No arthralgias. Neurologic: No headaches. No dizziness. No lightheadedness. Skin: No rash. No change in color. Psychiatric: No depression. No anxiety. EXAM Physical Exam Narrative Exam Narrative: Afebrile. Vital signs noted. HEENT: Normocephalic. Atraumatic. PERRL, EOMI. Neck soft and supple. No point tenderness or step off. Cardiovascular: Regular rate and rhythm. No murmurs, rubs, or gallops appreciated. Respiratory: No tachypnea. Lungs clear to auscultation bilaterally. Gastrointestinal: Abdomen soft, mild tenderness to palpation in epigastrium to left upper quadrant to left flank. With normoactive bowel sounds. No rebound or guarding. Neurological: Awake. Alert. Nonfocal, nonlateralizing. Skin: No rash. Normal color. No pallor. Musculoskeletal: No pedal edema. Full range of motion extremities. Const Vital Signs: 01/11/22 09:59 01/11/22 10:02 01/11/22 11:02 Temperature 97.2 F L 97.2 F L 97.2 F L Temperature Source Oral Oral Oral Pulse Rate 74 74 74 Respiratory Rate 26 H 26 H 24 H Blood Pressure 159/85 H 159/85 H 156/82 H Blood Pressure Mean 109 109 106 Pulse Ox 97 97 74 Oxygen Delivery Method Room Air Room Air Room Air 01/11/22 12:00 01/11/22 12:00 Temperature 97.2 F L Temperature Source Oral Pulse Rate 72 72 Respiratory Rate 20 H 20 H Blood Pressure 150/80 H 154/84 H Blood Pressure Mean 103 107 Pulse Ox 97 95 Oxygen Delivery Method Room Air MDM MDM MDM Narrative Medical decision making narrative: Comprehensive work-up was pursued. CBC shows normal white count of 7.7 with hemoglobin slightly low at 10.7 with hematocrit 32.2. Platelet count slightly low at 141 which I think is nonspecific. Electrolyte panel shows chloride of 109, normal sodium, normal potassium of 5.1. Creatinine elevated at 6.0 consistent with his end-stage renal disease. Glucose appropriately elevated at 100 with an anion gap low at 4. Urinalysis is negative for infection or ket ones. CT of the abdomen pelvis with IV contrast shows no acute process. Chest x-ray interpreted by myself shows scarring but no acute pneumonia. Patient was doing well, but experienced dry heaving and abdominal pain. Although he has a negative CT, he was administered Zofran and morphine for analgesia. Upon repeat examination he has improved and his abdomen remains soft. His electrolyte panel is consistent with end-stage renal disease but he has a normal potassium. I feel he can be discharged safely home with follow-up. I do not feel he needs emergent dialysis. I do believe that he can wait till tomorrow and follow-up at his dialysis center. His pulse ox is in the normal range. Return instructions to the emergency department were reviewed. He was written a prescription for 15 tablets of Zofran ODT's 4 mg. Patient and are comfortable with the plan. Disposition is discharged home in stable condition. Lab Data Attestation: I reviewed the patient's lab results. Labs: Laboratory Results - last 24 hr 01/11/22 01/11/22 01/11/22 10:09 10:09 11:45 WBC 7.7 RBC 2.96 L Hgb 10.7 L Hct 32.2 L MCV 108.8 H MCH 36.1 H MCHC 33.2 RDW Std Deviation 55.1 H RDW Coeff of [place] 13.9 Plt Count 141 L MPV 11.4 Immature Gran % (Auto) 0.400 Neut % (Auto) 72.3 H Lymph % (Auto) 14.0 L [place] % (Auto) 9.6 Eos % (Auto) 3.1 Baso % (Auto) 0.6 Absolute Neuts (auto) 5.6 Absolute Lymphs (auto) 1.08 Nucleated RBC % 0 Sodium 141 Potassium 5.1 Chloride 109 H Carbon Dioxide 28.0 Anion Gap 4 L BUN 68 H Creatinine 6.07 H Estim Creat Clear Calc 9.87 Est GFR (MDRD) Af Amer 11 L Est GFR (MDRD) Non-Af 9 L BUN/Creatinine Ratio 11.2 Glucose 100 Calcium 9.1 Total Bilirubin 0.40 AST 16 ALT 14 L Alkaline Phosphatase 97 Total Protein 7.1 Albumin 3.6 Globulin 3.5 Albumin/Globulin Ratio 1.0 Lipase 168 Urine Color Yellow Urine Clarity Clear Urine pH 8.0 Ur Specific [place] 1.010 Urine Protein 100 H Urine Glucose (UA) Normal Urine Ketones Negative Urine Occult Blood Negative Urine Nitrite Negative Urine Bilirubin Negative Urine Urobilinogen Normal Ur Leukocyte Esterase Negative Urine RBC 0 SEEN Urine WBC 0 SEEN Ur Squamous Epith Cells 0 SEEN Urine Bacteria 0 SEEN Urine Mucus 0 SEEN Radiography Diagnostic Testing: Clinical Impression(s) from Imaging Studies Abdomen/Pelvis CT 01/11/22 10:56 IMPRESSION: Small right pleural effusion with right basilar atelectasis. Small gallstones. Electronically Signed: Deion Arevalo MD at 12:49 EST , Chest X-Ray 01/11/22 11:10 IMPRESSION: Cardiomegaly. Mild increase in linear markings at the lung bases suggest mild scarring. Electronically Signed: Deion Arevalo MD at 13:01 EST , Discharge Plan Triage Chief Complaint: Abd Pain ED Provider: Geovanni Ram Dx/Rx/DC Orders Clinical Impression: SOB (shortness of breath), Missed dialysis, Nausea & vomiting Instructions: ED Diet Vomiting Diarrhea, ED Dyspnea, ED Abdominal Pain Unkn Cause Male... Prescriptions: New ondansetron 4 mg tablet,disintegrating 4 mg PO Q6H PRN (Reason: nausea and vomiting) Qty: 15 0RF No Action allopurinol 100 mg tablet 100 mg PO DAILY Qty: 90 Eliquis 2.5 mg tablet 2.5 mg PO BID atorvastatin 80 MG tablet 80 mg PO QHS Qty: 30 1RF carvedilol 3.125 MG tablet 3.125 mg PO BID Qty: 60 1RF levothyroxine 50 MCG tablet 50 mcg PO DAILY@0600 Qty: 30 1RF calcium acetate(phosphat bind) 667 MG capsule 667 mg PO TIDCM Qty: 90 0RF polyethylene glycol 3350 17 gram Powder In Packet 17 g PO DAILY PRN (Reason: Constipation) Claritin-D 12 Hour 5-120 mg Tablet Extended Release 12 Hr 1 tab PO DAILY pseudoephedrine-guaifenesin [Mucinex D] 60-600 mg Tablet Extended Release 12 Hr 1 tab PO DAILY lisinopril 5 mg tablet 5 mg PO DAILY amiodarone 100 mg Tablet 100 mg PO DAILY albuterol sulfate 2.5 mg /3 mL (0.083 %) solution for nebulization 2.5 mg INHALATION TID PRN (Reason: sob) lisinopril 5 mg tablet 5 mg PO DAILY memantine 5 mg tablet 5 mg PO DAILY Label Comments: TAKE 1 TABLET BY MOUTH TWICE A DAY Primary Care Provider: Jasmeet Randhawa Referrals: Jasmeet Randhawa MD [Primary Care Provider] - 1-2 Days if not improving Activity Restrictions/Additional Instructions: Make sure you go to dialysis as scheduled tomorrow. Clear liquid diet, advance as tolerated. Disposition Disposition: Home, Self Care
[2022-01-11 11:02] VITALS: BP 156/82; PULSE 74; RESP 24; TEMP 36.2; O2SAT 74
[2022-01-11 11:06] LABS: Absolute Lymphocyte Count 1.08 X10^3/uL (0.83-4.51); Absolute Neutrophil Count 5.6 X10^3/uL (2.0-7.7); Basophil# 0.05 X10^3/uL; Basophil% 0.6 % (0-1); Eosinophil# 0.24 X10^3/uL; Eosinophils% 3.1 % (0-5); Hematocrit 32.2 % (40-54); Hemoglobin 10.7 g/dL (13.0-16.5); Lymphocyte # 1.08 X10^3/ul (0.83-4.51); Mean Corp Hgb Conc 33.2 g/dL (32-36); Mean Corpuscular Hgb 36.1 pg (27.0-32.0); Mean Corpuscular Volume 108.8 fL (80-94); Mean Platelet Vol. 11.4 fl (6.2-12.0); Monocyte# 0.74 X10^3/uL; Monocyte% 9.6 % (0-10); NRBC Flagged by Analyzer 0 % (0-5); Neutrophil % 72.3 % (47-70); Platelet Count 141 K/mm3 (150-450); RBC Distribution Width CV 13.9 % (11.6-14.6); RBC Distribution Width SD 55.1 fl (35.1-43.9); Red Blood Count 2.96 M/mm3 (4.6-6.2); White Blood Count 7.7 K/mm3 (4.4-11.0)
--- NOTE | 2022-01-11 11:10 | RAD_ITS ---
STUDY: X-RAY CHEST REASON FOR EXAM: Male, 86 years old. Shortness of Breath TECHNIQUE: Single AP portable view of the chest. COMPARISON: Comparison is made with prior study dated 09/02/2021. FINDINGS: EKG lead is seen. Mild degree of increasing markings at the lung bases suggest some mild scarring. There is no demonstrated pleural abnormality. Cardiomegaly. Normal mediastinum and sanjeev. Normal visualized pulmonary arteries. Normal visualized aortic arch and descending thoracic aorta. There are diffuse degenerative changes of the visualized thoracic spine. Normal visualized ribs, clavicles, and shoulders. There is no demonstrated abnormality of the visualized soft tissue structures of the upper abdomen. RAD/Chest 1 View (Portable) IMPRESSION: Cardiomegaly. Mild increase in linear markings at the lung bases suggest mild scarring. Electronically Signed: Deion Arevalo MD at 13:01 EST ,
[2022-01-11 11:19] LABS: AST(SGOT) 16 U/L (15-37); Alanine Aminotransfer ALT/SGPT 14 U/L (16-61); Albumin, Serum 3.6 g/dL (3.2-5.0); Alkaline Phosphatase 97 U/L (45-117); Anion Gap 4 (5-15); BUN 68 mg/dL (7-18); BUN/Creat Ratio 11.2 RATIO (10-20); Calcium,Total 9.1 mg/dL (8.5-10.1); Chloride 109 mmol/L (98-107); Creatinine, Serum 6.07 mg/dL (0.70-1.30); EST Glomerular Filtration Rate 9 mL/min (>60); Est Glom Filt Rate - Afr Amer 11 mL/min (>60); Estimated Creatinine Clearance 9.87 ml/min; Globulin 3.5 g/dL (2.2-4.2); Glucose 100 mg/dL (74-106); Lipase 168 U/L (73-393); Potassium 5.1 mmol/L (3.5-5.1); Protein, Total 7.1 g/dL (6.4-8.2); Sodium Level 141 mmol/L (136-145)
[2022-01-11 11:53] LABS: Bacteria 0 SEEN /hpf (None Seen); Mucous, Urine 0 SEEN /hpf (<or=2+); Red Blood Cells-Urine 0 SEEN /hpf (0-5); Squamous Epithelial Cells - UA 0 SEEN /hpf (0-5); White Blood Cells 0 SEEN /hpf (0-5)
[2022-01-11 11:56] LABS: Color, Urine Yellow (Yellow); Glucose, Dipstick Normal (Normal); Ketone-Dipstick Negative (Negative); Leukocyte Esterase-Dipstick Negative /ul (Negative); Nitrite-Dipstick Negative (Negative); Occult Blood-Urine Negative /ul (Negative); Protein-Dipstick 100 mg/dl (Negative); Urine Bilirubin Dipstick Negative (Negative); Urine Clarity Clear (Clear); Urine Urobilinogen Normal (Normal)
[2022-01-11 12:00] VITALS: BP 150/80; BP 154/84; PULSE 72; RESP 20; TEMP 36.2; O2SAT 95; O2SAT 97
--- NOTE | 2022-01-11 13:09 | ED.RN ---
PT VOMITING, INCREASED PAIN. DR LING
[2022-01-11] MEDS: Ondansetron 4 MG/2 ML Vial IV (13:12)
[2022-01-11] MEDS: Morphine 4 MG/ML Syringe IV (13:12)
[2022-01-11 13:38] VITALS: BP 139/88; PULSE 67; RESP 15; O2SAT 97
== END 2022-01-11 13:39 | disposition home or self-care (01) ==
PROVIDERS: Emergency Provider Emergency Medicine; PCP Family Medicine; Visit Provider Emergency Medicine
DX: R11.2 Nausea with vomiting, unspecified (principal); I13.2 Hypertensive heart and chronic kidney disease with heart failure and with stage 5 chronic kidney disease, or end stage renal disease; Z99.2 Dependence on renal dialysis; I50.9 Heart failure, unspecified; N18.6 End stage renal disease; R06.02 Shortness of breath; R10.9 Unspecified abdominal pain; E78.5 Hyperlipidemia, unspecified; R19.7 Diarrhea, unspecified; Z87.891 Personal history of nicotine dependence
CPT/HCPCS: 71045; 74176; 80053; 81001; 83690; 85025; 96374; 96375; 99285; A4216; J2405

== ENCOUNTER → 2022-03-22 | Outpatient (CLI) | payer MEDICARE, SELFPAY ==
[2022-03-22 15:54] LABS: Absolute Lymphocyte Count 1.53 X10^3/uL (0.83-4.51); Absolute Neutrophil Count 3.2 X10^3/uL (2.0-7.7); Basophil# 0.07 X10^3/uL; Basophil% 1.2 % (0-1); Eosinophil# 0.26 X10^3/uL; Eosinophils% 4.5 % (0-5); Hematocrit 30.5 % (40-54); Hemoglobin 9.9 g/dL (13.0-16.5); Lymphocyte # 1.53 X10^3/ul (0.83-4.51); Lymphocyte % 26.6 % (19-41); Mean Corp Hgb Conc 32.5 g/dL (32-36); Mean Corpuscular Hgb 34.7 pg (27.0-32.0); Mean Platelet Vol. 11.5 fl (6.2-12.0); Monocyte% 12.2 % (0-10); NRBC Flagged by Analyzer 0 % (0-5); Neutrophil # 3.16 X10^3/uL (2.7-7.7); POSITIVE COUNT YES; POSITIVE MORPHOLOGY YES; Platelet Count 172 K/mm3 (150-450); RBC Distribution Width CV 13.7 % (11.6-14.6); RBC Distribution Width SD 54.2 fl (35.1-43.9); Red Blood Count 2.85 M/mm3 (4.6-6.2); White Blood Count 5.8 K/mm3 (4.4-11.0)
[2022-03-22 16:31] LABS: Differential Indicated SCAN CRITERIA MET
[2022-03-22 16:36] LABS: AST(SGOT) 15 U/L (15-37); Alanine Aminotransfer ALT/SGPT 18 U/L (16-61); Albumin, Serum 3.7 g/dL (3.2-5.0); Alkaline Phosphatase 120 U/L (45-117); Anion Gap 10 (5-15); BUN 31 mg/dL (7-18); BUN/Creat Ratio 8.2 RATIO (10-20); Chloride 97 mmol/L (98-107); Cholesterol 122 mg/dL (200); EST Glomerular Filtration Rate 16 mL/min (>60); Est Glom Filt Rate - Afr Amer 20 mL/min (>60); Globulin 3.6 g/dL (2.2-4.2); Glucose 69 mg/dL (74-106); High Density Lipoprotein 44 mg/dL; Potassium 4.1 mmol/L (3.5-5.1); Protein, Total 7.3 g/dL (6.4-8.2); Sodium Level 138 mmol/L (136-145); T4 Free Direct 0.95 ng/dL (0.76-1.46); Thyroid Stim Hormone (TSH) 7.01 uIU/mL (0.358-3.74); Triglycerides 97 mg/dL; Uric Acid 2.9 mg/dL (3.5-7.2); Very Low Density Lipoprotein 19 mg/dL (5-40)
[2022-03-22 16:43] LABS: Reactive Lymphocyte RARE
[2022-03-22 16:44] LABS: Platelet Estimate ADEQUATE (ADEQ); Platelet Morphology CLUMPED
== END | disposition home or self-care (01) ==
LOC: MFPLAB 12:14
PROVIDERS: PCP Family Medicine; Referring Provider Family Medicine; Visit Provider Family Medicine
DX: E03.8 Other specified hypothyroidism (principal); I48.91 Unspecified atrial fibrillation; I25.10 Atherosclerotic heart disease of native coronary artery without angina pectoris
CPT/HCPCS: 36415; 80053; 80061; 83735; 84439; 84443; 84550; 85025

== ENCOUNTER → 2022-06-28 | Outpatient (CLI) | payer MEDICARE, SELFPAY ==
--- NOTE | 2022-06-29 05:45 | PFTCOMP_ITS ---
COMPLETE PULMONARY FUNCTION TEST INTERPRETATION Brief HPI: Patient is an 87-year-old male, currently under the care of Dr. Lezama, who presents to [facility] for complete pulmonary function tests secondary to diagnosis of dyspnea. Respiratory therapist reports good effort and reproducible results. Interpretation: Forced expiration spirometry shows a mild large airways obstructive ventilatory defect with an FEV1 of 71% predicted. There is no significant bronchodilator response by strict ATS criteria. Spirograms are of good quality and plateau slowly, indicating slowly emptying areas of the lungs. The respiratory flow volume loop shows decreased expiratory flow rates at all lung volumes consistent with airway obstruction. Lung volumes by body plethysmography show a normal total lung capacity at 6.37 L, 95% predicted. All other lung volumes are within normal limits. Diffusion capacity by carbon monoxide is decreased at 57% predicted. The airway resistance is elevated. No previous pulmonary function tests were available for review. Impression: Irreversible mild large airways obstructive ventilatory defect with a disproportionate reduction in diffusion capacity
== END | disposition home or self-care (01) ==
LOC: PSN 12:02
PROVIDERS: PCP Family Medicine; Referring Provider Internal Medicine Critical Care Medicine; Visit Provider Internal Medicine Critical Care Medicine
DX: R06.02 Shortness of breath (principal)
CPT/HCPCS: 94060; 94726; 94729

== ENCOUNTER → 2022-07-21 | Outpatient (CLI) | payer MEDICARE, SELFPAY ==
[2022-07-21 12:05] LABS: Absolute Lymphocyte Count 1.16 X10^3/uL (0.83-4.51); Absolute Neutrophil Count 2.7 X10^3/uL (2.0-7.7); Basophil# 0.07 X10^3/uL; Basophil% 1.4 % (0-1); Eosinophil# 0.28 X10^3/uL; Eosinophils% 5.7 % (0-5); Hematocrit 35.7 % (40-54); Lymphocyte # 1.16 X10^3/ul (0.83-4.51); Lymphocyte % 23.7 % (19-41); Mean Corp Hgb Conc 33.6 g/dL (32-36); Mean Corpuscular Hgb 36.5 pg (27.0-32.0); Mean Corpuscular Volume 108.5 fL (80-94); Mean Platelet Vol. 10.7 fl (6.2-12.0); Monocyte# 0.65 X10^3/uL; Monocyte% 13.3 % (0-10); NRBC Flagged by Analyzer 0 % (0-5); Neutrophil # 2.72 X10^3/uL (2.7-7.7); Neutrophil % 55.5 % (47-70); Platelet Count 170 K/mm3 (150-450); RBC Distribution Width CV 14.1 % (11.6-14.6); RBC Distribution Width SD 56.7 fl (35.1-43.9); Red Blood Count 3.29 M/mm3 (4.6-6.2); White Blood Count 4.9 K/mm3 (4.4-11.0)
[2022-07-21 13:05] LABS: ALB/GLOB Ratio 0.9 RATIO (0.9-2.4); AST(SGOT) 18 U/L (15-37); Alanine Aminotransfer ALT/SGPT 20 U/L (16-61); Albumin, Serum 3.6 g/dL (3.2-5.0); Alkaline Phosphatase 118 U/L (45-117); Anion Gap 8 (5-15); BUN 36 mg/dL (7-18); BUN/Creat Ratio 8.8 RATIO (10-20); Chloride 103 mmol/L (98-107); Cholesterol 152 mg/dL (200); Creatinine, Serum 4.09 mg/dL (0.70-1.30); EST Glomerular Filtration Rate 15 mL/min (>60); Est Glom Filt Rate - Afr Amer 18 mL/min (>60); Globulin 3.9 g/dL (2.2-4.2); Glucose 68 mg/dL (74-106); High Density Lipoprotein 45 mg/dL; Magnesium 2.1 mg/dL (1.6-2.6); Potassium 4.7 mmol/L (3.5-5.1); Protein, Total 7.5 g/dL (6.4-8.2); Sodium Level 137 mmol/L (136-145); T4 Free Direct 0.94 ng/dL (0.76-1.46); Thyroid Stim Hormone (TSH) 6.29 uIU/mL (0.358-3.74); Triglycerides 128 mg/dL; Uric Acid 2.5 mg/dL (3.5-7.2); Very Low Density Lipoprotein 26 mg/dL (5-40)
== END | disposition home or self-care (01) ==
LOC: MFPLAB 11:11
PROVIDERS: PCP Family Medicine; Visit Provider Family Medicine
DX: I25.10 Atherosclerotic heart disease of native coronary artery without angina pectoris (principal); E03.8 Other specified hypothyroidism
CPT/HCPCS: 36415; 80053; 80061; 83735; 84439; 84443; 84550; 85025

== ENCOUNTER → 2022-12-13 | Outpatient (CLI) | payer MEDICARE, SELFPAY ==
[2022-12-13 12:16] LABS: Absolute Lymphocyte Count 1.24 X10^3/uL (0.83-4.51); Basophil# 0.05 X10^3/uL; Basophil% 0.9 % (0-1); Eosinophil# 0.27 X10^3/uL; Eosinophils% 5.1 % (0-5); Hematocrit 33.1 % (40-54); Hemoglobin 10.5 g/dL (13.0-16.5); Lymphocyte # 1.24 X10^3/ul (0.83-4.51); Lymphocyte % 23.4 % (19-41); Mean Corp Hgb Conc 31.7 g/dL (32-36); Mean Corpuscular Hgb 35.6 pg (27.0-32.0); Mean Corpuscular Volume 112.2 fL (80-94); Mean Platelet Vol. 10.7 fl (6.2-12.0); Monocyte# 0.76 X10^3/uL; Monocyte% 14.3 % (0-10); NRBC Flagged by Analyzer 0 % (0-5); Neutrophil # 2.98 X10^3/uL (2.7-7.7); Neutrophil % 56.1 % (47-70); Platelet Count 180 K/mm3 (150-450); RBC Distribution Width CV 15.3 % (11.6-14.6); RBC Distribution Width SD 63.5 fl (35.1-43.9); Red Blood Count 2.95 M/mm3 (4.6-6.2); White Blood Count 5.3 K/mm3 (4.4-11.0)
[2022-12-13 13:08] LABS: AST(SGOT) 17 U/L (15-37); Alanine Aminotransfer ALT/SGPT 16 U/L (16-61); Albumin, Serum 3.6 g/dL (3.2-5.0); Alkaline Phosphatase 88 U/L (45-117); Anion Gap 6 (5-15); BUN 35 mg/dL (7-18); BUN/Creat Ratio 6.8 RATIO (10-20); Calcium,Total 8.5 mg/dL (8.5-10.1); Chloride 102 mmol/L (98-107); Cholesterol 134 mg/dL (200); Creatinine, Serum 5.14 mg/dL (0.70-1.30); EST Glomerular Filtration Rate 11 mL/min (>60); Est Glom Filt Rate - Afr Amer 14 mL/min (>60); Globulin 3.6 g/dL (2.2-4.2); Glucose 88 mg/dL (74-106); High Density Lipoprotein 38 mg/dL; Magnesium 2.2 mg/dL (1.6-2.6); Potassium 4.4 mmol/L (3.5-5.1); Protein, Total 7.2 g/dL (6.4-8.2); Sodium Level 139 mmol/L (136-145); T4 Free Direct 1.12 ng/dL (0.76-1.46); Triglycerides 129 mg/dL; Uric Acid 3.1 mg/dL (3.5-7.2); Very Low Density Lipoprotein 26 mg/dL (5-40)
== END | disposition home or self-care (01) ==
LOC: MFPLAB 10:18
PROVIDERS: PCP Family Medicine; Visit Provider Family Medicine
DX: E03.8 Other specified hypothyroidism (principal); I25.10 Atherosclerotic heart disease of native coronary artery without angina pectoris
CPT/HCPCS: 36415; 80053; 80061; 83735; 84439; 84443; 84550; 85025

== ENCOUNTER 2023-05-02 15:49 | Emergency (ER) | payer MEDICARE, SELFPAY ==
[2023-05-02] VITALS (9 sets, daily range): BP systolic 121–164; BP diastolic 71–101; PULSE 55–76; RESP 16–24; TEMP 36.5–36.6; O2SAT 92–99; BMI 29.2
--- NOTE | 2023-05-02 16:00 | EKG12_ITS ---
Test Reason : CP Blood Pressure : / mmHG Vent. 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
--- NOTE | 2023-05-02 16:05 | RAD_ITS ---
STUDY: X-RAY CHEST REASON FOR EXAM: Male, 88 years old. Dyspnea and chest pain TECHNIQUE: PA and lateral COMPARISON: None. FINDINGS: Lungs are mildly hyperinflated and there is asymmetric interstitial thickening with slightly increased density in the right lower lobe possibly inflammatory.. There is no demonstrated pleural abnormality. Normal size heart. Normal mediastinum and sanjeev. Normal visualized pulmonary arteries. Tortuous mildly calcified aortic arch and descending thoracic aorta. Dorsal spine demonstrates mild degenerative change. Normal visualized ribs, clavicles, and shoulders. Postop change status post cervical fusion There is no demonstrated abnormality of the visualized soft tissue structures of the upper abdomen. RAD/Chest PA and Lateral IMPRESSION: Mild hyperinflation. Cannot definitively exclude mild right lower lobe interstitial pneumonic infiltrate Electronically Signed: Silvestre Abernathy MD at 16:22 EDT ,
--- NOTE | 2023-05-02 16:05 | ED.VIS.CHEST ---
HPI History of Present Illness Chief Complaint: Palpitations Detail of Chief Complaint: Central chest pain and dyspnea Informant: patient and spouse/S.O. 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 Patient did have an echocardiogram performed during that admission. There was moderate segmental systolic dysfunction. The estimated ejection fraction was 30%. There was moderate enlargement of left atrium. There is mild enlargement of right atrium. Mild diffuse mitral valve thickening. There is 2+ mitral valve insufficiency. There was mild focal aortic valve calcification. There is trivial aortic valve insufficiency. The aortic root was noted to be calcified. Right ventricular systolic pressure was estimated to be 55 mmHg. Patient is a poor informant due to dementia. He has had shortness of breath for several weeks. He had increased shortness of breath. He had intermittent chest discomfort which has become more frequent and longer in duration. Per he sleeps with 1 pillow. He is not awakened from sleep gasping for breath. He is dialyzed on Monday, Monday and Monday. He did go to dialysis yesterday. According to he had increased swelling of his lower extremities compared to normal. Prior Similar Symptoms: - (Unable to determine) Recent Illness/Hospitalization: No CVD Risk Factors: Positive for Hypertension and Hypercholesterolemia PE Risk Factors: Negative for Recent Travel/Surgery, Recent Immobilization, Prior DVT or PE, Cancer or OCP + Smoking + >/=35 TAD Risk Factors: Positive for Hypertension; Negative for Marfan's Syndrome or Family History [facility] Medical History Abnormal cardiac enzyme level Acute arthritis [place] (acute kidney injury) Anemia Anxiety Arthritis Atrial fibrillation Cardiomyopathy, ischemic CHF (congestive heart failure) CKD (chronic kidney disease) stage 4, GFR 15-29 ml/min Community acquired pneumonia Declining functional status Dementia Dialysis patient End-stage renal disease (ESRD) FTT (failure to thrive) in adult GERD (gastroesophageal reflux disease) Hip pain, left Hip pain, left History of aorta surgery History of back surgery History of dialysis History of femur surgery History of heart surgery History of irregular heartbeat History of Jaw surgery History of stress test HLD (hyperlipidemia) HTN (hypertension), benign Kidney disease Kidney disease Secondary hyperparathyroidism Sepsis with acute hypoxic respiratory failure and septic shock Septic shock Stroke/cerebrovascular accident Thyroid disease Home Medications allopurinol 100 mg tablet 100 mg PO DAILY kidney stones #90 tabs 07/26/18 [History Last Taken 09/22/21] atorvastatin 80 mg tablet 80 mg PO QHS #30 tabs 11/26/19 [Rx Last Taken 09/22/21] calcium acetate(phosphat bind) 667 mg capsule 667 mg PO TIDCM #90 caps 11/26/19 [Rx Last Taken 09/23/21] carvedilol 3.125 mg tablet 3.125 mg PO BID #60 tabs 11/26/19 [Rx Last Taken 09/23/21] apixaban 2.5 mg tablet (Eliquis) 2.5 mg PO BID blood thinner 01/14/20 [History Last Taken 09/23/21] polyethylene glycol 3350 17 gram oral powder packet 17 g PO DAILY PRN Constipation 02/23/21 [History Last Taken 09/17/21] loratadine 5 mg-pseudoephedrine ER 120 mg tablet,extended release,12hr (Claritin-D 12 Hour) 1 tab PO DAILY CONGESTION 03/29/21 [History Last Taken 09/23/21] albuterol sulfate 2.5 mg/3 mL (0.083 %) solution for nebulization 2.5 mg inhalation TID PRN sob 09/23/21 [History Last Taken 09/23/21] amiodarone 100 mg tablet 100 mg PO DAILY heart 09/23/21 [History Last Taken 09/23/21] lisinopril 5 mg tablet 5 mg PO DAILY bp 09/23/21 [History Last Taken 09/23/21] pseudoephedrine-guaifenesin ER 60 mg-600 mg tablet,extend release 12hr (Mucinex D) 1 tab PO DAILY CONGESTION 09/23/21 [History Last Taken 09/22/21] memantine 5 mg tablet 5 mg PO DAILY 01/11/22 [History Last Taken Unknown] ondansetron 4 mg disintegrating tablet 4 mg PO Q6H PRN nausea and vomiting #15 tabs 01/11/22 [Rx Last Taken Unknown] levothyroxine 50 mcg tablet 75 mcg PO DAILY@0600 01/12/23 [History Last Taken Unknown] Allergy/AdvReac Type Severity Reaction Status Date / Time adhesive tape Allergy Mild Rash Verified 05/02/23 15:52 oxycodone Allergy Mild Rash Verified 05/02/23 15:52 tramadol Allergy Mild LIGHTHEADED Verified 05/02/23 15:52 AND DIZZY WITH HALLUCINATIONS Family History Grandfather No problems noted. Father Myocardial infarction Heart disease Hypertension Brother No problems noted. Brother Brain aneurysm Mother Diabetes Surgical History History of AAA (abdominal aortic aneurysm) repair History of appendectomy S/P AAA repair Social History household members: spouse Smoking Status: Former smoker how long ago did patient quit smoking: Quit 02/2021 with that admit, 1-2 cig/day prior, up to 1 ppd since teen. alcohol intake: never substance use type: does not use Prior Cardiac Testing/Procedures Prior Cardiac Testing/Procedures: Echocardiogram (Details documented in the HPI narrative) ROS ROS ED Review of Systems ROS Unobtainable: due to mental status and other Details: Patient with dementia. Patient attempts to joke when answering questions. Cardiovascular Cardiovascular: Reports as per HPI Respiratory/Chest Respiratory/Chest: Reports dyspnea and dyspnea on exertion EXAM Physical Exam Const Vital Signs: 05/02/23 15:50 05/02/23 16:30 05/02/23 17:00 Temperature 98 F Temperature Source Temporal Pulse Rate 64 55 L 57 L Respiratory Rate 16 18 20 H Blood Pressure 145/73 H 137/73 H 121/101 H Blood Pressure Mean 97 90 109 Pulse Ox 99 98 92 Oxygen Delivery Method Room Air 05/02/23 18:00 Temperature Temperature Source Pulse Rate 60 Respiratory Rate 16 Blood Pressure 162/71 H Blood Pressure Mean 94 Pulse Ox 96 Oxygen Delivery Method Positive well nourished and obese General Appearance ED: NAD Nutritional Appearance: obese HEENT Reports moist mucous membranes normocephalic and atraumatic Eyes PERRL and EOMs intact bilaterally General Eye ED: Negative for pale conjunctiva or scleral icterus Neck no lymphadenopathy, supple and no JVD Chest Wall inspection of chest normal and palpation of chest normal Resp normal respiratory effort and No clear to auscultation bilaterally Auscultation: rales bilateral base Cardio regular rate, S1 normal heart sound, S2 normal heart sound and no murmurs Rhythm: abnormal rhythm irregularly irregular GI normal to inspection, nondistended, normoactive bowel sounds, soft to palpation, non-tender and non-distended; Negative for hepatosplenomegaly or no masses GI Narrative: Patient has rectus diastases. Back/Spine no CVA tenderness and no thoracic nor lumbar tenderness Extremity Negative for normal to inspection Extremity Narrative: Fistula noted left forearm. There is a palpable thrill. General Extremety ED: Yes edema General Extremity: edema bilateral Neuro No oriented x3 and CN's II-XII intact bilaterally Sensorium / Orientation: awake and alert Psych mental status grossly normal Skin no rashes or lesions noted and no wounds MDM MDM MDM Narrative Medical decision making narrative: Differential diagnosis would include cardiac ischemia, congestive heart failure, pneumonia, exacerbation of CHF. Will obtain EKG to evaluate for acute ischemia, chest x-ray to evaluate for pneumonia congestive heart failure. Blood work to assess H&H and white count. BMP to assess electrolytes since he is a dialysis patient. Troponin with 2-hour troponin since patient is not reliable informant uncertain how many episodes she has had in the last day or 2 in duration. According to he had a cardiac catheterization at [facility]. Because of his anatomy they were unable to perform angioplasty because of the location. One of his vessels was totally occluded. states there was another vessel with 95% occlusion and another vessel that was abnormal. Will attempt to obtain records from outside facility through [facility]. History & Record Review Additional record(s) reviewed:: Prior inpatient record, Prior ED visit and Prior labs Lab Data Attestation: I reviewed the patient's lab results. Lab results narrative: Patient has chronic macrocytic anemia. Laboratory results are unchanged from prior. Basic metabolic panel was elevated BUN and creatinine 48 and 5.34 which is patient's baseline. More importantly patient has end-stage renal disease on hemodialysis. First troponin is normal. Repeat troponin is 49 which is lower. Plan is to discharge to home. Labs: Laboratory Results - last 24 hr 05/02/23 05/02/23 18:20 Unknown WBC 6.6 RBC 2.85 L Hgb 10.2 L Hct 31.0 L MCV 108.8 H MCH 35.8 H MCHC 32.9 RDW Std Deviation 63.4 H RDW Coeff of Maritza 15.9 H Plt Count 196 MPV 10.5 Immature Gran % (Auto) 0.600 Neut % (Auto) 53.6 Lymph % (Auto) 23.1 Cloud % (Auto) 16.9 H Eos % (Auto) 4.4 Baso % (Auto) 1.4 H Absolute Neuts (auto) 3.5 Absolute Lymphs (auto) 1.52 Nucleated RBC % 0 Sodium 139 Potassium 4.4 Chloride 99 Carbon Dioxide 31.0 Anion Gap 9 BUN 48 H Creatinine 5.34 H Estim Creat Clear Calc 11.27 Est GFR (MDRD) Af Amer 13 L Est GFR (MDRD) Non-Af 11 L BUN/Creatinine Ratio 9.0 L Glucose 72 L Calcium 8.9 Troponin I High Sens 49 52 Radiography Chest X-Ray - ED: 2 View (1627. There is no change from January 11, 2022 x-ray with regards to increased markings right lower lobe.) and Read by ED Physician (Mentally interpreted and reviewed by me at 1619. There are chronic changes with hyperaeration. Cardiac silhouette size normal. [place]um is unremarkable. Osseous structures reveal some chronic degenerative changes in the dorsal spine. There is no effusion. Question of increased markings right lowe) Diagnostic Testing: Clinical Impression(s) from Imaging Studies Chest X-Ray 05/02/23 16:05 IMPRESSION: Mild hyperinflation. Cannot definitively exclude mild right lower lobe interstitial pneumonic infiltrate Electronically Signed: Silvestre Abernathy MD at 16:22 EDT , Rhythm Strip Rhythm Strip: A-fib Rate: 62 Ectopy: None EKG Initial EKG: Attestation: I personally reviewed and interpreted this EKG as follows: Interpretation: Atrial Fibrillation (Rate is 60. There is evidence of low voltage. QRS duration 82 ms. Cures duration of 146 ms. [place] is normal. Other than the A-fib and low voltage there is no significant abnormality i.e. acute ischemic changes.) Treatment and Re-Evaluation :: Since patient has dementia. was informed of results. Discharge Plan Triage Chief Complaint: Palpitations ED Provider: Brennon Cortez Dx/Rx/DC Orders Clinical Impression: Central chest pain, Cardiomyopathy, ischemic, HLD (hyperlipidemia), Dyspnea, Chronic a-fib, Hypertension Instructions: ED Chest Pain, Uncertain Cause Prescriptions: No Action allopurinol 100 mg tablet 100 mg PO DAILY Qty: 90 Eliquis 2.5 mg tablet 2.5 mg PO BID levothyroxine 50 mcg tablet 75 mcg PO DAILY@0600 atorvastatin 80 MG tablet 80 mg PO QHS Qty: 30 1RF carvedilol 3.125 MG tablet 3.125 mg PO BID Qty: 60 1RF calcium acetate(phosphat bind) 667 MG capsule 667 mg PO TIDCM Qty: 90 0RF polyethylene glycol 3350 17 gram Powder In Packet 17 g PO DAILY PRN (Reason: Constipation) Claritin-D 12 Hour 5-120 mg Tablet Extended Release 12 Hr 1 tab PO DAILY pseudoephedrine-guaifenesin [Mucinex D] 60-600 mg Tablet Extended Release 12 Hr 1 tab PO DAILY lisinopril 5 mg tablet 5 mg PO DAILY amiodarone 100 mg Tablet 100 mg PO DAILY albuterol sulfate 2.5 mg /3 mL (0.083 %) solution for nebulization 2.5 mg INHALATION TID PRN (Reason: sob) memantine 5 mg tablet 5 mg PO DAILY Patient Comments: TAKE 1 TABLET BY MOUTH TWICE A DAY ondansetron 4 mg tablet,disintegrating 4 mg PO Q6H PRN (Reason: nausea and vomiting) Qty: 15 0RF Primary Care Provider: Jasmeet Randhawa Referrals: Jasmeet Randhawa MD [Primary Care Provider] - 3-5 Days Disposition Disposition: Home, Self Care
[2023-05-02 16:39] LABS: Absolute Lymphocyte Count 1.52 X10^3/uL (0.83-4.51); Absolute Neutrophil Count 3.5 X10^3/uL (2.0-7.7); Basophil# 0.09 X10^3/uL; Basophil% 1.4 % (0-1); Eosinophil# 0.29 X10^3/uL; Eosinophils% 4.4 % (0-5); Hemoglobin 10.2 g/dL (13.0-16.5); Lymphocyte # 1.52 X10^3/ul (0.83-4.51); Lymphocyte % 23.1 % (19-41); Mean Corp Hgb Conc 32.9 g/dL (32-36); Mean Corpuscular Hgb 35.8 pg (27.0-32.0); Mean Corpuscular Volume 108.8 fL (80-94); Mean Platelet Vol. 10.5 fl (6.2-12.0); Monocyte# 1.11 X10^3/uL; Monocyte% 16.9 % (0-10); NRBC Flagged by Analyzer 0 % (0-5); Neutrophil # 3.52 X10^3/uL (2.7-7.7); Neutrophil % 53.6 % (47-70); Platelet Count 196 K/mm3 (150-450); RBC Distribution Width CV 15.9 % (11.6-14.6); RBC Distribution Width SD 63.4 fl (35.1-43.9); Red Blood Count 2.85 M/mm3 (4.6-6.2); White Blood Count 6.6 K/mm3 (4.4-11.0)
[2023-05-02 17:02] LABS: Anion Gap 9 (5-15); BUN 48 mg/dL (7-18); Calcium,Total 8.9 mg/dL (8.5-10.1); Chloride 99 mmol/L (98-107); Creatinine, Serum 5.34 mg/dL (0.70-1.30); EST Glomerular Filtration Rate 11 mL/min (>60); Est Glom Filt Rate - Afr Amer 13 mL/min (>60); Estimated Creatinine Clearance 11.27 ml/min; Glucose 72 mg/dL (74-106); Potassium 4.4 mmol/L (3.5-5.1); Sodium Level 139 mmol/L (136-145); Troponin-I HS (w/2H Reflex) 52 pg/mL (3.0-78.0)
[2023-05-02 18:35] LABS: Reflex Troponin-HS? (from REC) Y
[2023-05-02 18:52] LABS: Troponin-I HS 49 pg/mL (3.0-78.0)
== END 2023-05-02 19:28 | disposition home or self-care (01) ==
PROVIDERS: Emergency Provider Emergency Medicine; PCP Family Medicine; Visit Provider Emergency Medicine
DX: R07.89 Other chest pain (principal); I13.2 Hypertensive heart and chronic kidney disease with heart failure and with stage 5 chronic kidney disease, or end stage renal disease; N18.6 End stage renal disease; I50.22 Chronic systolic (congestive) heart failure; F03.90 Unspecified dementia, unspecified severity, without behavioral disturbance, psychotic disturbance, mood disturbance, and anxiety; I48.20 Chronic atrial fibrillation, unspecified; I25.5 Ischemic cardiomyopathy; E78.5 Hyperlipidemia, unspecified; R06.00 Dyspnea, unspecified; E66.9 Obesity, unspecified; I25.2 Old myocardial infarction; Z79.51 Long term (current) use of inhaled steroids; Z79.899 Other long term (current) drug therapy; Z86.73 Personal history of transient ischemic attack (TIA), and cerebral infarction without residual deficits; Z87.891 Personal history of nicotine dependence
CPT/HCPCS: 71046; 80048; 84484; 85025; 93005; 99283; A4216

== ENCOUNTER → 2023-06-22 | Outpatient (CLI) | payer MEDICARE, SELFPAY ==
[2023-06-22 17:38] LABS: Absolute Lymphocyte Count 1.64 X10^3/uL (0.83-4.51); Absolute Neutrophil Count 3.4 X10^3/uL (2.0-7.7); Basophil# 0.08 X10^3/uL; Basophil% 1.3 % (0-1); Eosinophil# 0.28 X10^3/uL; Eosinophils% 4.4 % (0-5); Hematocrit 33.7 % (40-54); Hemoglobin 11.3 g/dL (13.0-16.5); Lymphocyte # 1.64 X10^3/ul (0.83-4.51); Lymphocyte % 25.6 % (19-41); Mean Corp Hgb Conc 33.5 g/dL (32-36); Mean Corpuscular Hgb 35.4 pg (27.0-32.0); Mean Corpuscular Volume 105.6 fL (80-94); Mean Platelet Vol. 11.2 fl (6.2-12.0); Monocyte# 0.96 X10^3/uL; NRBC Flagged by Analyzer 0 % (0-5); Neutrophil # 3.42 X10^3/uL (2.7-7.7); Neutrophil % 53.4 % (47-70); Platelet Count 177 K/mm3 (150-450); RBC Distribution Width CV 14.2 % (11.6-14.6); RBC Distribution Width SD 55.6 fl (35.1-43.9); Red Blood Count 3.19 M/mm3 (4.6-6.2); White Blood Count 6.4 K/mm3 (4.4-11.0)
[2023-06-22 18:04] LABS: ALB/GLOB Ratio 0.9 RATIO (0.9-2.4); AST(SGOT) 11 U/L (15-37); Alanine Aminotransfer ALT/SGPT 14 U/L (16-61); Albumin, Serum 3.6 g/dL (3.2-5.0); Alkaline Phosphatase 80 U/L (45-117); Anion Gap 11 (5-15); BUN 51 mg/dL (7-18); BUN/Creat Ratio 9.2 RATIO (10-20); Calcium,Total 8.8 mg/dL (8.5-10.1); Chloride 96 mmol/L (98-107); Cholesterol 127 mg/dL (200); Creatinine, Serum 5.56 mg/dL (0.70-1.30); EST Glomerular Filtration Rate 10 mL/min (>60); Est Glom Filt Rate - Afr Amer 13 mL/min (>60); Globulin 3.8 g/dL (2.2-4.2); Glucose 92 mg/dL (74-106); High Density Lipoprotein 38 mg/dL; Magnesium 2.2 mg/dL (1.6-2.6); Potassium 4.4 mmol/L (3.5-5.1); Protein, Total 7.4 g/dL (6.4-8.2); Sodium Level 134 mmol/L (136-145); T4 Free Direct 1.09 ng/dL (0.76-1.46); Thyroid Stim Hormone (TSH) 4.39 uIU/mL (0.358-3.74); Triglycerides 128 mg/dL; Uric Acid 3.4 mg/dL (3.5-7.2); Very Low Density Lipoprotein 26 mg/dL (5-40)
[2023-06-22 18:27] LABS: PTHIN 427.9 pg/mL (18.4-80.1)
== END | disposition home or self-care (01) ==
PROVIDERS: PCP Family Medicine; Visit Provider Family Medicine
DX: M10.9 Gout, unspecified (principal); I48.91 Unspecified atrial fibrillation; I25.10 Atherosclerotic heart disease of native coronary artery without angina pectoris; E03.8 Other specified hypothyroidism; E21.3 Hyperparathyroidism, unspecified
CPT/HCPCS: 36415; 80053; 80061; 83735; 83970; 84439; 84443; 84550; 85025